=== PATIENT | male | born 1985 | race Caucasian/White ===

== ENCOUNTER 2022-12-29 11:52 | Outpatient (OUT) | payer OTHER, SELFPAY ==
--- NOTE | 2022-12-29 | XR_ITS ---
[address] [address] Patient Name: MIGUEL WHITTEN MRN: [id number] date: 1985 Sex: M Assigned Patient Location: RAD Current Patient Location: [facility] Accession/Order Number: [id number] Exam Date: 12/29/2022 12:09 Report Date: 12/29/2022 12:40 At the request of: DANIS ROCA Procedure: XR ankle RT min 3V PROCEDURE: XR tibia fibula RT 2V, XR ankle RT min 3V COMPARISON: None. HISTORY: Right ankle sprain FINDINGS: BONES:No fracture, acute abnormality, or significant arthropathy. SOFT TISSUES:Negative. No visible soft tissue swelling. EFFUSION:None visible. OTHER: Negative. XR/XR ankle RT min 3V IMPRESSION: No acute abnormality of the lower leg or ankle Electronically authenticated by: LORAINE HEADLEY Date: 12/29/2022 12:40
--- NOTE | 2022-12-29 12:03 | XR_ITS ---
The [address] [address] Patient Name: MIGUEL WHITTEN MRN: [id number] date: 1985 Sex: M Assigned Patient Location: RAD Current Patient Location: [facility] Accession/Order Number: [id number] Exam Date: 12/29/2022 12:09 Report Date: 12/29/2022 12:40 At the request of: DANIS ROCA Procedure: XR tibia fibula RT 2V PROCEDURE: XR tibia fibula RT 2V, XR ankle RT min 3V COMPARISON: None. HISTORY: Right ankle sprain FINDINGS: BONES:No fracture, acute abnormality, or significant arthropathy. SOFT TISSUES:Negative. No visible soft tissue swelling. EFFUSION:None visible. OTHER: Negative. XR/XR tibia fibula RT 2V IMPRESSION: No acute abnormality of the lower leg or ankle Electronically authenticated by: LORAINE HEADLEY Date: 12/29/2022 12:40
== END 2022-12-29 11:53 | disposition home or self-care (01) ==
PROVIDERS: Visit Provider Nurse Practitioner Family
DX: S93.401A Sprain of unspecified ligament of right ankle, initial encounter (principal)
CPT/HCPCS: 73590; 73610

== ENCOUNTER 2023-01-13 10:39 | Outpatient (OUT) | payer BC, SELFPAY ==
--- NOTE | 2023-01-13 10:48 | XR_ITS ---
The [place] [id number] Patient Name: MIGUEL WHITTEN MRN: [id number] date: 1985 Sex: M Assigned Patient Location: RAD Current Patient Location: [facility] Accession/Order Number: [id number] Exam Date: 01/13/2023 10:55 Report Date: 01/13/2023 16:00 At the request of: DANIS ROCA Procedure: XR ankle RT min 3V EXAM: XR ankle RT min 3V HISTORY: Right Ankle Sprain COMPARISON: 12/29/2022. TECHNIQUE: 3 views right ankle. FINDINGS: No fracture or dislocation. No significant soft tissue swelling. No significant degenerative change. XR/XR ankle RT min 3V IMPRESSION: Unremarkable views right ankle. Electronically authenticated by: SEAN SANDHU Date: 01/13/2023 16:00
--- NOTE | 2023-01-13 10:48 | XR_ITS ---
The [address] [address] Patient Name: MIGUEL WHITTEN MRN: [id number] date: 1985 Sex: M Assigned Patient Location: RAD Current Patient Location: [facility] Accession/Order Number: [id number] Exam Date: 01/13/2023 10:55 Report Date: 01/13/2023 16:02 At the request of: DANIS ROCA Procedure: XR tibia fibula RT 2V EXAM: XR tibia fibula RT 2V HISTORY: Right Ankle Sprain COMPARISON: None. TECHNIQUE: 2 views right lower leg. FINDINGS: Tibia and fibula are intact. Minimal soft tissue edema distally. The knee and ankle are grossly intact. XR/XR tibia fibula RT 2V IMPRESSION: No fracture right lower leg. Electronically authenticated by: SEAN SANDHU Date: 01/13/2023 16:02
== END 2023-01-13 10:40 | disposition home or self-care (01) ==
LOC: RAD 10:42
PROVIDERS: Visit Provider Nurse Practitioner Family
DX: S93.401A Sprain of unspecified ligament of right ankle, initial encounter (principal)
CPT/HCPCS: 73590; 73610

== ENCOUNTER 2023-01-20 16:48 | Emergency (ER) | payer BC, SELFPAY ==
[2023-01-20 16:51] VITALS: BP 137/107; PULSE 83; RESP 18; TEMP 36.9; O2SAT 97; BMI 41.3
--- NOTE | 2023-01-20 16:56 | CT_ITS ---
[place] [id number] Patient Name: MIGUEL WHITTEN MRN: [id number] date: 1985 Sex: M Assigned Patient Location: ER Current Patient Location: ER Accession/Order Number: [id number] Exam Date: 01/20/2023 17:21 Report Date: 01/20/2023 17:40 At the request of: IRIS BARGER Procedure: CT abdomen pelvis wo con EXAMINATION: CT abdomen pelvis wo con, 01/20/2023 2:21 PM PDT HISTORY: Flank pain COMPARISON: CT abdomen and pelvis 09/27/2021. TECHNIQUE: CT scan of the abdomen and pelvis was performed without IV contrast. CT dose reduction technique was used, including Automated Exposure Control. FINDINGS: Lung: No significant finding. Liver: No significant finding. Gallbladder: No significant finding. Spleen: No significant finding. Pancreas: No significant finding. Adrenal glands: No significant finding. Kidneys, ureters and bladder: No renal/urinary tract calculi. No hydronephrosis. Bladder is decompressed. Circumferential bladder wall thickening. Bowel: Normal appendix. Colonic diverticulosis without diverticulitis. Peritoneum/retroperitoneum: No significant finding. Lymph nodes: No significant finding. Vessels: No significant finding. Body wall: Tiny fat-containing umbilical hernia. Reproductive: No significant finding. Bones: Serpiginous sclerotic densities of the bilateral femoral heads. CT/CT abdomen pelvis wo con IMPRESSION: No renal/urinary tract calculi. Bladder wall thickening, correlate for cystitis. Early bilateral femoral head AVN. Electronically authenticated by: BRENDON TRAN Date: 01/20/2023 17:40
--- NOTE | 2023-01-20 17:03 | ED.GENADUL1 ---
HPI - General Adult General Chief complaint: Back Pain/Injury Stated complaint: Lower Back Pain x2 days Time Seen by Provider: 01/20/23 16:49 Source: patient Mode of arrival: walk-in History of Present Illness HPI narrative: patient is a 37-year-old male presents the emergency department for the evaluation of left flank pain for the last two days. He denies fevers, vomiting, urinary symptoms. He has not had any injury or trauma to the back. He denies abdominal pain. no medications taken prior to arrival. He does have a history of kidney stones. He states he had an illness as a child and now chronically has microscopic hematuria. He has not noticed any bing blood and has not had any dysuria. Pain is worse with movement. He denies any pain radiation to the lower extremities although he chronically has some pain to the bilateral hips. Related Data Home Medications Medication Instructions Recorded Confirmed allopurinol 300 mg tablet 300 mg PO DAILY 01/20/23 01/20/23 bupropion HCl 300 mg 24 hr tablet, 300 mg PO DAILY 01/20/23 01/20/23 extended release esomeprazole magnesium 40 mg 40 mg PO DAILY 01/20/23 01/20/23 capsule,delayed release levothyroxine 175 mcg tablet 175 mcg PO DAILY 01/20/23 01/20/23 (Synthroid) Previous Rx's Medication Instructions Recorded methocarbamol 750 mg tablet 750 mg PO TID PRN pain #20 tabs 01/20/23 naproxen sodium 550 mg tablet 550 mg PO BID PRN pain #10 tabs 01/20/23 Allergies Allergy/AdvReac Type Severity Reaction Status Date / Time No Known Drug Allergies Allergy Verified 01/20/23 16:51 Review of Systems ROS Constitutional Denies: fever or chills Cardiovascular Denies: chest pain Respiratory Denies: shortness of breath or cough Gastrointestinal Reports: nausea; Denies: abdominal pain or vomiting Genitourinary Denies: painful urination Musculoskeletal Reports: back pain Integumentary/Breast Denies: rash Hematologic/Lymphatic Denies: easy bruising Allergic/Immunologic Denies: hives Exam Narrative Exam Narrative: Gen.: Awake, alert, in no distress Head: Normocephalic, atraumatic ENT: Moist mucous membranes Respiratory: No respiratory distress, lungs clear bilaterally Cardio: Regular rate and rhythm Gastrointestinal: Abdomen is soft, nondistended and nontender to palpation; no spinal tenderness or CVA tenderness Extremities: Moves extremities equally, no injuries noted Psych: Normal mood and affect Neuro: No focal neuro deficit Skin: Warm, dry, intact Constitutional Vital Signs, click to edit/add: Last Vital Signs Temp 98.5 F 01/20/23 16:51 Pulse 83 01/20/23 16:51 Resp 18 01/20/23 16:51 BP 137/107 H 01/20/23 16:51 Pulse Ox 97 01/20/23 16:51 O2 Del Method Room Air 01/20/23 16:51 Course Vital Signs Vital signs: Vital Signs Temperature 98.5 F 01/20/23 16:51 Pulse Rate 83 01/20/23 16:51 Respiratory Rate 18 01/20/23 16:51 Blood Pressure 137/107 H 01/20/23 16:51 Pulse Oximetry 97 01/20/23 16:51 Oxygen Delivery Method Room Air 01/20/23 16:51 Temperature 98.5 F 01/20/23 16:51 Pulse Rate 83 01/20/23 16:51 Respiratory Rate 18 01/20/23 16:51 Blood Pressure 137/107 H 01/20/23 16:51 Pulse Oximetry 97 01/20/23 16:51 Oxygen Delivery Method Room Air 01/20/23 16:51 Medical Decision Making MDM Narrative Medical decision making narrative: patient medicated with IV fluids, Dilaudid, Toradol, Zofran with improvement. Lab studies are unremarkable, urine specimen with no hematuria or urinary tract infection. CT of the abdomen and pelvis without contrast shows no evidence of ureteral calculi. 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 He was made aware of these results, he has been seen for this in the past by orthopedics but does not currently have an orthopedist. We will give him a referral. He is given NSAIDs and muscle relaxants for his back pain, follow-up with PCP and return to the Emergency Room if symptoms change or worsen Medical Records Medical records reviewed: Yes I reviewed the patient's medical records Lab Data Lab results reviewed: Yes I reviewed the patient's lab results Labs: Lab Results 01/20/23 Range/Units 17:00 WBC 5.6 (4.0-11.0) 10^3/uL RBC 4.68 L (4.70-6.10) 10^6/uL Hgb 14.2 (14.0-18.0) g/dL Hct 41.3 L (42.0-54.0) % MCV 88.2 (80.0-94.0) fL MCH 30.3 (25.9-34.0) pg MCHC 34.4 (29.9-35.2) g/dL RDW 12.8 (11.0-15.0) % Plt Count 234 (150-450) 10^3/uL MPV 10.6 (9.5-13.5) fL Neut % (Auto) 66.9 (43.0-75.0) % Lymph % (Auto) 23.9 (20.5-60.0) % [place] % (Auto) 7.0 (1.7-12.0) % Eos % (Auto) 1.4 (0.9-7.0) % Baso % (Auto) 0.4 (0.2-2.0) % Neut # (Auto) 3.7 (1.4-6.5) 10^3/uL Lymph # (Auto) 1.3 (1.2-3.8) 10^3/uL [place] # (Auto) 0.4 (0.3-0.8) 10^3/uL Eos # (Auto) 0.1 (0.0-0.7) 10^3/uL Baso # (Auto) 0.0 (0.0-0.1) 10^3/uL Abs Immat Gran (auto) 0.02 (0.00-0.03) 10^3/uL Imm/Tot Granulo (auto) 0.4 (0.0-0.5) % Sodium 141 (136-145) mmol/L Potassium 3.9 (3.5-5.1) mmol/L Chloride 105 (98-107) mmol/L Carbon Dioxide 26.1 (21.0-32.0) mmol/L Anion Gap 13.8 BUN 13.0 (7.0-18.0) mg/dL Creatinine 1.31 H (0.70-1.30) mg/dL Est GFR ( Amer) >60 (>=60) Est GFR (Non-Af Amer) >60 (>=60) BUN/Creatinine Ratio 9.9 Glucose 96 (74-106) mg/dL Lactate 1.0 (0.4-2.0) mmol/L Calcium 8.8 (8.5-10.1) mg/dL Total Bilirubin 0.4 (0.2-1.0) mg/dL AST 16 (15-37) U/L ALT 41 (16-63) U/L Alkaline Phosphatase 58 (46-116) U/L Total Protein 7.6 (6.4-8.2) g/dL Albumin 4.2 (3.4-5.0) g/dL Globulin 3.4 g/dL Albumin/Globulin Ratio 1.2 Lipase 58.0 L (73.0-393.0) U/L Urine Color Yellow (YELLOW) Urine Clarity Clear (CLEAR) Urine pH 5.5 (5.0-9.0) Ur Specific [place] >=1.030 A (1.005-1.025) Urine Protein Negative (NEG/TRACE) mg/dL Urine Glucose (UA) Negative (NEGATIVE) mg/dL Urine Ketones Negative (NEGATIVE) mg/dL Urine Occult Blood Negative (NEGATIVE) Urine Nitrite Negative (NEGATIVE) Urine Bilirubin Negative (NEGATIVE) Urine Urobilinogen 1.0 (0.2-1.0) EU/dL Ur Leukocyte Esterase Negative (NEGATIVE) Imaging Data CT scan - abdomen: Attestation: I have reviewed the pertinent imaging results. Radiologist's impression: Procedure: CT abdomen pelvis [facility] EXAMINATION: CT abdomen pelvis wo [facility], 01/20/2023 2:21 PM PDT HISTORY: Flank pain COMPARISON: CT abdomen and pelvis 09/27/2021. TECHNIQUE: CT scan of the abdomen and pelvis was performed without IV contrast. CT dose reduction technique was used, including Automated Exposure Control. FINDINGS: Lung: No significant finding. Liver: No significant finding. Gallbladder: No significant finding. Spleen: No significant finding. Pancreas: No significant finding. Adrenal glands: No significant finding. Kidneys, ureters and bladder: No renal/urinary tract calculi. No hydronephrosis. Bladder is decompressed. Circumferential bladder wall thickening. Bowel: Normal appendix. Colonic diverticulosis without diverticulitis. Peritoneum/retroperitoneum: No significant finding. Lymph nodes: No significant finding. Vessels: No significant finding. Body wall: Tiny fat-containing umbilical hernia. Reproductive: No significant finding. Bones: Serpiginous sclerotic densities of the bilateral femoral heads. IMPRESSION: No renal/urinary tract calculi. Bladder wall thickening, correlate for cystitis. Early bilateral femoral head AVN. Electronically authenticated by: BRENDON TRAN Date: 01/20/2023 17:40 Discharge Plan Discharge Chief Complaint: Back Pain/Injury Clinical Impression: Low back pain Patient Disposition: Home, Self-Care Time of Disposition Decision: 18:06 Condition: Good Prescriptions / Home Meds: New methocarbamol 750 mg tablet 750 mg PO TID PRN (Reason: pain) Qty: 20 0RF naproxen sodium 550 mg tablet 550 mg PO BID PRN (Reason: pain) Qty: 10 0RF No Action allopurinol 300 mg tablet 300 mg PO DAILY bupropion HCl 300 mg tablet extended release 24 hr 300 mg PO DAILY esomeprazole magnesium 40 mg capsule,delayed release(DR/EC) 40 mg PO DAILY levothyroxine [Synthroid] 175 mcg tablet 175 mcg PO DAILY Instructions: Acute Low Back Pain (ED) Stand Alone Forms: Portal Instructions Referrals: Nathan De Guzman DO [Primary Care Provider] - 1 week Michael Wagner MD [Physician] - 1 week (Orthopedics regarding bilateral hip findings on CT)
[2023-01-20] MEDS: 0.9 % SODIUM CHLORIDE 1,000 ML 1000 ML IV (17:14)
[2023-01-20] MEDS: KETOROLAC TROMETHAMINE 30 MG/ML VIAL IVP (17:15)
[2023-01-20] MEDS: ONDANSETRON PF 4 MG/2 ML VIAL IV (17:15)
[2023-01-20] MEDS: HYDROMORPHONE HCL 1 MG/ML CARTRIDGE IVP (17:16)
[2023-01-20 17:20] LABS: Basophils Percent Auto 0.4 % (0.2-2.0); Eosinophils Absolute Auto 0.1 10^3/uL (0.0-0.7); Eosinophils Percent Auto 1.4 % (0.9-7.0); Hematocrit 41.3 % (42.0-54.0); Hemoglobin 14.2 g/dL (14.0-18.0); Immature Granulocytes Abs Auto 0.02 10^3/uL (0.00-0.03); Immature Granulocytes Pct Auto 0.4 % (0.0-0.5); Lymphocytes Absolute Auto 1.3 10^3/uL (1.2-3.8); Lymphocytes Percent Auto 23.9 % (20.5-60.0); Mean Corpuscular HGB Conc 34.4 g/dL (29.9-35.2); Mean Corpuscular Hemoglobin 30.3 pg (25.9-34.0); Mean Corpuscular Volume 88.2 fL (80.0-94.0); Mean Platelet Volume 10.6 fL (9.5-13.5); Monocytes Absolute Auto 0.4 10^3/uL (0.3-0.8); Neutrophils Absolute Auto 3.7 10^3/uL (1.4-6.5); Neutrophils Percent Auto 66.9 % (43.0-75.0); Platelet Count 234 10^3/uL (150-450); Red Blood Count 4.68 10^6/uL (4.70-6.10); Red Cell Distribution Width 12.8 % (11.0-15.0); White Blood Count 5.6 10^3/uL (4.0-11.0)
[2023-01-20 17:23] LABS: Bilirubin Urine NEGATIVE (NEGATIVE); Blood Urine NEGATIVE (NEGATIVE); Clarity Urine CLEAR (CLEAR); Color Urine YELLOW (YELLOW); Glucose Urine UA NEGATIVE (NEGATIVE); Ketones Urine NEGATIVE (NEGATIVE); Leukocyte Esterase Urine NEGATIVE (NEGATIVE); Nitrite Urine NEGATIVE (NEGATIVE); Protein Urine NEGATIVE (NEG/TRACE); Specific Gravity Urine >=1.030 (1.005-1.025); pH Urine 5.5 (5.0-9.0)
--- NOTE | 2023-01-20 17:23 | PC.NURSE ---
pt does reprot he had a childhood illness which was some type of purpura that caused him to have trace blood in urine. currently reports urine is no different than usual. no problems urinating or with bm's
[2023-01-20 17:27] LABS: Urine Microscopic Indicated NO
[2023-01-20 17:39] LABS: Alanine Aminotransferase 41 U/L (16-63); Albumin Globulin Ratio 1.2; Albumin Level 4.2 g/dL (3.4-5.0); Alkaline Phosphatase 58 U/L (46-116); Anion Gap 13.8; Aspartate Amino Transferase 16 U/L (15-37); BUN Creatinine Ratio 9.9; Bilirubin Total 0.4 mg/dL (0.2-1.0); Calcium 8.8 mg/dL (8.5-10.1); Carbon Dioxide 26.1 mmol/L (21.0-32.0); Chloride 105 mmol/L (98-107); Estimated GFR (African America >60 (>=60); Estimated GFR (Non-African Ame >60 (>=60); Globulin 3.4 g/dL; Glucose 96 mg/dL (74-106); Potassium 3.9 mmol/L (3.5-5.1); Sodium 141 mmol/L (136-145); Total Protein 7.6 g/dL (6.4-8.2)
== END 2023-01-20 18:14 | disposition home or self-care (01) ==
PROVIDERS: Physician Assistant; Emergency Provider Emergency Medicine; PCP Family Medicine
DX: M54.50 Low back pain, unspecified (principal); Z87.442 Personal history of urinary calculi; M87.9 Osteonecrosis, unspecified
CPT/HCPCS: 36415; 74176; 80053; 81003; 83605; 83690; 85025; 96374; 96375; 99285; J1170

== ENCOUNTER 2023-08-26 22:20 | Emergency (ER) | payer BC, SELFPAY ==
[2023-08-26 22:26] VITALS: BP 148/98; PULSE 75; TEMP 36.7; O2SAT 100
--- NOTE | 2023-08-26 22:47 | CT_ITS ---
[address] [address] Patient Name: MIGUEL WHITTEN MRN: [id number] date: 1985 Sex: M Assigned Patient Location: ER Current Patient Location: ER Accession/Order Number: [id number] Exam Date: 08/26/2023 23:30 Report Date: 08/27/2023 00:31 At the request of: LEVI MARKER Procedure: CT abdomen pelvis w con EXAM: CT abdomen pelvis w con HISTORY: Abd pain, right lower quadrant pain, vomiting and diarrhea x2 days. COMPARISON: CT 01/20/2023. TECHNIQUE: Multiple axial CT images of the abdomen and pelvis were performed with IV contrast. 2D coronal and sagittal reformations were submitted for review. Dose reduction techniques were achieved by using automated exposure control and/or adjustment of mA and/or kV according to patient size and/or use of iterative reconstruction technique. FINDINGS: LUNGS: The lung bases are clear. No pleural effusion. ABDOMINAL AORTA: No aortic aneurysm identified. LYMPH NODES: No retroperitoneal, mesenteric or pelvic lymphadenopathy. LIVER: Liver contour appears smooth. No focal liver parenchymal mass identified. BILIARY TREE AND GALLBLADDER: No intrahepatic or extrahepatic bile duct dilatation. Gallbladder is fluid distended without calcified gallstones. PANCREAS: Normal in size without masses or ductal dilatation. No peripancreatic inflammatory changes. SPLEEN: Normal in size without focal lesions. ADRENAL GLANDS: Normal bilaterally, without nodules. KIDNEYS/URINARY BLADDER: Kidneys enhance in a symmetric fashion. No parenchymal lesions identified. No KUB stones or hydronephrosis identified. The urinary bladder appears unremarkable. GASTROINTESTINAL TRACT: Scattered fluid throughout nondilated small and large bowel loops. No bowel obstruction is identified. The stomach and duodenum appear unremarkable. Appendix appears normal. PERITONEAL CAVITY AND SURFACES: No free fluid. No free intraperitoneal air. REPRODUCTIVE ORGANS: Prostate gland measures 3.0 cm. ABDOMINAL WALL: Noninflamed fat-containing umbilical hernia. OSSEOUS STRUCTURES: No aggressive appearing osseous lesions. No compression fracture is identified. Schmorl's nodes along the lower thoracic spine. 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 CT/CT abdomen pelvis w con IMPRESSION: 1. Scattered fluid throughout nondilated small and large bowel loops suggesting enterocolitis. No bowel obstruction. 2. Normal CT appearance of the appendix. 3. 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 Electronically authenticated by: SRIRAM NIÑO Date: 08/27/2023 00:31
--- NOTE | 2023-08-26 22:47 | ECG_ITS ---
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
[2023-08-26 22:57] LABS: Basophils Percent Auto 0.1 % (0.2-2.0); Eosinophils Absolute Auto 0.1 10^3/uL (0.0-0.7); Eosinophils Percent Auto 1.1 % (0.9-7.0); Hematocrit 47.6 % (42.0-54.0); Hemoglobin 15.6 g/dL (14.0-18.0); Immature Granulocytes Abs Auto 0.02 10^3/uL (0.00-0.03); Immature Granulocytes Pct Auto 0.2 % (0.0-0.5); Lymphocytes Absolute Auto 1.9 10^3/uL (1.2-3.8); Mean Corpuscular HGB Conc 32.8 g/dL (29.9-35.2); Mean Corpuscular Hemoglobin 30.1 pg (25.9-34.0); Mean Corpuscular Volume 91.9 fL (80.0-94.0); Mean Platelet Volume 10.2 fL (9.5-13.5); Monocytes Absolute Auto 0.5 10^3/uL (0.3-0.8); Monocytes Percent Auto 5.5 % (1.7-12.0); Neutrophils Absolute Auto 7.2 10^3/uL (1.4-6.5); Neutrophils Percent Auto 74.1 % (43.0-75.0); Platelet Count 269 10^3/uL (150-450); Red Blood Count 5.18 10^6/uL (4.70-6.10); Red Cell Distribution Width 13.2 % (11.0-15.0); White Blood Count 9.7 10^3/uL (4.0-11.0)
--- NOTE | 2023-08-26 23:02 | ED.ABDPAIN1 ---
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 The patient and his family went to a seafood boil on Thursday night. He is the only one that ate mussels. Shortly after dinner he started experiencing some discomfort in his lower abdomen as she described as cramps. He has had some diarrhea since that time and earlier this evening started becoming nauseated with vomiting. He has pain in the right lower quadrant that he states goes into his back. He does not really the last time he urinated but has not noticed any blood in his urine. He states his urine is always dark. He has not had a fever. His appetite is been diminished but he did have a hot dog for lunch earlier today. He has been Nauseated but has not vomited until coming to the emergency department. He has not had a fever but admits to some degree of chills. Related Data Home Medications ?Medication ?Instructions ?Recorded ?Confirmed allopurinol 300 mg tablet 300 mg PO DAILY 01/20/23 08/26/23 bupropion HCl 300 mg 24 hr tablet, 300 mg PO DAILY 01/20/23 08/26/23 extended release esomeprazole magnesium 40 mg 40 mg PO DAILY 01/20/23 08/26/23 capsule,delayed release levothyroxine 175 mcg tablet 175 mcg PO DAILY 01/20/23 08/26/23 (Synthroid) semaglutide 0.25 mg or 0.5 mg (2 0.25 mg subcut QWEEK 08/26/23 08/26/23 mg/1.5 mL) subcutaneous pen injector (Ozempic) sucralfate 1 gram tablet 1 g PO Q6H 08/26/23 08/26/23 Allergies Allergy/AdvReac Type Severity Reaction Status Date / Time No Known Drug Allergies Allergy Verified 08/26/23 22:29 Review of Systems ROS Status of ROS 10 or more systems reviewed and unremarkable except as noted in history and below Exam Narrative Exam Narrative: Nurses note and vital signs reviewed and patient is not hypoxic. Blood pressure noted to be elevated at 140/98 General: Nontoxic but uncomfortable appearing overweight adult male, he is actively vomiting upon arrival to the emergency department, no respiratory distress Skin: Warm, dry, no pallor noted. There is no rash noted. Head: Normocephalic, atraumatic Eye: Normal conjunctiva, no drainage, EOMI. PERRL. No scleral icterus Ears, Nose, Mouth, and Throat: oral mucosa is sticky Cardiovascular: Regular Rate and [id number]@, no murmurs, rubs or gallops Respiratory: Patient is in no distress, no accessory muscle use, lungs are clear to auscultation, no wheezing, rales or rhonchi Back: non-tender, no CVA tenderness bilaterally to percussion. GI: Obese, soft, diffusely tender, localizes to the right lower quadrant voluntary guarding also also has mild tenderness in the left lower quadrant Musculoskeletal: The patient has no evidence of calf tenderness, no pitting edema, symmetrical pulses noted bilaterally Neurological: A&O x4, normal speech Psychiatric: Cooperative Constitutional Vital Signs, click to edit/add: Last Vital Signs Temp 98.0 F 08/26/23 22:26 Pulse 63 08/27/23 02:09 Resp 16 08/27/23 02:09 BP 132/78 08/27/23 02:09 Pulse Ox 100 08/27/23 02:09 O2 Del Method Room Air 08/26/23 22:26 Course Vital Signs Vital signs: Vital Signs Temperature 98.0 F 08/26/23 22:26 Pulse Rate 75 08/26/23 22:26 Respiratory Rate 18 08/26/23 22:26 Blood Pressure 148/98 H 08/26/23 22:26 Pulse Oximetry 100 08/26/23 22:26 Oxygen Delivery Method Room Air 08/26/23 22:26 Temperature 98.0 F 08/26/23 22:26 Pulse Rate 63 08/27/23 02:09 Respiratory Rate 16 08/27/23 02:09 Blood Pressure 132/78 08/27/23 02:09 Pulse Oximetry 100 08/27/23 02:09 Oxygen Delivery Method Room Air 08/26/23 22:26 MDM - Abdominal Pain MDM Narrative Medical decision making narrative: This 37-year-old male presents for evaluation of right lower quadrant abdominal pain that goes into his back starting on Thursday after going to a seafood boil. He started feeling ill shortly after getting home from dinner that evening. He has had some diarrhea and abdominal cramps but today his abdominal pain became severe and localized to the right lower quadrant and is associated with nausea and vomiting. He has had some chills but no fever. He could not recall the last time he urinated. He does appear to be dehydrated. EKG done upon arrival was normal sinus rhythm at 76 beats for minute. An IV was placed and he was medicated with IV fluids, Zofran and 1 mg of IV Dilaudid. Routine labs are reviewed. He has a normal white count and hemoglobin. His electrolytes, LFTs and lipase are normal. Creatinine is mildly elevated at 1.39. CT scan of the abdomen and pelvis with IV contrast was ordered and does not show any acute findings aside fluid in the colon consistent with enteritis, There is no bowel obstruction or other notable abnormality. Appendix was noted to be normal. Results of the labs and CT scan were discussed with the patient and his . He is still having pain and will be remedicated with Bentyl and morphine and additional liter of normal saline. He still has not urinated. On re-evaluation, he is stating that his lower abdominal pain is returning and was re-medicated with a po dose of percocet and IV toradol He will be discharged home with Rx for Bentyl, zofran and percocet. He was encouraged to drink plenty of clear liquids and advance his diet slowly as tolerated Medical Records Medical records narrative: [place] [address] CT Scan Report Draft Patient: MIGUEL WHITTEN MR#: [id number] : 1985 Acct:[id number] Age/Sex: 37 / M ADM Date: 08/26/23 Loc: ER Attending Dr: Ordering Physician: Bárbara Smith Date of Service: 08/26/23 Procedure(s): CT abdomen pelvis w con Accession Number(s): [id number] cc: ~ [facility] [place] [address] Patient Name: MIGUEL WHITTEN MRN: [id number] date: 1985 Sex: M Assigned Patient Location: ER Current Patient Location: ER Accession/Order Number: [id number] Exam Date: 08/26/2023 23:30 Report Date: 08/27/2023 00:23 At the request of: BÁRBARA MARKER Procedure: CT abdomen pelvis w con EXAM: CT abdomen pelvis w con HISTORY: Abd pain, right lower quadrant pain, vomiting and diarrhea x2 days. COMPARISON: CT 01/20/2023. TECHNIQUE: Multiple axial CT images of the abdomen and pelvis were performed with IV contrast. 2D coronal and sagittal reformations were submitted for review. Dose reduction techniques were achieved by using automated exposure control and/or adjustment of mA and/or kV according to patient size and/or use of iterative reconstruction technique. FINDINGS: LUNGS: The lung bases are clear. No pleural effusion. ABDOMINAL AORTA: No aortic aneurysm identified. LYMPH NODES: No retroperitoneal, mesenteric or pelvic lymphadenopathy. LIVER: Liver contour appears smooth. No focal liver parenchymal mass identified. BILIARY TREE AND GALLBLADDER: No intrahepatic or extrahepatic bile duct dilatation. Gallbladder is fluid distended without calcified gallstones. PANCREAS: Normal in size without masses or ductal dilatation. No peripancreatic inflammatory changes. SPLEEN: Normal in size without focal lesions. ADRENAL GLANDS: Normal bilaterally, without nodules. KIDNEYS/URINARY BLADDER: Kidneys enhance in a symmetric fashion. No parenchymal lesions identified. No KUB stones or hydronephrosis identified. The urinary bladder appears unremarkable. GASTROINTESTINAL TRACT: Scattered fluid throughout nondilated small and large bowel loops. No bowel obstruction is identified. The stomach and duodenum appear unremarkable. Appendix appears normal. PERITONEAL CAVITY AND SURFACES: No free fluid. No free intraperitoneal air. REPRODUCTIVE ORGANS: Prostate gland measures 3.0 cm. ABDOMINAL WALL: Noninflamed fat-containing umbilical hernia. OSSEOUS STRUCTURES: No aggressive appearing osseous lesions. No compression fracture is identified. Schmorl's nodes along the lower thoracic spine. 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 CT/CT abdomen pelvis w con IMPRESSION: 1. Scattered fluid throughout nondilated small and large bowel loops suggesting enterocolitis. No bowel obstruction. 2. Normal CT appearance of the appendix. 3. 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 Electronically authenticated by: SRIRAM NIÑO Date: 08/27/2023 00:2 Lab Data Labs: Lab Results 08/26/23 Range/Units 22:42 WBC 9.7 (4.0-11.0) 10^3/uL RBC 5.18 (4.70-6.10) 10^6/uL Hgb 15.6 (14.0-18.0) g/dL Hct 47.6 (42.0-54.0) % MCV 91.9 (80.0-94.0) fL MCH 30.1 (25.9-34.0) pg MCHC 32.8 (29.9-35.2) g/dL RDW 13.2 (11.0-15.0) % Plt Count 269 (150-450) 10^3/uL MPV 10.2 (9.5-13.5) fL Neut % (Auto) 74.1 (43.0-75.0) % Lymph % (Auto) 19.0 L (20.5-60.0) % [place] % (Auto) 5.5 (1.7-12.0) % Eos % (Auto) 1.1 (0.9-7.0) % Baso % (Auto) 0.1 L (0.2-2.0) % Neut # (Auto) 7.2 H (1.4-6.5) 10^3/uL Lymph # (Auto) 1.9 (1.2-3.8) 10^3/uL [place] # (Auto) 0.5 (0.3-0.8) 10^3/uL Eos # (Auto) 0.1 (0.0-0.7) 10^3/uL Baso # (Auto) 0.0 (0.0-0.1) 10^3/uL Abs Immat Gran (auto) 0.02 (0.00-0.03) 10^3/uL Imm/Tot Granulo (auto) 0.2 (0.0-0.5) % Sodium 138 (136-145) mmol/L Potassium 3.4 L (3.5-5.1) mmol/L Chloride 103 (98-107) mmol/L Carbon Dioxide 25.1 (21.0-32.0) mmol/L Anion Gap 13.3 BUN 16.0 (7.0-18.0) mg/dL Creatinine 1.39 H (0.70-1.30) mg/dL Est GFR ( Amer) >60 (>=60) Est GFR (Non-Af Amer) 58 L (>=60) BUN/Creatinine Ratio 11.5 Glucose 123 H (74-106) mg/dL Lactate 2.2 H* (0.4-2.0) mmol/L Calcium 9.3 (8.5-10.1) mg/dL Total Bilirubin 0.8 (0.2-1.0) mg/dL AST 17 (15-37) U/L ALT 35 (16-63) U/L Alkaline Phosphatase 69 (46-116) U/L Total Protein 7.4 (6.4-8.2) g/dL Albumin 4.2 (3.4-5.0) g/dL Globulin 3.2 g/dL Albumin/Globulin Ratio 1.3 Lipase 33.0 (16.0-77.0) U/L Urine Color Yellow (YELLOW) Urine Clarity Clear (CLEAR) Urine pH 5.5 (5.0-9.0) Ur Specific [place] >=1.030 A (1.005-1.025) Urine Protein Trace (NEG/TRACE) mg/dL Urine Glucose (UA) Negative (NEGATIVE) mg/dL Urine Ketones Negative (NEGATIVE) mg/dL Urine Occult Blood Negative (NEGATIVE) Urine Nitrite Negative (NEGATIVE) Urine Bilirubin Negative (NEGATIVE) Urine Urobilinogen 1.0 (0.2-1.0) EU/dL Ur Leukocyte Esterase Negative (NEGATIVE) Urine RBC 0-2 (0-2) #/HPF Urine WBC 0-2 A (NONE SEEN) #/HPF Ur Squamous Epith Cells None seen (NONE/RARE) #/LPF Urine Crystals Seen A (None Seen) #/HPF Urine Bacteria Trace A (NONE SEEN) #/HPF Urine Casts Seen A (NONE SEEN) #/LPF Hyaline Casts Rare Urine Mucus Moderate A (NONE SEEN) Ur Culture Indicated? No ECG Data Attestation: I personally reviewed and interpreted this ECG as follows: (Sinus rhythm at 76 beats for minute, normal axis, normal intervals, no acute ST segment elevation or T-wave inversion) Discharge Plan Discharge Stand Alone Forms: Portal Instructions Chief Complaint: Abdominal Pain Clinical Impression: Gastroenteritis, Enterocolitis Patient Disposition: Home, Self-Care Time of Disposition Decision: 02:30 Condition: Good Prescriptions / Home Meds: No Action allopurinol 300 mg tablet 300 mg PO DAILY bupropion HCl 300 mg tablet extended release 24 hr 300 mg PO DAILY esomeprazole magnesium 40 mg capsule,delayed release(DR/EC) 40 mg PO DAILY levothyroxine [Synthroid] 175 mcg tablet 175 mcg PO DAILY sucralfate 1 gram tablet 1 g PO Q6H Ozempic 0.25 mg or 0.5 mg(2 mg/1.5 mL) pen injector 0.25 mg subcut QWEEK Rx Instructions: for 4 weeks Print Language: Turkish Instructions: Gastroenteritis (ED), Acute Nausea and Vomiting (ED), Acute Diarrhea (ED) Referrals: Nathan De Guzman DO [Primary Care Provider] - 1 week
[2023-08-26] MEDS: FAMOTIDINE/PF 20 MG/2 ML VIAL IV (23:05)
[2023-08-26] MEDS: 0.9 % SODIUM CHLORIDE 1,000 ML 1000 ML IV (23:05)
[2023-08-26] MEDS: HYDROMORPHONE HCL 1 MG/ML CARTRIDGE IV (23:05)
[2023-08-26] MEDS: ONDANSETRON PF 4 MG/2 ML VIAL IV (23:05)
[2023-08-26 23:13] LABS: Alanine Aminotransferase 35 U/L (16-63); Albumin Globulin Ratio 1.3; Albumin Level 4.2 g/dL (3.4-5.0); Alkaline Phosphatase 69 U/L (46-116); Anion Gap 13.3; Aspartate Amino Transferase 17 U/L (15-37); BUN Creatinine Ratio 11.5; Bilirubin Total 0.8 mg/dL (0.2-1.0); Calcium 9.3 mg/dL (8.5-10.1); Carbon Dioxide 25.1 mmol/L (21.0-32.0); Chloride 103 mmol/L (98-107); Estimated GFR (African America >60 (>=60); Estimated GFR (Non-African Ame 58 (>=60); Globulin 3.2 g/dL; Glucose 123 mg/dL (74-106); Potassium 3.4 mmol/L (3.5-5.1); Sodium 138 mmol/L (136-145); Total Protein 7.4 g/dL (6.4-8.2)
[2023-08-26 23:18] LABS: Lactate/Lactic Acid 2.2 mmol/L (0.4-2.0)
[2023-08-27 00:01] LABS: Bilirubin Urine NEGATIVE (NEGATIVE); Blood Urine NEGATIVE (NEGATIVE); Clarity Urine CLEAR (CLEAR); Color Urine YELLOW (YELLOW); Glucose Urine UA NEGATIVE (NEGATIVE); Ketones Urine NEGATIVE (NEGATIVE); Leukocyte Esterase Urine NEGATIVE (NEGATIVE); Nitrite Urine NEGATIVE (NEGATIVE); Protein Urine TRACE mg/dL (NEG/TRACE); Specific Gravity Urine >=1.030 (1.005-1.025); pH Urine 5.5 (5.0-9.0)
[2023-08-27 00:09] LABS: Bacteria Urine TRACE #/HPF (NONE SEEN); Crystals Seen? Seen #/HPF (None Seen); Mucus Urine MODERATE (NONE SEEN); RBC Urine 0-2 #/HPF (0-2); Squamous Epithelial Cell Urine NONE SEEN #/LPF (NONE/RARE); WBC Urine 0-2 #/HPF (NONE SEEN)
[2023-08-27 00:11] LABS: Cast Seen? SEEN #/LPF (NONE SEEN); Hyaline Casts Urine RARE; Urine Culture Indicated NO
[2023-08-27] MEDS: MORPHINE SULFATE 4 MG/ML VIAL IV (00:49)
[2023-08-27] MEDS: DICYCLOMINE HCL 20 MG/2 ML VIAL IM (00:49)
[2023-08-27] MEDS: 0.9 % SODIUM CHLORIDE 1,000 ML 1000 ML IV (00:49)
[2023-08-27] MEDS: KETOROLAC TROMETHAMINE 30 MG/ML VIAL 15 MG IVP (02:07)
[2023-08-27] MEDS: OXYCODONE HCL/ACETAMINOPHEN 5MG/325MG 1 TAB PO ×2 (02:07→02:45)
[2023-08-27 02:09] VITALS: BP 132/78; PULSE 63; O2SAT 100
[2023-08-27] MEDS: ONDANSETRON 4 MG RAPDIS TABLET SL (02:45)
== END 2023-08-27 02:48 | disposition home or self-care (01) ==
PROVIDERS: Emergency Provider Emergency Medicine; PCP Family Medicine
DX: K52.9 Noninfective gastroenteritis and colitis, unspecified (principal); Z79.899 Other long term (current) drug therapy; Z79.890 Hormone replacement therapy; M87.9 Osteonecrosis, unspecified; D89.9 Disorder involving the immune mechanism, unspecified
CPT/HCPCS: 36415; 74177; 80053; 81001; 83605; 83690; 85025; 87507; 93005; 96361; 96372; 96374; 96375; 99285; J0500; J1170; Q9967

== ENCOUNTER 2023-09-27 13:48 | Emergency (ER) | payer BC, SELFPAY ==
--- OUTSIDE RECORDS SUMMARY | 2023-09-27 13:54 | XMS_ITS | CCD ---
Author Organization [facility] Care Team Providers Care Junior Php Developer Name Role Phone Jacob Ray Primary Care Provider [phone] Nathan Ray Unavailable DO Nathan Ray Primary Care Provider DO Nathan Ray Attending Provider ULISSES MOROCHO Attending Unavailable BAILEE, ULISSES Consulting Unavailable ULISSES MOROCHO Admitting Unavailable FLOR, DR EVANS Primary Care Unavailable GILBERT MILLER Consulting Unavailable TERRY SANZ Consulting Unavailable FLOR, DR EVANS Primary Care Unavailable PRUDENCIO, DR LES Rivera Attending Unavailable PRUDENCIO, DR LES Rivera Consulting Unavailable PRUDENCIO, DR LES Rivera Admitting Unavailable ANA MARTINEZ Consulting Unavailable ZAC, DR BHATIA Attending Unavailable ZAC, DR BHATIA Consulting Unavailable ZAC, DR BHATIA Admitting Unavailable FLOR, DR EVANS Primary Care Unavailable FLOR, DR EVANS Consulting Unavailable FLOR, DR EVANS Primary Care Unavailable NIAS, DR EVANS Admitting Unavailable KUNS, DR EVANS Attending Unavailable KUNS, DR EVANS Primary Care Unavailable KUNS, DR EVANS Admitting Unavailable KUNS, DR EVANS Attending Unavailable KUNS, DR EVANS Consulting Unavailable BERNARDO Mcdonough Attending Provider Kamlesh Church Unavailable Jack Mason Unavailable DO Nathan Ray Primary Care Provider [phone] BERNARDO Mcdonough Attending Provider MD Kamlesh Church Attending Provider [phone] DO Nathan Ray Primary Care Provider DO Nathan Ray Attending Provider MD Elmer Gonzalez II Attending Provider [phone] Elmer Gonzalez II Unavailable [phone] DO Nathan Ray Primary Care Provider [phone] Flor, DO Evans Attending Provider [phone] Shanna Rodgers Unavailable DO Nathan Ray Primary Care Provider MD Elmer Gonzalez II Attending Provider DO Fredo Parker Attending Provider [phone] BERNARDO Hale Attending Provider Erica Hale Unavailable Kasey Garcia Unavailable KELLEN WATSON Attending Unavailable KINA PARKERIN Referring Unavailable KELLEN WATSON Attending Unavailable KEITH FREDO Referring Unavailable MARILYN CURRY Attending Unavailable KEITH, FREDO Referring Unavailable KELLEN WATSON Attending Unavailable KEITH FREDO Referring Unavailable KELLEN WATSON Attending Unavailable KEITH FREDO Referring Unavailable Unavailable Primary Care Provider UnavailDO Nathan Bailey Primary Care Provider [phone] MD Elmer Gonzalez II Attending Provider Fredo Parker Unavailable DO Nathan Ray Primary Care Provider MD Elmer Gonzalez II Attending Provider [phone] Elmer Gonzalez II Attending Unavailabl Nathan Ellis Primary Care Unavailable Elmer Gonzalez II Admitting Unavaildonn e Nathan Ray Primary Care Unavailable Elmer Gonzalez II Admitting UnavailElmer Quispe II Attending UnavailaNthan Bailey Primary Care Unavailable Fredo Parker Admitting Unavailable Fredo Parker A Attending Unavailable Nathan Ray Primary Care Unavailable Erica Hale Admitting Unavailable Erica Hale Attending Unavailable NiasNathan Attending Unavailable Kuns, Nathan Admitting Unavailable Kuns, Nathan Primary Care Unavailable Kuns, Nathan Attending Unavailable Kuns, Nathan Admitting Unavailable Kuns, Nathan Primary Care Unavailable Kuns, Nathan Primary Care Unavailable Greer II, Elmer Black Admitting Unavailabl e Greer II, Elmer M Attending Unavailabl e Kuns, Nathan Primary Care Unavailable Fredo Parker Admitting Unavailable Fredo Parker Attending Unavailable Kuns, Nathan Primary Care Unavailable Kmalesh Church Admitting Unavailable Kamlesh Church Attending Unavailable Kuns, Jacob Lizzy Primary Care Provider Fredo Parker DO Unavailable [phone] JIM CROUCH Referring Unavailable KUNS, [facility] Primary Care Unavailable JIM CROUCH Referring Unavailable KUNS, JACOB LIZZY Primary Care Unavailable Flor, DO Evans Primary Care Provider [phone] DO Fredo Parker Attending Provider [facility] [phone] JIM CROUCH Referring Unavailable [facility], [facility] Primary Care Unavailable [facility], JACOB LIZZY Primary Care Unavailable JIM CROUCH Attending Unavailable FREDO PARKER Referring Unavailable KUNS, JACOB LIZZY Primary Care Unavailable JIM CROUCH Attending Unavailable SRIRAM FAUSTIN Attending Unavailable ARSLAN BRYANT Referring Unavailable BRYANTARSLAN Attending Unavailable BRYANT, ARSLAN E Referring Unavailable NIENBERGSRIRAM Attending Unavailable NIAS, NATHAN P Referring Unavailable BRYANT, ARSLAN E Admitting Unavailable BRYANT, ARSLAN E Attending Unavailable BRYANT, ARSLAN E Referring Unavailable BRYANT, ARSLAN E Attending Unavailable BRYANT, ARSLAN E Referring Unavailable NIENBERGSRIRAM S Attending Unavailable FREDO PARKER Referring Unavailable NIENBERGSRIRAM Attending Unavailable NIENBERGSRIRAM S Referring Unavailable BRYANT, ARSLAN E Admitting Unavailable BRYANT, ARSLAN E Attending Unavailable KUNS, NATHAN P Referring Unavailable BRYANT, ARSLAN E Attending Unavailable BRYANT, ARSLAN E Referring Unavailable Allergies Allergy Classification Reported Allergen(s) Allergy Type Date of Onset Reaction(s) Facility (6 sources) Ibuprofen Drug Allergy Unknown [facility] Other (3 sources) Non-steroidal anti-inflammato ry agent; Translations: [NSAIDS (NON-STEROIDAL ANTI-INFLAMMATO RY DRUG)] Propensity to adverse reactions to drug 4 GI Disturbance [place] (1 source) Ibuprofen Drug Allergy 4 [facility] Repository Medications Current Medications Medication Drug Class(es) Dates Sig (Normalized) Sig (Original) 0.25 MG, 0.5 MG Dose 3 ML semaglutide 0.68 MG/ML Pen Injector [Ozempic] (2 sources) Start: 12-18-2022 Ozempic (0.25 or 0.5 MG/DOSE) 2 MG/3ML 0.25mg as directed Subcutaneous once a week for 28 days Dec, Active 8 hr acetaminophen 650 mg extended release oral tablet (15 sources) take 2 tablets by mouth three times daily as needed Tylenol 8 Hour Arthritis Pain 650 MG 2 tablets as needed Orally TID Active acetaminophen 300 mg / codeine phosphate 30 mg oral tablet (4 sources) Opioid Agonist Start: 04-18-2021 take 1 tablet by mouth every six hours as needed acetaminophen-code ine (TYLENOL-COD #3) 300-30 mg per tablet Take 1 tablet by mouth every 6 hours as needed. 0 04/18/2021 Active Comment on above: Take 1 tablet by jose every 6 hours as needed. allopurinol 300 mg oral tablet (20 sources) Xanthine Oxidase Inhibitor Start: 08-09-2017 take 300 mg by mouth once daily Allopurinol Active 300 MG PO Daily August 09, 2017 12:00am Comment on above: Take 300 mg by mouth once daily. {1 (ascorbic acid 7540 MG / polyethylene glycol 3350 76136 MG / potassium chloride 1200 MG / sodium ascorbate 89892 MG / sodium chloride 3200 MG Powder for Oral Solution) / 1 (polyethylene glycol 3350 130535 MG / potassium chloride 1000 MG / sodium chloride 2000 MG / sodium sulfate 9000 MG Powder for Oral Solution) } Pack [Plenvu] (3 sources) Osmotic Laxative, Vitamin C Start: 07-02-2022 Plenvu 140 GM dose 1 pouch at 4pm, dose 2 pouch A & B at 11pm Orally twice a day for 1 days BIN:[id number] PCN: [id number] GROUP:[id number] ID:[id number] Jul, Active atenolol 50 mg oral tablet (5 sources) beta-Adrenergic [place] Start: 10-21-2007 ATENOLOL 50 MG TAB Take one(1) tablet daily. 30 1 10/21/2007 Active Comment on above: Take one(1) tablet d aily. azelastine hydrochloride 0.137 mg/actuat metered dose nasal spray (20 sources) Histamine-1 Receptor Antagonist Start: 12-30-2019 Azelastine Active 1 SPRAY INTRANASAL Twice daily December 30, 2019 12:00am Start: 12-04-2017 End: 05-11-2019 Azelastine Discontinued 1 SP RAY INTRANASAL Twice daily December 04, 2017 12:00am May 11, 2019 10:05pm Start: 10-02-2016 take 1 puff(s) nasal route twice daily Azelastine HCl 0.1 % 1 puff in each nostril Nasally Twice a day for 30 day(s) Oct, Active Start: 10-02-2016 take 1 puff(s) nasal route twice daily Azelastine HCl 0.1 % 1 puff in each nostril Nasally Twice a day for 30 day(s) Oct, Active Start: 10-02-2016 azelastine HCl ( AZELASTINE NASAL) Use in the nose. 0 Active Comment on above: Use in the nose. 24 hr buPROPion hydrochloride 300 mg extended release oral tablet (20 sources) Aminoketone Start: 021 take 1 tablet by mouth once daily in the morning buPROPion XL (WELLBUTRIN XL) 300 mg 24 hr tablet Take 300 mg by mouth every morning. 0 03/14/2021 Active Comment on above: Take 300 mg by mouth every morning. cyclobenzaprine hydrochloride 10 mg oral tablet (20 sources) Muscle Relaxant Start: 020 take 10 mg by mouth once daily Cyclobenzaprine Active 10 MG PO Daily December 30, 2019 12:00am Start: 08-09-2017 End: 05-11-2019 take 10 mg by mouth every twelve hours Cyclobenzaprine Discontinued 10 MG PO Q12H August 09, 2017 6:16pm May 11, 2019 10:05pm cyclobenzaprine HCl (CYCLOBENZAPRINE ORAL) Take by mouth. 0 Active Comment on above: Take by mouth. esomeprazole 40 mg oral tablet (20 sources) Proton Pump Inhibitor Start: 4 take 40 mg by mouth twice daily Esomeprazole Magnesium Active 40 MG PO Twice daily July 20, 2023 12:00am Start: 07-20-2023 End: 07-21-2023 take 40 mg by mouth twice daily Esomeprazole Magnesium Discontinued 40 MG PO Twice daily July 20, 2023 12:00am July 21, 2023 4:30pm Start: 11-28-2019 take 1 capsule by mo ut every twelve hours esomeprazole (NexIUM) 40 mg capsule Take 1 capsule (40 mg total) by mouth every 12 (twelve) hours. 0 03/26/2021 Active Start: 11-28-2019 take 1 capsule by mo [facility] every twelve hours Esomeprazole Magnesium 40 MG 1 capsule Orally twice a day for 90 days Nov, Active Comment on above: Take 40 mg by mouth DAILY (6 AM). levothyroxine sodium 0.175 mg oral tablet (20 sources) l-Thyroxine Start: 4 take 1 tablet by mouth once daily in the morning Levothyroxine Active 175 MCG PO Daily July 20, 2023 12:00am 1 tablet in the morning on an empty stomach Orally Once a day Start: 10-30-2018 End: 07-20-2023 take 150 ug by mouth once daily Levothyroxine Disconti nued 150 MCG PO Daily October 30, 2018 12:00am July 20, 2023 4:38pm Start: 08-09-2017 End: 10-30-2018 take 150 ug by mouth once daily Levothyroxine Disconti nued 150 MCG PO Daily August 09, 2017 12:00am October 30, 2018 8:28pm levothyroxine (S YNTHROID) 175 mcg tablet Take 150 mcg by mouth daily before breakfast. 0 Active take 1 tablet by jose th in the morning levothyroxine (SYNTHROID, LEVOTHROID) 175 MCG tablet Take 1 tablet (175 mcg total) by mouth in the morning. 0 Active take 1 tablet by jose th once daily in the morning Levothyroxine Sodium 175 MCG 1 tablet in the morning on an empty stomach Orally Once a day Active take 1 capsule by mo uth once daily before breakfast levothyroxine 150 mcg cap Take 150 mcg by mouth daily before breakfast. 0 Active Comment on above: Take 150 mcg by mout h daily before breakfast. methIMAzole 10 mg oral tablet (5 sources) Thyroid Hormone Synthesis Inhibitor Start: 10-21-19 08 take 2 tablets by mouth once daily methimazole(TAPAZOLE 10 MG TAB) Take two (2) by mouth once daily. 60 5 10/21/2007 Active Comment on above: Take two (2) by mout h once daily. OXcarbazepine 150 mg oral tablet (8 sources) Anti-epileptic Agent take 1 tablet by mouth every twelve hours OXcarbazepine 150 MG 1 tablet Orally Twice a day Active oxyCODONE hydrochloride 5 mg oral tablet (1 source) Opioid Agonist take 1 tablet by mouth every six hours oxyCODONE HCl 5 MG 1 tablet as needed Orally every 6 hrs Active pregabalin 150 mg oral capsule (16 sources) Start: 11-29-19 take 1 capsule by mouth every twelve hours Pregabalin 150 MG 1 capsule Orally BID for 90 days Nov, Active Start: 03-05-2021 take 1 capsule by mo uth every twelve hours Pregabalin 75 MG 1 capsule Orally BID for 90 days May, Active Comment on above: Take 75 mg by mouth twice daily. semaglutide (weight loss) (1 source) Start: 07-20-2023 semaglutide (weight loss) Active 0.6 MG SUBCUT Once a week July 20, 2023 12:00am 0.5 mL Injection weekly Semaglutide Sodium 0.6 mg/ 0.5 mL 0.5 mL (11 sources) Start: 01-22-2023 Semaglutide Sodium 0.6 mg/ 0.5 mL 0.5 mL 0.5 mL Injection weekly for 30 days * SEMAGLUTIDE BASE NOT SODIUM * Jan, Active Start: 01-22-2023 Semaglutide So dium 0.6 mg/ 0.5 mL 0.5 mL 0.5 mL Injection 7 days * SEMAGLUTIDE BASE NOT SODIUM * Jan, Active sucralfate 1000 mg oral tablet (20 sources) Aluminum Complex Start: 03-26-2021 take 1 tablet by mouth every twelve hours sucralfate (CARAFATE) 1 gram tablet Take 1 tablet (1 g total) by mouth every 12 (twelve) hours. 0 03/26/2021 Active Start: 11-28-2019 take 1 tablet by jose th twice daily sucralfate (CARAFATE) 1 gram tablet take 1 tablet by mouth twice a day AN EMPTY STOMACH 0 03/04/2021 Active Start: 11-28-2019 take 1 tablet by jose th every twelve hours Carafate 1 GM 1 tablet on an empty stomach Orally Twice a day for 90 days Nov, Active Comment on above: take 1 tablet by jose th twice a day AN EMPTY STOMACH Completed/Discontinued Medications Medication Drug Class(es) Dates Sig (Normalized) Sig (Original) betamethasone 0.5 mg/ml topical cream (8 sources) Corticosteroid Start: 05-06-2022 Betamethasone Dipropionate 0.05 % 1 application Externally Once a day May, Not-Taking citalopram 10 mg oral tablet (11 sources) Serotonin Reuptake Inhibitor Start: 08-09-2017 End: 12-30-2019 take 2 tablets by mouth once daily Citalopram (Celexa) 10 mg Tablet Discontinued 20 MG PO Daily August 09, 2017 12:00am December 30, 2019 11:31am famotidine 26.6 mg / ibuprofen 800 mg oral tablet (11 sources) Nonsteroidal Anti-inflammatory Drug, Histamine-2 Receptor Antagonist Start: 12-04-2017 End: 05-11-2019 take 1 tablet by mouth three times daily Ibuprofen-Famotidi ne (Duexis) 800-26.6 mg Tablet Discontinued 1 TAB PO Three times daily December 04, 2017 12:00am May 11, 2019 10:05pm gabapentin 300 mg oral capsule (11 sources) Anti-epileptic Agent Start: 12-30-2019 End: 07-20-2023 take 300 mg by mouth twice daily Gabapentin Discontinued 300 MG PO Twice daily December 30, 2019 12:00am July 20, 2023 4:38pm ibuprofen 800 mg oral tablet (11 sources) Nonsteroidal Anti-inflammatory Drug Start: 08-09-2017 End: 12-04-2017 Ibuprofen Discontinued 800 MG PO every 6 to 8 hours 30 August 09, 2017 12:00am December 04, 2017 9:17am Ketorolac (20 sources) Nonsteroidal Anti-inflammatory Drug, Cyclooxygenase Inhibitor Start: 08-24-2017 Toradol per 15 mg Aug, 2 cc LORazepam 0.5 mg oral tablet (16 sources) Benzodiazepine Start: 10-29-2021 take 1 tablet by mouth once daily as needed Ativan 0.5 MG 1 tablet PRN Orally Once a day Oct, Not-Taking Start: 08-06-2021 take 1 tablet by jose th once daily as needed Ativan 0.5 MG 1 tablet PRN Orally Once a day Aug, Active methylPREDNISolone (20 sources) Corticosteroid Start: 07-16-2020 SOLU-MEDROL 41 - 125 mg Jul, 125 mg methylPREDNISolo ne 4 MG Oral for 6 Days Active naltrexone 380 mg injection (11 sources) Opioid Antagonist Start: 12-30-2019 End: 07-20-2023 inject 380 mg by intramuscular injection every month Naltrexone Microspheres (Vivitrol) 380 mg Suspension,Extended Rel Recon Discontinued 380 MG IM every month December 30, 2019 12:00am July 20, 2023 4:38pm naproxen 500 mg oral tablet (11 sources) Nonsteroidal Anti-inflammator y Drug Start: 09-28-2017 End: 12-04-2017 take 1 tablet by mouth twice daily at mealtime Naproxen (Naprosyn) 500 mg tablet Discontinued 500 MG PO Twice daily September 28, 2017 12:00am December 04, 2017 9:17am administer with food or milk 24 hr nicotine 0.875 mg/hr transdermal system (7 sources) Cholinergic Nicotinic Agonist Start: 07-20-2023 End: 07-21-2023 apply 1 dose transdermal route once daily Nicotine Discontinued 1 PATCH TRANSDERML Daily July 20, 2023 12:00am July 21, 2023 4:30pm Start: 04-13-2023 Nicotine Step 1 21 MG/24HR 1 patch to skin Transdermal Once a day Please dispense amount and brand allowed by insurance. Apr, Active nystatin 166537 unt oral tablet (11 sources) Polyene Antifungal Start: 12-04-2017 End: 05-11-2019 take 701073 [IU] by mouth three times daily Nystatin Discontinued 750316 UNIT PO Three times daily December 04, 2017 12:00am May 11, 2019 10:05pm omeprazole 40 mg delayed release oral capsule (20 sources) Proton Pump Inhibitor Start: 12-30-2019 End: 07-20-2023 take 40 mg by mouth twice daily Omeprazole Discontinued 40 MG PO Twice daily December 30, 2019 12:00am July 20, 2023 4:38pm Start: 08-09-2017 End: 05-11-2019 take 40 mg by mouth once daily Omeprazole Discontinued 40 MG PO Daily August 09, 2017 12:00am May 11, 2019 10:05pm pantoprazole 40 mg delayed release oral tablet (11 sources) Proton Pump Inhibitor Start: 10-30-2018 End: 12-30-2019 take 40 mg by mouth once daily Pantoprazole Discontinued 40 MG PO Daily October 30, 2018 12:00am December 30, 2019 11:34am penicillin v potassium 500 mg oral tablet (11 sources) Start: 09-28-2017 End: 05-11-2019 take 500 mg by mouth four times daily Penicillin V Potassium Discontinued 500 MG PO Four times daily 40 September 28, 2017 12:00am May 11, 2019 10:04pm predniSONE 20 mg oral tablet (11 sources) Start: 08-09-2017 End: 08-14-2017 take 60 mg by mouth once daily at mealtime Prednisone Discontinued 60 MG PO Daily 15 5 August 09, 2017 12:00am August 14, 2017 12:02am administer with food or milk Semaglutide Sodium 0.3 mg/ 0.25 mL 0.25 mL (6 sources) Semaglutide Sodi um 0.3 mg/ 0.25 mL 0.25 mL 0.25 mL Injection Once Not-Taking/PRN Semaglutide Sodi um 0.3 mg/ 0.25 mL 0.25 mL 0.25 mL Injection Once Active TB Test (20 sources) Start: 11-10-2012 TB Test Nov 0.1 traMADol hydrochloride 50 mg oral tablet (13 sources) Opioid Agonist take 1 tablet by mouth twice daily as needed traMADol HCl 50 MG 1 tablet as needed Orally prn up to twice per day Not-Taking Problems Active Problems Problem Classification Problem Date Documented Da te Episodic/Chronic Abdominal pain (7 sources) Right upper quadrant pain; Translations: [Right lower quadrant pain] Onset: 2 Episodic Acute and unspecified renal failure (10 sources) Injury of kidney; Translations: [Acute kidney failure, unspecified] 05-11-2019 Episodic Anxiety disorders (20 sources) Panic disorder; Translations: [Panic disorder [episodic paroxysmal anxiety]] Onset: 2 Resolved: 2 Chronic Aspiration pneumonitis; food/vomitus (10 sources) Aspiration pneumonia; Translations: [Pneumonitis due to inhalation of food and vomit] 05-11-2019 Episodic Coagulation and hemorrhagic disorders (20 sources) Thrombocytopenic disorder; Translations: [Thrombocytopenia, unspecified] Chronic Deficiency and other anemia (19 sources) Anemia; Translations: [Anemia, unspecified] Episodic Diabetes mellitus without complication (9 sources) Hyperglycemia, unspecified; Translations: [Other abnormal glucose] Onset: 2 Resolved: 2 Episodic Disorders of lipid metabolism (20 sources) Hyperlipidemia; Translations: [Hyperlipidemia, unspecified] Onset: 1 Resolved: 2 Chronic Esophageal disorders (20 sources) Gastro-esophageal reflux disease with esophagitis; Translations: [Gastro-esophageal reflux disease with esophagitis] Onset: 2 Resolved: 2 Chronic Gastritis and duodenitis (20 sources) Gastritis; Translations: [Gastritis, unspecified, without bleeding] Episodic Gastrointestinal hemorrhage (20 sources) Hemorrhage of anus and rectum; Translations: [Rectal hemorrhage] Episodic Gout and other crystal arthropathies (20 sources) Gout; Translations: [Gout, unspecified] Onset: 2 Resolved: 2 Chronic Hemorrhoids (20 sources) Hemorrhoids; Translations: [Unspecified hemorrhoids] Episodic Immunizations and screening for infectious disease (20 sources) Hepatitis C antibody test positive; Translations: [Other specified abnormal immunological findings in serum] Onset: 2 Resolved: 2 Episodic Malaise and fatigue (4 sources) Other fatigue Onset: 2 Resolved: 2 Episodic Mood disorders (20 sources) Depressive disorder; Translations: [Major depressive disorder, single episode, unspecified] Onset: 1 Resolved: 2 Chronic Osteoarthritis (1 source) Osteoarthritis of joint of left shoulder region; Translations: [Primary osteoarthritis, left shoulder] 07-20-2023 Chronic Other bone disease and musculoskeletal deformities (20 sources) Avascular necrosis of bone of hip; Translations: [Idiopathic aseptic necrosis of unspecified femur] 07-17-2023 Chronic Other bone disease and musculoskeletal deformities (11 sources) Idiopathic aseptic necrosis of bone; 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] Chronic Other bone disease and musculoskeletal deformities (16 sources) Idiopathic aseptic necrosis of left femur; 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] Onset: 3 Chronic Other bone disease and musculoskeletal deformities (15 sources) Idiopathic aseptic necrosis of right femur; 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] Chronic Other bone disease and musculoskeletal deformities (12 sources) Avascular necrosis of bone; Translations: [Idiopathic aseptic necrosis of unspecified bone] 07-21-2023 Chronic Other bone disease and musculoskeletal deformities (4 sources) Idiopathic aseptic necrosis of unspecified bone; Translations: [Aseptic necrosis of bone, site unspecified] Onset: 4 Chronic Other bone disease and musculoskeletal deformities (1 source) Osteonecrosis, unspecified; Translations: [Osteonecrosis of hip (HCC)] Onset: 4 Chronic Other bone disease and musculoskeletal deformities (1 source) Bilateral hips aseptic necrosis; 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] 08-31-2023 Chronic Other connective tissue disease (11 sources) Rhabdomyolysis; Translations: [Rhabdomyolysis] 05-12-2019 Episodic Other disorders of stomach and duodenum (20 sources) Indigestion; Translations: [Functional dyspepsia] Episodic Other gastrointestinal disorders (20 sources) Irritable bowel syndrome; Translations: [Irritable bowel syndrome without diarrhea] Chronic Other hematologic conditions (20 sources) History of vasculitis; Translations: [Personal history of diseases of the blood and blood-forming organs and certain disorders involving the immune mechanism] 07-20-2023 Episodic Other hematologic conditions (1 source) Personal history of diseases of the blood and blood-forming organs and certain disorders involving the immune mechanism Episodic Other hereditary and degenerative nervous system conditions (1 source) Restless legs syndrome; Translations: [Restless legs syndrome] Chronic Other hereditary and degenerative nervous system conditions (13 sources) Restless legs; Translations: [Restless legs syndrome] 07-20-2023 Chronic Other liver diseases (10 sources) Increased creatine kinase level; Translations: [Abnormal levels of other serum enzymes] 05-11-2019 Episodic Other lower respiratory disease (1 source) Pleurodynia; Translations: [PLEURODYNIA] Onset: 2 Episodic Other nervous system disorders (20 sources) Chronic pain; Translations: [Other chronic pain] 07-20-2023 Chronic Other nervous system disorders (20 sources) Bilateral carpal tunnel syndrome; Translations: [Carpal tunnel syndrome, bilateral upper limbs] Chronic Other nervous system disorders (2 sources) Carpal tunnel syndrome, bilateral upper limbs Onset: 1 Resolved: 1 Chronic Other nervous system disorders (20 sources) Meralgia paresthetica; Translations: [Meralgia paresthetica, right lower limb] 07-20-2023 Chronic Other nervous system disorders (6 sources) Other chronic pain; Translations: [Other chronic pain] Onset: 2 Resolved: 2 Chronic Other nervous system disorders (1 source) Meralgia paresthetica, right lower limb Onset: 2 Resolved: 2 Chronic Other nervous system disorders (1 source) Carpal tunnel syndrome; Translations: [Carpal tunnel syndrome, bilateral upper limbs] 07-20-2023 Chronic Other nervous system disorders (20 sources) Paresthesia; Translations: [Paresthesia of skin] Episodic Other non-traumatic joint disorders (10 sources) Disorder of hip joint; Translations: [Other specific joint derangements of left hip, not elsewhere classified] Chronic Other non-traumatic joint disorders (2 sources) Other specific joint derangements of left hip, not elsewhere classified Chronic Other non-traumatic joint disorders (20 sources) Multiple joint pain; Translations: [Pain in unspecified joint] Episodic Other non-traumatic joint disorders (2 sources) Pain in left shoulder; Translations: [Pain in left shoulder] Onset: 1 Resolved: 1 Episodic Other non-traumatic joint disorders (2 sources) Pain in right hip Episodic Other non-traumatic joint disorders (4 sources) Pain in left hip; Translations: [Pain in left hip] Onset: 3 Episodic Other non-traumatic joint disorders (3 sources) Bilateral chronic pain of upper limbs; Translations: [Pain in right shoulder] Onset: 4 05-28-2023 Episodic Other non-traumatic joint disorders (2 sources) Other specified joint disorders, unspecified hip; Translations: [Other specified joint disorders, unspecified hip] Onset: 4 Episodic Other non-traumatic joint disorders (1 source) Pain in wrist Onset: 4 Episodic Other non-traumatic joint disorders (1 source) Pain in right shoulder; Translations: [Pain in right shoulder] Onset: 4 Episodic Other nutritional; endocrine; and metabolic disorders (20 sources) Body mass index 40+ - severely obese; Translations: [Body mass index (BMI) 40.0-44.9, adult] 07-21-2023 Chronic Other nutritional; endocrine; and metabolic disorders (20 sources) Metabolic syndrome X; Translations: [Metabolic syndrome] 07-20-2023 Chronic Other nutritional; endocrine; and metabolic disorders (20 sources) Obesity; Translations: [Obesity, unspecified] 05-11-2019 Chronic Other nutritional; endocrine; and metabolic disorders (3 sources) Obesity, unspecified; Translations: [Obesity, unspecified] Chronic Other nutritional; endocrine; and metabolic disorders (3 sources) Body mass index (BMI) 40.0-44.9, adult; Translations: [Body Mass Index 40.0-44.9, adult] Chronic Other skin disorders (4 sources) Localized swelling, mass and lump, neck Onset: 2 Resolved: 2 Episodic Other skin disorders (20 sources) Neck swelling; Translations: [Localized swelling, mass and lump, neck] Episodic Other skin disorders (2 sources) Rash and other nonspecific skin eruption Episodic Pneumonia (except that caused by tuberculosis or sexually transmitted disease) (10 sources) Pneumonia; Translations: [Pneumonia, unspecified organism] 05-11-2019 Episodic Poisoning by other medications and drugs (20 sources) Overdose of opiate; Translations: [Poisoning by unspecified narcotics, undetermined, subsequent encounter] 05-11-2019 Episodic Residual codes; unclassified (11 sources) Obstructive sleep apnea syndrome; Translations: [Obstructive sleep apnea (adult) (pediatric)] 05-11-2019 Chronic Residual codes; unclassified (20 sources) Amnesia; Translations: [Other amnesia] 07-20-2023 Episodic Residual codes; unclassified (3 sources) Other amnesia Episodic Residual codes; unclassified (10 sources) Left against medical advice; Translations: [Procedure and treatment not carried out because of patient's decision for other reasons] 10-30-2018 Episodic Residual codes; unclassified (10 sources) Noncompliance with treatment; Translations: [Noncompliance with treatment] 05-12-2019 Episodic Residual codes; unclassified (19 sources) History of operative procedure on shoulder; Translations: [Other specified postprocedural states] Episodic Residual codes; unclassified (2 sources) Other specified postprocedural states Episodic Spondylosis; intervertebral disc disorders; other back problems (4 sources) Lumbosacral spondylosis without myelopathy; Translations: [Spondylosis without myelopathy or radiculopathy, lumbosacral region] Onset: 4 07-09-2023 Chronic Spondylosis; intervertebral disc disorders; other back problems (11 sources) Sciatica; Translations: [Sciatica, unspecified side] Onset: 4 08-09-2017 Episodic Sprains and strains (2 sources) Other sprain of left hip, initial encounter Episodic Substance-related disorders (20 sources) History of drug abuse; Translations: [Other psychoactive substance abuse, in remission] Onset: 2 Resolved: 2 Chronic Thyroid disorders (20 sources) Hypothyroidism; Translations: [Hypothyroidism, unspecified] Onset: 1 Resolved: 2 Chronic Unclassified (1 source) CONTACT W/AND (SUSP) EXPOS COVID-19; Translations: [CONTACT W/AND (SUSP) EXPOS COVID-19] Onset: 2 Unclassified (1 source) Other sprain of left hip, initial encounter; Translations: [Other sprain of left hip, initial encounter] Onset: 4 Unclassified (1 source) Idiopathic aseptic necrosis of right femur; 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] Onset: 3 Unclassified (1 source) Pain in right hip; Translations: [Pain in right hip] Onset: 3 Unclassified (1 source) Second degree hemorrhoids; Translations: [Second degree hemorrhoids] Onset: 3 Past or Other Problems Problem Classification Problem Date Documented Date Episodic/Chronic Deficiency and other anemia (3 sources) Anemia, unspecified; Translations: [Anemia, unspecified] Onset: 11-14-2022 Episodic Lymphadenitis (6 sources) Lymphadenopathy; Translations: [Enlarged lymph nodes, unspecified] Onset: 04-21-2006 04-21-2006 Episodic Mood disorders (1 source) Emotional lability Onset: 10-29-2021 Resolved: 10-29-2021 Episodic Other aftercare (1 source) Other shelter (current) drug therapy; Translations: [OTH HALFWAY CURRENT DRUG THERAPY] Onset: 10-01-2021 Episodic Other connective tissue disease (2 sources) Other specified soft tissue disorders Onset: 10-29-2021 Resolved: 11-05-2021 Episodic Other non-traumatic joint disorders (2 sources) Pain in unspecified joint Onset: 03-14-2021 Resolved: 11-28-2021 Episodic Other non-traumatic joint disorders (1 source) Shoulder pain Onset: 05-28-2023 Episodic Other non-traumatic joint disorders (1 source) Joint pain Onset: 05-28-2023 Episodic Other screening for suspected conditions (not mental disorders or infectious disease) (1 source) Other specified abnormal findings of blood chemistry; Translations: [Other specified abnormal findings of blood chemistry] Onset: 11-14-2022 Episodic Other skin disorders (2 sources) Localized swelling, mass and lump, head Onset: 10-29-2021 Resolved: 11-05-2021 Episodic Other skin disorders (2 sources) Generalized hyperhidrosis Onset: 10-29-2021 Resolved: 11-05-2021 Episodic Unclassified (1 source) Low back pain, unspecified M54.50 Results Test Name Value Interpretation Reference Range Facility [facility] 08-31-2023 CNOV Office Visit (ORAVON ) MIGUEL WHITTEN ([id number]) 1985 M Date Time Provider Department 08/31/23 10:00 AM JIM CROUCH During your visit today, we recorded the following information about you: Jim Crouch DO 08/31/2023 10:[address] Nilesh Holguin in [facility] CrouchJim manjarrez DO 08/31/2023 11:25 AM Signed Miguel Whitten is a patient of Jacob Ray DO. CHIEF COMPLAINT: Miguel Whitten is a 37 year old male who presents today for follow up of imaging results. HISTORY OF PRESENT ILLNESS: PAIN EVALUATION 08/27/2023204708/31/2023 1013 Pain Level: 8 7 Pain Location: Hip-Right Hip-Left right hip Description: Aching;Radiating;Ubaldo p;Shooting;Stiffness; Throbbing;Tightness Aching;Sharp;Shooting ;Sore;Stiffness;Tight ness;Stabbing/Not Incision Duration Amount of Time: -- 1 Duration Units: Months Years Frequency: Continuous Continuous Intervention/Comfort measure: Medication;Reposition Medication;Cold;Heat; Exercise Comments: Constant ache and sharp pains that come and go -- Patient presents for follow up of imaging results. Imaging demonstrated IMPRESSION: CHRONIC APPEARING OSTEONECROSIS OF THE FEMORAL HEADS BILATERALLY, MORE EXTENSIVE ON THE RIGHT THAN THE LEFT BUT WITHOUT ARTICULAR SURFACE COLLAPSE. THIS IS UNCHANGED COMPARED WITH THE IMPORTED MRI OF 03/06/2023 BILATERAL ACETABULAR LABRAL TEARS. SMALL AREA OF 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 . Location of pain: bilateral hips Right hip > left hip Any new injury, since being seen last: No SOCIAL HISTORY: Tobacco Use: Types: Chew (Chews tobacco) PHYSICAL EXAMINATION: Specific MSK Exam Pain with right hip motion Antalgic gait noted CLINICAL IMPRESSION / ASSESSMENT: (M87.051, M87.052) Avascular necrosis of bones of both hips (HCC) (primary encounter diagnosis) PLAN: Discussed with him about treatment options for the hip AVN Both imaging and clinically his right hip is worse Discussed the option of surgical consultation vs CSI He would like to set up with surgical partner to discuss option for the right hip at this time Consult placed Will monitor the left hip for now Procedures Jim Crouch DO Referring Provider: SELF [200] Allergies As of Date: 08/31/2023 (No Known Allergies) Date Reviewed: 08/31/2023 Reviewed by: Jim Crouch DO - Fully Assessed Reason for Visit: Established Patient [175] Hip Pain [136] Primary Visit Diagnosis:Avascular necrosis of bones of both hips (HCC) [M87.051, M87.052] Order(s):CONSULT TO ORTHOPAEDIC SURGERY [19990604] Order #: [id number]: 1 FUTURE Prescriptions as of 08/31/2023 - sucralfate (CARAFATE) 1 gram tablet take 1 tablet by mouth twice a day AN EMPTY STOMACH - buPROPion XL (WELLBUTRIN XL) 300 mg 24 hr tablet Take 300 mg by mouth every morning. - acetaminophen-codeine (TYLENOL-COD #3) 300-30 mg per tablet Take 1 tablet by mouth every 6 hours as needed. - cyclobenzaprine HCl (CYCLOBENZAPRINE ORAL) Take by mouth. - allopurinol (ZYLOPRIM) 300 mg tablet Take 300 mg by mouth once daily. - pregabalin (LYRICA) 75 mg capsule Take 75 mg by mouth twice daily. - levothyroxine (SYNTHROID) 175 mcg tablet Take 150 mcg by mouth daily before breakfast. - azelastine HCl (AZELASTINE NASAL) Use in the nose. - esomeprazole (NEXIUM) 40 mg capsule Take 40 mg by mouth DAILY (6 AM). - ATENOLOL 50 MG TAB Take one(1) tablet daily. - methimazole(TAPAZOLE 10 MG TAB) Take two (2) by mouth once daily. Problem List As Of Date 08/31/2023 Noted Resolved ENLARGEMENT LYMPH NODES [R59.9] 04/21/2006 Other instructions from your clinician: Dr. Nilesh Holguin in [facility] Encounter Status:Closed by JIM CROUCH on 08/31/23 [facility] 07-17-2023 ALLIED [facility] HNO ID: [id number] Author: PAOLA CASTORENA RT(R) Service: Radiology Author Type: Technologist Type: Allied Health Filed: 07/17/2023 07:13 Note Text: Radiology Service Progress Note PATIENT NAME: Miguel Whitten DATE OF SERVICE: July 17, 2023 TIME: 7:12 AM PATIENT IDENTITY VERIFICATION COMPLETED USING TWO (2) IDENTIFIERS: Name and Date of confirmed by patient verbally and Name and Date of confirmed by identification band. FALL SCREENING: Has the patient had 2 falls in the last year or 1 fall with injury or currently using an Ambulatory Assistive Device (Walker, Cane, Wheelchair, Crutches, etc.)? No PATIENT GENDER DATA: Male PATIENT RELEVANT IMPLANT DATA REVIEWED: Yes PATIENT PRESENTS WITH AN IMPLANTABLE OR ATTACHED BROKER AGRICULTURAL PRODUCE: No RADIOLOGY DEPARTMENT: MR; Exam(s) Completed: Lower MSK: Hip, bilateral PERIPHERAL IV DATA: Not applicable SIGNED BY: RT Pinky(R) July 17, 2023 7:12 AM Normal [facility] MRI HIP WO IVCON LTon 2023 MRI HIP WO IVCON LT * * *Final Report* * * DATE OF EXAM: Jul 17 2023 7:19AM [facility] [id number] - MRI HIP WO IVCON LT / PROCEDURE REASON: Osteonecrosis of hip (HCC) * * * * Physician Interpretation * * * * History: . Osteonecrosis of hip (HCC) . Technique: Routine MRI of the pelvis and both hips, with smaller field of view images of both hips; Comparison: Imported MRI 03/06/2023; radiographs 06/29/2023 Result: HIP JOINTS: Right hip: Chronic appearing osteonecrosis of the right femoral head without articular surface collapse or bone marrow edema. This is unchanged. There is also partial tearing of the anterior superior acetabular labrum and a small area of high-grade partial-thickness chondral loss anterior superior acetabulum. Left hip: Osteonecrosis of left femoral head, smaller extent than on the comparison right side and unchanged from the prior study. Anterior superior and superolateral tear of the acetabular labrum with a left-sided perilabral cyst measuring about 12 mm in greatest dimension. The articular cartilage appears to be preserved. SI JOINTS: Normal appearing sacroiliac joints bilaterally. BONE MARROW: There is no evidence of fracture, bone bruise, marrow replacing lesion or osteonecrosis. TENDONS: The rectus femoris tendons, iliopsoas tendons, hamstring tendons, hip adductor and abductor tendons appear to be intact bilaterally. MUSCLE: Muscle bulk and signal intensity are within normal limits. NERVES: The visualized portions of the lumbosacral plexus and sciatic nerves appear to be within normal limits. VISCERAL PELVIS: Limited evaluation of the visceral pelvis is unremarkable. OTHER: No other significant abnormality identified. IMPRESSION: CHRONIC APPEARING OSTEONECROSIS OF THE FEMORAL HEADS BILATERALLY, MORE EXTENSIVE ON THE RIGHT THAN THE LEFT BUT WITHOUT ARTICULAR SURFACE COLLAPSE. THIS IS UNCHANGED COMPARED WITH THE IMPORTED MRI OF 03/06/2023 BILATERAL ACETABULAR LABRAL TEARS. SMALL AREA OF 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 Sprinkler Helper: PSCLeonard Transcribe Date/Time: Jul 17 2023 8:10A Dictated by : JENNIFER ZHANG MD This examination was interpreted and the report reviewed and electronically signed by: JENNIFER ZHANG MD on Jul 17 2023 8:26AM EST [id number] Normal [facility] MRI HIP WO IVCON RTon 2023 MRI HIP WO IVCON RT * * *Final Report* * * DATE OF EXAM: Jul 17 2023 7:19AM [id number] - MRI HIP WO IVCON RT / PROCEDURE REASON: Osteonecrosis of hip (HCC) * * * * Physician Interpretation * * * * History: . Osteonecrosis of hip (HCC) . Technique: Routine MRI of the pelvis and both hips, with smaller field of view images of both hips; Comparison: Imported MRI 03/06/2023; radiographs 06/29/2023 Result: HIP JOINTS: Right hip: Chronic appearing osteonecrosis of the right femoral head without articular surface collapse or bone marrow edema. This is unchanged. There is also partial tearing of the anterior superior acetabular labrum and a small area of high-grade partial-thickness chondral loss anterior superior acetabulum. Left hip: Osteonecrosis of left femoral head, smaller extent than on the comparison right side and unchanged from the prior study. Anterior superior and superolateral tear of the acetabular labrum with a left-sided perilabral cyst measuring about 12 mm in greatest dimension. The articular cartilage appears to be preserved. SI JOINTS: Normal appearing sacroiliac joints bilaterally. BONE MARROW: There is no evidence of fracture, bone bruise, marrow replacing lesion or osteonecrosis. TENDONS: The rectus femoris tendons, iliopsoas tendons, hamstring tendons, hip adductor and abductor tendons appear to be intact bilaterally. MUSCLE: Muscle bulk and signal intensity are within normal limits. NERVES: The visualized portions of the lumbosacral plexus and sciatic nerves appear to be within normal limits. VISCERAL PELVIS: Limited evaluation of the visceral pelvis is unremarkable. OTHER: No other significant abnormality identified. IMPRESSION: CHRONIC APPEARING OSTEONECROSIS OF THE FEMORAL HEADS BILATERALLY, MORE EXTENSIVE ON THE RIGHT THAN THE LEFT BUT WITHOUT ARTICULAR SURFACE COLLAPSE. THIS IS UNCHANGED COMPARED WITH THE IMPORTED MRI OF 03/06/2023 BILATERAL ACETABULAR LABRAL TEARS. SMALL AREA OF 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 Sprinkler Helper: CIARA Transcribe Date/Time: Jul 17 2023 8:10A Dictated by : JENNIFER ZHANG MD This examination was interpreted and the report reviewed and electronically signed by: JENNIFER ZHANG MD on Jul 17 2023 8:26AM EST [id number] Normal [facility] No Panel Informationon 07-16 [facility] CNOVon 06-29-2023 CNOV Office Visit (ORAVON ) MIGUEL WHITTEN ([id number]) 1985 M Date Time Provider Department 06/29/23 10:45 AM JIM CROUCH ORNORMA During your visit today, we recorded the following information about you: Jim Crouch DO 06/29/2023 12:53 PM Signed SERVICE DATE: June 29, 2023 PCP: Jacob Ray DO Consult requested by PCP for an opinion regarding chief complaint as stated below. My final impression and recommendations will be communicated back to the requesting physician by way of the shared medical record or letter via US mail. Subjective Patient ID: Miguel is a 37 year old male. The patient reports that he was diagnosed with Avascular necrosis of bilateral hips in 2016. He reports that he had a CT last February which showed Avascular necrosis and his doctor recommended an MRI. He reports that he had a right hip injection in 2017 and reports not having much relief. He reports that he has groin pain bilaterally with right being worse than left. He describes the pain sharp and constant. He rates the pain a 7 or 8/10 in severity. He reports the pain has limited his ability to work. He reports that that the pain is gradually worsening. He takes Tylenol for pain without having relief. He also has used topical Voltaren with having no relief. He reports that laying down and sitting makes the pain better. The pain worsens with going up and down the stairs and pedaling. The patient started PT and he last went on 05/27. He notes that he is unable to finish the PT sessions 06/05 to pain. Chief Complaint: Patient presents with: Right Hip - New Right Hip Pain PAIN EVALUATION 06/25/2023 2207 06/29/2023 1029 Pain Level: 7 8 Pain Location: Hip-Right Hip-Right left hip pain Description: Dull;Numbness;Pulsati ng;Radiating;Sharp;St abbing;Stiffness;Thro bbing Aching;Sharp;Radiatin g Duration Amount of Time: 24 8 Duration Units: Hours Years Frequency: Continuous Continuous Intervention/Comfort measure: Medication;Reposition ;Distractions;Positio enmanuel Medication;Exercise Comments: -- hip injection 2017 right hip HPI TREATMENTS PRIOR TO INITIAL CONSULT: Right Physical Therapy Left Physical Therapy Review of Systems Constitutional: Negative for fever. HENT: Negative for congestion. Respiratory: Negative for cough. Cardiovascular: Negative for chest pain. Skin: Negative for rash. Neurological: Negative for numbness. ACTIVE PROBLEM LIST Enlargement of Lymph Nodes PAST MEDICAL HISTORY Diagnosis Date PMH - PAST MEDICAL HISTORY OF At age 19 Shingles on left side of neck PMH - PAST MEDICAL HISTORY OF At age 19 Abdominal adenopathies-stable Prolonged PTT 04/2021 PAST SURGICAL HISTORY Procedure Laterality Date PAST SURGICAL HISTORY OF Left shoulder PAST SURGICAL HISTORY OF Left fifth toe repair REMOVE TONSILS/ADENOIDS,<12 Y/O REVISE MEDIAN N/CARPAL TUNNEL SURG Right 04/18/2021 FAMILY HISTORY Problem Relation Age of Onset Thyroid Other Maternal great grandmother Thyroid Mother Hypothyroidism Diabetes Paternal Grandmother Diabetes Paternal Uncle He has had it since he was 37 and on insulin Diabetes Father Olman sugar Diabetes Other Great grandfather on mother side Diabetes Paternal Grandmother Social History Tobacco Use Smoking status: Never Smokeless tobacco: Current Types: Chew Tobacco comments: Chews tobacco Substance Use Topics Alcohol use: Yes Comment: Beer one a day. Sometimes 3-4 Drug use: No ALLERGIES No Known Allergies MEDICATIONS: sucralfate (CARAFATE) 1 gram tablet take 1 tablet by mouth twice a day AN EMPTY STOMACH buPROPion XL (WELLBUTRIN XL) 300 mg 24 hr tablet Take 300 mg by mouth every morning. acetaminophen-codeine (TYLENOL-COD #3) 300-30 mg per tablet Take 1 tablet by mouth every 6 hours as needed. cyclobenzaprine HCl (CYCLOBENZAPRINE ORAL) Take by mouth. allopurinol (ZYLOPRIM) 300 mg tablet Take 300 mg by mouth once daily. pregabalin (LYRICA) 75 mg capsule Take 75 mg by mouth twice daily. levothyroxine (SYNTHROID) 175 mcg tablet Take 150 mcg by mouth daily before breakfast. azelastine HCl (AZELASTINE NASAL) Use in the nose. esomeprazole (NEXIUM) 40 mg capsule Take 40 mg by mouth DAILY (6 AM). ATENOLOL 50 MG TAB Take one(1) tablet daily. methimazole(TAPAZOLE 10 MG TAB) Take two (2) by mouth once daily. Allergies, medications, past surgical history, family history and past medical history were reviewed per this encounter. Objective Right Ankle Exam Other Sensation: normal Comments: Positive FADIR Positive SALINA Left Ankle Exam Other Sensation: normal Comments: Positive FADIR Positive SALINA Back Exam Tenderness The patient is experiencing tenderness in the lumbar. Range of Motion Extension: abnormal Flexion: normal Muscle Strength Right Quadriceps: 4/5 Left Quadriceps: 4/5 Right H (more content not included)... Normal [facility] XR HIP LUTHER 5V PEL+ AP/LAT EA HIPon 06-29-2023 XR HIP LUTHER 5V PEL+ AP/LAT EA HIP * * *Final Report* * * DATE OF EXAM: Jun 29 2023 10:28AM AFR [id number] - XR HIP LUTHER 5V PEL+ AP/LAT EA HIP / PROCEDURE REASON: Pain in left hip * * * * Physician Interpretation * * * * HISTORY: Pain in left hip . AVN RIGHT IS WORSE TECHNIQUE: XR HIP LUTHER 5V PEL+ AP/LAT EA HIP Laterality: BILATERAL Number of different views (projections): 5 COMPARISON: MRI pelvis 03/06/2023 RESULT: Patchy sclerosis and lucency of the femoral heads bilaterally compatible with avascular necrosis. No evidence of acute fracture or subchondral collapse. No dislocation.. Hip joint spaces, pubic symphysis, and sacroiliac joints are maintained. Soft tissues are unremarkable. IMPRESSION: Bilateral femoral head avascular necrosis. No subchondral collapse. Sprinkler Helper: CIARA Transcribe Date/Time: Jun 29 2023 1:48P Dictated by : LUCHO RAMOS MD This examination was interpreted and the report reviewed and electronically signed by: LUCHO RAMOS MD on Jun 29 2023 1:49PM EST [id number] Normal [facility] XR SHOULDER LT MIN 2 VWSon 0 05-28-2023 XR SHOULDER LT MIN 2 VWS XR SHOULDER LT MIN 2 VWS XR SHOULDER LT MIN 2 VWS HISTORY: Chronic pain of both shoulders. COMPARISON: None. IMPRESSION: Operative changes distal clavicle, with distal clavicular well-corticated osseous fragment and widening chronic clavicular space. Additional operative changes likely reconstructed coracoclavicular ligaments. No convincing fracture, dislocation or malalignment about the glenohumeral joint. Finalized by Marc Nicholas MD on 05/28/2023 4:35 PM Normal [facility] XR SHOULDER RT MIN 2 VWSon 0 05-28-2023 XR SHOULDER RT MIN 2 VWS XR SHOULDER RT MIN 2 VWS XR SHOULDER RT MIN 2 VWS HISTORY: Chronic pain of both shoulders. COMPARISON: None. IMPRESSION: 1. No acute fracture or dislocation. Congruent acromioclavicular joint. Finalized by Marc Nicholas MD on 05/28/2023 4:33 PM Normal [facility] XR Shoulder - left 2 Viewson 05-28-2023 XR SHOULDER LT MIN 2 VWS HISTORY: Chronic pain of both shoulders. COMPARISON: None. IMPRESSION: Operative changes distal clavicle, with distal clavicular well-corticated osseous fragment and widening chronic clavicular space. Additional operative changes likely reconstructed coracoclavicular ligaments. No convincing fracture, dislocation or malalignment about the glenohumeral joint. Finalized by Marc Nicholas MD on 05/28/2023 4:35 PM Marc Cyr MD - 05/28/2023 XR SHOULDER LT MIN 2 VWS HISTORY: Chronic pain of both shoulders. COMPARISON: None. IMPRESSION: Operative changes distal clavicle, with distal clavicular well-corticated osseous fragment and widening chronic clavicular space. Additional operative changes likely reconstructed coracoclavicular ligaments. No convincing fracture, dislocation or malalignment about the glenohumeral joint. Finalized by Marc Nicholas MD on 05/28/2023 4:35 PM [facility] [address] Radiology Study observation (narrative) [facility] XR Shoulder - right 2 Viewso n 05-28-2023 XR SHOULDER RT MIN 2 VWS HISTORY: Chronic pain of both shoulders. COMPARISON: None. IMPRESSION: 1. No acute fracture or dislocation. Congruent acromioclavicular joint. Finalized by Marc Nicholas MD on 05/28/2023 4:33 PM Marc Cyr MD - 05/28/2023 XR SHOULDER RT MIN 2 VWS HISTORY: Chronic pain of both shoulders. COMPARISON: None. IMPRESSION: 1. No acute fracture or dislocation. Congruent acromioclavicular joint. Finalized by Marc Nicholas MD on 05/28/2023 4:33 PM [facility] Radiology Study observation (narrative) [facility] XR Shoulder - right 2 ViewsO rdered By: Marc Nicholas on 05-28-2023 [facility] Work Phone: XR hip BI w [id number] 05-28-19 XR hip BI w [id number] [facility] [place] [address] XRay Report Signed Patient: Miguel Whitten MR#: [id number] : 1985 Acct:[id number] Age/Sex: 37 / M ADM Date: 05/28/23 Loc: [facility] Room: Type: [facility] Attending Dr: Fredo Parker DO Copies to: Fredo Parker DO Ordering Provider: Fredo Parker DO Date of Service: 05/28/23 XR/XR hip BI w PEL1V: AVN (avascular necrosis of bone) 2 views both hips with single view pelvis plain film COMPARISON: 03/30/2023 HISTORY: Bilateral hip pain for months ACUTE FINDINGS: Continued subarticular sclerotic changes of the right femoral head consistent with avascular necrosis. Subtle sclerosis also identified in the left femoral head suggesting small bowel portion of the avascular necrosis. No visible subchondral collapse. Stable bony alignment. DEGENERATIVE CHANGE: Adequate joint spaces. 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 Impression dictated by: Chang Vasquez M.D.05/28/2023 4:57 PM Dictation Location: [facility]--12 Transcribed By: [facility] 05/28/231656 Dictated By: Chang Vasquez DO 05/28/231653 Signed By: 05/28/231656 [facility] XR hip BI w PEL1V [facility] [employer] Other XR hip BI w PEL1V [facility] Main [facility] [employer] Other XR hip BI w PEL1V [address] [place] [address] [employer] Other XR [place] [address] [employer] Other XR hip BI w PEL1V XRay Report [employer] Other XR hip BI w PEL1V Signed [facility] Other XR hip BI w PEL1V Patient: Miguel Whitten MR#: [id number] [employer] Other XR hip BI w PEL1V : 1985 Acct:[id number] [employer] Other XR hip BI w PEL1V Age/Sex: 37 / M ADM Date: 05/28/23 [employer] Other XR hip BI w PEL1V Loc: [place] Room: Type : [facility] [employer] Other XR hip BI w PEL1V Attending Dr: Fredo Parker DO [employer] Other XR hip BI w PEL1V Copies to: Fredo Parker, DO [employer] Other XR hip BI w PEL1V Ordering Provider: Fredo Parker, DO [employer] Other XR hip BI w PEL1V Date of Service: 05/28/23 [employer] Other XR hip BI w PEL1V XR/XR hip BI w PEL1V: AVN (avascular necrosis of bone) [employer] Other XR hip BI w PEL1V 2 views both hips with single view pelvis plain film [employer] Other XR hip BI w PEL1V COMPARISON: 03/30/2023 [employer] Other XR hip BI w PEL1V HISTORY: Bilateral hip pain for months [employer] Other XR hip BI w PEL1V ACUTE FINDINGS: Continued subarticular sclerotic changes of the right femoral head consistent with [employer] Other XR hip BI w PEL1V avascular necrosis. Subtle sclerosis also identified in the left femoral head suggesting small bowel [employer] Other XR hip BI w PEL1V portion of the avascular necrosis. No visible subchondral collapse. Stable bony alignment. [employer] Other XR hip BI w PEL1V DEGENERATIVE CHANGE: Adequate joint spaces. 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 [employer] Other XR hip BI w PEL1V Impression dictated by: Chang Vasquez M.D.05/28/2023 4:57 PM [employer] Other XR hip BI w PEL1V Dictation Location: [place] [address] [employer] Other XR hip BI w PEL1V Transcribed By: PWS 05/28/23 [facility] [employer] Other XR hip BI w PEL1V Dictated By: Chang Vasquez DO 05/28/23 [facility] [employer] Other XR hip BI w PEL1V Signed By: [employer] Other XR hip BI w PEL1V 05/28/[address] [place] [address] [employer] Other A1C HEMOGLOBINon 04-14-2023 HbA1c (Bld) [Mass fraction] 5.3 % [employer] Other HbA1c (Bld) [Mass fraction]o n 04-14-2023 A1C HEMOGLOBIN [facility] [employer] Other XR hip BI w [id number] 03-30-20 XR hip BI w PEL1V [facility] [place] [address] [place] [address] XRay Report Signed Patient: Miguel Whitten MR#: [id number] : 1985 Acct:[id number] Age/Sex: 37 / M ADM Date: 03/30/23 Loc: [facility] Room: Type: [facility] Attending Dr: Fredo Parker DO Copies to: Fredo Parker DO Ordering Provider: Fredo Parker DO Date of Service: 03/30/23 XR/XR hip BI w PEL1V: Pain in right hip;Pain in left hip ADULT PELVIS WITH BILATERAL HIPS - 2 views each CLINICAL HISTORY: Bilateral hip pain for months. Right hip AVN. COMPARISON: None FINDINGS: Examination is suboptimal due to body habitus. There appears to be subtle sclerosis and lucency involving the femoral heads bilaterally suggestive of underlying avascular necrosis. No significant femoral head collapse is identified. Minimal degenerative change. Sclerosis is seen involving the pubic symphysis. XR/XR hip BI w PEL1V IMPRESSION: SUBTLE SCLEROSIS AND LUCENCY IS SEEN INVOLVING THE FEMORAL HEADS BILATERALLY SUGGESTIVE OF AVASCULAR NECROSIS. NO FEMORAL HEAD COLLAPSE IS IDENTIFIED. Impression dictated by: Jonathan Liang Jr., D.OShilpi03/30/2023 4:03 PM Dictation Location: [place] [address] Transcribed By: [facility] 03/30/23 160 Dictated By: Jonathan Liang Jr, DO 03/30/23 1601 Signed By: 03/30/23 160 [facility] MR hip LT wo conon MR hip LT wo con [facility] [place] [address] [place] [address] MRI Report Signed Patient: Miguel Whitten MR#: [id number] : 1985 Acct:[id number] Age/Sex: 37 / M ADM Date: 03/06/23 Loc: Room: Type: [facility] Attending Dr: Elmer Gonzalez II, MD Copies to: Elmer Gonzalez MD Ordering Provider: Elmer Gonzalez MD Date of Service: 03/06/23 MR/MR hip LT wo con: Idiopathic aseptic necrosis of left femur MRI left hip without contrast Routine technique HISTORY: Assessment for AVN Pelvis: PUBIC SYMPHYSIS: Unremarkable SI JOINTS: Unremarkable COMPARISON HIP: Unremarkable VISUALIZED LUMBAR SPINE: Unremarkable Bone: BONE MARROW EDEMA: Mild findings of AVN of the superior portion of the femoral head identified. BONE MARROW INFILTRATION: None FRACTURE: None CAM DEFORMITY: None Joint space: LIGAMENTUM TERES: Unremarkable LABRUM: There is tear of the anterolateral portion of the labrum with associated ganglion cyst measuring up to 2 cm. There reticular cartilage is intact. CARTILAGE: Intact SYNOVIAL PROLIFERATION: None Tendons: GLUTEUS MINIMUS TENDON: Intact. Normal attachment of the anterior facet. GLUTEUS MEDIUS TENDON: Intact. Normal lateral and superolateral facet attachment. ILIOPSOAS TENDON: Intact. Anterior position anterior to the anterior labrum. No bursitis. RECTUS FEMORIS TENDON: Intact PIRIFORMIS MUSCLE: Unremarkable ADDITIONAL FINDINGS: None INGUINAL HERNIA: None MR/MR hip LT wo con IMPRESSION: Anterior lateral labral tear with associated up to 2 cm ganglion cyst. Findings of subtle AVN of the femoral head. Impression dictated by: Chang Vasquez M.D.03/06/2023 9:19 PM Dictation Location: [place] [address] Transcribed By: [facility] 03/06/232118 Dictated By: Chang Vasquez DO 03/06/232111 Signed By: 03/06/232118 [facility] MR hip RT wo conon MR hip RT wo con [facility] [place] [address] [place] [address] MRI Report Signed Patient: Miguel Whitten MR#: [id number] : 1985 Acct:[id number] Age/Sex: 37 / M ADM Date: 03/06/23 Loc: Room: Type: [facility] Attending Dr: Elmer Gonzalez II, MD Copies to: Elmer Gonzalez MD Ordering Provider: Elmer Gonzalez MD Date of Service: 03/06/23 MR/MR hip RT wo con: Idiopathic aseptic necrosis of right femur MRI RIGHT hip without contrast Routine technique HISTORY: Assessment for AVN. Pelvis: PUBIC SYMPHYSIS: Unremarkable SI JOINTS: Unremarkable COMPARISON HIP: Possible AVM. VISUALIZED LUMBAR SPINE: Unremarkable Bone: BONE MARROW EDEMA: Heterogeneous signal changes of the superior portion of the humeral head concerning for AVN. No articular collapse. Special to 2 cm. Mild bone marrow edema. BONE MARROW INFILTRATION: None FRACTURE: None CAM DEFORMITY: None Joint space: LIGAMENTUM TERES: Unremarkable LABRUM: No tear. Chondral labrum intact. CARTILAGE: Intact SYNOVIAL PROLIFERATION: None Tendons: GLUTEUS MINIMUS TENDON: Intact. Normal attachment of the anterior facet. GLUTEUS MEDIUS TENDON: Intact. Normal lateral and superolateral facet attachment. ILIOPSOAS TENDON: Intact. Anterior position anterior to the anterior labrum. No bursitis. RECTUS FEMORIS TENDON: Intact PIRIFORMIS MUSCLE: Unremarkable Findings a mild bursitis. Adjacent inflammation of the gluteus dirk muscle. ADDITIONAL FINDINGS: None INGUINAL HERNIA: None MR/MR hip RT wo con IMPRESSION: Findings consistent with AVN. No articular collapse. Preserved articular cartilage. Moderate associated edema. Impression dictated by: Chang Vasquez M.D.03/06/2023 9:12 PM Dictation Location: [place] [address] Transcribed By: [facility] 03/06/232111 Dictated By: Chang Vasquez DO 03/06/232106 Signed By: 03/06/232111 [facility] XR hip BI w [id number] 01-29-20 XR hip BI w PEL1V [facility] [place] [address] XRay Report Signed Patient: Miguel Whitten MR#: [id number] : 1985 Acct:[id number] Age/Sex: 37 / M ADM Date: 01/28/23 Loc: [facility] Room: Type: [facility] Attending Dr: Elmer Gonzalez II, MD Copies to: Elmer Gonzalez MD Ordering Provider: Elmer Gonzalez MD Date of Service: 01/28/23 XR/XR hip BI w PEL1V: Pain in right hip;Pain in left hip XR hip BI w PEL1V 01/28/2023 11:53 AM SIGNS AND SYMPTOMS: Bilateral hip and groin pain right greater than left PROTOCOL: Frontal radiograph the pelvis with frontal and crosstable lateral views of the bilateral hips COMPARISON: 05/26/2022 FINDINGS: The joint spaces are preserved. There is no fracture or dislocation. Vascular calcifications are present in the pelvis. The bony ring of the pelvis is intact. XR/XR hip BI w PEL1V IMPRESSION: No fracture, dislocation, or significant degenerative change. Impression dictated by: Les Carmona M.D.01/28/2023 1:46 PM Dictation Location: [facility]-12 Transcribed By: JANELL 01/28/23 1346 Dictated By: Les Carmona II, MD 01/28/23 1345 Signed By: 01/28/231345 [facility] XR hip BI w PEL1V [facility] Other XR hip BI w PEL1V [facility] Main [place] [facility] [employer] Other XR hip BI w PEL1V [address] [facility] Other [place]R [place] [address] [place] [facility] Other XR hip BI w PEL1V XRay Report [employer] Other XR hip BI w PEL1V Signed [facility] Other XR hip BI w PEL1V Patient: Miguel Whitten MR#: [id number] [employer] Other XR hip BI w PEL1V : 1985 Acct:[id number] [employer] Other XR hip BI w PEL1V Age/Sex: 37 / M ADM Date: 01/28/23 [employer] Other XR hip BI w PEL1V Loc: [facility] Room: Type : [facility] [employer] Other XR hip BI w PEL1V Attending Dr: Elmer Gonzalez II, MD [employer] Other XR hip BI w PEL1V Copies to: Elmer Gonzalez MD [employer] Other XR hip BI w PEL1V Ordering Provider: Elmer Gonzalez MD [employer] Other XR hip BI w PEL1V Date of Service: 01/28/23 [employer] Other XR hip BI w PEL1V XR/XR hip BI w PEL1V: Pain in right hip;Pain in left hip [employer] Other XR hip BI w PEL1V XR hip BI w PEL1V 01/28/2023 11:53 AM [employer] Other XR hip BI w PEL1V SIGNS AND SYMPTOMS: Bilateral hip and groin pain right greater than left [employer] Other XR hip BI w PEL1V PROTOCOL: Frontal radiograph the pelvis with frontal and crosstable lateral views of the bilateral [employer] Other XR hip BI w PEL1V hips [employer] Other XR hip BI w PEL1V COMPARISON: 05/26/2022 [employer] Other XR hip BI w PEL1V FINDINGS: [employer] Other XR hip BI w PEL1V The joint spaces are preserved. There is no fracture or dislocation. Vascular calcifications are [employer] Other XR hip BI w PEL1V present in the pelvis. The bony ring of the pelvis is intact. [employer] Other XR hip BI w PEL1V XR/XR hip BI w PEL1V [employer] Other XR hip BI w PEL1V IMPRESSION: [employer] Other XR hip BI w PEL1V No fracture, dislocation, or significant degenerative change. [employer] Other XR hip BI w PEL1V Impression dictated by: Les Carmona M.D.01/28/2023 1:46 PM [employer] Other XR hip BI w PEL1V Dictation Location: [place] [address] [employer] Other XR hip BI w PEL1V Transcribed By: PWS 01/28/23 [facility] [employer] Other XR hip BI w PEL1V Dictated By: Les Carmona II, MD 01/28/23 [facility] [employer] Other XR hip BI w PEL1V Signed By: [employer] Other XR hip BI w PEL1V 01/28/23 [facility] Other Free T4 (Free Thyroxine)on 0 12-17-2022 Free T4 [Mass/Vol] 0.89 ng/dL Normal 0.61-1.12 [facility] Comment on above: Order Comment: Reaso n for Exam Hypothyroidism (acquired) Performed By: #### T 4F, TSH3 ####[facility] [id number] [place] [id number] [facility] Thyroid Stimulating Hormoneo n 12-17-2022 TSH Qn 3.11 m[IU]/L Normal 0.45-5.33 [facility] Comment on above: Order Comment: Reaso n for Exam Hypothyroidism (acquired) Result Comment: PERF ORMED BY: [facility] [address] [facility] [place] [address] PATHOLOGIST [employer] WRECKER DALILA CAMPOS M.D. Performed By: #### T 4F, TSH3 ####[address] Thyrotropin [Units/volume] i n Serum or PlasmaOrdered By: Nathan Ray on 12-17-2022 TSH Qn 3.11 m[IU]/L 0.45-5.33 [facility] Thyroxine (T4) free [Mass/vo lume] in Serum or PlasmaOrdered By: Nathan Ray on 12-17-2022 Free T4 [Mass/Vol] 0.89 ng/dL 0.61-1.12 [facility] A1C with Estimated Average G luon 11-14-2022 Glucose [Mass/Vol] 120 mg/dL Normal [facility] Comment on above: Order Comment: Reaso n for Exam Hyperglycemia Result Comment: PERF ORMED BY: [facility] [address] [facility] [place] [address] PATHOLOGIST [employer] WRECKER DALILA CAMPOS M.D. Performed By: #### A 1C [facility] eA #### [facility] [address] [place] [address] [facility] HbA1c (Bld) [Mass fraction] 5.8 % High 4.3-5.6 [facility] Comment on above: Order Comment: Reaso n for Exam Hyperglycemia Result Comment: Incr eased risk for diabetes: 5.7 - 6.4 diabetes: >6.4 glycemic control for adults with diabetes: <7.0 Performed By: #### A 1C [facility] #### [facility] [address] Alanine aminotransferase [En zymatic activity/volume] in Serum or PlasmaOrdered By: Nathan Ray on 11-14-2022 ALT [Catalytic activity/Vol] 27 U/L 7-52 [facility] Albumin [Mass/volume] in Ser um or Plasma by Bromocresol green (BCG) dye binding methoOrdered By: Nathan Ray on 11-14-2022 Albumin BCG dye [Mass/Vol] 4.6 g/dL 3.5-5.7 [facility] Alkaline phosphatase [Enzyma tic activity/volume] in Serum or PlasmaOrdered By: Nathan Ray on 11-14-2022 ALP [Catalytic activity/Vol] 52 U/L 34-104 [facility] Aspartate aminotransferase [ Enzymatic activity/volume] in Serum or PlasmaOrdered By: Nathan Ray on 11-14-2022 AST [Catalytic activity/Vol] 20 U/L 13-39 [facility] Basophils Auto (Bld) [#/Vol] Ordered By: Nathan Ray on 11-14-2022 Basophils (Bld) [#/Vol] 0.0 10*3/uL 0.0-0.2 [facility] Basophils/100 WBC Auto (Bld) Ordered By: Ntahan Ray on 11-14-2022 Basophils/100 WBC (Bld) 0.4 % . F [facility] Bilirubin.total [Mass/volume ] in Serum or PlasmaOrdered By: Nathan Ray on 11-14-2022 Bilirubin [Mass/Vol] 0.7 mg/dL 0.3-1.0 [facility] Calcium [Mass/volume] in Ser um or PlasmaOrdered By: Nathan Ray on 11-14-2022 Calcium [Mass/Vol] 9.1 mg/dL 8.6-10.3 [facility] Carbon dioxide, total [Moles /volume] in Serum or PlasmaOrdered By: Nathan Ray on 11-14-2022 CO2 [Moles/Vol] 26.4 mmol/L 21.0-31.0 [facility] Chloride [Moles/volume] in S miriam or PlasmaOrdered By: Nathan Ray on 11-14-2022 Chloride [Moles/Vol] 103 mmol/L 98-107 [facility] Cholesterol [Mass/volume] in Serum or PlasmaOrdered By: Nathan Ray on 11-14-2022 Cholesterol [Mass/Vol] 200 mg/dL 140-200 [facility] Comment on above: Chol less than 200 m g/dl low riskChol 201-239 mg/dl borderline riskChol 240 mg/dl and greater high risk Cholesterol in LDL Calc [Mas s/Vol]Ordered By: Nathan Ray on 11-14-2022 Cholesterol in LDL [Mass/Vol] 138 mg/dL 0-100 [facility] Comment on above: LDL ATP III CLASSIFI CATIONLDL less than 100 mg/dL OptimalLDL 100-129 mg/dL Near or above optimalLDL 130-159 mg/dL Borderline highLDL 160-189 mg/dL HighLDL greater than 189 mg/dL Very high Cholesterol in VLDL Calc [Ma ss/Vol]Ordered By: Nathan Ray on 11-14-2022 Cholesterol in VLDL [Mass/Vol] 17 mg/dL [facility] Complete Blood Count Auto Di ffon 11-14-2022 Basophils (Bld) [#/Vol] 0.0 10*3/uL Normal 0.0-0.2 [facility] Comment on above: Order Comment: Reaso n for Exam Hyperlipidemia;Anemia, unspecified type Result Comment: PERF ORMED BY: [facility] [address] [place] [address] PATHOLOGIST [employer] WRECKER DALILA CAMPOS M.D. Performed By: #### C BC ####[facility] [id number] [place] [address] [facility] Basophils/100 WBC (Bld) 0.4 % Normal . [facility] Comment on above: Order Comment: Reaso n for Exam Hyperlipidemia;Anemia, unspecified type Performed By: #### C BC ####[place] [address] Eosinophils (Bld) [#/Vol] 0.1 10*3/uL Normal 0.0-0.45 [facility] Comment on above: Order Comment: Reaso n for Exam Hyperlipidemia;Anemia, unspecified type Performed By: #### C BC ####[place] [id number] [facility] Eosinophils/100 WBC (Bld) 1.7 % Normal . [facility] Comment on above: Order Comment: Reaso n for Exam Hyperlipidemia;Anemia, unspecified type Performed By: #### C BC ####[address] Erythrocyte distribution width (RBC) [Ratio] 14.7 % Normal 12.0-14.8 [facility] Comment on above: Order Comment: Reaso n for Exam Hyperlipidemia;Anemia, unspecified type Performed By: #### C BC ####[address] Hematocrit (Bld) [Volume fraction] 42.7 % Normal 38.8-50.0 [facility] Comment on above: Order Comment: Reaso n for Exam Hyperlipidemia;Anemia, unspecified type Performed By: #### C BC ####[address] Hemoglobin (Bld) [Mass/Vol] 14.4 g/dL Normal 13.0-17.0 [facility] Comment on above: Order Comment: Reaso n for Exam Hyperlipidemia;Anemia, unspecified type Performed By: #### C BC ####[address] Lymphocytes (Bld) [#/Vol] 1.1 10*3/uL Normal 1.00-4.8 [facility] Comment on above: Order Comment: Reaso n for Exam Hyperlipidemia;Anemia, unspecified type Performed By: #### C BC ####[place] [id number] [facility] Lymphocytes/100 WBC (Bld) 23.6 % Normal . [facility] Comment on above: Order Comment: Reaso n for Exam Hyperlipidemia;Anemia, unspecified type Performed By: #### C BC ####[address] MCH (RBC) [Entitic mass] 29.8 pg Normal 27.5-35.2 [facility] Comment on above: Order Comment: Reaso n for Exam Hyperlipidemia;Anemia, unspecified type Performed By: #### C BC ####[address] MCV (RBC) [Entitic vol] 88.2 fL Normal 83.5-101 F [facility] Comment on above: Order Comment: Reaso n for Exam Hyperlipidemia;Anemia, unspecified type Performed By: #### C BC ####[address] Mean Corpuscular HGB Conc 33.8 g/dL Normal 32.5-35.6 [facility] Comment on above: Order Comment: Reaso n for Exam Hyperlipidemia;Anemia, unspecified type Performed By: #### C BC ####[address] Monocytes (Bld) [#/Vol] 0.4 10*3/uL Normal 0.0-0.8 [facility] Comment on above: Order Comment: Reaso n for Exam Hyperlipidemia;Anemia, unspecified type Performed By: #### C BC ####[address] Monocytes/100 WBC (Bld) 8.0 % Normal . F [facility] Comment on above: Order Comment: Reaso n for Exam Hyperlipidemia;Anemia, unspecified type Performed By: #### C BC ####[address] Neutrophils (Bld) [#/Vol] 3.0 10*3/uL Normal 1.8-7.7 [facility] Comment on above: Order Comment: Reaso n for Exam Hyperlipidemia;Anemia, unspecified type Performed By: #### C BC ####[place] [id number] [facility] Neutrophils/100 WBC (Bld) 66.3 % Normal . [facility] Comment on above: Order Comment: Reaso n for Exam Hyperlipidemia;Anemia, unspecified type Performed By: #### C BC ####[place] [id number] [facility] NRBC% 0.0 /100{WBC} Normal 0-0.5 [facility] Comment on above: Order Comment: Reaso n for Exam Hyperlipidemia;Anemia, unspecified type Performed By: #### C BC ####[place] [id number] [facility] Platelet mean volume (Bld) [Entitic vol] 8.8 fL Normal 6.6-10.1 [facility] Comment on above: Order Comment: Reaso n for Exam Hyperlipidemia;Anemia, unspecified type Performed By: #### C BC ####[address] Platelets (Bld) [#/Vol] 182 10*3/uL Normal 150-450 [facility] Comment on above: Order Comment: Reaso n for Exam Hyperlipidemia;Anemia, unspecified type Performed By: #### C BC ####[place] [id number] [facility] RBC (Bld) [#/Vol] 4.84 10*6/uL Normal 3.90-5.60 [facility] Comment on above: Order Comment: Reaso n for Exam Hyperlipidemia;Anemia, unspecified type Performed By: #### C BC ####[place] [id number] [facility] WBC (Bld) [#/Vol] 4.5 10*3/uL Normal 4.1-10.5 [facility] Comment on above: Order Comment: Reaso n for Exam Hyperlipidemia;Anemia, unspecified type Performed By: #### C BC ####[place] [id number] [facility] Comprehensive Metabolic Pane mandy 11-14-2022 Albumin [Mass/Vol] 4.6 g/dL Normal 3.5-5.7 [facility] Comment on above: Order Comment: Reaso n for Exam Hyperlipidemia Reason for Exam Gout Reason for Exam Anemia, unspecified type Reason for Exam Hypothyroidism;Hyperlipidemia Performed By: #### L IPID, CMP, FE and TIBC, URIC, JOSSELYN, TSH3 #### [facility] [address] [place] [id number] [facility] Albumin/Globulin [Mass ratio] 1.8 {ratio} Normal [facility] Comment on above: Order Comment: Reaso n for Exam Hyperlipidemia Reason for Exam Gout Reason for Exam Anemia, unspecified type Reason for Exam Hypothyroidism;Hyperlipidemia Performed By: #### L IPID, CMP, FE and TIBC, URIC, JOSSELYN, TSH3 #### [facility] [address] ALP [Catalytic activity/Vol] 52 U/L Normal 34-104 [facility] Comment on above: Order Comment: Reaso n for Exam Hyperlipidemia Reason for Exam Gout Reason for Exam Anemia, unspecified type Reason for Exam Hypothyroidism;Hyperlipidemia Performed By: #### L IPID, CMP, FE and TIBC, URIC, JOSSELYN, TSH3 #### [facility] [address] ALT [Catalytic activity/Vol] 27 U/L Normal 7-52 [facility] Comment on above: Order Comment: Reaso n for Exam Hyperlipidemia Reason for Exam Gout Reason for Exam Anemia, unspecified type Reason for Exam Hypothyroidism;Hyperlipidemia Performed By: #### L IPID, CMP, FE and TIBC, URIC, JOSSELYN, TSH3 #### [facility] [address] [place] [address] [place] Anion gap [Moles/Vol] 9.9 mmol/L Normal 6.0-15.0 [facility] Comment on above: Order Comment: Reaso n for Exam Hyperlipidemia Reason for Exam Gout Reason for Exam Anemia, unspecified type Reason for Exam Hypothyroidism;Hyperlipidemia Performed By: #### L IPID, CMP, FE and TIBC, URIC, JOSSELYN, TSH3 #### [facility] [address] [place] [id number] [facility] AST [Catalytic activity/Vol] 20 U/L Normal 13-39 [facility] Comment on above: Order Comment: Reaso n for Exam Hyperlipidemia Reason for Exam Gout Reason for Exam Anemia, unspecified type Reason for Exam Hypothyroidism;Hyperlipidemia Performed By: #### L IPID, CMP, FE and TIBC, URIC, JOSSELYN, TSH3 #### [facility] [address] Bilirubin [Mass/Vol] 0.7 mg/dL Normal 0.3-1.0 [facility] Comment on above: Order Comment: Reaso n for Exam Hyperlipidemia Reason for Exam Gout Reason for Exam Anemia, unspecified type Reason for Exam Hypothyroidism;Hyperlipidemia Performed By: #### L IPID, CMP, FE and TIBC, URIC, JOSSELYN, TSH3 #### [facility] [address] Calcium [Mass/Vol] 9.1 mg/dL Normal 8.6-10.3 [facility] Comment on above: Order Comment: Reaso n for Exam Hyperlipidemia Reason for Exam Gout Reason for Exam Anemia, unspecified type Reason for Exam Hypothyroidism;Hyperlipidemia Performed By: #### L IPID, CMP, FE and TIBC, URIC, JOSSELYN, TSH3 #### [facility] [address] Chloride [Moles/Vol] 103 mmol/L Normal 98-107 [facility] Comment on above: Order Comment: Reaso n for Exam Hyperlipidemia Reason for Exam Gout Reason for Exam Anemia, unspecified type Reason for Exam Hypothyroidism;Hyperlipidemia Performed By: #### L IPID, CMP, FE and TIBC, URIC, JOSSELYN, TSH3 #### [facility] [address] CO2 [Moles/Vol] 26.4 mmol/L Normal 21.0-31.0 [facility] Comment on above: Order Comment: Reaso n for Exam Hyperlipidemia Reason for Exam Gout Reason for Exam Anemia, unspecified type Reason for Exam Hypothyroidism;Hyperlipidemia Performed By: #### L IPID, CMP, FE and TIBC, URIC, JOSSELYN, TSH3 #### [facility] [address] [place] [address] [facility] Creatinine [Mass/Vol] 1.21 mg/dL Normal 0.70-1.30 [facility] Comment on above: Order Comment: Reaso n for Exam Hyperlipidemia Reason for Exam Gout Reason for Exam Anemia, unspecified type Reason for Exam Hypothyroidism;Hyperlipidemia Performed By: #### L IPID, CMP, FE and TIBC, URIC, JOSSELYN, TSH3 #### [facility] [address] GFR/1.73 sq M.predicted MDRD (S/P/Bld) [Vol rate/Area] mL/min/{1.73_m2} Normal [facility] Comment on above: Order Comment: Reaso n for Exam Hyperlipidemia Reason for Exam Gout Reason for Exam Anemia, unspecified type Reason for Exam Hypothyroidism;Hyperlipidemia Performed By: #### L IPID, CMP, FE and TIBC, URIC, JOSSELYN, TSH3 #### [facility] [address] Globulin (S) [Mass/Vol] 2.5 g/dL Normal [facility] Comment on above: Order Comment: Reaso n for Exam Hyperlipidemia Reason for Exam Gout Reason for Exam Anemia, unspecified type Reason for Exam Hypothyroidism;Hyperlipidemia Performed By: #### L IPID, CMP, FE and TIBC, URIC, JOSSELYN, TSH3 #### [facility] [address] Glucose [Mass/Vol] 94 mg/dL Normal 70-100 [facility] Comment on above: Order Comment: Reaso n for Exam Hyperlipidemia Reason for Exam Gout Reason for Exam Anemia, unspecified type Reason for Exam Hypothyroidism;Hyperlipidemia Result Comment: [facility] Glucose Reference Range is dependent on time and content of last meal. Glucose of more than 200 mg/dL in a nonstressed, ambulatory subject supports the diagnosis of Diabetes Mellitus. ADA recommended reference range Performed By: #### L IPID, CMP, FE and TIBC, URIC, JOSSELYN, TSH3 #### [facility] [address] Potassium [Moles/Vol] 4.3 mmol/L Normal 3.5-5.1 [facility] Comment on above: Order Comment: Reaso n for Exam Hyperlipidemia Reason for Exam Gout Reason for Exam Anemia, unspecified type Reason for Exam Hypothyroidism;Hyperlipidemia Performed By: #### L IPID, CMP, FE and TIBC, URIC, JOSSELYN, TSH3 #### [facility] [address] [place] [address] [place] Protein [Mass/Vol] 7.1 g/dL Normal 6.4-8.9 [facility] Comment on above: Order Comment: Reaso n for Exam Hyperlipidemia Reason for Exam Gout Reason for Exam Anemia, unspecified type Reason for Exam Hypothyroidism;Hyperlipidemia Performed By: #### L IPID, CMP, FE and TIBC, URIC, JOSSELYN, TSH3 #### [facility] [address] Sodium [Moles/Vol] 135 mmol/L Low 136-145 [facility] Comment on above: Order Comment: Reaso n for Exam Hyperlipidemia Reason for Exam Gout Reason for Exam Anemia, unspecified type Reason for Exam Hypothyroidism;Hyperlipidemia Performed By: #### L IPID, CMP, FE and TIBC, URIC, JOSSELYN, TSH3 #### [facility] [address] [place] [address] [place] Urea nitrogen [Mass/Vol] 16 mg/dL Normal 7-25 [facility] Comment on above: Order Comment: Reaso n for Exam Hyperlipidemia Reason for Exam Gout Reason for Exam Anemia, unspecified type Reason for Exam Hypothyroidism;Hyperlipidemia Performed By: #### L IPID, CMP, FE and TIBC, URIC, JOSSELYN, TSH3 #### [facility] [address] [place] [address] Creatinine [Mass/volume] in Serum or PlasmaOrdered By: Nathan Ray on 11-14-2022 Creatinine [Mass/Vol] 1.21 mg/dL 0.70-1.30 [facility] Eosinophils Auto (Bld) [#/Vo l]Ordered By: Nathan Ray on 11-14-2022 Eosinophils (Bld) [#/Vol] 0.1 10*3/uL 0.0-0.45 [facility] Eosinophils/100 WBC Auto (Bl d)Ordered By: Nathan Ray on 11-14-2022 Eosinophils/100 WBC (Bld) 1.7 % . [facility] Erythrocyte distribution wid th Auto (RBC) [Ratio]Ordered By: Nathan Ray on 11-14-2022 Erythrocyte distribution width (RBC) [Ratio] 14.7 % 12.0-14.8 [facility] Ferritinon 11-14-2022 Ferritin [Mass/Vol] 129.4 ng/mL Normal 23.9-336.2 [facility] Comment on above: Order Comment: Reaso n for Exam Hyperlipidemia Reason for Exam Gout Reason for Exam Anemia, unspecified type Reason for Exam Hypothyroidism;Hyperlipidemia Performed By: #### L IPID, CMP, FE and TIBC, URIC, JOSSELYN, TSH3 #### [facility] [address] Ferritin [Mass/volume] in Se rum or PlasmaOrdered By: Nathan Ray on 11-14-2022 Ferritin [Mass/Vol] 129.4 ng/mL 23.9-336.2 [facility] Free testosterone measuremen t by LC-MS/MSOrdered By: Nathan Ray on 11-14-2022 Testosterone Free [Mass/Vol] 9.0 pg/mL 8.7-25.1 [facility] Comment on above: Performed at: - [address] [id number] Director: Norbert De La Rosa PhD, Phone: [phone] at: - [facility] [address] [id number] Director: Andrew Stapleton MD, Phone: [phone] Globulin Calc (S) [Mass/Vol] Ordered By: Nathan Ray on 11-14-2022 Globulin (S) [Mass/Vol] 2.5 g/dL [facility] Glucose [Mass/volume] in Ser um or PlasmaOrdered By: Nathan Ray on 11-14-2022 Glucose [Mass/Vol] 94 mg/dL 70-100 [facility] Comment on above: ADA recommended refe rence rangeRandom Glucose Reference Range is dependent on time and content of last meal. Glucose of more than 200 mg/dL in a nonstressed, ambulatory subject supports the diagnosis of Diabetes Mellitus. Glucose mean value [Mass/vol ume] in Blood Estimated from glycated hemoglobinOrdered By: Nathan Ray on 11-14-2022 Average glucose Estimated from glycated hemoglobin (Bld) [Mass/Vol] 120 mg/dL [facility] Hematocrit Auto (Bld) [Volum e fraction]Ordered By: Nathan Ray on 11-14-2022 Hematocrit (Bld) [Volume fraction] 42.7 % 38.8-50.0 [facility] Hemoglobin A1c percentageOrd ered By: Nathan Ray on 11-14-2022 HbA1c (Bld) [Mass fraction] 5.8 % 4.3-5.6 [facility] Comment on above: Increased risk for d iabetes: 5.7 - 6.4diabetes: >6.4glycemic control for adults with diabetes: <7.0 Hemoglobin [Mass/volume] in BloodOrdered By: Nathan Ray on 11-14-2022 Hemoglobin (Bld) [Mass/Vol] 14.4 g/dL 13.0-17.0 [facility] Iron [Mass/volume] in Serum or PlasmaOrdered By: Nathan Ray on 11-14-2022 Iron [Mass/Vol] 87 ug/dL 50-212 [facility] Iron and TIBC Profileon 11-01 % Iron Saturation 20.9 % Normal 20-50 [facility] Comment on above: Order Comment: Reaso n for Exam Hyperlipidemia Reason for Exam Gout Reason for Exam Anemia, unspecified type Reason for Exam Hypothyroidism;Hyperlipidemia Performed By: #### L IPID, CMP, FE and TIBC, URIC, JOSSELYN, TSH3 #### [facility] [address] Iron [Mass/Vol] 87 ug/dL Normal 50-212 [facility] Comment on above: Order Comment: Reaso n for Exam Hyperlipidemia Reason for Exam Gout Reason for Exam Anemia, unspecified type Reason for Exam Hypothyroidism;Hyperlipidemia Performed By: #### L IPID, CMP, FE and TIBC, URIC, JOSSELYN, TSH3 #### [facility] [address] Total Iron Binding Capacity 417 ug/dL Normal 255-450 [facility] Comment on above: Order Comment: Reaso n for Exam Hyperlipidemia Reason for Exam Gout Reason for Exam Anemia, unspecified type Reason for Exam Hypothyroidism;Hyperlipidemia Performed By: #### L IPID, CMP, FE and TIBC, URIC, JOSSELYN, TSH3 #### [facility] [address] [place] [address] [place] Transferrin [Mass/Vol] 298 mg/dL Normal 203-362 [facility] Comment on above: Order Comment: Reaso n for Exam Hyperlipidemia Reason for Exam Gout Reason for Exam Anemia, unspecified type Reason for Exam Hypothyroidism;Hyperlipidemia Performed By: #### L IPID, CMP, FE and TIBC, URIC, JOSSELYN, TSH3 #### [facility] [address] Iron binding capacity [Mass/ volume] in Serum or PlasmaOrdered By: Nathan Ray on 11-14-2022 Iron binding capacity [Mass/Vol] 417 ug/dL 255-450 [facility] Iron saturation [Mass Fracti on] in Serum or PlasmaOrdered By: Nathan Ray on 11-14-2022 Iron saturation [Mass fraction] 20.9 % 20-50 [facility] Laboratory - Chemistry and C hemistry - challengeOrdered By: Nathan Ray on 11-14-2022 Testosterone [Mass/Vol] 308 ng/dL 264-916 [facility] Comment on above: Adult male reference interval is based on a population ofhealthy nonobese males (BMI <30) between 19 and 39 yearsold. Cassidy et.al. JCEM 2017,102;5637-1416. PMID:[id number]. Leukocytes [#/volume] correc abilio for nucleated erythrocytes in Blood by Automated counOrdered By: Nathan Ray on 11-14-2022 WBC corrected for nucl RBC Auto (Bld) [#/Vol] 4.5 10*3/uL 4.1-10.5 [facility] Lipid Panelon 11-14-2022 Cholesterol [Mass/Vol] 200 mg/dL Normal 140-200 [facility] Comment on above: Order Comment: Reaso n for Exam Hyperlipidemia Reason for Exam Gout Reason for Exam Anemia, unspecified type Reason for Exam Hypothyroidism;Hyperlipidemia Result Comment: Chol less than 200 mg/dl low risk Chol 201-239 mg/dl borderline risk Chol 240 mg/dl and greater high risk Performed By: #### L IPID, CMP, FE and TIBC, URIC, JOSSELYN, TSH3 #### [facility] [address] [place] [id number] [place] Cholesterol in HDL [Mass/Vol] 44 mg/dL Normal 23-92 [facility] Comment on above: Order Comment: Reaso n for Exam Hyperlipidemia Reason for Exam Gout Reason for Exam Anemia, unspecified type Reason for Exam Hypothyroidism;Hyperlipidemia Result Comment: HDL CHOL ATP-III CLASSIFICATION Cardiovascular Risk HDL > or equal to 60 mg/dL LOW HDL < 40 mg/dL HIGH Performed By: #### L IPID, CMP, FE and TIBC, URIC, JOSSELYN, TSH3 #### [facility] [address] [place] [address] [place] Cholesterol.total/Marge sterol in HDL [Mass ratio] 4.5 {ratio} Normal <5.0 [facility] Comment on above: Order Comment: Reaso n for Exam Hyperlipidemia Reason for Exam Gout Reason for Exam Anemia, unspecified type Reason for Exam Hypothyroidism;Hyperlipidemia Performed By: #### L IPID, CMP, FE and TIBC, URIC, JOSSELYN, TSH3 #### [facility] [address] [place] [id number] [place] LDL Cholesterol,Calculated 138 mg/dL High 0-100 [facility] Comment on above: Order Comment: Reaso n for Exam Hyperlipidemia Reason for Exam Gout Reason for Exam Anemia, unspecified type Reason for Exam Hypothyroidism;Hyperlipidemia Result Comment: LDL ATP III CLASSIFICATION LDL less than 100 mg/dL Optimal LDL 100-129 mg/dL Near or above optimal LDL 130-159 mg/dL Borderline high LDL 160-189 mg/dL High LDL greater than 189 mg/dL Very high Performed By: #### L IPID, CMP, FE and TIBC, URIC, JOSSELYN, TSH3 #### [facility] [address] [place] [id number] [place] Triglyceride w/Reflex 88 mg/dL Normal 0-149 [facility] Comment on above: Order Comment: Reaso n for Exam Hyperlipidemia Reason for Exam Gout Reason for Exam Anemia, unspecified type Reason for Exam Hypothyroidism;Hyperlipidemia Result Comment: TRIG ATP III CLASSIFICATION TRIG less than 150 mg/dL Normal TRIG 150-199 mg/dL Borderline high TRIG 200-500 mg/dL High TRIG greater than 500 mg/dL Very high Standard traceable to the [facility] Disease Conrtrol and Prevention (CDC) test method. Performed By: #### L IPID, CMP, FE and TIBC, URIC, JOSSELYN, TSH3 #### [facility] [address] VLDL CHOLESTEROL 17 mg/dL Normal [facility] Comment on above: Order Comment: Reaso n for Exam Hyperlipidemia Reason for Exam Gout Reason for Exam Anemia, unspecified type Reason for Exam Hypothyroidism;Hyperlipidemia Performed By: #### L IPID, CMP, FE and TIBC, URIC, JOSSELYN, TSH3 #### [facility] [address] Lymphocytes Auto (Bld) [#/Vo l]Ordered By: Nathan Ray on 11-14-2022 Lymphocytes (Bld) [#/Vol] 1.1 10*3/uL 1.00-4.8 [facility] Lymphocytes/100 WBC Auto (Bl d)Ordered By: Nathan Ray on 11-14-2022 Lymphocytes/100 WBC (Bld) 23.6 % . [facility] MCH Auto (RBC) [Entitic mass ]Ordered By: Nathan Ray on 11-14-2022 MCH (RBC) [Entitic mass] 29.8 pg 27.5-35.2 [facility] MCHC Auto (RBC) [Mass/Vol]Or dered By: Nathan Ray on 11-14-2022 MCHC (RBC) [Mass/Vol] 33.8 g/dL 32.5-35.6 [facility] MCV Auto (RBC) [Entitic vol] Ordered By: Nathan Ray on 11-14-2022 MCV (RBC) [Entitic vol] 88.2 fL 83.5-101 [facility] Monocytes Auto (Bld) [#/Vol] Ordered By: Nathan Ray on 11-14-2022 Monocytes (Bld) [#/Vol] 0.4 10*3/uL 0.0-0.8 [facility] Monocytes/100 WBC Auto (Bld) Ordered By: Nathan Ray on 11-14-2022 Monocytes/100 WBC (Bld) 8.0 % . [facility] Neutrophils Auto (Bld) [#/Vo l]Ordered By: Nathan Ray on 11-14-2022 Neutrophils (Bld) [#/Vol] 3.0 10*3/uL 1.8-7.7 [facility] Neutrophils/100 WBC Auto (Bl d)Ordered By: Nathan Ray on 11-14-2022 Neutrophils/100 WBC (Bld) 66.3 % . [facility] No Panel InformationOrdered By: Nathan Ray on 11-14-2022 Estimated GFR (CKD-EPI) > 60.0 mL/Min [facility] Creatinine Clearance (Chem N/A [facility] Nucleated erythrocytes [Pres ence] in Blood by Automated countOrdered By: Nathan Ray on 11-14-2022 Nucleated RBC Auto Ql (Bld) 0.0 /100{WBC} 0-0.5 [facility] Platelet mean volume Auto (B ld) [Entitic vol]Ordered By: Nathan Ray on 11-14-2022 Platelet mean volume (Bld) [Entitic vol] 8.8 fL 6.6-10.1 [facility] Platelets Auto (Bld) [#/Vol] Ordered By: Nathan Ray on 11-14-2022 Platelets (Bld) [#/Vol] 182 10*3/uL 150-450 [facility] Potassium [Moles/volume] in Serum or PlasmaOrdered By: Nathan Ray on 11-14-2022 Potassium [Moles/Vol] 4.3 mmol/L 3.5-5.1 [facility] Protein [Mass/volume] in Ser um or PlasmaOrdered By: Nathan Ray on 11-14-2022 Protein [Mass/Vol] 7.1 g/dL 6.4-8.9 [facility] RBC Auto (Bld) [#/Vol]Ordere d By: Nathan Ray on 11-14-2022 RBC (Bld) [#/Vol] 4.84 10*6/uL 3.90-5.60 [facility] Serum or plasma albumin/glob ulin mass ratioOrdered By: Natahn Ray on 11-14-2022 Albumin/Globulin [Mass ratio] 1.8 {ratio} [facility] Serum or plasma anion gap de terminationOrdered By: Nathan Ray on 11-14-2022 Anion gap [Moles/Vol] 9.9 mmol/L 6.0-15.0 [facility] Serum or plasma high density lipoprotein (HDL) cholesterol measurementOrdered By: Nathan Ray on 11-14-2022 Cholesterol in HDL [Mass/Vol] 44 mg/dL 23-92 [facility] Comment on above: HDL CHOL ATP-III CLA SSIFICATION Cardiovascular RiskHDL > or equal to 60 mg/dL LOWHDL < 40 mg/dL HIGH Serum or plasma total choles terol/high density lipoprotein (HDL) cholesterol mass ratOrdered By: Nathan Ray on 11-14-2022 Cholesterol.total/Marge sterol in HDL [Mass ratio] 4.5 {ratio} <5.0 [facility] Sodium [Moles/volume] in Ser um or PlasmaOrdered By: Nathan Ray on 11-14-2022 Sodium [Moles/Vol] 135 mmol/L 136-145 [facility] Testosterone Free Totalon Testosterone [Mass/Vol] 308 ng/dL Normal 264-916 [facility] Comment on above: Order Comment: Reaso n for Exam Low testosterone level in male Result Comment: Adul t male reference interval is based on a population of healthy nonobese males (BMI <30) between 19 and 39 years old. Cassidy, et.al. JCEM 2017,102;8234-8879. PMID: [id number]. Performed By: #### T EST F T ####[facility] , Testosterone,Free 9.0 pg/mL Normal 8.7-25.1 [facility] Comment on above: Order Comment: Reaso n for Exam Low testosterone level in male Result Comment: Perf ormed at: - [facility] [id number] Dairy Farm Manager: Norbert De La Rosa PhD, Phone: [phone] Performed at: - [facility] [id number] [employer]airy [employer] Manager: Andrew Stapleton MD, Phone: [phone] PERFORMED BY: [place] [address] PATHOLOGIST HOGSHEAD WRECKER DALILA CAMPOS M.D. Performed By: #### T EST F T ####[facility] , Thyroid Stimulating Hormoneo n 11-14-2022 TSH Qn 26.60 m[IU]/L High 0.45-5.33 [facility] Comment on above: Order Comment: Reaso n for Exam Hyperlipidemia Reason for Exam Gout Reason for Exam Anemia, unspecified type Reason for Exam Hypothyroidism;Hyperlipidemia Result Comment: PERF ORMED BY: [place] [address] PATHOLOGIST HOGSHEAD WRECKER DALILA CAMPOS M.D. Performed By: #### L IPID, CMP, FE and TIBC, URIC, JOSSELYN, TSH3 #### [address] Thyrotropin [Units/volume] i n Serum or PlasmaOrdered By: Nathan Ray on 11-14-2022 TSH Qn 26.60 m[IU]/L 0.45-5.33 [facility] Transferrin [Mass/volume] in Serum or PlasmaOrdered By: Nathan Ray on 11-14-2022 Transferrin [Mass/Vol] 298 mg/dL 203-362 [facility] Triglyceride [Mass/volume] i n Serum or PlasmaOrdered By: Nathan Ray on 11-14-2022 Triglyceride [Mass/Vol] 88 mg/dL 0-149 [facility] Comment on above: TRIG ATP III CLASSIF ICATIONTRIG less than 150 mg/dL NormalTRIG 150-199 mg/dL Borderline highTRIG 200-500 mg/dL High TRIG greater than 500 mg/dL Very highStandard traceable to the Center for Disease Conrtrol and Prevention (CDC) test method. Urate [Mass/volume] in Serum or PlasmaOrdered By: Nathan Ray on 11-14-2022 Urate [Mass/Vol] 6.3 mg/dL 4.4-7.6 [facility] Urea nitrogen [Mass/volume] in Serum or PlasmaOrdered By: Nathan Ray on 11-14-2022 Urea nitrogen [Mass/Vol] 16 mg/dL 7 [facility] Uric Acidon 11-14-2022 Urate [Mass/Vol] 6.3 mg/dL Normal 4.4-7.6 [facility] Comment on above: Order Comment: Reaso n for Exam Hyperlipidemia Reason for Exam Gout Reason for Exam Anemia, unspecified type Reason for Exam Hypothyroidism;Hyperlipidemia Performed By: #### L IPID, CMP, FE and TIBC, URIC, JOSSELYN, TSH3 #### [facility] [address] WBC Auto (Bld) [#/Vol]Ordere d By: Nathan Ray on 11-14-2022 WBC (Bld) [#/Vol] 4.5 10*3/uL 4.1-10.5 [facility] MRI Lumbar Spine w/oon 09-03 MRI Lumbar Spine w/o HISTORY: Low back pain. Bilateral numbness and tingling in the lower extremities. Symptoms worse on the right. Failed injections. Denies prior lumbar surgery. TECHNIQUE: Routine lumbosacral spine MR protocol without gadolinium. Contrast: None. COMPARISON: None. RESULT: Counting reference: Lumbosacral junction. For the purposes of this report, L5-S1 is considered the last well-formed disc space. Alignment: Alignment is anatomic. Bone marrow signal/fracture: No evidence for acute fracture. No evidence for pathologic marrow infiltration. Conus: The conus is within normal limits of signal intensity and morphology. Paraspinal soft tissues: Posterior subcutaneous edema. Otherwise unremarkable. Lower thoracic spine: Visualized lower thoracic canal and foramina are without significant narrowing. T12-L1: No significant canal or foraminal narrowing. L1-L2: No significant canal or foraminal narrowing. L2-L3: No significant canal or foraminal narrowing. L3-L4: Facet degenerative changes without significant canal or foraminal narrowing. L4-L5: Facet degenerative changes without significant canal or foraminal narrowing. L5-S1: Facet degenerative changes without significant canal or foraminal narrowing. Sacrum and iliac wings: The visualized sacrum and iliac wings are within normal limits. The presacral soft tissues are normal in appearance. IMPRESSION: Facet degenerative changes of the lower lumbar spine. No significant canal or foraminal narrowing. No disc herniation. Report reported and signed by Chandler Madrigal on 09/04/2022 1002 Normal [facility] Covid-19 PCR ([facility])on 04-03 SARS-CoV-2 (COVID-19) RNA DONAVON+probe Ql (Unsp spec) Not detected Normal NOT DETECTED [facility] Comment on above: Result Comment: This test is not yet approved or cleared by the [place] FDA. When there are no FDA-approved or cleared tests available, and other criteria are met, FDA can make tests available under an emergency access mechanism called an Emergency Use Authorization (EUA). The EUA for this test is supported by the [place] of Health and Human Service's (HHS's) declaration that circumstances exist to justify the emergency use of in vitro diagnostics for the detection and/or diagnosis of the virus that causes COVID-19. This EUA will remain in effect (meaning this test can be used) for the duration of the COVID-19 declaration justifying emergency of IVDs, unless it is terminated or revoked by FDA (after which the test may no longer be used). When diagnostic testing is negative, the possibility of a false negative should be considered in the context of a patient's recent exposures and the presence of clinical signs and symptoms consistent with SARS-CoV-2. Performed By: #### C VDTB #### [facility] [address] [address] [address] Lee Cho Basophils Auto (Bld) [#/Vol] Ordered By: Nathan Ray on 04-04-2022 Basophils (Bld) [#/Vol] 0.0 10*3/uL 0.0-0.2 [facility] Basophils/100 WBC Auto (Bld) Ordered By: Nathan Ray on 04-04-2022 Basophils/100 WBC (Bld) 0.2 % . [facility] Eosinophils Auto (Bld) [#/Vo l]Ordered By: Nathan Ray on 04-04-2022 Eosinophils (Bld) [#/Vol] 0.0 10*3/uL 0.0-0.45 [facility] Eosinophils/100 WBC Auto (Bl d)Ordered By: Nathan Ray on 04-04-2022 Eosinophils/100 WBC (Bld) 0.1 % . [facility] Erythrocyte distribution wid th Auto (RBC) [Ratio]Ordered By: Nathan Ray on 04-04-2022 Erythrocyte distribution width (RBC) [Ratio] 14.9 % 12.0-14.8 [facility] Hematocrit Auto (Bld) [Volum e fraction]Ordered By: Nathan Ray on 04-04-2022 Hematocrit (Bld) [Volume fraction] 46.2 % 38.8-50.0 [facility] Hemoglobin [Mass/volume] in BloodOrdered By: Nathan Ray on 04-04-2022 Hemoglobin (Bld) [Mass/Vol] 15.0 g/dL 13.0-17.0 [facility] Leukocytes [#/volume] correc abilio for nucleated erythrocytes in Blood by Automated counOrdered By: Nathan Ray on 04-04-2022 WBC corrected for nucl RBC Auto (Bld) [#/Vol] 9.5 10*3/uL 4.1-10.5 [facility] Lymphocytes Auto (Bld) [#/Vo l]Ordered By: Nathan Ray on 04-04-2022 Lymphocytes (Bld) [#/Vol] 1.6 10*3/uL 1.00-4.8 [facility] Lymphocytes/100 WBC Auto (Bl d)Ordered By: Nathan Ray on 04-04-2022 Lymphocytes/100 WBC (Bld) 16.4 % . [facility] MCH Auto (RBC) [Entitic mass ]Ordered By: Nathan Ray on 04-04-2022 MCH (RBC) [Entitic mass] 28.3 pg 27.5-35.2 [facility] MCHC Auto (RBC) [Mass/Vol]Or dered By: Nathan Ray on 04-04-2022 MCHC (RBC) [Mass/Vol] 32.5 g/dL 32.5-35.6 [facility] MCV Auto (RBC) [Entitic vol] Ordered By: Nathan Ray on 04-04-2022 MCV (RBC) [Entitic vol] 86.9 fL 83.5-101 F [facility] Monocytes Auto (Bld) [#/Vol] Ordered By: Nathan Ray on 04-04-2022 Monocytes (Bld) [#/Vol] 0.6 10*3/uL 0.0-0.8 [facility] Monocytes/100 WBC Auto (Bld) Ordered By: Nathan Ray on 04-04-2022 Monocytes/100 WBC (Bld) 6.3 % . [facility] Neutrophils Auto (Bld) [#/Vo l]Ordered By: Nathan Ray on 04-04-2022 Neutrophils (Bld) [#/Vol] 7.3 10*3/uL 1.8-7.7 [facility] Neutrophils/100 WBC Auto (Bl d)Ordered By: Nathan Ray on 04-04-2022 Neutrophils/100 WBC (Bld) 77.0 % . [facility] Nucleated erythrocytes [Pres ence] in Blood by Automated countOrdered By: Nathan Ray on 04-04-2022 Nucleated RBC Auto Ql (Bld) 0.1 /100{WBC} 0-0.5 [facility] Platelet mean volume Auto (B ld) [Entitic vol]Ordered By: Nathan Ray on 04-04-2022 Platelet mean volume (Bld) [Entitic vol] 8.7 fL 6.6-10.1 [facility] Platelets Auto (Bld) [#/Vol] Ordered By: Nathan Ray on 04-04-2022 Platelets (Bld) [#/Vol] 254 10*3/uL 150-450 [facility] RBC Auto (Bld) [#/Vol]Ordere d By: Nathan Ray on 04-04-2022 RBC (Bld) [#/Vol] 5.32 10*6/uL 3.90-5.60 [facility] WBC Auto (Bld) [#/Vol]Ordere d By: Nathan Ray on 04-04-2022 WBC (Bld) [#/Vol] 9.5 10*3/uL 4.1-10.5 [facility] AMYLASEon 03-21-2022 Amylase [Catalytic activity/Vol] 29 U/L Normal 25-115 [facility] Comment on above: Performed By: #### C MP, TAWANDA, HSTROPN, LIPA #### [facility] [address] [address] [address] Lee Cho CBC AUTO DIFFon 03-21-2022 BASO # 0.0 103/ul Normal 0.0-0.1 [facility] Comment on above: Performed By: #### D DIM #### [facility] [address] [address] [address] Lee Cho Basophils/100 WBC (Bld) 0.2 % Normal 0.2-2.0 [facility] Comment on above: Performed By: #### D DIM #### [facility] [address] [address] [address] Lee Cho EO # 0.1 103/ul Normal 0.0-0.7 [facility] Comment on above: Performed By: #### D DIM #### [facility] [address] [place] [address] Dr. Lee Cho Eosinophils/100 WBC (Bld) 1.5 % Normal 0.9-7.0 [facility] Comment on above: Performed By: #### D DIM #### [facility] [address] [place] [address] Dr. Lee Cho Erythrocyte distribution width (RBC) [Ratio] 13.6 % Normal 11.0-15.0 [facility] Comment on above: Performed By: #### D DIM #### [facility] [address] [place] [address] Dr. Lee Cho Hematocrit (Bld) [Volume fraction] 43.4 % Normal 42.0-54.0 [facility] Comment on above: Performed By: #### D DIM #### [facility] [address] [address] [address] Lee Cho Hemoglobin (Bld) [Mass/Vol] 14.2 g/dL Normal 14.0-18.0 [facility] Comment on above: Performed By: #### D DIM #### [facility] [address] [place] [address] Dr. Lee Cho IG # 0.02 10e3/ul Normal 0.00-0.03 [facility] Comment on above: Performed By: #### D DIM #### [facility] [address] [place] [address] Dr. Lee Cho IG % 0.3 % Normal 0.0-0.5 [facility] Comment on above: Performed By: #### D DIM #### [facility] [address] [place] [address] Dr. Lee Cho LYMPH # 1.5 103/ul Normal 1.2-3.8 [facility] Comment on above: Performed By: #### D DIM #### [facility] [address] [place] [address] Dr. Lee Cho Lymphocytes/100 WBC (Bld) 25.3 % Normal 20.5-60.0 [facility] Comment on above: Performed By: #### D DIM #### [facility] [address] [place] [address] Dr. Lee Cho MANUAL DIFF REQ NO Normal [facility] Comment on above: Performed By: #### D DIM #### [facility] [address] [place] [address] Dr. Lee Cho MCH (RBC) [Entitic mass] 28.9 pg Normal 25.9-34.0 [facility] Comment on above: Performed By: #### D DIM #### [facility] [address] [place] [address] Dr. Lee Cho MCHC (RBC) [Mass/Vol] 32.7 g/dL Normal 29.9-35.2 [facility] Comment on above: Performed By: #### D DIM #### [facility] [address] [place] [address] Dr. Lee Cho MCV (RBC) [Entitic vol] 88.2 fL Normal 80.0-94.0 [facility] Comment on above: Performed By: #### D DIM #### [facility] [address] [place] [address] Dr. Lee Cho MONO # 0.3 103/ul Normal 0.3-0.8 [facility] Comment on above: Performed By: #### D DIM #### [facility] [address] [place] [address] Dr. Lee Cho Monocytes/100 WBC (Bld) 5.9 % Normal 1.7-12.0 [facility] Comment on above: Performed By: #### D DIM #### [facility] [address] [address] [address] Lee Cho NEUT # 3.9 103/ul Normal 1.4-6.5 [facility] Comment on above: Performed By: #### D DIM #### [facility] [address] [place] [address] Dr. Lee Cho Neutrophils/100 WBC (Bld) 66.8 % Normal 43.0-75.0 [facility] Comment on above: Performed By: #### D DIM #### [facility] [address] [place] [address] Dr. Lee Cho Platelet mean volume (Bld) [Entitic vol] 10.3 fL Normal 9.5-13.5 [facility] Comment on above: Performed By: #### D DIM #### [facility] [address] [place] [address] Dr. Lee Cho PLT 191 103/ul Normal 150-450 [facility] Comment on above: Performed By: #### D DIM #### [facility] [address] [place] [address] Dr. Lee Cho RBC 4.92 106/ul Normal 4.70-6.10 [facility] Comment on above: Performed By: #### D DIM #### [facility] [address] [place] [address] Dr. Lee Cho WBC 5.8 103/ul Normal 4.0-11.0 [facility] Comment on above: Performed By: #### D DIM #### [facility] [address] [place] [address] Dr. Lee Cho D-DIMERon 03-21-2022 D-DIMER 0.27 mg/L FEU Normal <=0.59 [facility] Comment on above: Performed By: #### D DIM #### [facility] [address] [place] [address] Dr. Lee Cho D-DIMER COMMENTS SEE BELOW Normal [facility] Comment on above: Result Comment: Incr eases in D-Dimer concentration observed with thromboembolic events can be variable due to localization, size, and age of the thrombus. Therefore, a thromboembolic event cannot be diagnosed with certainty on the basis of the reference range. D-Dimers may also be elevated for a variety of disorders including: advanced age, , coronary disease, cancer, liver disease, infection, inflammation, hematoma, DIC, trauma, post-surgery, diabetes, thrombolytic or anticoagulant therapy, stress, and generalized hospitalization. Performed By: #### D DIM #### [facility] [address] [place] [address] Dr. Lee Cho ER URINE PROFILEon 2 Bilirubin Ql (U) Negative Normal NEGATIVE [facility] Comment on above: Performed By: #### C BC #### [facility] [address] [place] [address] Dr. Lee Cho Clarity (U) CLEAR Normal CLEAR [facility] Comment on above: Performed By: #### C BC #### [facility] [address] [place] [address] Dr. Lee Cho Color (U) YELLOW Normal YELLOW [facility] Comment on above: Performed By: #### C BC #### [facility] [address] [place] [address] Dr. Lee ARELLANODayday A micrscopic examination will be performed if indicated. Normal [facility] Comment on above: Performed By: #### C BC #### [facility] [address] [place] [address] Dr. Lee Cho Glucose Ql (U) Negative Normal NEGATIVE [facility] Comment on above: Performed By: #### C BC #### [facility] [address] [place] [address] Dr. Lee Cho Hemoglobin Ql (U) Negative Normal NEGATIVE [facility] Comment on above: Performed By: #### C BC #### [facility] [address] [place] [address] Dr. Lee Cho Ketones Ql (U) Negative Normal NEGATIVE [facility] Comment on above: Performed By: #### C BC #### [facility] [address] [place] [address] Dr. Lee Cho LEUKOCYTES Negative Normal NEGATIVE [facility] Comment on above: Performed By: #### C BC #### [facility] [address] [place] [address] Dr. Lee Cho Nitrite Ql (U) Negative Normal NEGATIVE [facility] Comment on above: Performed By: #### C BC #### [facility] [address] [place] [address] Dr. Lee Cho pH (U) 6.0 [pH] Normal 5-9 [facility] Comment on above: Performed By: #### C BC #### [facility] [address] [place] [address] Dr. Lee Cho SPEC GRAVITY >=1.030 Abnormal 1.005-<=1.0 25 [facility] Comment on above: Performed By: #### C BC #### [facility] [address] [place] [address] Dr. Lee Cho UA PROTEIN Negative Normal NEGATIVE/ TRACE [facility] Comment on above: Performed By: #### C BC #### [facility] [address] [place] [address] Dr. Lee Cho UR MICRO IND NOT INDICATED Normal [facility] Comment on above: Performed By: #### C BC #### [facility] [address] [place] [address] Dr. Lee Cho Urobilinogen Qn (U) 0.2 {Carlos'U}/dL Normal 0.2 - 1. 0 [facility] Comment on above: Performed By: #### C BC #### [facility] [address] [place] [address] Dr. Lee Cho LIPASEon 03-21-2022 Lipase [Catalytic activity/Vol] 58.0 U/L Critically low 73.0-393.0 [facility] Comment on above: Performed By: #### C MP, TAWANDA, HSTROPN, LIPA #### [facility] [address] [place] [address] Dr. Lee Cho PROF 14(COMP METB)on 022 Albumin [Mass/Vol] 4.2 g/dL Normal 3.4-5.0 [facility] Comment on above: Performed By: #### C MP, TAWANDA, HSTROPN, LIPA #### [facility] [address] [place] [address] Dr. Lee Cho Albumin/Globulin [Mass ratio] 1.2 {ratio} Normal [facility] Comment on above: Performed By: #### C MP, TAWANDA, HSTROPN, LIPA #### [facility] [address] [place] [address] Dr. Lee Cho ALP [Catalytic activity/Vol] 64 U/L Normal 46-116 [facility] Comment on above: Performed By: #### C MP, TAWANDA, HSTROPN, LIPA #### [facility] [address] [place] [address] Dr. Lee Cho ALT [Catalytic activity/Vol] 33 U/L Normal 16-63 [facility] Comment on above: Performed By: #### C MP, TAWANDA, HSTROPN, LIPA #### [facility] [address] [place] [address] Dr. Lee Cho Anion gap [Moles/Vol] 9.3 mmol/L Normal [facility] Comment on above: Performed By: #### C MP, TAWANDA, HSTROPN, LIPA #### [facility] [address] [place] [address] Dr. Lee Cho AST [Catalytic activity/Vol] 15 U/L Normal 15-37 [facility] Comment on above: Performed By: #### C MP, TAWANDA, HSTROPN, LIPA #### [facility] [address] [place] [address] Dr. Lee Cho Bilirubin [Mass/Vol] 0.5 mg/dL Normal 0.2-1.0 [facility] Comment on above: Performed By: #### C MP, TAWANDA, HSTROPN, LIPA #### [facility] [address] [place] [address] Dr. Lee Cho Calcium [Mass/Vol] 8.8 mg/dL Normal 8.5-10.1 [facility] Comment on above: Performed By: #### C MP, TAWANDA, HSTROPN, LIPA #### [facility] [address] [place] [address] Dr. Lee Cho Chloride [Moles/Vol] 104 mmol/L Normal 98-107 [facility] Comment on above: Performed By: #### C MP, TAWANDA, HSTROPN, LIPA #### [facility] [address] [place] [address] Dr. Lee Cho CO2 [Moles/Vol] 29.4 mmol/L Normal 21.0-32.0 [facility] Comment on above: Performed By: #### C MP, TAWANDA, HSTROPN, LIPA #### [facility] [address] [place] [address] Dr. Lee Cho Creatinine [Mass/Vol] 1.22 mg/dL Normal 0.70-1.30 [facility] Comment on above: Performed By: #### C MP, TAWANDA, HSTROPN, LIPA #### [facility] [address] [place] [address] Dr. Lee Cho EGFR-AF DUTCH >60 Normal >=60 [facility] Comment on above: Performed By: #### C MP, TAWANDA, HSTROPN, LIPA #### [facility] [address] [place] [address] Dr. Lee Cho EGFR-NON AF DUTCH >60 Normal >=60 [facility] Comment on above: Performed By: #### C MP, TAWANDA, HSTROPN, LIPA #### [facility] [address] [place] [address] Dr. Lee Cho Globulin (S) [Mass/Vol] 3.4 g/dL Normal T [facility] Comment on above: Performed By: #### C MP, TAWANDA, HSTROPN, LIPA #### [facility] [address] [place] [address] Dr. Lee Cho Glucose [Mass/Vol] 94 mg/dL Normal 74-106 [facility] Comment on above: Performed By: #### C MP, TAWANDA, HSTROPN, LIPA #### [facility] [address] [place] [address] Dr. Lee Cho Potassium [Moles/Vol] 3.7 mmol/L Normal 3.5-5.1 [facility] Comment on above: Performed By: #### C MP, TAWANDA, HSTROPN, LIPA #### [facility] [address] [address] [address] Lee Cho Protein [Mass/Vol] 7.6 g/dL Normal 6.4-8.2 [facility] Comment on above: Performed By: #### C MP, TAWANDA, HSTROPN, LIPA #### [facility] [address] [place] [address] Dr. Lee Cho Sodium [Moles/Vol] 139 mmol/L Normal 136-145 [facility] Comment on above: Performed By: #### C MP, TAWANDA, HSTROPN, LIPA #### [facility] [address] [address] [address] Lee Cho Urea nitrogen [Mass/Vol] 16.0 mg/dL Normal 7.0-18.0 [facility] Comment on above: Performed By: #### C MP, TAWANDA, HSTROPN, LIPA #### [facility] [address] [place] [address] Dr. Lee Cho Urea nitrogen/Creatinine [Mass ratio] 13.1 mg/mg Normal [facility] Comment on above: Performed By: #### C MP, TAWANDA, HSTROPN, LIPA #### [facility] [address] [place] [address] Dr. Lee Cho TROPONIN, HIGH SENSITIVITYon 03-21-2022 HSTROP 4.4 pg/mL Normal 4.0-76.1 [facility] Comment on above: Result Comment: CUT- OFF POINTS HAVE BEEN ESTABLISHED BASED ON THE FOURTH UNIVERSAL DEFINITIONS OF MYOCARDIAL INFARCTION. THE UPPER REFERENCE LIMIT (URL) OF TROPONIN, DEFINED THE 99TH PERCENTILE OF cTnI DISTRIBUTION IN A REFERENCE POPULATION, HAS BEEN CONFIRMED THE DECISION THRESHOLD FOR [place] DIAGNOSIS. Performed By: #### C BC #### [facility] [address] [place], [place] [address] Dr. Lee Cho HSTROP 4.7 pg/mL Normal 4.0-76.1 [facility] Comment on above: Result Comment: CUT- OFF POINTS HAVE BEEN ESTABLISHED BASED ON THE FOURTH UNIVERSAL DEFINITIONS OF MYOCARDIAL INFARCTION. THE UPPER REFERENCE LIMIT (URL) OF TROPONIN, DEFINED THE 99TH PERCENTILE OF cTnI DISTRIBUTION IN A REFERENCE POPULATION, HAS BEEN CONFIRMED THE DECISION THRESHOLD FOR [place] DIAGNOSIS. Performed By: #### C MP, TAWANDA, HSTROPN, LIPA #### [facility] [address] [place], [place] [address] Dr. Lee Cho US SINGLE QUAD RT UPPERon US SINGLE QUAD RT UPPER EXAM: US SINGLE QUAD RT UPPER EXAM DATE: 03/21/2022 1:35 PM MST COMPARISON: CT abdomen and pelvis 09/27/2021 INDICATION: Pain TECHNIQUE: Limited ultrasound of the right upper quadrant of abdomen was performed. Images were reviewed on a separate workstation. FINDINGS: Liver parenchyma is echogenic to adjacent renal cortex. Liver measures up to 17.9 cm in length. No focal intraparenchymal abnormality detected. Gallbladder is normally distended. No intraluminal echogenic abnormality seen. No gallbladder wall thickening or pericholecystic fluid noted. Gallbladder wall measures 3 mm. Sonographic Stern's sign is absent No intrahepatic or extrahepatic biliary ductal dilatation noted. CBD measures 4.7 mm. Portal vein is patent with hepatopetal flow. Pancreas is obscured by bowel gas.. Right kidney measures 10.7 x 6 x 5.3 cm (1 77 mL). No hydronephrosis or nephrolithiasis noted. No free fluid noted in upper abdomen. IMPRESSION: 1. Hepatic steatosis. 2. Borderline gallbladder wall thickening is nonspecific. No secondary sonographic evidence of acute cholecystitis. No gallstones identified. No biliary dilatation. Negative sonographic Stern's sign. Electronically authenticated by: TERRY SANZ Date: 2022-03-21 16:53 Normal [facility] XR CHEST 1 Von 03-21-2022 XR CHEST 1 V EXAM: XR CHEST 1 V a t 1545 hours HISTORY: CHEST PAIN, UNSPECIFIED COMPARISON: None. TECHNIQUE: AP upright portable chest x-ray FINDINGS: The heart is near the upper limits of normal in size with mild prominence of the central pulmonary vasculature. No acute infiltrate, effusion or pneumothorax is identified. The osseous structures are grossly intact. IMPRESSION: No acute infiltrate or evidence of cardiac decompensation. The heart is near the upper limits of normal in size. Direct comparison with a previous study is recommended to verify stability of these findings. Electronically authenticated by: GILBERT MILLER Date: 2022-03-21 16:24 Normal [facility] HEPATITIS PANEL, ACUTEon HBsAg Screen Negative Normal Negative [facility] Comment on above: Performed By: #### C BC #### [facility] [address] [place] [address] Dr. Lee Cho HCV AB >11.0 Critically high 0.0-0.9 [facility] Comment on above: Result Comment: . Performed By: #### C BC #### [facility] [address] [place] [address] Dr. Lee Cho HCV log10 Normal [facility] Comment on above: Performed By: #### C BC #### [facility] [address] [place] [address] Dr. Lee Cho Hep A Ab, IgM Negative Normal Negative [facility] Comment on above: Performed By: #### C BC #### [facility] [address] [place] [address] Dr. Lee Cho Hep B Core Ab, IgM Negative Normal Negative [facility] Comment on above: Performed By: #### C BC #### [facility] [address] [place] [address] Dr. Lee Cho Hep C Quantitation Not detected Normal [facility] Comment on above: Performed By: #### C BC #### [facility] [address] [place] [address] Dr. Lee Cho Interpretation Comment Normal [facility] Comment on above: Result Comment: Posi tive HCV antibody screen without the presence of HCV RNA is consistent with a resolved past infection or a false positive HCV antibody. Consider repeat testing after one month. Performed By: #### C BC #### [facility] [address] [place] [address] Dr. Lee Cho Test Information: Comment Normal [facility] Comment on above: Result Comment: The quantitative range of this assay is 15 IU/mL to 100 million IU/mL. Performed By: #### C BC #### [facility] [address] [place] [address] Dr. Lee Cho TESTOSTERONE, FREE,DIRECT, T OTALon 01-22-2022 Free Testosterone(Direct) 7.4 pg/mL Critically low 8.7-25.1 [facility] Comment on above: Result Comment: Perf ormed at: BN Performed By: #### C BC #### [facility] [address] [place] [address] Dr. Lee Cho Testosterone [Mass/Vol] 333 ng/dL Normal 264-916 [facility] Comment on above: Result Comment: Adul t male reference interval is based on a population of healthy nonobese males (BMI <30) between 19 and 39 years old. Cassidy et.al. JCEM 2017,102;4225-2989. PMID: [id number]. Performed at: CB Performed By: #### C BC #### [facility] [address] [place] [address] Dr. Lee Cho CBC AUTO DIFFon 01-17-2022 BASO # 0.0 103/ul Normal 0.0-0.1 [facility] Comment on above: Performed By: #### C BC #### [facility] [address] [place] [address] Dr. Lee Cho Basophils/100 WBC (Bld) 0.2 % Normal 0.2-2.0 [facility] Comment on above: Performed By: #### C BC #### [facility] [address] [place] [address] Dr. Lee Cho EO # 0.1 103/ul Normal 0.0-0.7 [facility] Comment on above: Performed By: #### C BC #### [facility] [address] [place] [address] Dr. Lee Cho Eosinophils/100 WBC (Bld) 1.3 % Normal 0.9-7.0 [facility] Comment on above: Performed By: #### C BC #### [facility] [address] [place] [address] Dr. Lee Cho Erythrocyte distribution width (RBC) [Ratio] 13.2 % Normal 11.0-15.0 [facility] Comment on above: Performed By: #### C BC #### [facility] [address] [place] [address] Dr. Lee Cho Hematocrit (Bld) [Volume fraction] 41.7 % Critically low 42.0-54.0 [facility] Comment on above: Performed By: #### C BC #### [facility] [address] [place] [address] Dr. Lee Cho Hemoglobin (Bld) [Mass/Vol] 13.7 g/dL Critically low 14.0-18.0 [facility] Comment on above: Performed By: #### C BC #### [facility] [address] [place] [address] Dr. Lee Cho IG # 0.02 10e3/ul Normal 0.00-0.03 [facility] Comment on above: Performed By: #### C BC #### [facility] [address] [place] [address] Dr. Lee Cho IG % 0.4 % Normal 0.0-0.5 [facility] Comment on above: Performed By: #### C BC #### [facility] [address] [place] [address] Dr. Lee Cho LYMPH # 1.3 103/ul Normal 1.2-3.8 [facility] Comment on above: Performed By: #### C BC #### [facility] [address] [place] [address] Dr. Lee Cho Lymphocytes/100 WBC (Bld) 22.5 % Normal 20.5-60.0 [facility] Comment on above: Performed By: #### C BC #### [facility] [address] [place] [address] Dr. Lee Cho MANUAL DIFF REQ NO Normal [facility] Comment on above: Performed By: #### C BC #### [facility] [address] [place] [address] Dr. Lee Cho MCH (RBC) [Entitic mass] 28.9 pg Normal 25.9-34.0 [facility] Comment on above: Performed By: #### C BC #### [facility] [address] [place] [address] Dr. Lee Cho MCHC (RBC) [Mass/Vol] 32.9 g/dL Normal 29.9-35.2 [facility] Comment on above: Performed By: #### C BC #### [facility] [address] [place] [address] Dr. Lee Cho MCV (RBC) [Entitic vol] 88.0 fL Normal 80.0-94.0 [facility] Comment on above: Performed By: #### C BC #### [facility] [address] [place] [address] Dr. Lee Cho MONO # 0.4 103/ul Normal 0.3-0.8 [facility] Comment on above: Performed By: #### C BC #### [facility] [address] [place] [address] Dr. Lee Cho Monocytes/100 WBC (Bld) 6.5 % Normal 1.7-12.0 [facility] Comment on above: Performed By: #### C BC #### [facility] [address] [place] [address] Dr. Lee Cho NEUT # 3.8 103/ul Normal 1.4-6.5 [facility] Comment on above: Performed By: #### C BC #### [facility] [address] [place] [address] Dr. Lee Cho Neutrophils/100 WBC (Bld) 69.1 % Normal 43.0-75.0 [facility] Comment on above: Performed By: #### C BC #### [facility] [address] [place] [address] Dr. Lee Cho Platelet mean volume (Bld) [Entitic vol] 11.5 fL Normal 9.5-13.5 [facility] Comment on above: Performed By: #### C BC #### [facility] [address] [place] [address] Dr. Lee Cho PLT 115 103/ul Critically low 150-450 [facility] Comment on above: Performed By: #### C BC #### [facility] [address] [place] [address] Dr. Lee Cho RBC 4.74 106/ul Normal 4.70-6.10 [facility] Comment on above: Performed By: #### C BC #### [facility] [address] [place] [address] Dr. Lee Cho WBC 5.6 103/ul Normal 4.0-11.0 [facility] Comment on above: Performed By: #### C BC #### [facility] [address] [place] [address] Dr. Lee Cho FREE T4on 01-17-2022 Free T4 [Mass/Vol] 1.06 ng/dL Normal 0.76-1.46 [facility] Comment on above: Performed By: #### F T4 #### [facility] [address] [place] [address] Dr. Lee Cho GLYCOHEMOGLOBIN A1Con 2021 ADA RECOMMENDATION SEE BELOW Normal [facility] Comment on above: Result Comment: ADA RECOMMENDED LIMIT 4.0 - 6.0 ADA THERAPEUTIC TARGET < 7.0 ACTION SUGGESTED > 7.0 Performed By: #### C BC #### [facility] [address] [place] [address] Dr. Lee Cho Glucose [Mass/Vol] 114 mg/dL Normal [facility] Comment on above: Performed By: #### C BC #### [facility] [address] [place] [address] Dr. Lee Cho HbA1c (Bld) [Mass fraction] 5.6 % Normal 4.5-6.2 [facility] Comment on above: Performed By: #### C BC #### [facility] [address] [address] [address] Lee Cho LIPID PROFILEon 01-17-2022 CHOL-HDL RATIO NORM SEE BELOW Normal [facility] Comment on above: Result Comment: 3.3 - 4.4 LOW RISK 4.4 - 7.1 AVERAGE RISK 7.1 - 11.0 MODERATE RISK >11.0 HIGH RISK Performed By: #### D DIM #### [facility] [address] [address] [address] Lee Cho Cholesterol [Mass/Vol] 187 mg/dL Normal <=200 [facility] Comment on above: Performed By: #### D DIM #### [facility] [address] [address] [address] Lee Cho Cholesterol in HDL [Mass/Vol] 42 mg/dL Normal 40-60 [facility] Comment on above: Performed By: #### D DIM #### [facility] [address] [address] [address] Lee Cho Cholesterol in LDL [Mass/Vol] 133.4 mg/dL Normal [facility] Comment on above: Performed By: #### D DIM #### [facility] [address] [address] [address] Lee Cho Cholesterol.total/Marge sterol in HDL [Mass ratio] 4.5 {ratio} Normal [facility] Comment on above: Performed By: #### D DIM #### [facility] [address] [address] [address] Lee Cho HDL NORMAL > or = 60 mg/dl - LO W CARDIOVASCULAR RISK <40 mg/dl - HIGH CARDIOVASCULAR RISK Normal [facility] Comment on above: Performed By: #### D DIM #### [facility] [address] [place], [place] [address] Dr. Lee Cho LDL CALC NORMAL SEE BELOW Normal [facility] Comment on above: Result Comment: <100 mg/dl OPTIMAL 100 - 129 mg/dl NEAR OR ABOVE OPTIMAL 130 - 159 mg/dl BORDERLINE HIGH 160 - 189 mg/dl HIGH >190 mg/dl VERY HIGH Performed By: #### D DIM #### [facility] [address] [address] [address] Lee Cho Triglyceride [Mass/Vol] 58 mg/dL Normal <=150 T [facility] Comment on above: Performed By: #### D DIM #### [facility] [address] [place] [address] Dr. Lee Cho VLDL CALC 11.6 mg/dL Normal [facility] Comment on above: Performed By: #### D DIM #### [facility] [address] [place] [address] Dr. Lee Cho PROF 14(COMP METB)on 022 Albumin [Mass/Vol] 4.2 g/dL Normal 3.4-5.0 [facility] Comment on above: Performed By: #### D DIM #### [facility] [address] [place] [address] Dr. Lee Cho Albumin/Globulin [Mass ratio] 1.3 {ratio} Normal [facility] Comment on above: Performed By: #### D DIM #### [facility] [address] [place] [address] Dr. Lee Cho ALP [Catalytic activity/Vol] 63 U/L Normal 46-116 [facility] Comment on above: Performed By: #### D DIM #### [facility] [address] [place] [address] Dr. Lee Cho ALT [Catalytic activity/Vol] 40 U/L Normal 16-63 [facility] Comment on above: Performed By: #### D DIM #### [facility] [address] [place] [address] Dr. Lee Cho Anion gap [Moles/Vol] 11.7 mmol/L Normal [facility] Comment on above: Performed By: #### D DIM #### [facility] [address] [place] [address] Dr. Lee Cho AST [Catalytic activity/Vol] 17 U/L Normal 15-37 [facility] Comment on above: Performed By: #### D DIM #### [facility] [address] [place] [address] Dr. Lee Cho Bilirubin [Mass/Vol] 0.7 mg/dL Normal 0.2-1.0 [facility] Comment on above: Performed By: #### D DIM #### [facility] [address] [place] [address] Dr. Lee Cho Calcium [Mass/Vol] 8.8 mg/dL Normal 8.5-10.1 [facility] Comment on above: Performed By: #### D DIM #### [facility] [address] [place] [address] Dr. Lee Cho Chloride [Moles/Vol] 103 mmol/L Normal 98-107 [facility] Comment on above: Performed By: #### D DIM #### [facility] [address] [place] [address] Dr. Lee Cho CO2 [Moles/Vol] 26.3 mmol/L Normal 21.0-32.0 [facility] Comment on above: Performed By: #### D DIM #### [facility] [address] [place] [address] Dr. Lee Cho Creatinine [Mass/Vol] 1.24 mg/dL Normal 0.70-1.30 [facility] Comment on above: Performed By: #### D DIM #### [facility] [address] [place] [address] Dr. Lee Cho EGFR-AF DUTCH >60 Normal >=60 [facility] Comment on above: Performed By: #### D DIM #### [facility] [address] [place] [address] Dr. Lee Cho EGFR-NON AF DUTCH >60 Normal >=60 [facility] Comment on above: Performed By: #### D DIM #### [facility] [address] [place] [address] Dr. Lee hCo Globulin (S) [Mass/Vol] 3.2 g/dL Normal T [facility] Comment on above: Performed By: #### D DIM #### [facility] [address] [place] [address] Dr. Lee Cho Glucose [Mass/Vol] 84 mg/dL Normal 74-106 [facility] Comment on above: Performed By: #### D DIM #### [facility] [address] [address] [address] Lee Cho Potassium [Moles/Vol] 4.0 mmol/L Normal 3.5-5.1 [facility] Comment on above: Performed By: #### D DIM #### [facility] [address] [address] [address] Lee Cho Protein [Mass/Vol] 7.4 g/dL Normal 6.4-8.2 [facility] Comment on above: Performed By: #### D DIM #### [facility] [address] [address] [address] Lee Cho Sodium [Moles/Vol] 137 mmol/L Normal 136-145 [facility] Comment on above: Performed By: #### D DIM #### [facility] [address] [address] [address] Lee Cho Urea nitrogen [Mass/Vol] 15.0 mg/dL Normal 7.0-18.0 [facility] Comment on above: Performed By: #### D DIM #### [facility] [address] [address] [address] Lee Cho Urea nitrogen/Creatinine [Mass ratio] 12.1 mg/mg Normal [facility] Comment on above: Performed By: #### D DIM #### [facility] [address] [address] [address] Lee Cho TSHon 01-17-2022 TSH 2.565 uIU/mL Normal 0.358-3.740 [facility] Comment on above: Performed By: #### C BC #### [facility] [address] [address] [address] Lee Cho URIC ACID SERUMon 01-17-2022 Urate [Mass/Vol] 5.0 mg/dL Normal 3.5-7.2 [facility] Comment on above: Performed By: #### C BC #### [facility] [address] [address] [address] Lee Cho AMYLASEon 09-27-2021 Amylase [Catalytic activity/Vol] 26 U/L Normal 25-115 [facility] Comment on above: Performed By: #### A MY, LIPA, CMP #### [facility] [address] [place] [address] Dr. Lee Cho CBC AUTO DIFFon 09-27-2021 BASO # 0.0 103/ul Normal 0.0-0.1 [facility] Comment on above: Performed By: #### D DIM #### [facility] [address] [place] [address] Dr. Lee Cho Basophils/100 WBC (Bld) 0.2 % Normal 0.2-2.0 [facility] Comment on above: Performed By: #### D DIM #### [facility] [address] [place] [address] Dr. Lee Cho EO # 0.1 103/ul Normal 0.0-0.7 [facility] Comment on above: Performed By: #### D DIM #### [facility] [address] [place] [address] Dr. Lee Cho Eosinophils/100 WBC (Bld) 1.9 % Normal 0.9-7.0 [facility] Comment on above: Performed By: #### D DIM #### [facility] [address] [place] [address] Dr. Lee Cho Erythrocyte distribution width (RBC) [Ratio] 13.7 % Normal 11.0-15.0 [facility] Comment on above: Performed By: #### D DIM #### [facility] [address] [place] [address] Dr. Lee Cho Hematocrit (Bld) [Volume fraction] 46.8 % Normal 42.0-54.0 [facility] Comment on above: Performed By: #### D DIM #### [facility] [address] [place] [address] Dr. Lee Cho Hemoglobin (Bld) [Mass/Vol] 15.0 g/dL Normal 14.0-18.0 [facility] Comment on above: Performed By: #### D DIM #### [facility] [address] [place] [address] Dr. Lee Cho IG # 0.01 10e3/ul Normal 0.00-0.03 [facility] Comment on above: Performed By: #### D DIM #### [facility] [address] [place] [address] Dr. Lee Cho IG % 0.2 % Normal 0.0-0.5 [facility] Comment on above: Performed By: #### D DIM #### [facility] [address] [place] [address] Dr. Lee Cho LYMPH # 0.6 103/ul Critically low 1.2-3.8 [facility] Comment on above: Performed By: #### D DIM #### [facility] [address] [place] [address] Dr. Lee Cho Lymphocytes/100 WBC (Bld) 9.4 % Critically low 20.5-60.0 [facility] Comment on above: Performed By: #### D DIM #### [facility] [address] [place] [address] Dr. Lee Cho MANUAL DIFF REQ NO Normal [facility] Comment on above: Performed By: #### D DIM #### [facility] [address] [place] [address] Dr. Lee Cho MCH (RBC) [Entitic mass] 28.6 pg Normal 25.9-34.0 [facility] Comment on above: Performed By: #### D DIM #### [facility] [address] [place] [address] Dr. Lee Cho MCHC (RBC) [Mass/Vol] 32.1 g/dL Normal 29.9-35.2 [facility] Comment on above: Performed By: #### D DIM #### [facility] [address] [place] [address] Dr. Lee Cho MCV (RBC) [Entitic vol] 89.1 fL Normal 80.0-94.0 [facility] Comment on above: Performed By: #### D DIM #### [facility] [address] [place] [address] Dr. Lee Cho MONO # 0.4 103/ul Normal 0.3-0.8 [facility] Comment on above: Performed By: #### D DIM #### [facility] [address] [place] [address] Dr. Lee Cho Monocytes/100 WBC (Bld) 6.7 % Normal 1.7-12.0 [facility] Comment on above: Performed By: #### D DIM #### [facility] [address] [place] [address] Dr. Lee Cho NEUT # 5.2 103/ul Normal 1.4-6.5 [facility] Comment on above: Performed By: #### D DIM #### [facility] [address] [place] [address] Dr. Lee Cho Neutrophils/100 WBC (Bld) 81.6 % Critically high 43.0-75.0 [facility] Comment on above: Performed By: #### D DIM #### [facility] [address] [place] [address] Dr. Lee Cho Platelet mean volume (Bld) [Entitic vol] 11.0 fL Normal 9.5-13.5 [facility] Comment on above: Performed By: #### D DIM #### [facility] [address] [place] [address] Dr. Lee Cho PLT 169 103/ul Normal 150-450 [facility] Comment on above: Performed By: #### D DIM #### [facility] [address] [place] [address] Dr. Lee Cho RBC 5.25 106/ul Normal 4.70-6.10 [facility] Comment on above: Performed By: #### D DIM #### [facility] [address] [place] [address] Dr. Lee Cho WBC 6.3 103/ul Normal 4.0-11.0 [facility] Comment on above: Performed By: #### D DIM #### [facility] [address] [place] [address] ABD/PELV W CONon 09-28-19 CT ABD/PELV W CON EXAM: CT ABD/PELV W CON 09/26/2021 10:03 PM EDT OH001 CLINICAL STATEMENT: ABDOMINAL DISTENSION (GASEOUS) COMPARISON: No prior studies are available at the time of dictation. TECHNIQUE: Helically acquired images were obtained of the abdomen and pelvis following oral and 100 cc of Omnipaque 300 IV contrast. AEC is utilized. 2-D reconstructed images are provided. FINDINGS: The gallbladder is unremarkable. The upper abdominal solid organs are unremarkable. There is no bowel obstruction or free air. Multiple scattered subcentimeter mesenteric lymph nodes. There is no ascites. There is no evidence of aortic aneurysm or dissection. The celiac artery, superior mesenteric artery, and superior mesenteric vein are grossly patent. There is no retroperitoneal adenopathy. There is no appendicitis or diverticulitis. There are no pelvic masses or loculated fluid collections. The lung bases are clear. There are no destructive bone lesions identified. IMPRESSION: No acute abnormality. FOLLOW-UP: Follow-up as clinically indicated. Electronically authenticated by: ANA MARTINEZ Date: 2021-09-27 01:01 Normal [facility] LIPASEon 09-27-2021 Lipase [Catalytic activity/Vol] 36.0 U/L Critically low 73.0-393.0 [facility] Comment on above: Performed By: #### D DIM #### [facility] [address] [place] [address] Dr. Lee Cho PROF 14(COMP METB)on 022 Albumin [Mass/Vol] 4.2 g/dL Normal 3.4-5.0 [facility] Comment on above: Performed By: #### D DIM #### [facility] [address] [place] [address] Dr. Lee Cho Albumin/Globulin [Mass ratio] 1.2 {ratio} Normal [facility] Comment on above: Performed By: #### D DIM #### [facility] [address] [place] [address] Dr. Lee Cho ALP [Catalytic activity/Vol] 61 U/L Normal 46-116 [facility] Comment on above: Performed By: #### D DIM #### [facility] [address] [address] [address] Lee Cho ALT [Catalytic activity/Vol] 43 U/L Normal 16-63 [facility] Comment on above: Performed By: #### D DIM #### [facility] [address] [address] [address] Lee Cho Anion gap [Moles/Vol] 14.9 mmol/L Normal [facility] Comment on above: Performed By: #### D DIM #### [facility] [address] [address] [address] Lee Cho AST [Catalytic activity/Vol] 18 U/L Normal 15-37 [facility] Comment on above: Performed By: #### D DIM #### [facility] [address] [address] [address] Lee Cho Bilirubin [Mass/Vol] 0.6 mg/dL Normal 0.2-1.0 [facility] Comment on above: Performed By: #### D DIM #### [facility] [address] [address] [address] Lee Cho Calcium [Mass/Vol] 8.8 mg/dL Normal 8.5-10.1 [facility] Comment on above: Performed By: #### D DIM #### [facility] [address] [address] [address] Lee Cho Chloride [Moles/Vol] 102 mmol/L Normal 98-107 [facility] Comment on above: Performed By: #### D DIM #### [facility] [address] [address] [address] Lee Cho CO2 [Moles/Vol] 26.8 mmol/L Normal 21.0-32.0 [facility] Comment on above: Performed By: #### D DIM #### [facility] [address] [address] [address] Lee Cho Creatinine [Mass/Vol] 1.10 mg/dL Normal 0.70-1.30 [facility] Comment on above: Performed By: #### D DIM #### [facility] [address] [address] [address] Lee Cho EGFR-AF DUTCH >60 Normal >=60 [facility] Comment on above: Performed By: #### D DIM #### [facility] [address] [address] [address] Lee Cho EGFR-NON AF DUTCH >60 Normal >=60 [facility] Comment on above: Performed By: #### D DIM #### [facility] [address] [address] [address] Lee Cho Globulin (S) [Mass/Vol] 3.5 g/dL Normal T [facility] Comment on above: Performed By: #### D DIM #### [facility] [address] [address] [address] Lee Cho Glucose [Mass/Vol] 91 mg/dL Normal 74-106 [facility] Comment on above: Performed By: #### D DIM #### [facility] [address] [place] [address] Dr. Lee Cho Potassium [Moles/Vol] 3.7 mmol/L Normal 3.5-5.1 [facility] Comment on above: Performed By: #### D DIM #### [facility] [address] [place] [address] Dr. Lee Cho Protein [Mass/Vol] 7.7 g/dL Normal 6.4-8.2 [facility] Comment on above: Performed By: #### D DIM #### [facility] [address] [place] [address] Dr. Lee Cho Sodium [Moles/Vol] 140 mmol/L Normal 136-145 [facility] Comment on above: Performed By: #### D DIM #### [facility] [address] [address] [address] Lee Cho Urea nitrogen [Mass/Vol] 24.0 mg/dL Critically high 7.0-18.0 [facility] Comment on above: Performed By: #### D DIM #### [facility] [address] [place] [address] Dr. Lee Cho Urea nitrogen/Creatinine [Mass ratio] 21.8 mg/mg Normal [facility] Comment on above: Performed By: #### D DIM #### [facility] [address] [address] [address] Lee Cho FREE T4on 08-05-2021 Free T4 [Mass/Vol] 1.00 ng/dL Normal 0.78-2.19 [facility] Comment on above: Performed By: #### F T4 #### [facility] [address] [address] [address] Lee Cho GLYCOHEMOGLOBIN A1Con 2021 ADA RECOMMENDATION ADA THERAPEUTIC TARGET 6.0 - 7.0 ACTION SUGGESTED > 7.0 Normal [facility] Comment on above: Performed By: #### D DIM #### [facility] [address] [address] [address] Lee Cho Glucose [Mass/Vol] 111 mg/dL Normal [facility] Comment on above: Performed By: #### D DIM #### [facility] [address] [place] [address] Dr. Lee Cho HbA1c (Bld) [Mass fraction] 5.5 % Normal <=6.0 [facility] Comment on above: Performed By: #### D DIM #### [facility] [address] [place] [address] Dr. Lee Cho LIPID PROFILEon 08-05-2021 CHOL-HDL RATIO NORM SEE BELOW Normal [facility] Comment on above: Result Comment: 3.3 - 4.4 LOW RISK 4.4 - 7.1 AVERAGE RISK 7.1 - 11.0 MODERATE RISK >11.0 HIGH RISK Performed By: #### D DIM #### [facility] [address] [address] [address] Lee Cho Cholesterol [Mass/Vol] 182 mg/dL Normal <=200 [facility] Comment on above: Performed By: #### D DIM #### [facility] [address] [place] [address] Dr. Lee Cho Cholesterol in HDL [Mass/Vol] 40 mg/dL Normal 40-60 [facility] Comment on above: Performed By: #### D DIM #### [facility] [address] [address] [address] Lee Cho Cholesterol in LDL [Mass/Vol] 120.4 mg/dL Normal [facility] Comment on above: Performed By: #### D DIM #### [facility] [address] [address] [address] Lee Cho Cholesterol.total/Marge sterol in HDL [Mass ratio] 4.6 {ratio} Normal [facility] Comment on above: Performed By: #### D DIM #### [facility] [address] [address] [address] Lee Cho HDL NORMAL > or = 60 mg/dl - LO W CARDIOVASCULAR RISK <40 mg/dl - HIGH CARDIOVASCULAR RISK Normal [facility] Comment on above: Performed By: #### D DIM #### [facility] [address] [address] [address] Lee Cho LDL CALC NORMAL SEE BELOW Normal [facility] Comment on above: Result Comment: <100 mg/dl OPTIMAL 100 - 129 mg/dl NEAR OR ABOVE OPTIMAL 130 - 159 mg/dl BORDERLINE HIGH 160 - 189 mg/dl HIGH >190 mg/dl VERY HIGH Performed By: #### D DIM #### [facility] [address] [place] [address] Dr. Lee Cho Triglyceride [Mass/Vol] 108 mg/dL Normal <=150 T [facility] Comment on above: Performed By: #### D DIM #### [facility] [address] [place] [address] Dr. Lee Cho VLDL CALC 21.6 mg/dL Normal [facility] Comment on above: Performed By: #### D DIM #### [facility] [address] [address] [address] Lee Cho PROF 14(COMP METB)on 022 Albumin [Mass/Vol] 4.2 g/dL Normal 3.4-5.0 [facility] Comment on above: Performed By: #### D DIM #### [facility] [address] [place] [address] Dr. Lee Cho Albumin/Globulin [Mass ratio] 1.2 {ratio} Normal [facility] Comment on above: Performed By: #### D DIM #### [facility] [address] [address] [address] Lee Cho ALP [Catalytic activity/Vol] 84 U/L Normal 46-116 [facility] Comment on above: Performed By: #### D DIM #### [facility] [address] [place] [address] Dr. Lee Cho ALT [Catalytic activity/Vol] 42 U/L Normal 16-63 [facility] Comment on above: Performed By: #### D DIM #### [facility] [address] [place] [address] Dr. Lee Cho Anion gap [Moles/Vol] 11.5 mmol/L Normal [facility] Comment on above: Performed By: #### D DIM #### [facility] [address] [place] [address] Dr. Lee Cho AST [Catalytic activity/Vol] 18 U/L Normal 15-37 [facility] Comment on above: Performed By: #### D DIM #### [facility] [address] [place] [address] Dr. Lee Cho Bilirubin [Mass/Vol] 0.4 mg/dL Normal 0.2-1.3 [facility] Comment on above: Performed By: #### D DIM #### [facility] [address] [place] [address] Dr. Lee Cho Calcium [Mass/Vol] 8.4 mg/dL Critically low 8.5-10.1 [facility] Comment on above: Performed By: #### D DIM #### [facility] [address] [place] [address] Dr. Lee Cho Chloride [Moles/Vol] 104 mmol/L Normal 98-107 [facility] Comment on above: Performed By: #### D DIM #### [facility] [address] [place] [address] Dr. Lee Cho CO2 [Moles/Vol] 24.4 mmol/L Normal 22.0-30.0 [facility] Comment on above: Performed By: #### D DIM #### [facility] [address] [place] [address] Dr. Lee Cho Creatinine [Mass/Vol] 1.03 mg/dL Normal 0.66-1.25 [facility] Comment on above: Performed By: #### D DIM #### [facility] [address] [address] [address] Lee Cho EGFR-AF DUTCH >60 Normal >=60 [facility] Comment on above: Performed By: #### D DIM #### [facility] [address] [address] [address] Lee Cho EGFR-NON AF DUTCH >60 Normal >=60 [facility] Comment on above: Performed By: #### D DIM #### [facility] [address] [address] [address] Lee Cho Globulin (S) [Mass/Vol] 3.4 g/dL Normal T [facility] Comment on above: Performed By: #### D DIM #### [facility] [address] [address] [address] Lee Cho Glucose [Mass/Vol] 91 mg/dL Normal 74-106 [facility] Comment on above: Performed By: #### D DIM #### [facility] [address] [address] [address] Lee Cho Potassium [Moles/Vol] 3.9 mmol/L Normal 3.4-5.0 [facility] Comment on above: Performed By: #### D DIM #### [facility] [address] [address] [address] Lee Cho Protein [Mass/Vol] 7.6 g/dL Normal 6.1-8.2 [facility] Comment on above: Performed By: #### D DIM #### [facility] [address] [address] [address] Lee Cho Sodium [Moles/Vol] 136 mmol/L Critically low 137-145 [facility] Comment on above: Performed By: #### D DIM #### [facility] [address] [address] [address] Lee Cho Urea nitrogen [Mass/Vol] 18.0 mg/dL Normal 7.0-18.0 [facility] Comment on above: Performed By: #### D DIM #### [facility] [address] [address] [address] Lee Cho Urea nitrogen/Creatinine [Mass ratio] 17.5 mg/mg Normal [facility] Comment on above: Performed By: #### D DIM #### [facility] [address] [place], [place] [address] Dr. Lee Cho TSHon 08-05-2021 TSH 3.963 uIU/mL Normal 0.470-4.680 [facility] Comment on above: Performed By: #### D DIM #### [facility] [address] [address] [address] Lee Cho TSH RANGE SEE BELOW Normal [facility] Comment on above: Result Comment: <0.3 4 UIU/ml HYPERTHYROID 0.34-5.60 UIU/ml EUTHYROID >5.60 UIU/ml HYPOTHYROID Performed By: #### D DIM #### [facility] [address] [address] [address] Lee Cho Ambulatory Visit Summaryon 0 05-23-2021 Ambulatory Visit Summary MIGUEL WHITTEN :1985 Visit Date:05/23/2021 Ambulatory Visit Instructions Your Diagnosis Postvasectomy sperm count Your Care Team Attending Physician - ERICA GUERRIER PA-C Primary Care Physician - NATHAN RAY DO This Is Your Medications List acetaminophen-oxycodo ne (Percocet 5 mg-325 mg oral tablet) allopurinol (allopurinol 300 mg Tab) buPROPion (buPROPion 300 mg XL /24 hrs) ciprofloxacin (Cipro 500 mg Tab) cyclobenzaprine (cyclobenzaprine 10 mg Tab) esomeprazole (esomeprazole 40 mg Cap-EC) levothyroxine (levothyroxine 150 mcg (0.15 mg) Tab) pregabalin (pregabalin 75 mg Cap) sucralfate (sucralfate 1 g Tab) Procedures Performed Vasectomy (04/29/2021), Colonoscopy, flexible; with biopsy, single or multiple, CTR - carpal tunnel release. Medications What How Much When Instructions Unchanged acetaminophen-oxycodo ne (Percocet 5 mg-325 mg oral tablet) 1 Tablets By Mouth Every 6 hours Unchanged allopurinol (allopurinol 300 mg Tab) By Mouth Every day Unchanged buPROPion (buPROPion 300 mg XL / 24 hrs) By Mouth Every 24 hours Unchanged ciprofloxacin (Cipro 500 mg Tab) 1 Tablets By Mouth 2 times a day Start medication the day before the procedure. Unchanged cyclobenzaprine (cyclobenzaprine 10 mg Tab) 1 Tablets By Mouth 3 times a day as needed for for spasm Unchanged esomeprazole (esomeprazole 40 mg Cap-EC) By Mouth Every day Unchanged levothyroxine (levothyroxine 150 mcg (0.15 mg) Tab) By Mouth Every day Unchanged pregabalin (pregabalin 75 mg Cap) 1 Capsules By Mouth 2 times a day Unchanged sucralfate (sucralfate 1 g Tab) By Mouth Four times a day (before meals and at bedtime) Allergies No Known Medication Allergies Problems Ongoing - Any problem that you are currently receiving treatment for. Arthritis Depression Epididymitis, right Gout Hypothyroid Nicotine use Vasectomy status Normal [facility] Urology Office/Clinic Noteon 05-23-2021 Urology Office/Clinic Note HPI Staff Pt is here for f/u to vasectomy done 04/29/21. Pt has no urinary complaints at this time. He does state that a couple of times since his procedure that he has felt discomfort and pressure in his right testicle. He states that it feels like someone is squeezing it. He's had these sx for years and discussed this feeling with Dr. Flannery previously. No worsening/increase/ch esteban since procedure. Dysuria: no Hematuria: no Abdominal pain: no Flank pain: no Sexual complaints: no Physical Exam incisions healing well. no signs of infection. Assessment/Plan 1. S/P vasectomy (Z98.52: Vasectomy status) Pt is doing well since his procedure. Healing well. Instructed on proper SA collection/submission . Aware that he is not considered sterile until advised by our office after results of SA reviewed. F/u PRN. Ordered: Office Visit No Charge Follow-up No qualifying data available Problem List/Past Medical History Ongoing Arthritis Depression Epididymitis, right Gout Hypothyroid Nicotine use Vasectomy status Historical No qualifying data Procedure/Surgical History Vasectomy (04/29/2021), Colonoscopy, flexible; with biopsy, single or multiple, CTR - carpal tunnel release. Medications allopurinol 300 mg Tab, Oral, Daily buPROPion 300 mg XL /24 hrs, Oral, q24hr Cipro 500 mg Tab, 500 mg= 1 tab(s), Oral, BID cyclobenzaprine 10 mg Tab, 10 mg= 1 tab(s), Oral, TID, PRN esomeprazole 40 mg Cap-EC, Oral, Daily levothyroxine 150 mcg (0.15 mg) Tab, Oral, Daily Percocet 5 mg-325 mg oral tablet, 1 tab(s), Oral, q6hr pregabalin 75 mg Cap, 75 mg= 1 cap(s), Oral, BID sucralfate 1 g Tab, Oral, QIDACHS Allergies No Known Medication Allergies Social History Tobacco Never (less than 100 in lifetime) Tobacco Use:., 04/29/2021 Family History Family history is unknown Normal [facility] Comment on above: Result Comment: Elec tronically Signed By: FAREED KIM, ERICA Roa\.br\Date and Time Signed: 05/23/21 13:42 EST Coding Summary.on 05-15-2021 Coding Summary. [id number] G h0bWw+PGhlYWQ+ZI8IPQC sM23lwCSfyY1TH7eMJG6M UBPWMMSUVG2FLQ1ndIY4U WigB4JnvmKs KrcawPEoFJ85IGb4LGH0e VbvTWxutI9suJWoG1e2Hb WkTI39mJ35UJiePFZeRgL 3LjZpbjsgbWFy K1qlRoZnlIOwAkv+PHRhY mxlIHdpZHRoPScxMDAlJy DoeAtiEH9uHd4eCQXfFCA vbGxhcHNlOiBj s6vfJPOkKEqlVE5klRuzD 3JxuKT5ISGbn4l9Dz09iL I+CEGxZQF1qAraWJjhg20 2XdZzv4ssDOJ4 yNKpZNgwTRO2Y64wu1Y3K MUkHREsLYF3lNT5jU7kkD fickfvQ4QfkEGvDwS8KAU 7vGIhvL5pwVbf dtgveP9tRui+I49HQQ4JM DWIJN4NWjt9S7UqAqxnhQ I+GW22MTDkSW07cCZboJA kq6fjpKo3FwBi CFElQZS9hScyMXxzw2ThG CLhJ45vxVEgc5Z9SVMnaV xlpHHvWsKjiOL8pY5gXEx alnquz6huvehh Prvjf5cbdh72uL79Z18cU RadOUNtCJL7TOBaZVNvgU jqxt8ckG3vPj7+PIjxh1k fx7szcDz4CuLi SEBxxqUdyLfkCEL3h9RyB e86O6HecWwax8XuXrb7tu 53cRNip3D0iPA2PNzeFWN ccI4hEEixHpB6 VZUvAoOywF48rACdFLwjF i6tlFqiuTirMB4xWZSqck jzXNYbjG1dHWVwkXGsjTg lIG5nVXMiobbe c336GsPiAMS0ZAXleLBaI 6CivO9fOqBtBIAsILFwR0 SkgDYbXDalU792PHqqCaQ 0NRIygqDrC6Kb CUUlxCluBoB2o1O0Vj0Sn 9IirtiaYDS1YRlmMPHiKe FqFzXlItU8O2KbQpd2FOV duCujPA1aJ4Ou EEZuwdwxagiokOM7ROHyT ICvaV82fJHiFEyeGh5be3 L8g930ROTjUGRycH73Br0 udDogMTBwdCBU eX5pazzoa4iqjehlFmLoK GEvLQn2AKw7MVCbeRuyWe VvIIM5PqW4NYW9cOCvgI1 wrRmoqupqiM4y Oyc+O08eqF3hVWH0KMH0w leoFORhmfGmWM41CU45N8 RyPjwvdGFibGU+PGRpdiB dzInmOF3rIhJy k0fjx5UaJNfvO7YbIZIeM SmtHnc1RSEhHJU9uWB0yP 9sXDDaOCddp4H9nBX2H8T ssmTmsm5vk5vr ULUhZNhcF79igWZhv0D1E ZMnfSS8QSBpiVnaZnMzwS 93Oyc+PARbkMfsc9MdZpg ii4lil7bidOh5 UdFkHCOhslRasAyfFNL5o 2TwWg57B16rNKaiIFCuAM KkNQLyQAUlmVzbtp5ewO1 wIi8+PGNvbCB3 sMX3qC3sJBQlMdE0LOvaA 126OxOmfOAvFhpfw1twh2 ugeFr4DnWaUNPbqaRwyFn qPKH8r4JfHv50 I32kFLpfZINrAJPvAVGfW SXrrVqhob4vjG6aUv4+PC 6pb5tvpt88lS08jCO+PHR yCVJ2gDnwQFut OOAvxQ0aRRkxBfK1VJMjT yMnrY51dZGsXTekBu3bcR javRvkNA6sNZKrxheff02 4EfMao8laBFJj hCTdHApbEYR1V07ql2L7T ILsLDGfUSJ1jIW9lT7orJ lnbjogbGVmdDsgdmVydGl fWEfjFMlnN911 IHRvcDsnPlBhdGllbnQgT rMjIDp2Y3RmMyl4BDYvuM yrZU8abZBxIVkcEj6yvAt uoVwzDF9eRYJk vgzqt269KhZie2lvYGYei FMvWFzeWMI5N46jh5B6DD DoITHqSZO0dVH6cK9dmZt nbjogbGVmdDsg qpDxrZbmZQcsTFcxL981F HRvcDsnPkJpcnRoIERhdG J6BB26BD97bNLtb9M0xUQ 0P8HaBYKlfdoh oljrhYC3KDWbDGRsdD13L m1peZdfCa9xQRGbTDP5IK KfeEJxX8NwxP2tPzYkOOI cIOPcS6TnnJPs DHfjQ404AHvlJfU8LBFxh dGpE0WvEKHohTarIpG4r9 B8Hy6CM3W0ND44PP85rBT aa7L9fUI2M8Sn ZQErclcquqhjnEQ5XUKvO PKkjU51Yu0mxRayGp7xTN PyHNR0AVRchSUfS8HzwS5 yOiAjMDAwMDAw Z5LohCCsPFkeP347TBuhA cM6AQBhygBgN9CyQMOpoQ izHzF7x6V9Zx1TJZf0RT8 2DI62bSOdu0Q8 fIQ3D6VdWOZaisigwwwsz EN2TECfNJOocQ92Wt8qyT byQe8gWQBvDXS4XVGliYW bC7GtnA1mYlNn OZIzKQQoE8RwqGDxHXztM 687MTgiXcB9EJPgrwYeC4 MkYAPiuQgnOiW5d0W1Ky8 ASUGxZP52TZC4 mVO8GE09GK95O6YhAkldi GFibGU+PHRhYmxlIHdpZH RoPScxMDAlJyBzdHlsZT0 aXc2qKCTeFWDg yIspoAOzCcFiy9xkRXYpW JtoCY0paBtsE0DotAJ5GW Tto5u8Ug59P17kX4DocRS +OXCuqEV5yMH4 fD2bVpMqGuR0SLpmU361T hAtkBYeMobik2axd3furM q0XfL6JUCfbiGajGqrQOW 6d4XwUj86B85n IHdpZHRoPSIxNSUiIHZhb Nzyac8vxY8nHg7+PGNvbC O1eUW7gG9uLwGqJuY4MVi aO002KqJdmUJg Ypqdm2qzq3qnnAz5UwDyX VOzxbDfdRlfBUK0d3BwFn 58V5HgaOrtw0WmTol0vr6 1dXZgn5C4dQF1 G2AfTMEmpqadlQWhiVmhZ E6hLFMsdulpPJUtuO8uRB PhI9r6TmCjKuL6LMtsK5T mkfU1OMFxaHEx YMobZHI0Y31pc2R1OFCgO OZsXZT4oKS8nF1ruPjskb ogbGVmdDsgdmVydGljYWw yOXxcL389NVWt gVrdNRMohH6iJXJxiKDhx ApmTE0dPCDardnyEk6RW5 NKZBZFENjEGGu1Q5QyHqi 3DLAoaMwlUZ0q cJFjBRidTa0uvDkpjQomX O1gMQXgfdyjWAUcfO3oRG OhxDLpzBvsGA7lYYCvapx zc220BiJrFHI0 PFZomYKaJ7MccD8cUcVgV PPbHNViB2LzbBVoRSknV8 00YLusEuJ1IVUaywSlT4R sLWFsaWduOiB0 y7U0Tz4sYu8kCH1cRMr9N Y50KV77pRYie3Q9cET4K6 RhOTGxmaudxkwafVG0ZYE pGXVceD74xWCm RWooAy7nj0I8q400JDYeA XFodB16Ij7kkLugAWFqfB KFmS1dpujxx2oifmghEqJ fVYFfDUb2QPi2 JTBkjWgsMrLlOOU2EdX9N CG9qNZimM0beOfhgmgdiP 9wOyc+NzUeEFBhubI7E1B cQgg7HGEblBic ND2dqLTsCQtfYb4ehVlsq DvcFF1dWRUzcnicBRQkvN 1pHCOjrTMxrDqiPI9sESJ iwsgcr019UeAr SXQ3KQDrcZTcG4ZszT6kN fWrKLFqLLWvJ9OssGDvQI kkQ181QNltEfN5EGZjywN iF3UwFEGkdHng KbW5x2G2Ul7VGRewXA09D B73sZUwa9Q3fOW4C1ZvTQ KiyeyjtzjypBL0HUZrDYV akJ85oYOyAJmq Km7eb5T7v185TVQoWMWzf X57Mn7qdMqgUTPiiAEScP 3xfainw1uxvjphWvBgFMW bRGi6ASk6ZCPg hWenOkBkRHZ5CnK1SQY0y CUnxS3sqMowsfcywT0jZw c+SPIpSKAss7Uec1AyGR2 3BK25S7VgRggs dGFibGU+PHRhYmxlIHdpZ HRoPScxMDAlJyBzdHlsZT 2wJh0qJVLhACYdpRdgcYG rIwJfd1jwJWVt IPyqSI8imNiqG1KmfDH6W RDxx1f6Dj96P16iA3DmhU A+UQUaoNB0rNX6zU2bTlW hWqJ4TAaeG614 TtUjlROlGvkgs5rdl6unv Lv5IiPkMVWqehOekMaxDO Z9u0SxWu32F06lIItjBZU oPSIyMCUiIHZh vXwbiq9nbB3pEo1+PGNvb WQ7hRG9bG8pZjEmKwY9XK kmY363ZwKnmQRvGqziP17 zS3NkaRM+PHRy Qme2NORzrSjyYC5dwSFlW QxtSn0eCTF9LpXhWsVuOE goJ8WwFXOnbhatgxbvdOS 5TCChNRVitC56 Ap6vmVbnXw1cKSXmGAI2M INybETkD2BjlO5tAcVrRU UrKTMfS2LwnNJdIXziQ70 4ZHddGdO7YEXz beGqZ2FhEHTwpDrdKlH3x 9K2Yn5DvRpigJLtER7hTv LxAJm8X8QjCsk3KGSojTq iOS7imUKsZSjh Ly1giHxumHclGO8wJZOpt ejod594GhUik1luJODkaI BvDFgcSUE4E16ga1G6HML qJWBmKXT0nAP2 gQ6utMtjgbawwAEyjDnnm lSrtDfsRWduASdeL474EK LfbHjaSbVGHay7R9NqCfb 2RKVemCstOK0r zWCmRLgbRd1toGatoNuoY F3dISGcreupf302XwPzz3 nfQZShdFGjUPqeSSZ3F76 rf6C0UWJvKLYc MPI2aRF4sF1pwVqnhbzop GVmdDsgdmVydGljYWwtYW svA195WNBvkZzaAs3HXft 9P7RaRmw6KGWk aRucZY9omGEfMQmvVi2nv GcznFxlGD9dZYAtfjvdj5 13QvRgb1pkLJMtuJJeLWv fFKC6F66tl7S6 BCHnQRWmVJU6pEH7zA5ct GlnbjogbGVmdDsgdmVydG ppVTmdCLbnB583AWBpcVl nPlBheWVyOjwv dGQ+XQ60wf24M5DrYdulM lv7CSIdULJ7eWO9gU3lTA JyERqaf0D1bDV8I6WdnbI gxx3ny0jnIXHg ZTog (more content not included)... Normal [facility] Workers' Comp Officeon 05-10 Workers' Comp Office [id number]#1 .00CD:[address] [facility] Workers' Comp Office [id number] .00CD:[address] [facility] Consenton 05-09-2021 Consent [id number]#1 .00CD:[address] [facility] Workers' Comp Officeon 05-09 Workers' Comp Office Patient: ANDERSON WHITTEN Age: 35 years Sex: Male : 1985 Associated Diagnoses: None Author: Alicia PANIAGUA CNP Chief Complaint f/u achilles tendon injury History of Present Illness Presents for 2 week f/u of Lt foot achilles tendon injury was stepping over a wire tray at work, came down on toes on left foot and felt like something let loose in achilles area, intense pain, leg got really hot. Then proceeded to get tingling and numb. Sat down in office for awhile, then went to ER DOI: 04/03/21 Initially seen here 04/09/21 - wearing boot and genesis wrap - working light duty - sit down job Seen by ortho 04/12/21 Pt currently not working at all due to carpal tunnel surgery right wrist - he has a RTW date of 05/16/21 Seen by ortho 05/07/21 and released to return to work Today he has no complaints. No longer wearing cam boot. States no pain with weight bearing of ROM Review of Systems Constitutional: Negative. Musculoskeletal: Negative. Integumentary: Negative. Neurologic: Negative. Psychiatric: Negative. Health Status Allergies: Allergic Reactions (Selected) No Known Medication Allergies, Allergies (1) Active Reaction No Known Medication Allergies None Documented Current medications: (Selected) Prescriptions Prescribed Cipro 500 mg Tab: 500 mg = 1 tab(s), Oral, BID, Start medication the day before the procedure., # 6 tab(s), Refills(s) 0, Pharmacy: [id number], [address], cm, 03/26/21 10:24:00 EST, Height/Length Dosing Percocet 5 mg-325 mg oral tablet: 1 tab(s), Oral, q6hr, 20 tab(s), Refill(s) 0, [facility] [facility], 180, cm, 04/29/21 10:35:00 EST, Height/Length Dosing, 130, kg, 04/03/21 15:07:00 EST, Weight Dosing Documented Medications Documented allopurinol 300 mg Tab: mg tab(s), Oral, Daily, Refills(s) 0 buPROPion 300 mg XL /24 hrs: mg tab(s), Oral, q24hr, Refills(s) 0 cyclobenzaprine 10 mg Tab: 10 mg = 1 tab(s), Oral, TID, PRN for spasm, Refills(s) 0 esomeprazole 40 mg Cap-EC: mg cap(s), Oral, Daily, Refills(s) 0 levothyroxine 150 mcg (0.15 mg) Tab: mcg tab(s), Oral, Daily, Refills(s) 0 pregabalin 75 mg Cap: 75 mg = 1 cap(s), Oral, BID, Refills(s) 0 sucralfate 1 g Tab: gm tab(s), Oral, QIDACHS, Refills(s) 0, Home Medications (9) Active allopurinol 300 mg Tab , Oral, Daily buPROPion 300 mg XL /24 hrs , Oral, q24hr Cipro 500 mg Tab 500 mg = 1 tab(s), Oral, BID cyclobenzaprine 10 mg Tab 10 mg = 1 tab(s), PRN, Oral, TID esomeprazole 40 mg Cap-EC , Oral, Daily levothyroxine 150 mcg (0.15 mg) Tab , Oral, Daily Percocet 5 mg-325 mg oral tablet 1 tab(s), Oral, q6hr pregabalin 75 mg Cap 75 mg = 1 cap(s), Oral, BID sucralfate 1 g Tab , Oral, QIDACHS Problem list: Active Problems (7) Arthritis Depression Epididymitis, right Gout Hypothyroid Nicotine use Vasectomy status Histories Past Medical History: No active or resolved past medical history items have been selected or recorded. Procedure history: Vasectomy ([id number]) on 04/29/2021 at 35 Years. Colonoscopy, flexible; with biopsy, single or multiple ([id number]). CTR - carpal tunnel release ([id number]). Physical Examination No qualifying data available General: Alert and oriented, No acute distress. Respiratory: Respirations are non-labored. Musculoskeletal Left calf is supple no tenderness, FROM of ankle without discomfort. Full weight bearing. . Integumentary: Warm, Dry, [place]. Neurologic: Alert, Oriented, Normal sensory, Normal motor function. Psychiatric: Cooperative, Appropriate mood & affect, Normal judgment. Impression and Plan Diagnosis Achilles tendon injury (DPM06-US S86.009A, Working, Medical). Professional Services Achilles tendon injury resolved May return to work full duty Follow up prn Normal [facility] Consent for Procedure/Surger yon 04-29-2021 Consent for Procedure/Surgery [id number]#1 .00CD:[address] [facility] Patient Educationon 04-29-20 21 Patient Education Urology Vasectomy, Care After This sheet gives you information about how to care for yourself after your procedure. Your health care provider may also give you more specific instructions. If you have problems or questions, contact your health care provider. What can I expect after the procedure? After your procedure, it is common to have: ? Mild pain, swelling, redness, or discomfort in your scrotum. ? Some blood coming from your incisions or puncture sites for one or two days. ? Blood in your semen. Follow these instructions at home: Medicines ? Take wufn-tcm-ncpqtce and prescription medicines only as told by your health care provider. ? Avoid taking NSAIDs such as aspirin and ibuprofen, because these medicines can make bleeding worse. Activity ? For the first 2 days after surgery, avoid physical activity and exercise that require a lot of energy. Ask your health care provider what activities are safe for you. ? Do not participate in sports or perform heavy physical labor until your pain has improved, or until your health care provider says it is okay. ? Do not ejaculate for at least 1 week after the procedure, or as long as directed. ? You may resume sexual activity 7?10 days after your procedure, or when your health care provider approves. Use a different method of control (contraception) until you have had test results that confirm that there is no sperm in your semen. Scrotal support ? Use scrotal support, such as a jock strap or underwear with a supportive pouch, as needed for one week after your procedure. ? If you feel discomfort in your scrotum, you may remove the scrotal support to see if the discomfort is relieved. Sometimes scrotal support can press on the scrotum and cause or worsen discomfort. ? If your skin gets irritated, you may add some germ-free (sterile), fluffed bandages or a clean washcloth to the scrotal support. General instructions ? Put ice on the injured area: ? Put ice in a plastic bag. ? Place a towel between your skin and the bag. ? Leave the ice on for 20 minutes, 2?3 times a day. ? Check your incisions or puncture sites every day for signs of infection. Check for: ? Redness, swelling, or pain. ? Fluid or blood. ? Warmth. ? Pus or a bad smell. ? Leave stitches (sutures) in place. The sutures will dissolve on their own and do not need to be removed. ? Keep all follow-up visits as told by your health care provider. This is important because you will need a test to confirm that there is no sperm in your semen. Multiple ejaculations are needed to clear out sperm that were beyond the vasectomy site. You will need one test result showing that there is no sperm in your semen before you can resume unprotected sex. This may take 2?4 months after your procedure. ? Do not drive for 24 hours if you were given a sedative to help you relax. Contact a health care provider if: ? You have redness, swelling, or more pain around your incision or puncture site, or in your scrotum area in general. ? You have bleeding from your incision or puncture site. ? You have pus or a bad smell coming from your incision or puncture site. ? You have a fever. ? Your incision or puncture site opens up. Get help right away if: ? You develop a rash. ? You have difficulty breathing. Summary ? After your procedure it is common to have mild pain, swelling, redness, or discomfort in your scrotum. ? Avoid physical activity and exercise that requires a lot of energy for the first 2 days after surgery. ? Put ice on the injured area. Leave the ice on for 20 minutes, 2?3 times a day. ? Do not drive for 24 hours if you were given a sedative to help you relax. This information is not intended to replace advice given to you by your health care provider. Make sure you discuss any questions you have with your health care provider. Document Released: 11/07/2005 Document Revised: 04/02/2018 Document Reviewed: 07/17/2017 Elsevier Patient Education ? 2019 [employer]. Janneth [facility] Urology Office/Clinic Noteon 04-29-2021 Urology Office/Clinic Note Chief Complaint This is a 35 year old male here fore a Vasectomy HPI Staff Pt. here for a Vasectomy History of Present Illness I have reviewed and verified the staff HPI to be accurate for this encounter. Review of Systems ROS - Provider Constitutional: denies weight loss, denies hot flashes. Eyes: denies eye problems. Gastrointestinal: denies nausea, denies vomiting. Cardiovascular: denies chest pain or angina. Integumentary: no dryness Musculoskeletal: denies musculoskeletal symptoms. ENMT: denies otolaryngeal symptoms. Respiratory: no shortness of breath. Heme/Lymph: denies easy bleeding tendency, denies easy bruising tendency. Psychiatric: no confusion, no anxiety. Genitourinary: See HPI. Physical Exam Vitals & Measurements HT: 180.0 cm HT: 180 cm General Appearance: alert, no distress, well nourished, well developed male. Genitourinary: normal scrotum, normal testes, normal urethra, normal epididymis, normal vas deferens/spermatic cord. Flank Pain: none. Bladder: nonpalpable. Procedure Indication for Surgery Elective sterilization Preoperative Diagnosis Elective sterilization Postoperative Diagnosis Elective sterilization Operation Elective bilateral vasectomy Surgeon(s) Gui Flannery M.D. [employer]ist Anesthesia 2% Xylocaine subcutaneous Estimated Blood Loss 0 Urine Output None Findings This patient is a 54-year-old Jomed here today for elective bilateral ostectomy. The procedure, risk, and alternatives have been discussed in detail. The patient requests permanent sterilization. Specimen(s) Specimens of vas deferens right and left side Complications None Technique This patient was brought to the operative suite was placed in the supine position on the examining table. Shaved prepped and draped in usual fashion. 10 mL of a 2% Xylocaine solution was injected into the median raphae of the scrotum. The left and then the right vas was anesthetized. The left vas was grasped with the vas clip in the midline. A small skin opening was made through which the vas was brought into the wound. Was clamped between 2 hemostats and a section was removed. The proximal and distal ends were cauterized and then ligated with 3-0 Vicryl sutures. The proximal end wasn't buried in a separate tissue plane. The same procedure was performed on the patient's right side again the vas was brought into the wound was clamped between 2 hemostats and a section was removed. The proximal and distal ends were cauterized then ligated with 3-0 Vicryl sutures. The proximal end wasn't buried in a separate tissue plane. At the conclusion both vas stumps were placed back in the intrascrotal compartment and wound was closed with a mattress stitch of 3-0 Vicryl. The patient tolerated the procedure without complication. He was dressed with bacitracin ointment and cotton gauze and jockey shorts. He's been instructed to limit his physical activity for the next 24-48 hours and contact office if he has any postoperative problems. Home-going medications will include Percocet 5/325 one every 4 hours when necessary for pain on 20 tablets and no refill. This is sent to his local pharmacy. Final diagnosis: Elective sterilization Procedure: Elective bilateral vasectomy Gui Flannery Junior, M.D. FACS Assessment/Plan 1. Vasectomy status (Z98.52: Vasectomy status) Vasectomy done IO today without complications. Percocet 5mg/325mg, q6hrs, #20 sent to [facility]. F/u in 2wks. I have reviewed the previous health record information and history for this pt. from Dr. Flannery. Follow-up With When Contact Information Prudencio Harrison MD, Gui Goldstein, [facility] [address], [facility] [place] [address]- [phone] Additional Instructions: 2wks. f/u Patient Education Vasectomy, Care After ISharla , personally scribed for Dr. Flannery on 04/29/2021 11:26:53. . Documentation recorded by the scribe, Sharla Frank, accurately reflects the services(s) I performed and decisions made by me. Authenticated by Dr. Flannery on 04/29/2021 11:35:03. Problem List/Past Medical History Ongoing Arthritis Depression Epididymitis, right Gout Hypothyroid Nicotine use Vasectomy status Historical No qualifying data Procedure/Surgical History Vasectomy (04/29/2021), Colonoscopy, flexible; with biopsy, single or multiple, [facility] - carpal tunnel release. Medications allopurinol 300 mg Tab, Oral, Daily buPROPion 300 mg XL /24 hrs, Oral, q24hr Cipro 500 mg Tab, 500 mg= 1 tab(s), Oral, BID cyclobenzaprine 10 mg Tab, 10 mg= 1 tab(s), Oral, TID, PRN esomeprazole 40 mg Cap-EC, Oral, Daily levothyroxine 150 mcg (0.15 mg) Tab, Oral, Daily pregabalin 75 mg Cap, 75 mg= 1 cap(s), Oral, BID sucralfate 1 g Tab, Oral, QIDACHS Allergies No Known Medication Allergies Social History Tobacco Never (less than 100 in lifetime) Tobacco Use:., 04/29 (more content not included)... Normal [facility] Comment on above: Result Comment: Elec tronically Signed By: Prudencio Harrison MD, Gui Goldstein\.br\Date and Time Signed: 04/29/21 11:35 EST\.br\Electronically Co-Signed By: Sharla Frank MA\.br\Date and Time Co-Signed: 04/29/21 11:32 EST Progress Note-Physicianon Progress Note-Physician Patient: MIGUEL WHITTEN Age: 35 years Sex: Male : 1985 Associated Diagnoses: None Author: Rebeka PERRIN CNP Basic Information pt states his L ankle and lower calf is feeling better since he is resting it, Ortho report here, pt is off work for another issue until May 16 due to recetn carpal tunnel surgery. cont to wear the cam boot and Genesis wrap Subjective as above, patient is off work completely right now due to carpal tunnel surgery on right wrist. He is allowed to work per ortho for achilles in seated position. Pt is scheduled to return to work May 16 post carpal tunnel surgery. We will keep him on same restrictions for achilles though. He has achiness feeling in left achilles tendon on occ. wears boot all the time, except when sleeping. States pain in achilles is pretty much gone since not working right now. Seeing ortho for follow up on achilles May.07. Review of Systems Constitutional: Negative. Ear/Nose/Mouth/Throat : Negative. Respiratory: Negative. Cardiovascular: Negative. Gastrointestinal: Negative. Genitourinary: Negative. Musculoskeletal: left foot in boot, has achilles tendon injury but not full tear per ortho. Integumentary: Negative. Neurologic: Negative. Psychiatric: Negative. Health Status Allergies: Allergic Reactions (Selected) No Known Medication Allergies Current medications: Home Medications (8) Active allopurinol 300 mg Tab , Oral, Daily buPROPion 300 mg XL /24 hrs , Oral, q24hr Cipro 500 mg Tab 500 mg = 1 tab(s), Oral, BID cyclobenzaprine 10 mg Tab 10 mg = 1 tab(s), PRN, Oral, TID esomeprazole 40 mg Cap-EC , Oral, Daily levothyroxine 150 mcg (0.15 mg) Tab , Oral, Daily pregabalin 75 mg Cap 75 mg = 1 cap(s), Oral, BID sucralfate 1 g Tab , Oral, QIDACHS Problem list: All Problems Gout / SNOMED CT 384320816 / Confirmed Nicotine use / SNOMED CT 1374994821 / Confirmed Depression / SNOMED CT 24384960 / Confirmed Hypothyroid / SNOMED CT 83483185 / Confirmed Arthritis / SNOMED CT 3072880 / Confirmed Histories Procedure history: Colonoscopy, flexible; with biopsy, single or multiple (11151). Social History Social & Psychosocial Habits Tobacco 03/26/2021 Tobacco Use: Never (less than 100 in l . Objective General: Alert and oriented, No acute distress. Eye: Normal conjunctiva. HENT: Normal hearing. Respiratory: Respirations are non-labored. Musculoskeletal pt is in walking boot on left foot. no swelling noted in achilles area. Can point and flex foot without any discomfort. Genesis wrap reapplied and boot. . Integumentary: Warm, Dry, [place]. Neurologic: Alert, Oriented, Normal sensory, Normal motor function. Psychiatric: Cooperative, Appropriate mood & affect. Impression and Plan Diagnosis: Achilles tendon injury (WRZ50-FM S86.009A, Working, Medical). Orders follow up here after you see othro in May 07. keep boot on and genesis wrap. Pt is released to sit down job, but currently off due to carpal tunnel surgery.. [facility] Comment on above: Result Comment: Elec tronically Signed By: Rebeka PERRIN CNP\.barry\Date and Time Signed: 04/22/21 09:18 EST Workers' Comp Officeon 04-22 Workers' Comp Office [id number] 20 [id number]# 1.00CD:[address] [facility] Workers' Comp Officeon 04-19 Workers' Comp Office [id number] 20 [id number]# 1.00CD:[address] [facility] Workers' Comp Officeon 04-11 Workers' Comp Office [id number] 20 [id number]# 1.00CD:[address] [facility] Workers' Comp Office [id number] 20 [id number]# 1.00CD:[address] [facility] Coding Summary.on 04-09-2021 Coding Summary. CD:[id number]:5440001H G h0bWw+PGhlYWQ+GA3TQIH pQ58hjBIuoX6UW8nMKB3X TNCFVXSXBH1VTR3wdVY7J KavT1KayjBl QauxlNKcHU76REh0DHD1g LclHPjdcD9ifQWhE4o8Jx TgRC54pX80VPmaVAErDsF 3LjZpbjsgbWFy B2gsDnNqyTZjEjm+PHRhY mxlIHdpZHRoPScxMDAlJy HsdSpoRC2sFs0iHWXdYKJ vbGxhcHNlOiBj q8grWHRtBTqtYO0bbJzcC 2GhyDX5FQYcb5l3Zl73tP I+JLWoEPP4hSrmDAlyf54 0OqSfa7xqOPE4 yNFwSIddLKK1Y50wy3R3X XJjZHLyPOH7xTS1yY9jmJ iutnuhJ5WpzGNzMiF0IQT 7kMFqeD4jsYcw cxszpO2zMnx+K27EQT7EB XKYQZ6ORrh5L5UtMivlgN I+RD12TNFgVH81cQDxaZM lo6ajqLb6HtQe FTQyTVK8uRqcSXlfk4DyE JVzC09xjGAzg9D2ZBQroH hrgQZaHkQptMZ8rV9yZAz wcfkvy3jkocvs Crpvh7dfrm03lS94B41fX WlzDZXdFFT0NVSeOBOrvL xcud5gxR4uQc9+GCnmx8i fr2xhmXp6OkOe OBQddrChyZoxGYP6u6DpE m93Z7RfpJqze5WiRdq6er 45fVEjf9C0oZP9TVhzXVH adE1uKZefEqF2 TJZoUlTyvB47uNPfHGdhJ m5gdUinnUdbUF2lQXBadb fdNBSofV7wBRWvcOBuiTb eTX7uVNOchshj l921DfZkMLG9RTShgHAoX 7XbtW0vQvXxDGXgUJXjO4 MkvOKpOEwbQ013XChqUxB 6EDKiwmYlL9Md QGOrsEwzVsT6o3I2Oc8Uj 8QhwntlXQN5JXgeDXUuSr C8AhXmLtG1K2OhIri7PDV xsSzjSW9jS4Qn ITUvntcbwfrpzBW1GNVgQ GZscX23tIBaHZxdWt2ya7 N4v739MBBgGQRivR95Wh0 udDogMTBwdCBU gV5bsiddc3shyvxiTnYbD YWvJOr9JAg7HSOalKmwZz GtRHF6YdB4PCK6tGDxxZ4 jhNauvkmkkT0m Oyc+G79knQ5zFHG2LUO4a mtrMYMoipGzBR82WT05J5 RyPjwvdGFibGU+PGRpdiB uhAtqRO5aIwAg l2tuj8CcJHfbT8BgXKJjO DyeOrr1GWFtNKK6vLV2zK 0cOLJwJVozy0K8rRB7M5V hwaSsyh8jt8oo DOPlICahK91asNWnd6U4M KBszUR0WPBdeManFwSdvY 93Oyc+QWDnuLfol9EcAlc tn8lyh6lfwSd8 ElRsLEZokzNeuLbySKB8s 8YlKk45A79nSDpsHSPcNN CjXOGdTDUvdOhpgi1skX1 wIi8+PGNvbCB3 kNF6rP3mQZPjGlP7YFwaE 351CqIfvZDxHdsst4ajc0 vzrPg1CcTrNNJgsfHkrHj kNQJ2k9RbIg88 G63qKStkGGMaAFKcPNPeQ QAbcEfnrd8ckC0nAn9+PC 9uq8yiao35pB54zSU+PHR yQIB1vFelPKhv UNZvzD8sUNpaWyL4JBYkO yNcdQ47uYNzTSrqJa7nhQ nlwJriJZ9aZSFjnetkn77 3GxYmb7fiLPWy zHHtSTunBQC4Y40dn8A1S AEtKUJhMZG1iRW1jG4opC lnbjogbGVmdDsgdmVydGl qTRqxJOncX901 IHRvcDsnPlBhdGllbnQgT aNbOVj5X2YsGcw9MLUevQ zrWC3mqIWqHZmtGj1xrWb kiKycSO8tFYIi xxohq567GxAki3ctJIZep IAhVVahEQG9Q36ax6P3WJ HtLTLrYLA1wHA5dF6luXa nbjogbGVmdDsg vtLxmChePJtcMGhkC044R HRvcDsnPkJpcnRoIERhdG M5VU05IK89wHFjf3Q6oYA 0N9ZmWBLnrgou jbsquVI9NQAvGFSelY92B v2anVrjHk7kCFYyMDP2MJ CyoQOhF7IscP0iUoXsPPB mZAGnM7RgoSOj ZMvwZ636ZEvxCmO0CBTbi lJzL1KyAYXqzOxkIaN4z9 L6Kf5YV2C9LU97OQ22yVM jl1T0vKO9F7Gm AAUgwarxjovioXG0SLJtZ JSogI89Cn8dvUuyBl3dSS JaKMD8FABzsVVrB6WuyR5 yOiAjMDAwMDAw Z1TujYKqLAvtQ528AZrbU rJ0KZVkthHeZ5DjSMJyjY lcCcO2c7U2Zb1JNQa6RE9 2HF03mODll8C4 gHR6L6ErHQNsxayjxpzww RZ6YAWvDTSnyR23Vx0vdA jdTm1iCXGsHRX2NDStzLI rQ1GsjJ7xCyZa GQGgZNWmM5LlcKGxFYylA 269XRljHdO6EGFxbsUfP1 UpYJGpxTnbDvS0s3Y0Zi2 ZIKGiZG41KIS8 qDA7YY66MS42R2SxBqvzx GFibGU+PHRhYmxlIHdpZH RoPScxMDAlJyBzdHlsZT0 jGy6rVRVeRBVv qAwauXFiHpDrb2sfOQGuZ MerBY8eiSmiC6UexLC9BB Gou0p3Uj99V96gO3DmfWD +MHOpfHU2aNG7 cE1sXjRpBxX8RZzhI582M xOxbYHrJcpgt5ohy5taoU i0HaT3HZEwznYinVitXRT 6c3HrAk03N38w IHdpZHRoPSIxNSUiIHZhb Cuzmn8dvF8kBm4+PGNvbC A7yNQ2iW9kFuPcSeZ1EGc tR059LhQxaBBh Obyvf3cyq9gtfAu1UgKgT PYtbkWyuCbvQOK5w0YbHv 81P0CcaWkqi9ArXiy7bq6 3nFWov1M3rZL6 O4GhGMCgxvvagHXobLorE C3tPXUspdhsUMDmaN9bCX KfM9w6MsOaBqJ5YZjpK4B kovZ6RNVmoECi RRaiDWR0J93ff3N7ICYaQ QPwZVA4yPX2lS9waLpdat ogbGVmdDsgdmVydGljYWw xRYhyO996QYXx wXnmZNCecS2vEBUbmWRvz WnzSZ5sRNXxpfbvWv9TI3 KKMIWVZZyEURo7D6EsXdl 4QIFiqYarDF3j zABeWWhlDw4oyXycgTwlJ B0bFGXhoqshCODbgZ9hCQ VvuBJllQgmDB1kKFBjqde gk960JjTkTTG8 PBYsoNEnH5XccK7lNfDqI RCzJORjL5NwrGRaPLzhB0 56HAfaGtT6VKOxxbRdK0K sLWFsaWduOiB0 h6K3Wf4eRu9pIO6iOGq4V E13VS16cEDox2T1aIG8O2 AtDVIlptrgyobkgFI1SUB gHHAaqA35aVRp HCxjEs0cd0Y4r680UJVjO ZSrtK21Qu9mzGgbPOIlvR VDrQ9aubpve9dxsdykMvX zETPjLOj8CXo1 TWZpuBgiRpSuMTL8QzE1W WL0xOKdeH4jtVvuxvsseX 9wOyc+BgVbIOFtsvH5G0E uTpl6JVBqzIbe VA9isUTgNClkDj9awKozo TcuIO7hBHNlkbafGVXphY 7xDNWyaSIsuHpvUS9tOOV elpqnz834IdSo ACQ4CGPuaIWlA0MkmP7lS zTcCMHaQCCwV3IgmFRyYY qdT495KXcvUcR0XDWyrrE sF1AmYLVvhUer HpP1f6R3Hp5WJXmjAC11Z L53mYPnu4O2nXT3F2HfMA VewwncbwfjxCB2SLSgKWF imQ69hLCoSPfh Xf9ad1V8p104IMSuQQVop K42Rx4gpTgfYKZxjMBNqU 6fpzecj2hqwrxhIjZiTPP mTLu5QJb7HETk iJmaKyHsHDX2FgJ8XTM6i UPzjD1xwHzlvboomH2dSl c+GE7bssdyenR6ZU98PU4 4V1AvGnnwcOIy bGU+PHRhYmxlIHdpZHRoP IzdLQSuBoPrmQtbSZ4aYj 9yZGVyLWNvbGxhcHNlOiB ju8xtOIWsYHvr DV3kmNhwT2IcvQS6VACqx 0u9Kt88Z53lR8ZapJZ+PG MfbNQ6gNV0iY3gSdZpIiD 2KRltE382OeZl hICcYmovh7gte6kukIr0X qWqQKAgudIadYkbNKS6r2 UaDp75G52aMAipCMPtVCU yMCUiIHZhbGln gf8orW5aPc3+FDDvlST1i WQ2aA7aVeStYoO5SRheS2 12BpAmiCQcCaogI37qH1J vdXA+PHRyPjx0 ICKfnXvsJD1twONtDPdcW i0eHCS2IuDyIjErWIqxB3 YhWWUzutyhpfclmUF1WWR dOCZitL89Ic3z jHxjWq1cBKYiXWK7CCRgi QAaE6OkrZ6oCaFuASYbXP TiY8RjvOGvTQsjN277WQf qMwG5SZDnglDn C3OvOVXcsAesTjP1i1S6J s3EsSbycTRwGU2qCfMgON v2Q9AiOlw2ULDtlMmjQR2 bkUTuEPpjSm3t zZlaxNzdQD5jHGWwivvlj 858XfQue3sxDYNgkQPtFF duOLN7G56rt0T1JQBlVGT rJNN3vDR0uE5x bGlnbjogbGVmdDsgdmVyd KscDGgwEWtzY293SCCooF ajIuNWZzt2F9RdOab5QBU fdTrcVH5obIXy WVjaLh2cxSkdoAzpDC0kM OAohauza869HzNwt7gzEV FynVShEKrrXJK3M39vf3X 0CFHyZCZhXNZ8 hBU1qN3ggTtwqbijyUVbe DsgdmVydGljYWwtYWxpZ2 79CNZzdXcsUf2WHrm0X4T rFes1CBRqrRon OG9tpCPaESxxDl2vmHmwl PcxNT0xXQWgyhbph940Tt Ezf6oyHQWrrEVbMIklBJL 4Q98je6C0YXZa UHZqPLU5nJJ0bE0huPmdj jogbGVmdDsgdmVydGljYW qvMYugW886EQUnsLixLlW heWVyOjwvdGQ+ AE01ad77I4BcOhbaQkm0M BZaRLO8zVK7vD4kTNVeTK azi5P0gHP1A5WwglFzgx0 jm0whICShBFdl Y29s (more content not included)... Normal [facility] Consenton 04-09-2021 Consent [id number]# 1.00CD:[address] [facility] Progress Note-Physicianon Progress Note-Physician Patient: MIGUEL WHITTEN Age: 35 years Sex: Male : 1985 Associated Diagnoses: None Author: Rebeka PERRIN CNP Basic Information ER f/u for injury that occurred on 04/03/21 for left foot achilles tendon injury. Patient has not missed work due to injury has been doing sit down work. Rates pain a 7 currently, feels throbbing constantly. Subjective as above, was stepping over a wire tray at work, came down on toes on left foot and felt like something let loose in achilles area, intense pain, leg got really hot. Then proceeded to get tingling and numb. Sat down in office for awhile, then went to ER. It hurts in am when he gets up in am, does not wear his boot to bed, Wearing a boot at all times, not using crutches. Has been working at a sit down job at work. Has throbbing in achilles area right now after taking boot off. It feels better in the boot. Taking tylenol when it throbs, about 2 times per day. Has not been icing or heat. Elevating it does not seem to help the pain. Has an appt with ortho this Thursday. Review of Systems Constitutional: Negative. Ear/Nose/Mouth/Throat : Negative. Respiratory: Negative. Cardiovascular: Negative. Gastrointestinal: Negative. Genitourinary: Negative. Integumentary: left achilles pain. Neurologic: Negative. Psychiatric: Negative. Health Status Allergies: Allergic Reactions (Selected) No Known Medication Allergies Current medications: Home Medications (8) Active allopurinol 300 mg Tab , Oral, Daily buPROPion 300 mg XL /24 hrs , Oral, q24hr Cipro 500 mg Tab 500 mg = 1 tab(s), Oral, BID cyclobenzaprine 10 mg Tab 10 mg = 1 tab(s), PRN, Oral, TID esomeprazole 40 mg Cap-EC , Oral, Daily levothyroxine 150 mcg (0.15 mg) Tab , Oral, Daily pregabalin 75 mg Cap 75 mg = 1 cap(s), Oral, BID sucralfate 1 g Tab , Oral, QIDACHS Problem list: All Problems Gout / SNOMED CT 725071628 / Confirmed Nicotine use / SNOMED CT 8704247843 / Confirmed Depression / SNOMED CT 02246722 / Confirmed Hypothyroid / SNOMED CT 11186818 / Confirmed Arthritis / SNOMED CT 6617146 / Confirmed Histories Procedure history: Colonoscopy, flexible; with biopsy, single or multiple (19335). Social History Social & Psychosocial Habits Tobacco 03/26/2021 Tobacco Use: Never (less than 100 in l . Objective General: Alert and oriented, No acute distress. Eye: Normal conjunctiva. HENT: Normocephalic, Tympanic membranes are clear. Neck: No lymphadenopathy, No thyromegaly. Respiratory: Lungs are clear to auscultation, Respirations are non-labored, Breath sounds are equal, Symmetrical chest wall expansion. Cardiovascular: Normal rate, Regular rhythm, No murmur, No gallop. Musculoskeletal pt limping with walk, has boot on. Drove self to appt today. Has an appt with ortho on Thursday. C9 submitted today. no swelling noted in left achilles area, can point and flex foot with discomfort though. . Integumentary: Warm, Dry, [place]. Neurologic: Alert, Oriented, Normal sensory. Psychiatric: Cooperative, Appropriate mood & affect, Normal judgment. Impression and Plan Diagnosis: Achilles tendon injury (QVJ49-IL S86.009A, Working, Medical). Course: Unchanged, keep boot on , light duty with limited walking. . Orders see ortho on Thursday as scheduled. Fu here when done with ortho appt. . [facility] Comment on above: Result Comment: Elec tronically Signed By: Rebeka PERRIN CNP\.br\Date and Time Signed: 04/09/21 11:23 EST Workers' Comp Officeon 04-09 Workers' Comp Office [id number] 02 [id number]#1 .00CD:127 [facility] Workers' Comp Office [id number]#1 .00CD:127 [facility] Workers' Comp Office [id number] 02 [id number]#1 .00CD:127 [facility] Workers' Comp Office [id number]#1 .00CD:127 [facility] Consent for Treatmenton Consent for Treatment [id number]#1 .00CD:127 [facility] Discharge Instructionson Discharge Instructions [id number]# 1.00CD:127 [facility] ED Clinical Summaryon 2020 ED Clinical Summary [address] [address] ED Clinical Summary Person Information Name: MIGUEL WHITTEN [facility] Age: 35 Years : 1985 Sex: Male Language: Anguillan PCP: NATHAN RAY DO Marital Status: Single Visit Id: Visit Reason: Leg injury, lower - Minor; LEFT FOOT/ANKLE PAIN AND SWELLING Speciality: Acuity: 4 Enc Type: Emergency Med Service: Emergency Arrival: 04/03/2021 14:57:11 Discharge: 04/03/2021 15:52:00 LOS: 000 00:55 Checkin: 04/03/2021 14:57:11 Checkout: 04/03/2021 15:52:00 Dispo Type: Home (Routine DC) EVENTS: Event Name Event Status Request Date/Time Start Date/Time Complete Date/Time Arrive Complete 04/03/2021 14:57:11 04/03/2021 14:57:11 04/03/2021 14:57:11 Document Home Meds Request 04/03/2021 14:57:11 Triage Complete 04/03/2021 14:57:11 04/03/2021 15:07:08 04/03/2021 15:07:08 Bed Assign Complete 04/03/2021 15:00:38 04/03/2021 15:00:38 04/03/2021 15:00:38 Dr Exam Complete 04/03/2021 15:00:38 04/03/2021 15:01:27 04/03/2021 15:01:27 RN Exam Complete 04/03/2021 15:00:38 04/03/2021 15:20:16 04/03/2021 15:20:16 Registration Complete 04/03/2021 15:01:27 04/03/2021 15:48:09 04/03/2021 15:48:09 Workers Comp Request 04/03/2021 15:07:09 Dr Exam Complete 04/03/2021 15:10:16 04/03/2021 15:10:16 04/03/2021 15:10:16 Discharge Complete 04/03/2021 15:15:06 04/03/2021 15:52:07 04/03/2021 15:52:07 Meds Admin Complete 04/03/2021 15:15:54 04/03/2021 15:30:46 Reg Complete Request 04/03/2021 15:48:09 Transfer Complete 04/03/2021 15:52:07 04/03/2021 15:52:07 04/03/2021 15:52:07 ADDRESS: [facility] [address] [facility] [phone] PHYS DOC NOTES: MEDICAL INFORMATION: Prescriptions Given: Medications to Continue with No Changes Other Medications allopurinol (allopurinol 300 mg Tab) By Mouth every day. buPROPion (buPROPion 300 mg XL /24 hrs) By Mouth every 24 hours. ciprofloxacin (Cipro 500 mg Tab) 1 Tablets By Mouth 2 times a day. Start medication the day before the procedure.. Refills: 0. esomeprazole (esomeprazole 40 mg Cap-EC) By Mouth every day. levothyroxine (levothyroxine 150 mcg (0.15 mg) Tab) By Mouth every day. pregabalin (pregabalin 75 mg Cap) 1 Capsules By Mouth 2 times a day. sucralfate (sucralfate 1 g Tab) By Mouth four times a day (before meals and at bedtime). PATIENT EDUCATION INFORMATION: Instructions: Achilles Tendon Tear Follow up: With: Address: When: [facility]: [facility] [place] [phone] In 3 days 04/06/2021 With: Address: When: Jelani Layne [address] [place] [address] [facility] () In 3 days 04/06/2021 Comments: Return to ED if symptoms worsen. Wear walking boot until cleared by orthopedic surgery. DIAGNOSIS: Achilles tendon injury Normal [facility] ED Note-Physicianon 04-03-20 ED Note-Physician Basic Information Time Seen: Fredo Liu DO 04/03/2021 15:10 Chief Complaint Pt at [employer] and stepped and felt a pop above his left achilles. Can not bear weight and has paresthesia in left extremity. History of Present Illness 32-year-old male to the emergency department chief complaint of pain in his left Achilles tendon. Patient reports that he stepped down hard on a wearing box and dorsiflex at his foot under his full weight without expecting it. He reports that he felt a pop in his Achilles tendon and then had difficulty walking. He denies any numbness or weakness. He does report some tingling about his foot. Aggravated with walking. Alleviated with rest. No therapies attempted. Occurred while he was at work. Review of Systems A 10 point review of systems is negative except as noted above. Medical and Surgical History: Reviewed and noted Social history: Lives at home Tobacco: Denies Physical Exam Vitals & Measurements T: 36.8 ?C(Oral) HR: 102(Peripheral) RR: 18 BP: 123/88 SpO2: 97% HT: 175.28 cm HT: 175.3 cm WT: 130 kg WT: 130.0 kg BMI: 42.31 VITALS: I have reviewed the triage vital signs. GENERAL: Well developed, well appearing adult in no acute distress. NEURO: Alert and oriented. Moves all extremities. Face is symmetric and expressive. EYES: PERRL. No scleral icterus or conjunctival injection. No discharge. HENT: Normocephalic, atraumatic. Hearing is grossly intact. Nares grossly patent and without discharge. Mucous membranes moist. NECK: No JVD. Patient moves neck without restriction. LLE: Tenderness to palpation of the Achilles tendon. There is appropriate tension in the Achilles tendon with plantar flexion of the foot. Squeezing the calf causes the foot to dorsiflex. Sensation intact over the foot. DP and PT pulses intact. Able to bear weight. No bony tenderness. SKIN: Warm and dry. Normal turgor. No rash or lesions appreciated. PSYCH: Mood, affect, and interaction is appropriate to the setting. Medical Decision Making 35-year-old male to the emergency department with injury and symptoms concerning for Achilles tendon sprain/tear. Vital stable, the patient is afebrile. Left lower extremity is neurovascularly intact. There is no bony tenderness. No indication for x-ray imaging. [id number] ultrasound was performed and is concerning for partial tear of the Achilles tendon given a moderate amount of edema surrounding the tendon associated with patients clinical feeling of weakness/ instability with plantar flexion/dorsiflexion. Partial tear versus high-grade strain. Patient was placed in a walking boot. He is given orthopedic referral. Workmen's Comp. paperwork is filled out. Return precautions were discussed. All questions were answered. The patient was discharged home. Assessment/Plan Achilles tendon injury (S86.009A: Unspecified injury of unspecified Achilles tendon, initial encounter) Orders: acetaminophen, Tab, Misc, Once, Stop date 04/03/21 15:27:33 EST, Physician Stop, 04/03/21 15:27:33 EST acetaminophen, 650 mg = 2 tab(s), Tab, Oral, Once, Stop date 04/03/21 15:15:00 EST, STAT, Start date 04/03/21 15:15:00 EST, 04/03/21 15:15:00 EST Medications Administered Given Tylenol 325 mg Tab, 650 mg, Oral Disposition Plan Patient Discharge Condition Stable Discharge Disposition home Discharge Prescription List Prescriptions No active prescription medications Follow-up With When Contact Information [facility] [facility] [phone] In 3 days 04/06/2021 EST Additional Instructions: Jelani Layne In 3 days 04/06/[address] [place], [place] [address] [employer] (1) Additional Instructions: Return to ED if symptoms worsen. Wear walking boot until cleared by orthopedic surgery. Patient Education Achilles Tendon Tear Problem List/Past Medical History Ongoing Arthritis Depression Gout Hypothyroid Nicotine use Historical No qualifying data Procedure/Surgical History Colonoscopy, flexible; with biopsy, single or multiple. Medications Inpatient No active inpatient medications Home allopurinol 300 mg Tab, Oral, Daily buPROPion 300 mg XL /24 hrs, Oral, q24hr Cipro 500 mg Tab, 500 mg= 1 tab(s), Oral, BID esomeprazole 40 mg Cap-EC, Oral, Daily levothyroxine 150 mcg (0.15 mg) Tab, Oral, Daily pregabalin 75 mg Cap, 75 mg= 1 cap(s), Oral, BID sucralfate 1 g Tab, Oral, QIDACHS Allergies No Known Medication Allergies Social History Tobacco Never (less than 100 in lifetime) Tobacco Use:., 03/26/2021 Family History Family history is unknown Lab Results No qualifying data available. Diagnostic Results No qualifying data available. [facility] Comment on above: Result Comment: Elec tronically Signed By: Fredo Liu DO\.br\Date and Time Signed: 04/03/21 16:41 EST ED Patient Education Noteon 04-03-2021 ED Patient Education Note Orthopedics Achilles Tendon Tear The Achilles tendon is a cord-like band that connects the muscles of your lower leg (calf) to your heel. The Achilles tendon is the most common site of tendon tearing (rupture). What are the causes? This condition may be caused by: ? Stress from a sudden stretching of the tendon. For example, this may occur when you land from a jump or when your heel drops down into a hole on uneven ground. ? A hard, direct hit to the tendon. ? Pushing off your foot forcefully, such as when sprinting, jumping, or changing direction while running. What increases the risk? You are more likely to develop this condition if you: ? Are a runner. ? Play sports that involve sprinting, running, or jumping. ? Play contact sports. ? Have a weak Achilles tendon. Tendons can weaken from aging, repeat injuries, and chronic tendinitis. ? Are male. ? Are 30?55 years of age. ? Take a type of antibiotic medicine called quinolones. What are the signs or symptoms? Symptoms of this condition include: ? Hearing a noise, like a pop or a snap, at the time of injury. ? Severe, sudden pain in the back of the ankle. ? Swelling and bruising. ? Inability to actively point your toes down. ? Pain when standing or walking. ? A feeling of giving way when you step on the affected foot. How is this diagnosed? This condition is usually diagnosed based on a physical exam. You may also have imaging tests, such as: ? Ultrasound. ? X-rays. ? MRI. How is this treated? This condition may be treated with: ? Rest. ? Ice applied to the area. ? Pain medicine. ? Crutches. ? A cast, splint, or other device to keep the ankle from moving (keep it immobilized). ? Heel wedges to reduce the stretch on your tendon as it heals. ? Surgery. This option may depend on your age and your activity level. Follow these instructions at home: Medicines ? Take sdye-kae-mteaavd and prescription medicines only as told by your health care provider. ? Ask your health care provider if the medicine prescribed to you: ? Requires you to avoid driving or using heavy machinery. ? Can cause constipation. You may need to take these actions to prevent or treat constipation: ? Drink enough fluid to keep your urine pale yellow. ? Take noot-kim-whcpbjj or prescription medicines. ? Eat foods that are high in fiber, such as beans, whole grains, and fresh fruits and vegetables. ? Limit foods that are high in fat and processed sugars, such as fried or sweet foods. If you have a cast: ? Do not stick anything inside the cast to scratch your skin. Doing that increases your risk of infection. ? You may put lotion on dry skin around the edges of the cast. Do not put lotion on the skin underneath it. If you have a splint or brace: ? Wear it as told by your health care provider. Remove it only as told by your health care provider. ? Loosen it if your toes tingle, become numb, or turn cold and blue. If you have a cast, splint, or brace: ? Keep it clean and dry. ? Check the skin around it every day. Tell your health care provider about any concerns. ? Ask your health care provider when it is safe to drive if you have it on a leg or foot that you use for driving. Bathing ? Do not take baths, swim, or use a hot tub until your health care provider approves. Ask your health care provider if you may take showers. You may only be allowed to take sponge baths. ? If the cast, splint, or brace is not waterproof: ? Do not let it get wet. ? Cover it with a watertight covering when you take a bath or shower. Managing pain, stiffness, and swelling ? If directed, put ice on the injured area. ? If you have a removable splint or brace, remove it as told by your health care provider. ? Put ice in a plastic bag. ? Place a towel between your skin and the bag or between your cast and the bag. ? Leave the ice on for 20 minutes, 2?3 times a day. ? Move your toes often to avoid stiffness and to lessen swelling. ? Raise (elevate) the injured area above the level of your heart while you are sitting or lying down. Activity ? Return to your normal activities as told by your health care provider. Ask your health care provider what activities are safe for you. ? Do not use the injured leg to support your body weight until your health care provider says that you can. Use crutches as told by your health care provider. ? Ask your health care provider which exercises are safe for you. General instructions ? Do not put pressure on any part of a cast or splint until it is fully hardened. This may take several hours. ? Do not use any products that contain nicotine or tobacco, such as cigarettes, e-cigarettes, and chewing tobacco. These can delay healing. If you need help quitting, ask your health care provider. ? Use heel wedges if told by your health care provider. ? Keep all follow-up (more content not included)... Normal [facility] ED Patient Summaryon 021 ED Patient Summary [address] [address] Patient Discharge Instructions Person Information Name: MIGUEL WHITTEN Age: 35 Years Arrival Date: 04/03/2021 14:57:11 Discharge Diagnosis: Achilles tendon injury Primary Care Physician: NATHAN RAY DO Provider Information Primary Provider: Fredo Liu DO Advanced Lap Machine Tender:None The exam and treatment you received in the Emergency Department were for an urgent problem and are not intended as complete care. It is important that you follow up with a doctor, nurse practitioner, or physician?s assistant professor of marine biology for ongoing care. If your symptoms become worse or you do not improve as expected and you are unable to reach your usual health care provider, you should return to the Emergency Department. We are available 24 hours a day. MIGUEL WHITTEN has been given the following list of patient education materials, prescriptions and follow-up instructions: Follow-up Instructions: With: Address: When: [facility] [facility] [place] [phone] In 3 days 04/06/2021 With: Address: When: Jelani Layne [address] [place] [address] [facility] () In 3 days 04/06/2021 Comments: Return to ED if symptoms worsen. Wear walking boot until cleared by orthopedic surgery. In the event that this physician does not participate in your insurance network, please consult with your insurance company to find a nearby participating provider. Patient Education Materials: Achilles Tendon Tear A MESSAGE TO ALL PATIENTS REGARDING OPIOIDS PRESCRIPTION OPIOIDS: WHAT YOU NEED TO KNOW Prescription opioids can be used to help relieve xdsiwnya-ce-rfmksq pain and are often prescribed following a surgery or injury, or for certain health conditions. These medications can be an important part of the treatment but also come with serious risks. It is important to work with your healthcare provider to make sure you are getting the safest, most effective care. WHAT ARE THE RISKS AND SIDE EFFECTS OF OPIOID USE? Prescription opioids carry serious risks of addiction and overdose, especially with prolonged use. An opioid overdose, often marked by slowed breathing, can cause sudden . The use of prescription opioids can have a number of side effects as well, even when taken as directed: ? Tolerance?meaning you might need to take more of the medication for the same pain relief ? Physical dependence?meaning you have symptoms of withdrawal when a medication is stopped ? Increased sensitivity to pain ? Constipation ? Nausea, vomiting, and dry mouth ? Sleepiness and dizziness ? Confusion ? Depression ? Low levels of testosterone that can result in lower sex drive, energy, and strength ? Itching and sweating RISKS ARE GREATER WITH: ? History of drug misuse, substance use disorder, or overdose ? Mental health conditions (such as depression or anxiety) ? Sleep apnea ? Older age (65 years and older) ? Avoid alcohol while taking prescription opioids. Also, unless specifically advised by your health care provider, medications to avoid include: ? Benzodiazepines (such as Xanax or Valium) ? Muscle relaxants (such as Soma or Flexeril) ? Hypnotics (such as Ambien or Lunesta) ? Other prescription opioids KNOW YOUR OPTIONS Talk to your health care provider about ways to manage your pain that don?t involve prescription opioids. Some of these options may actually work better and have fewer risks and side effects. Options may include: ? Pain relievers such as acetaminophen, ibuprofen, and naproxen ? Some medication that are also used for depression or seizures ? Physical therapy and exercise ? Cognitive behavioral therapy, a psychological, goal-directed approach, in which patients learn how to modify physical, behavioral, and emotional triggers of pain and stress. IF YOU ARE PRESCRIBED OPIOIDS FOR PAIN: ? Never take opioids in greater amounts or more often than prescribed. ? Follow up with your primary health care provider. o Work together to create a plan on how to manage your pain. o Talk about ways to help manage your pain that don?t involve prescription opioids. o Talk about any and all concerns and side effects. ? Help prevent misuse and abuse o Never sell or share prescription opioids. o Never use another person?s prescription opioids. ? Store prescription opioids in a secure place and out of reach of others (this may include visitors, children, friends, and family). ? Safely dispose of unused prescription opioids: Find your community drug take-back program or your pharmacy mail-back program, or flush them down the toilet, following guidance from the Food and Drug Administration (www.fda.gov/Drugs/Re sourcesForYou). ? Visit www.cdc.gov/drugoverd ose to learn about the risks of opioids abuse and overdose. ? If you believe you may b (more content not included)... [facility] Workers Comp Formson 021 Workers Comp Forms [id number]# 1.00CD:127 [facility] Ambulatory Clinical Summaryo n 03-26-2021 Ambulatory Clinical Summary {[id number]}CD:[id number] [facility] Patient Educationon 03-26-20 Patient Education Urology Vasectomy, Care After This sheet gives you information about how to care for yourself after your procedure. Your health care provider may also give you more specific instructions. If you have problems or questions, contact your health care provider. What can I expect after the procedure? After your procedure, it is common to have: ? Mild pain, swelling, redness, or discomfort in your scrotum. ? Some blood coming from your incisions or puncture sites for one or two days. ? Blood in your semen. Follow these instructions at home: Medicines ? Take yexy-cfw-mdkzrep and prescription medicines only as told by your health care provider. ? Avoid taking NSAIDs such as aspirin and ibuprofen, because these medicines can make bleeding worse. Activity ? For the first 2 days after surgery, avoid physical activity and exercise that require a lot of energy. Ask your health care provider what activities are safe for you. ? Do not participate in sports or perform heavy physical labor until your pain has improved, or until your health care provider says it is okay. ? Do not ejaculate for at least 1 week after the procedure, or as long as directed. ? You may resume sexual activity 7?10 days after your procedure, or when your health care provider approves. Use a different method of control (contraception) until you have had test results that confirm that there is no sperm in your semen. Scrotal support ? Use scrotal support, such as a jock strap or underwear with a supportive pouch, as needed for one week after your procedure. ? If you feel discomfort in your scrotum, you may remove the scrotal support to see if the discomfort is relieved. Sometimes scrotal support can press on the scrotum and cause or worsen discomfort. ? If your skin gets irritated, you may add some germ-free (sterile), fluffed bandages or a clean washcloth to the scrotal support. General instructions ? Put ice on the injured area: ? Put ice in a plastic bag. ? Place a towel between your skin and the bag. ? Leave the ice on for 20 minutes, 2?3 times a day. ? Check your incisions or puncture sites every day for signs of infection. Check for: ? Redness, swelling, or pain. ? Fluid or blood. ? Warmth. ? Pus or a bad smell. ? Leave stitches (sutures) in place. The sutures will dissolve on their own and do not need to be removed. ? Keep all follow-up visits as told by your health care provider. This is important because you will need a test to confirm that there is no sperm in your semen. Multiple ejaculations are needed to clear out sperm that were beyond the vasectomy site. You will need one test result showing that there is no sperm in your semen before you can resume unprotected sex. This may take 2?4 months after your procedure. ? Do not drive for 24 hours if you were given a sedative to help you relax. Contact a health care provider if: ? You have redness, swelling, or more pain around your incision or puncture site, or in your scrotum area in general. ? You have bleeding from your incision or puncture site. ? You have pus or a bad smell coming from your incision or puncture site. ? You have a fever. ? Your incision or puncture site opens up. Get help right away if: ? You develop a rash. ? You have difficulty breathing. Summary ? After your procedure it is common to have mild pain, swelling, redness, or discomfort in your scrotum. ? Avoid physical activity and exercise that requires a lot of energy for the first 2 days after surgery. ? Put ice on the injured area. Leave the ice on for 20 minutes, 2?3 times a day. ? Do not drive for 24 hours if you were given a sedative to help you relax. This information is not intended to replace advice given to you by your health care provider. Make sure you discuss any questions you have with your health care provider. Document Released: 11/07/2005 Document Revised: 04/02/2018 Document Reviewed: 07/17/2017 [employer] Patient Education ? [address] [employer] [facility] Urology Office/Clinic Noteon 03-26-2021 Urology Office/Clinic Note Chief Complaint VAS This patient 35-year-old male requesting permanent sterilization. He also complains of right testicular discomfort been a problem for him for last 6 months. He states he had a scrotal ultrasound was done at [facility] or [facility]. [facility] Staff New patient in office for VAS consult. Pt is single and has 3 children, pt does not wish to have any more kids. Pt states that he has noticed that the right testicle is more sensitive and he has alot of discomfort at times just with clothing. This has been going on for the past year. Pt states that he has like a pain with orgasms within the right testicle. He has not noticed any texture difference. BP is elevated Dysuria: no pain or burning Incomplete bladder emptying: feels like he is emptying well most of the time Hematuria: denies any blood in urine, UA is clear urgencies: none Nocturia: 2x Stream: average stream , intermittent hesitation, no intermittent stream, mild straining Leaking: none Post void Dribbling: mild sx Abdominal pain: Bilateral tenderness in the lower quadrants of abdomen Sexual complaints: no pain with erections, no blood in semen, yes intermittent pain or burning with orgasms, due to right testicle Testicle: right side is bothering him History of Present Illness reviewed medical history, UA No associated fever, chills, pain or blood. Review of Systems PHQ Score Initial Depression Screen Score: 0 ROS - Provider Constitutional: denies weight loss, denies hot flashes. Eyes: denies eye problems. Gastrointestinal: denies nausea, denies vomiting. Cardiovascular: denies chest pain or angina. Integumentary: no dryness Musculoskeletal: denies musculoskeletal symptoms. ENMT: denies otolaryngeal symptoms. Respiratory: no shortness of breath. Heme/Lymph: denies easy bleeding tendency, denies easy bruising tendency. Psychiatric: no confusion, no anxiety. Genitourinary: denies dysuria, denies hematuria, denies discharge, denies urinary frequency, denies urinary hesitancy, mild nocturia, denies incontinence, denies genital sores, denies decreased libido, and denies erectile dysfunction. Physical Exam Vitals & Measurements HR: 96(Peripheral) RR: 18 BP: 153/126 HT: 180 cm HT: 180.0 cm General Appearance: alert, no distress, well nourished, well developed male. Head: normocephalic . Eyes: normal orbit and globe. ENMT: normal examination of external ears. Chest: Lungs CTA, respirations non labored. Cardiovascular: regular rate and rhythm. Abdomen: soft, non distended, no tenderness, no mass or organomegaly, no hernia. Genitourinary: normal scrotum, normal testes, normal urethra, normal epididymis, normal vas deferens/spermatic cord. There is slight tenderness with palpation in the right epididymis. No abnormal intratesticular or scrotal masses were identified. The vas was easily palpable on the right and left side. Flank Pain: none. Bladder: nonpalpable. Penis: normal shaft, normal glans. Lymph Nodes: unremarkable palpation of the cervical area. Skin: warm, dry, no bruising. Psychiatric: cooperative, affect appropriate for age, normal judgement, euthymic mood. Assessment/Plan This patient is here for elective sterilization. He like to proceed with vasectomy. He also complains of some right testicular discomfort. States he had an ultrasound done recently. We will attempt to get the test results. He has been scheduled for elective bilateral vasectomy. The procedure, risks, alternatives and potential complications have been discussed in detail. Patient understands that he must use control to the postvasectomy semen sample reports are back showing no sperm present. Preop antibiotics will be called in for 8-week supply of Cipro to be used with ibuprofen for suspected right epididymitis. He will also have 3 days of an antibiotic for his vasectomy that he will take once the vasectomy is completed. We will review the results of the ultrasound at the time of the vasectomy. 1. Admission for sterilization (Z30.2: Encounter for sterilization) The patient was given a full consultation regarding the different techniques of sterilization. We discussed in detail that sterilization should be considered as an irreversible procedure. He understands the different techniques that can be performed on either the man or the woman. We also discussed in general the different techniques and methods used for control. Will schedule patient for vasectomy. Ordered: Urology Procedure Order 2. Right epididymitis (N45.1: Epididymitis) 3. Right testicular pain (N50.811: Right testicular pain) Right discomfort with orgasm's. mild discomfort. patient denies any lumps or swelling. Will schedule patient for scrotal US. Orders: ciprofloxacin, 500 mg = 1 tab(s), Oral, q12hr, X 10 day(s), # 20 tab(s), Refills(s) 0, Pharmacy: [id number] [facility], 180, cm, 03/26/21 10:24:00 EST, Height/Length Dosing Urnls Dip Stick Auto (more content not included)... [facility] Comment on above: Result Comment: Elec tronically Signed By: Prudencio Harrison MD, Gui Goldstein\.br\Date and Time Signed: 03/26/21 10:56 EST\.br\Electronically Co-Signed By: Esperanza Lucia\.br\Date and Time Co-Signed: 03/26/21 10:51 EST Vital Signs Date Time Vital Sign Value Performing Clinician Facility 07-21-2023 16:19-0400 Body height 172.72 cm DO Nathan Comic Reply Work Phone: [facility] 07-21-2023 16:19-0400 Body mass index (BMI) [Ratio] 40.3 kg/m2 DO Nathan Comic Reply Work Phone: [facility] 07-21-2023 16:19-0400 Body weight 120.2 kg DO Nathan Comic Reply Work Phone: [facility] 07-21-2023 16:19-0400 Diastolic blood pressure 92 mm[Hg] DO Nathan Comic Reply Work Phone: [facility] 07-21-2023 16:19-0400 Heart rate 105 /min DO Nathan Comic Reply Work Phone: [facility] 07-21-2023 16:19-0400 Respiratory rate 16 /min DO Nathan Ray Work Phone: [facility] 07-21-2023 16:19-0400 SaO2% (BldA) [Mass fraction] 93 % DO Nathan Ray Work Phone: [facility] 07-21-2023 16:19-0400 Systolic blood pressure 122 mm[Hg] DO Nathan Ray Work Phone: [facility] 07-09-2023 12:20-0500 Body height 175.3 cm Sriram Faustin PA Work Phone: [facility] [employer] [facility] 07-09-2023 12:20-0500 Body mass index (BMI) [Ratio] 38.84 kg/m2 Sriram Faustin PA Work Phone: [facility] 07-09-2023 12:20-0500 Body weight 119.3 kg Sriram Nienberg PA Work Phone: [employer] [facility] 07-09-2023 12:20-0500 Diastolic blood pressure 85 mm[Hg] Sriram Faustin PA [facility] 07-09-2023 12:20-0500 Heart rate 99 /min Sriram Nienberg PA Work Phone: [employer] [facility] 07-09-2023 12:20-0500 Respiratory rate 18 /min Sriram Nienberg PA Work Phone: [employer] 07-09-2023 12:20-0500 SaO2% (BldA) [Mass fraction] 98 % Sriram Nienberg PA Work Phone: [employer] 07-09-2023 12:20-0500 Systolic blood pressure 131 mm[Hg] Sriram Tovarenberg PA Work Phone: [employer] [facility] 05-28-2023 10:28-0500 Body mass index (BMI) [Ratio] 40.91 kg/m2 Sriram Nienberg PA Work Phone: [employer] 05-28-2023 10:28-0500 Body weight 125.65 kg Sriram Nienberg PA Work Phone: [employer] 05-28-2023 10:28-0500 Diastolic blood pressure 89 mm[Hg] Sriram Nienberg PA Work Phone: [employer] 05-28-2023 10:28-0500 Heart rate 79 /min Sriram Nienberg PA Work Phone: [employer] 05-28-2023 10:28-0500 Respiratory rate 16 /min Sriram Nienberg PA Work Phone: [employer] 05-28-2023 10:28-0500 SaO2% (BldA) [Mass fraction] 99 % Sriram Tovarenberg PA Work Phone: [employer] 05-28-2023 10:28-0500 Systolic blood pressure 135 mm[Hg] Sriram Tovarenberg PA Work Phone: [employer] 05-28-2023 09:42-0500 Body height 175.3 cm Sriram Tovarenberg PA Work Phone: [facility] Comment on above: stated 04-14-2023 15:15-0500 Body height 172.72 cm Nathan Ray Other [facility] 04-14-2023 15:15-0500 Body mass index (BMI) [Ratio] 41.2 kg/m2 Nathan Ray Other [employer] Other 04-14-2023 15:15-0500 Body weight 122.93 kg Nathan Ray Other [employer] Other 04-14-2023 15:15-0500 Body weight 122.92 kg DO Nathan Ray Work Phone: [facility] 04-14-2023 15:15-0500 Diastolic blood pressure 84 mm[Hg] Nathan Ray Other [facility] 04-14-2023 15:15-0500 Respiratory rate 18 /min Nathan Ray Other [employer] Other 04-14-2023 15:15-0500 SaO2% (BldA) [Mass fraction] 96 % Nathan Ray Other [facility] [employer] Other 04-14-2023 15:15-0500 Systolic blood pressure 126 mm[Hg] Nathan Ray Other [facility] 04-13-2023 14:45-0500 Body height 172.72 cm Kasey Missler Other [facility] 04-13-2023 14:45-0500 Body mass index (BMI) [Ratio] 41.23 kg/m2 Kasey Missler Other [facility] [employer] Other 04-13-2023 14:45-0500 Body weight 123.02 kg Kasey Missler Other [facility] [employer] Other 04-13-2023 14:45-0500 Body weight 123.01 kg DO Nathan Ray Work Phone: [facility] 04-13-2023 14:45-0500 Diastolic blood pressure 83 mm[Hg] Kasey Missler Other [facility] 04-13-2023 14:45-0500 Respiratory rate 18 /min Kasey Missler Other [employer] Other 04-13-2023 14:45-0500 SaO2% (BldA) [Mass fraction] 98 % Kasey Missler Other [employer] Other 04-13-2023 14:45-0500 Systolic blood pressure 117 mm[Hg] Kasey Garcia Other [facility] 04-01-2023 15:00-0500 Body height 172.72 cm Erica Hale Other [facility] 04-01-2023 15:00-0500 Body mass index (BMI) [Ratio] 41.66 kg/m2 Erica Hale Other [employer] Other 04-01-2023 15:00-0500 Body weight 124.29 kg Erica Hale Other [employer] Other 04-01-2023 15:00-0500 Body weight 124.28 kg Nathan Ray Work Phone: [facility] 03-18-2023 09:30-0500 Body height 172.72 cm Elmer Greer II Other [employer] Other 03-18-2023 09:30-0500 Body mass index (BMI) [Ratio] 41.66 kg/m2 Elmer Greer II Other [employer] Other 03-18-2023 09:30-0500 Body weight 124.29 kg Elmer Carlos II Other [employer] Other 01-28-2023 09:30-0400 Body height 172.72 cm Elmer Greer II Other [employer] Other 01-28-2023 09:30-0400 Body mass index (BMI) [Ratio] 42.87 kg/m2 Elmer Greer II Other [employer] Other 01-28-2023 09:30-0400 Body weight 127.92 kg Elmer Carlos II Other [employer] Other 11-14-2022 10:30-0400 Body height 172.72 cm Jack Mason Other [employer] Other 11-14-2022 10:30-0400 Body mass index (BMI) [Ratio] 43.79 kg/m2 Jack Mason Other [employer] Other 11-14-2022 10:30-0400 Body weight 130.64 kg Jack Mason Other [employer] Other 11-14-2022 10:30-0400 Diastolic blood pressure 75 mm[Hg] Jack Mason Other [employer] Other 11-14-2022 10:30-0400 Systolic blood pressure 124 mm[Hg] Jack Mason Other [employer] Other 07-29-2022 14:43-0400 Diastolic blood pressure 75 mm[Hg] DO Nathan Boatengs Work Phone: [facility] 07-29-2022 14:43-0400 Heart rate 97 /min DO Nathanxiomara Boatengs Work Phone: [facility] 07-29-2022 14:43-0400 Respiratory rate 16 /min DO Nathan Passboxs Work Phone: [facility] 07-29-2022 14:43-0400 SaO2% (BldA) [Mass fraction] 97 % DO Nathan Nias Work Phone: [facility] 07-29-2022 14:43-0400 Systolic blood pressure 106 mm[Hg] DO Nathan Nias Work Phone: [facility] 07-29-2022 13:16-0400 Body height 175.26 cm DO Nathan Kuns Work Phone: [facility] 07-29-2022 13:16-0400 Body temperature 98 [degF] DO Nathan Ray Work Phone: [facility] 07-29-2022 13:16-0400 Body weight 124.73 kg DO Nathan Ray Work Phone: [facility] 07-02-2022 13:00-0500 Body height 172.72 cm Kamlesh Church Other [facility] [employer] Other 07-02-2022 13:00-0500 Body mass index (BMI) [Ratio] 42.27 kg/m2 Kamlesh Church Other [employer] Other 07-02-2022 13:00-0500 Body weight 126.1 kg Kamlesh Church Other [employer] Other 07-02-2022 13:00-0500 Diastolic blood pressure 91 mm[Hg] Kamlesh Church Other [employer] Other 07-02-2022 13:00-0500 Systolic blood pressure 136 mm[Hg] Kamlesh Church Other [employer] Other 05-06-2022 16:45-0500 Body height 172.72 cm Nathan Flor Other [employer] Other 05-06-2022 16:45-0500 Body mass index (BMI) [Ratio] 42.11 kg/m2 Nathan Ray Other [employer] Other 05-06-2022 16:45-0500 Body weight 125.65 kg Nathan Flor Other [employer] Other 05-06-2022 16:45-0500 Diastolic blood pressure 66 mm[Hg] Nathanxiomara Boatengapolonia Other [employer] Other 05-06-2022 16:45-0500 Respiratory rate 16 /min Nathanxiomara Boatengapolonia Other [employer] Other 05-06-2022 16:45-0500 SaO2% (BldA) [Mass fraction] 91 % Nathanxiomara Boatengapolonia Other [employer] Other 05-06-2022 16:45-0500 Systolic blood pressure 124 mm[Hg] Nathan Ray Other [employer] Other 03-04-2022 16:45-0400 Body height 172.72 cm Nathanxiomara Boatengapolonia Other [employer] Other 03-04-2022 16:45-0400 Body mass index (BMI) [Ratio] 42.87 kg/m2 Nathan Flor Other [employer] Other 03-04-2022 16:45-0400 Body weight 127.92 kg Nathan Ray Other [employer] Other 03-04-2022 16:45-0400 Diastolic blood pressure 84 mm[Hg] Nathan Ray Other [employer] Other 03-04-2022 16:45-0400 Respiratory rate 16 /min Nathan Ray Other [employer] Other 03-04-2022 16:45-0400 SaO2% (BldA) [Mass fraction] 96 % Nathan Ray Other [employer] Other 03-04-2022 16:45-0400 Systolic blood pressure 134 mm[Hg] Nathan Ray Other [employer] Other 11-28-2021 16:15-0400 Body height 172.72 cm Nathan Ray Other [employer] Other 11-28-2021 16:15-0400 Body mass index (BMI) [Ratio] 41.5 kg/m2 Nathan Ray Other [employer] Other 11-28-2021 16:15-0400 Body weight 123.83 kg Nathan Ray Other [employer] Other 11-28-2021 16:15-0400 Diastolic blood pressure 66 mm[Hg] Nathan Ray Other [employer] Other 11-28-2021 16:15-0400 Respiratory rate 20 /min Nathan Ray Other [employer] Other 11-28-2021 16:15-0400 SaO2% (BldA) [Mass fraction] 96 % Nathan Ray Other [employer] Other 11-28-2021 16:15-0400 Systolic blood pressure 108 mm[Hg] Nathan Ray Other [employer] Other 10-29-2021 16:00-0400 Body height 172.72 cm Nathan Ray Other [employer] Other 10-29-2021 16:00-0400 Body mass index (BMI) [Ratio] 41.2 kg/m2 Nathanxiomara Ray Other [employer] Other 10-29-2021 16:00-0400 Body weight 122.93 kg Nathan Ray Other [employer] Other 10-29-2021 16:00-0400 Diastolic blood pressure 78 mm[Hg] Nathan Flor Other [employer] Other 10-29-2021 16:00-0400 Respiratory rate 18 /min Nathan Flor Other [employer] Other 10-29-2021 16:00-0400 SaO2% (BldA) [Mass fraction] 98 % Nathan Boatengapolonia Other [employer] Other 10-29-2021 16:00-0400 Systolic blood pressure 120 mm[Hg] Nathanxiomara Boatengapolonia Other [employer] Other 03-14-2021 17:00-0500 Body height 172.72 cm Nathan Ray Other [employer] Other 03-14-2021 17:00-0500 Body mass index (BMI) [Ratio] 44.33 kg/m2 Nathanxiomara Boatengapolonia Other [employer] Other 03-14-2021 17:00-0500 Body weight 132.27 kg Nathan Flor Other [employer] Other 03-14-2021 17:00-0500 Diastolic blood pressure 80 mm[Hg] Nathan Ray Other [employer] Other 03-14-2021 17:00-0500 Respiratory rate 18 /min Nathan Boatengapolonia Other [employer] Other 03-14-2021 17:00-0500 SaO2% (BldA) [Mass fraction] 95 % Nathan Ray Other [employer] Other 03-14-2021 17:00-0500 Systolic blood pressure 122 mm[Hg] Nathan Boatengapolonia Other [employer] Other Encounters Encounter Date Encounter Type Care Provider Facility Start: 09-01-2023 End: 09-01-2023 ambulatory SRIRAM Bundy RAMIN [facility] Start: 08-31-2023 End: 08-31-2023 ambulatory JACOB RAY Facility:[facility] Start: 08-31-2023 End: 08-31-2023 Patient encounter procedure Jim Crouch DO Work Phone: Orthopaedics Comment on above: Avascular necrosis o f bones of both hips (HCC) (Primary Dx) Start: 08-07-2023 End: 08-08-2023 ambulatory [facility] Start: 08-01-2023 ambulatory Jim Crouch DO Work Phone: [facility] Start: 08-01-2023 Follow-up encounter Jim florez DO Work Phone: Orthopaedics Comment on above: Follow up Start: 07-31-2023 End: 08-01-2023 ambulatory [facility] Start: 07-21-2023 End: 07-21-2023 ambulatory DO Nathan Ray Work Phone: [facility] Work Phone: Start: 07-21-2023 End: 07-21-2023 Patient encounter procedure DO Nathan Ray Work Phone: [facility] [place] Work Phone: Start: 07-17-2023 ambulatory JIM CROUCH Facility: [facility] Start: 07-17-2023 End: 07-17-2023 Subsequent hospital visit by physician Mri [facility] (Istat/3t) Work Phone: [facility] Radiology MRI Comment on above: Osteonecrosis of hip (HCC) [M87.9] Start: 07-09-2023 End: 07-09-2023 ambulatory SRIRAM Bundy [facility] Start: 07-09-2023 End: 07-09-2023 Office outpatient visit 25 minutes Sriram BELLE Work Phone: [facility] Comment on above: Lumbosacral spondylo sis without myelopathy (Primary Dx) Start: 06-29-2023 End: 06-29-2023 ambulatory JACOB RAY Facility:[facility] Start: 06-26-2023 End: 06-27-2023 ambulatory ARSLAN Roa [facility] Start: 06-05-2023 End: 06-05-2023 ambulatory Nathan Ray Other [employer] Other Start: 06-05-2023 Telephone encounter Nathan Ray [facility] [place] Start: 05-28-2023 End: 05-28-2023 ambulatory Nathan Ray Facility:[facility] Start: 05-28-2023 End: 05-28-2023 Patient encounter procedure DO Nathan Ray Work Phone: [facility] Start: 05-28-2023 End: 05-28-2023 ambulatory DO Nathan Ray Work Phone: [facility] Work Phone: Start: 05-28-2023 Office outpatient vi sit 25 minutes Fredo Parker [facility] Start: 05-28-2023 End: 05-29-2023 ambulatory SRIRAM S [facility] Start: 05-28-2023 End: 05-28-2023 ambulatory SRIRAM FAUSTIN [facility] Start: 05-28-2023 End: 05-28-2023 Office outpatient new 45 minutes Arielle Davidson PA-C Work Phone: [facility] Comment on above: Chronic pain of both shoulders (Primary Dx) Start: 05-27-2023 End: 05-27-2023 ambulatory KELLEN WATSON Not Available Start: 05-19-2023 End: 05-19-2023 ambulatory MARILYN CURRY Not Available Start: 05-12-2023 End: 05-13-2023 ambulatory KELLEN WATSON Not Available Start: 05-11-2023 End: 05-11-2023 Patient encounter procedure DO Nathan Ray Work Phone: [facility] Work Phone: Start: 05-06-2023 End: 05-06-2023 ambulatory KELLEN WATSON Not Available Start: 05-01-2023 End: 05-01-2023 ambulatory Nathan Ray Other [employer] Other Start: 05-01-2023 Telephone encounter Nathan Ray [facility] Start: 04-22-2023 End: 04-22-2023 ambulatory KELLEN WATSON Not Available Start: 04-20-2023 End: 04-20-2023 ambulatory Nathan Ray Other [employer] Other Start: 04-20-2023 Telephone encounter Nathan Ray [facility] [place] Start: 04-14-2023 End: 04-14-2023 ambulatory Nathan Ray Other [employer] Other Start: 04-14-2023 Office outpatient vi sit 15 minutes Nathan Ray [facility] [place] Start: 04-14-2023 End: 04-14-2023 Patient encounter procedure DO Nathan Ray Work Phone: [facility] [place] Work Phone: Start: 04-13-2023 End: 04-13-2023 Discharged Recurring DO Nathan Ray Work Phone: [facility] Work Phone: Start: 04-13-2023 Registered Recurring DO Nathan Ray Work Phone: [facility] Work Phone: Start: 04-13-2023 (Smoke Cess) [facility]ess[facility] Start: 04-13-2023 End: 04-14-2023 ambulatory DO Nathan Ray Work Phone: [facility] Other Start: 04-13-2023 End: 04-13-2023 Patient encounter procedure DO Nathan Ray Work Phone: [facility] Work Phone: Start: 04-01-2023 End: 04-01-2023 ambulatory Nathan Ray Facility:[facility] Start: 04-01-2023 End: 04-01-2023 Patient encounter procedure DO Nathan Ray Work Phone: [facility] Start: 04-01-2023 End: 04-01-2023 ambulatory DO Nathan Ray Work Phone: [facility] Work Phone: Start: 04-01-2023 Office outpatient vi sit 15 minutes Erica Hale [facility] Start: 04-01-2023 End: 04-01-2023 Patient encounter procedure DO Nathan Ray Work Phone: [facility] Work Phone: Start: 03-30-2023 End: 03-30-2023 ambulatory Nathanxiomara Ray Facility:[facility] Start: 03-30-2023 End: 03-30-2023 Patient encounter procedure DO Nathan Ray Work Phone: [facility] Start: 03-23-2023 End: 03-23-2023 ambulatory Shanna Fitt Other [employer] Other Start: 03-23-2023 Telephone encounter Shanna Fitt [facility] Start: 03-18-2023 End: 03-18-2023 ambulatory Shanna Fitt Other [employer] Other Start: 03-18-2023 Office outpatient vi sit 25 minutes Elmer Gonzalez II [facility] Start: 03-18-2023 Telephone encounter Shanna Fitt [facility] Start: 03-18-2023 End: 03-18-2023 Patient encounter procedure DO Nathan Ray Work Phone: [facility] Work Phone: Start: 03-06-2023 End: 03-06-2023 ambulatory Nathan Ray Facility:[facility] Start: 03-06-2023 End: 03-06-2023 ambulatory DO Nathanxiomara Boatengs Work Phone: [facility] Work Phone: Start: 03-06-2023 End: 03-06-2023 Patient encounter procedure DO Nathanxiomara Boatengs Work Phone: [facility] Work Phone: Start: 01-28-2023 Office outpatient ne w 45 minutes Elmer Gonzalez II [facility] Start: 01-28-2023 End: 01-28-2023 ambulatory Elmer Gonzalez II Facility:[facility] Start: 01-28-2023 End: 01-28-2023 ambulatory DO Nathanxiomara Boatengs Work Phone: [facility] Work Phone: Start: 01-28-2023 End: 01-28-2023 Patient encounter procedure DO Nathan Ray Work Phone: [facility] Start: 01-20-2023 End: 01-20-2023 ambulatory Nathan Ray Other [employer] Other Start: 01-20-2023 Telephone encounter Nathan Ray [facility] Start: 12-19-2022 End: 12-19-2022 ambulatory Nathan Ray Other [employer] Other Start: 12-19-2022 Telephone encounter [facility] Start: 12-17-2022 End: 12-17-2022 ambulatory Nathan Ray Facility:[facility] Start: 12-17-2022 End: 12-17-2022 ambulatory DO Nathan Ray Work Phone: [facility] Work Phone: Start: 12-17-2022 End: 12-17-2022 Patient encounter procedure DO Nathan Ray Work Phone: [facility] Work Phone: Start: 11-17-2022 End: 11-17-2022 ambulatory Nathanxiomara Ray Other [employer] Other Start: 11-17-2022 Telephone encounter [facility] Start: 11-14-2022 Office outpatient vi sit 15 minutes Jack Mason [facility] Start: 11-14-2022 End: 11-14-2022 ambulatory DO Nathanxiomara Ray Work Phone: [employer] Other Start: 11-14-2022 End: 11-14-2022 Patient encounter procedure DO Nathan Ray Work Phone: [facility] [place] Work Phone: Start: 07-29-2022 Telephone encounter Jack Hurley [facility] Start: 07-29-2022 End: 07-29-2022 Admission to same day surgery center DO Nathan Ray Work Phone: [facility] Work Phone: Start: 07-29-2022 End: 07-29-2022 ambulatory DO Nathan Ray Work Phone: [facility] Work Phone: Start: 07-03-2022 End: 07-03-2022 ambulatory Kamlesh Church Other [employer] Other Start: 07-03-2022 Telephone encounter Kamlesh Danielle [facility] Start: 07-02-2022 End: 07-02-2022 ambulatory Kamlesh Church Other [employer] Other Start: 07-02-2022 Patient encounter procedure Kamlesh MATA [facility] Start: 05-26-2022 End: 05-26-2022 ambulatory DO Nathan Ray Work Phone: [facility] Work Phone: Start: 05-26-2022 End: 05-26-2022 Patient encounter procedure DO Nathan Ray Work Phone: [facility] [address] Work Phone: Start: 05-06-2022 End: 05-06-2022 ambulatory Nathan Ray Other [employer] Other Start: 05-06-2022 Office outpatient vi sit 25 minutes Nathan MATA [facility] Start: 04-19-2022 Encounter for preprocedural laboratory examination DR SRIRAM FRANK [facility] Start: 04-15-2022 End: 04-15-[address] SRIRAM FRANK Facility:[facility] Start: 04-15-2022 End: 04-15-2022 Encounter for preprocedural laboratory examination DR SRIRAM FRANK Facility:[facility] Start: 04-04-2022 End: 04-04-2022 ambulatory DO Nathan Ray Work Phone: [facility] Work Phone: Start: 04-04-2022 End: 04-04-2022 Patient encounter procedure DO Nathan Ray Work Phone: [facility] [place] Start: 03-21-2022 End: 03-21-2022 ambulatory ULISSES MOROCHO Facility:[facility] Start: 03-14-2022 End: 03-14-2022 ambulatory Nathan Ray Other [employer] Other Start: 03-14-2022 Telephone encounter Nathan Ray [facility] [place] Start: 03-04-2022 End: 03-04-2022 ambulatory Nathan Ray Other [employer] Other Start: 03-04-2022 Office outpatient vi sit 25 minutes Nathan Ray [facility] [place] Start: 01-30-2022 End: 01-30-2022 ambulatory Nathan Ray Other [employer] Other Start: 01-30-2022 Telephone encounter Nathan Ray [facility] [place] Start: 01-17-2022 End: 01-18-[address] NATHAN RAY Facility:[facility] Start: 01-15-2022 End: 01-15-2022 ambulatory Nathan Ray Other [employer] Other Start: 01-15-2022 Telephone encounter Nathan Ray [facility] [place] Start: 11-28-2021 End: 11-28-2021 ambulatory Nathan Ray Other [employer] Other Start: 11-28-2021 Office outpatient vi sit 25 minutes Nathan Ray [facility] [place] Start: 11-05-2021 End: 11-05-2021 ambulatory Nathan Ray Other [employer] Other Start: 11-05-2021 Telephone encounter Nathan Ray [facility] [place] Start: 10-29-2021 End: 10-29-2021 ambulatory Nathan Ray Other [employer] Other Start: 10-29-2021 Office outpatient vi sit 25 minutes Nathan Ray [facility] [place] Start: 09-26-2021 End: 09-27-[address] NATHAN RAY Facility:[facility] Start: 08-22-2021 End: 08-22-2021 ambulatory Nathan Ray Other [employer] Other Start: 08-22-2021 Telephone encounter Nathan Ray [facility] [place] Start: 08-05-2021 End: 08-06-[address] NATHAN RAY Facility:[facility] Start: 04-18-2021 Chart abstracting Presley collado MD Work Phone: Hematology/Oncology Start: 04-09-2021 End: 04-09-2021 ambulatory Nathan Ray Other [employer] Other Start: 04-09-2021 Telephone encounter Nathan Ray [facility] [place] Start: 03-14-2021 End: 03-14-2021 ambulatory Nathan Ray Other [employer] Other Start: 03-14-2021 Office outpatient vi sit 25 minutes Nathan Ray [facility] [place] Start: 03-14-2021 Telephone encounter Nathan Ray [facility] [place] Procedures Date Procedure Procedure Detail Performing Clinician Start: 07-17-2023 Mri any jt lower ext rem w/o contrast matrl Jim D Crouch DO Work Phone: Start: 05-28-2023 Plain x-ray of pelvi s and lower extremity DO Nathan Ray Work Phone: Start: 04-01-2023 Dual energy X-ray absorptiometry DO Nathan Ray Work Phone: Start: 03-30-2023 Plain x-ray of pelvi s and lower extremity DO Nathan Ray Work Phone: Start: 03-06-2023 MRI of left hip DO Luis Fernando Ray Work Phone: Start: 03-06-2023 MRI of right hip DO Yobany Ray Work Phone: Start: 01-28-2023 Plain x-ray of pelvi s and lower extremity DO Nathan Ray Work Phone: Start: 07-29-2022 Flexible fiberoptic sigmoidoscopy DO Nathan Ray Work Phone: Start: 05-26-2022 Plain x-ray of pelvi s and lower extremity DO Nathan Ray Work Phone: Plan of Treatment Date Care Activity Detail Author Start: 07-08-2024 Adult BMI Screening Adult BMI Screen ing [facility] Start: 07-08-2024 Tobacco Screening Tobacco Screening [facility] Start: 05-28-2024 Adult BMI Screening [facility] Start: 05-28-2024 Tobacco Screening [facility] Start: 01-03-2024 Influenza vaccination Influenz a Vaccine (Season Ended) [facility] Start: 09-18-2023 End: 09-18-2023 Patient encounter procedure 09/18/2023 10:40 AM EDT Office Visit Orthopedics [address] [facility] [address] [place] [address] Nilesh Holguin, [address] [place] [address] Avascular necrosis of bones of both hips Orthopedics Comment on above: Avascular necrosis o f bones of both hips Start: 08-11-2023 End: 08-11-2023 Patient encounter procedure 08/11/2023 12:00 PM EDT Office Visit [facility] [address] [place] [id number] Sriram Faustin, PA [address] [place], [place] [address] [facility] Start: 07-31-2023 End: 07-31-2023 Admission to same day surgery center 07/31/2023 9:20 AM EDT - 07/31/2023 9:27 AM EDT Surgery [facility] Pain Procedures [address] [place] [id number] Arslan Bryant MD [address] [place], [place] [id number] INJECTION BLOCK NERVE MEDIAL BRANCH: bilat L 4/5, 5/1 [27493 (CPT )] [facility] Procedures Comment on above: INJECTION BLOCK NERV E MEDIAL BRANCH: bilat L 4/5, 5/1 [94280 (CPT )] Start: 07-31-2023 End: 07-31-2023 Njx dx/ther agt pvrt facet jt lmbr/sac 1 level INJECTION BLOCK NERVE MEDIAL BRANCH Lumbosacral spondylosis without myelopathy 07/31/2023 9:20 AM EDT [facility] Start: 07-31-2023 Subsequent hospital visit by physician 07/31/2023 9:20 AM EDT Hospital Encounter [facility] [address] [place] [id number] Arslan Bryant MD [address] [place], [place] [id number] [facility] Start: 07-09-2023 End: 07-09-2023 Patient encounter procedure 07/09/2023 12:00 PM EST Office Visit [facility] [address] [place] [phone] Sriram Faustin PA [address] [place] [address] [facility] Start: 06-26-2023 End: 06-26-2023 Admission to same day surgery center 06/26/2023 10:00 AM EST - 06/26/2023 10:05 AM EST Surgery [facility] Procedures [address] [place] [id number] Arslan Bryant MD [address] [place], [place] [id number] INJECTION BURSA LARGE JOINT: bilat shoulder [ (CPT )] [facility] Procedures Comment on above: INJECTION BURSA LARG E JOINT: bilat shoulder [ (CPT )] Start: 06-26-2023 End: 06-26-2023 Arthrocentesis aspir&/inj major jt/bursa w/o us INJECTION BURSA LARGE JOINT Chronic pain of both shoulders 06/26/2023 10:00 AM EST [facility] Start: 06-26-2023 Subsequent hospital visit by physician 06/26/2023 10:00 AM EST Hospital Encounter [facility] - Pain Procedures [address] [place] [id number] Arslan Bryant MD [address] [place], [place] [id number] [facility] - Pain Procedures Start: 05-04-2023 Behavioral Health Screening Behavioral Health Screening [facility] Start: 05-04-2023 Depression Assessment Depression Ass essment [facility] Start: 01-02-2023 Covid-19 Vaccine ( season) Covid-19 Vaccine ( season) [facility] Start: 01-02-2023 Influenza vaccination P [facility] Start: 11-15-2022 Lipid panel Lipid Screening [facility] Start: 07-29-2022 [facility] Start: 01-02-2021 Influenza vaccination INFLUENZA (#1) [facility] Start: 11-15-2006 DTaP,Tdap and Td Vac cines (1 - Tdap) DTaP,Tdap and Td Vaccines (1 - Tdap) [facility] Start: 11-15-2006 Hepatitis B Vaccine (1 of 3 - 19+ 3-dose series) Hepatitis B Vaccine (1 of 3 - 19+ 3-dose series) [facility] Start: 11-15-2006 Urine microalbumin profile [facility] Start: 11-15-2005 Adult BMI Follow Up Plan Adult BMI Follow Up Plan [facility] Start: 11-15-2005 HEPATITIS C SCREENING HEPATITIS C [facility] Start: 11-15-2005 Hepatitis C screening Hepatitis C [facility] Start: 11-15-2005 HIV SCREENING HIV SCREENING [facility] Start: 11-15-2005 HIV screening HIV Screening [facility] Start: 1999 Adult depression screening assessment DEPRESSION SCREENING [facility] Start: 11-15-1992 COVID-19 VACCINE (1) COVID-19 VACCIN E (1) [facility] Comprehensive metabo lic 2000 panel - Serum or Plasma [facility] Immunizations Immunization Date Immunization Notes Care Provider Senait mejia NEGATED: Highlighted victor m has not occurred!10-11-2019 influenza, seasonal, injectable Patient Objection Nathan Ray Other [employer] [facility] [employer] Other NEGATED: Highlighted victor m has not occurred!08-19-2018 influenza, seasonal, injectable Patient Objection Nathan Ray Other [employer] Other Payers Date Payer Category Payer Self-pay [id number] 2015 Unknown [employer] PPO OOS [id number] 2015-Present [phone] [facility] [id number] [place] [address] PPO [id number]. [id number] 2015 Unknown [id number]. 1.13.424. 2.7.3.305799.315 1987 Unknown [id number] 2.16.840.1.864664.3.579. 2.593 1987 Unknown [id number] 2.16.840.1.589871.3.579. 2.593 1987 Unknown [id number] 2.16.840.1.064584.3.579. 2.593 1987 Unknown [id number] 2.16.840.1.720616.3.579. 2.593 1987 Unknown [id number] 2.16.840.1.958515.3.579. 2.593 1987 Unknown [id number] 2.16.840.1.630222.3.579. 2.1259 1987 Unknown [id number] 2.16.840.1.663326.3.579. 2.1259 1987 Unknown [id number] 2.16.840.1.506759.3.579. 2.1259 1987 Unknown [id number] 2.16.840.1.579356.3.579. 2.1259 1987 Unknown [id number] 2.16.840.1.008654.3.579. 2.1259 1987 Unknown [id number] 2.16.840.1.669832.3.579. 2.1286 1987 Unknown [id number] 2.16.840.1.890935.3.579. 2.1286 1987 Unknown [id number] 2.16.840.1.694362.3.579. 2.1285 1987 Unknown [id number] 2..840.1.503167.3.579. 2.1285 1987 Unknown [id number] 2..840.1.370545.3.579. 2.1285 1987 Unknown [id number] 2.840.1.935913.3.579. 2.1285 1987 Unknown [id number] 2.840.1.407530.3.579. 2.1285 1987 Unknown [id number] 2.0.1.175171.3.579. 2.1285 1987 Unknown [id number] 2.840.1.915985.3.579. 2.1285 1987 Unknown [id number] .0.1.333493.3.579. 2.1285 1959 [facility]92 [id number] [facility] [id number] Unknown [id number] 2.840.1.344247.3.579. 2.531 Unknown [id number] 2.840.1.441599.3.579. 2.531 Unknown [id number] .840.1.575835.3.579. 2.531 Unknown [id number] 2.840.1.427956.3.579. 2.531 Unknown [id number] 2.840.1.867136.3.579. 2.531 Unknown [id number] 2.840.1.914392.3.579. 2.531 Unknown [id number] 2.840.1.355393.3.579. 2.531 Unknown [id number] 2.840.1.102696.3.579. 2.531 Unknown [id number] 2.16.840.1.346864.3.579. 2.531 Social History Date Type Detail Facility Start: 10-03-2019 End: 04-18-2021 Tobacco smoking status NHIS Never smoked tobacco [facility] Start: 04-18-2021 Tobacco use and exposure User of smokeless tobacco [facility] End: 05-03-2023 History of tobacco use Chews Tobacco [facility] Start: 04-18-2021 End: 04-22-2021 Alcohol intake Current drinker of alcohol (finding) [facility] Start: 1985 Sex Assigned At Male C [facility] Start: 05-28-2023 End: 06-29-2023 Sex Assigned At [facility] Start: 05-28-2023 Tobacco use and exposure Former smokeless tobacco user [facility] Start: 05-28-2023 End: 06-29-2023 History of Social function [facility] Childcare Unknown [facility] Start: 05-28-2023 Tobacco Comment Chewed since age 13 [facility] Start: 05-28-2023 Alcohol Comment 3 drinks per week [facility] Start: 1985 Sex Assigned At Not on file P [facility] Start: 04-11-2021 Gender identity Identifies as male gender (finding) [facility] Start: 04-11-2021 Sexual orientation Heterosexual (fin ding) [facility] Goals Date Patient Goal Desired Activity /State Clinical Notes 02-01-2015 to 08-31-2023 Jim Crouch DO - 08/31/2023 11:20 AM EDTPatient InstructionsTelephone Encounter - Marian Pryor MA - 08/03/2023 7:35 AM [facility] Castorena RT(R) - 07/17/2023 7:00 AM EDT Note Date & Type Note Facility 08-31-2023 Note HNO ID: [id number] Author: JIM CROUCH DO Service: ? Author Type: Physician Type: Progress Notes Filed: 08/31/2023 11:25 Note Text: Miguel Whitten is a patient of Jacob Ray DO. CHIEF COMPLAINT: Miguel Whitten is a 37 year old male who presents today for follow up of imaging results. HISTORY OF PRESENT ILLNESS: PAIN EVALUATION 08/27/2023204708/31/2023 1013 Pain Level: 8 7 Pain Location: Hip-Right Hip-Left right hip Description: Aching;Radiating;Sharp;Shooting; Stiffness;Throbbing;Tightness Aching;Sharp;Shooting;Sore;Stiff ness;Tightness;Stabbing/Not Incision Duration Amount of Time: -- 1 Duration Units: Months Years Frequency: Continuous Continuous Intervention/Comfort measure: Medication;Reposition Medication;Cold;Heat;Exercise Comments: Constant ache and sharp pains that come and go -- Patient presents for follow up of imaging results. Imaging demonstrated IMPRESSION: CHRONIC APPEARING OSTEONECROSIS OF THE FEMORAL HEADS BILATERALLY, MORE EXTENSIVE ON THE RIGHT THAN THE LEFT BUT WITHOUT ARTICULAR SURFACE COLLAPSE. THIS IS UNCHANGED COMPARED WITH THE IMPORTED MRI OF 03/06/2023 BILATERAL ACETABULAR LABRAL TEARS. SMALL AREA OF 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 . Location of pain: bilateral hips Right hip > left hip Any new injury, since being seen last: No SOCIAL HISTORY: Tobacco Use: Types: Chew (Chews tobacco) PHYSICAL EXAMINATION: Specific MSK Exam Pain with right hip motion Antalgic gait noted CLINICAL IMPRESSION / ASSESSMENT: (M87.051, M87.052) Avascular necrosis of bones of both hips (HCC) (primary encounter diagnosis) PLAN: Discussed with him about treatment options for the hip AVN Both imaging and clinically his right hip is worse Discussed the option of surgical consultation vs CSI He would like to set up with surgical partner to discuss option for the right hip at this time Consult placed Will monitor the left hip for now Procedures Jim Crouch DO [facility] 08-31-2023 History of Presen t illness Narrative Images from the original note were not included. Miguel Whitten is a patient of Jacob Ray DO. CHIEF COMPLAINT: Miguel Whitten is a 37 year old male who presents today for follow up of imaging results. HISTORY OF PRESENT ILLNESS: PAIN EVALUATION 08/27/2023204708/31/2023 1013 Pain Level: 8 7 Pain Location: Hip-Right Hip-Left right hip Description: Aching;Radiating;Sharp;Shooting; Stiffness;Throbbing;Tightness Aching;Sharp;Shooting;Sore;Stiff ness;Tightness;Stabbing/Not Incision Duration Amount of Time: -- 1 Duration Units: Months Years Frequency: Continuous Continuous Intervention/Comfort measure: Medication;Reposition Medication;Cold;Heat;Exercise Comments: Constant ache and sharp pains that come and go -- Patient presents for follow up of imaging results. Imaging demonstrated IMPRESSION: CHRONIC APPEARING OSTEONECROSIS OF THE FEMORAL HEADS BILATERALLY, MORE EXTENSIVE ON THE RIGHT THAN THE LEFT BUT WITHOUT ARTICULAR SURFACE COLLAPSE. THIS IS UNCHANGED COMPARED WITH THE IMPORTED MRI OF 03/06/2023 BILATERAL ACETABULAR LABRAL TEARS. SMALL AREA OF 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 . Location of pain: bilateral hips Right hip > left hip Any new injury, since being seen last: No SOCIAL HISTORY: Tobacco Use: Types: Chew (Chews tobacco) PHYSICAL EXAMINATION: Specific MSK Exam Pain with right hip motion Antalgic gait noted CLINICAL IMPRESSION / ASSESSMENT: (M87.051, M87.052) Avascular necrosis of bones of both hips (HCC) (primary encounter diagnosis) PLAN: Discussed with him about treatment options for the hip AVN Both imaging and clinically his right hip is worse Discussed the option of surgical consultation vs CSI He would like to set up with surgical partner to discuss option for the right hip at this time Consult placed Will monitor the left hip for now Procedures Jim Crouch DO documented in this encounter [facility] 08-31-2023 Instructions Jim Crouch DO - 08/31/2023 10:[address] Nilesh Holguin in [facility] documented in this encounter [facility] 08-03-2023 Miscellaneous Notes Responded Via My Chart. documented in this encounter [facility] 07-17-2023 Miscellaneous Notes Radiology Service Progress Note PATIENT NAME: Miguel Whitten DATE OF SERVICE: July 17, 2023 TIME: 7:12 AM PATIENT IDENTITY VERIFICATION COMPLETED USING TWO (2) IDENTIFIERS: Name and Date of confirmed by patient verbally and Name and Date of confirmed by identification band. FALL SCREENING: Has the patient had 2 falls in the last year or 1 fall with injury or currently using an Ambulatory Assistive Device (Walker, Cane, Wheelchair, Crutches, etc.)? No PATIENT GENDER DATA: Male PATIENT RELEVANT IMPLANT DATA REVIEWED: Yes PATIENT PRESENTS WITH AN IMPLANTABLE OR ATTACHED [employer]: No RADIOLOGY DEPARTMENT: MR; Exam(s) Completed: Lower MSK: Hip, bilateral PERIPHERAL IV DATA: Not applicable SIGNED BY: RT Pinky(R) July 17, 2023 7:12 AM documented in this encounter [facility] 07-09-2023 History of Presen t illness Narrative [facility] [address] [place] [address] Patient: Miguel Whitten Sex: male : 1985 Age: 37 y.o. PCP: No primary care provider on file. 07/09/2023 Miguel Whitten is here for a(n) post procedure follow up 06/26/23 Bilateral shoulder injection with left side 10% and right side 80% continued relief reported. Preprocedure pain of left 7/10, right 5/10 and not 6-7/10 on the left and 1/10 on the right.. Pre-procedural pain was reported as see above/10. F/u ortho appt referred to [facility] on 06/29/23 and they ordered MRI to be completed on 07/17/23. Provider to review Bilateral shoulder xrays from 05/27/23 today. He would like to address back pain today. Chief Complaint Patient presents with Back Pain Wrist Pain Luther and luther shld and hands HPI: PT/HEP (09/2022) about 20 sessions with slight relief Bilateral shld, wrist, and hands: 06/26/23 Bilateral shoulder injection with left side 10% and right side 80% continued relief reported. Preprocedure pain of left 7/10, right 5/10 and not 6-7/10 on the left and 1/10 on the right. Back/Hips: F/u ortho appt referred to [facility] on 06/29/23 and they ordered MRI to be completed on 07/17/23 Wrist Pain The pain is present in the left shoulder, left wrist, right wrist and right shoulder (bilat hips. left shld worse than right). This is a chronic problem. The current episode started more than 1 year ago. The problem occurs constantly. The quality of the pain is described as aching. The pain is at a severity of 7/10. The pain is severe. Associated symptoms include numbness (medial aspect of RLE from groin to toes, LLE intemittently to medial and lateral apsect of of LLE) and stiffness. Pertinent negatives include no fever or tingling. The symptoms are aggravated by activity, standing, cold and heat. He has tried NSAIDS, oral narcotics, acetaminophen, movement and OTC ointments for the symptoms. The treatment provided mild relief. His past medical history is significant for osteoarthritis. Back Pain This is a chronic problem. Episode onset: 15 years. The problem occurs constantly. The problem is unchanged. The pain is present in the lumbar spine and gluteal. Quality: intermittent shooting from bilateral groin down anterior aspect of BLE. Intermittently shooting pain down posterior aspect of RLE to mid calf. The pain radiates to the right thigh and left thigh (hips). The pain is at a severity of 7/10. The pain is severe. The symptoms are aggravated by sitting, standing, bending, lying down and coughing (stairs, lifting, push/pull, sneeze). Stiffness is present In the morning. Associated symptoms include leg pain, numbness (medial aspect of RLE from groin to toes, LLE intemittently to medial and lateral apsect of of LLE) and weakness (states hips give out , hands, left shoulder). Pertinent negatives include no bladder incontinence, chest pain, fever, headaches or tingling. Risk factors include obesity. He has tried NSAIDs, muscle relaxant and analgesics (PT for hips 05/2023 -not tolerated, cyclobenzaprine, oxycodone- mod relief, Tylenol -mild relief, NSAIDS - cause GI upset, icy hot min relief) for the symptoms. The effect of pain on patient's ADLS: Mild Impairment. Past Medical History: Diagnosis Date Acid reflux AVN (avascular necrosis of bone) ([facility]) bilateral hips Carpal tunnel syndrome Chronic pain disorder Depression Fibromyalgia History of cardiovascular stress test History of echocardiogram Hypothyroid Joint pain Labral tear of left hip joint Low back pain Obesity Osteoarthritis Sleep apnea treated with continuous positive airway pressure (CPAP) Past Surgical History: Procedure Laterality Date CARPAL TUNNEL RELEASE Right 2020 INJECTION BURSA LARGE JOINT: bilat shoulder Bilateral 06/26/2023 Performed by Arslan Bryant MD at [facility] OTHER SURGICAL HISTORY Left 1997 left 5th toe tendon repair SHOULDER ARTHROSCOPY W/ SUPERIOR LABRAL ANTERIOR POSTERIOR REPAIR Left 2021 2002, SHOULDER SURGERY Left A/C joint repair 2014 x2 TONSILLECTOMY 1997 VASECTOMY 2020 Allergies Allergen Reactions Nsaids (Non-Steroidal Anti-Inflammatory Drug) GI Disturbance Family History Problem Relation Age of Onset Diabetes Father Cancer Father Social History Socioeconomic History Marital status: Spouse name: Not on file Number of children: Not on file Years of education: Not on file Highest education level: Not on file Occupational History Not on file Tobacco Use Smoking status: Never Smokeless tobacco: Former Types: Chew Quit date: 05/03/2023 Tobacco comments: Chewed since age 13 Vaping Use Vaping Use: Never used Substance and Sexual Activity Alcohol use: Yes Comment: 3 drinks per week Drug use: Not Currently Comment: 4 years Sexual activity: Defer Other Topics Concern Not on file Social History Narrative Not on file Social Determinants of Health Financial Resource Strain: Not on file Food Insecurity: No Food Insecurity (07/09/2023) Hunger Screening Food Insecurity - Worry: Never True Food Insecurity - Inability: Never True Transportation Needs: Not on file Physical Activity: Not on file Stress: Not on file Social Connections: Not on file Interpersonal Safety: Not on file Housing Instability: Not on file Review of Systems Constitutional: Negative. Negative for chills, fatigue and fever. HENT: Negative. Respiratory: Negative. Negative for cough and shortness of breath. Cardiovascular: Negative. Negative for chest pain. Gastrointestinal: Negative. Genitourinary: Negative. Negative for bladder incontinence. Musculoskeletal: Positive for arthralgias (bila shld and luther hands), back pain (luther hips) and stiffness. Negative for gait problem. Skin: Negative. Negative for rash and wound. Neurological: Positive for weakness (states hips give out , hands, left shoulder) and numbness (medial aspect of RLE from groin to toes, LLE intemittently to medial and lateral apsect of of LLE). Negative for tingling and headaches. Hematological: Negative. Psychiatric/Behavioral: Negative. Negative for self-injury and suicidal ideas. Vital Signs: BP 131/85 Pulse 99 Resp 18 Ht 175.3 cm (5' 9 ) Wt 119.3 kg (263 lb) SpO2 98% BMI 38.84 kg/m Physical Exam: GENERAL - Healthy patient that appears stated age. HEENT - Normocephalic / Atraumatic, Extraoccular movements intact, trachea midline, thyroid within normal limits. CV - pulse regular, Warm extremities with appropriate color of nailbeds. RESP - No obvious wheezing, No Shortness of Breath, No overexertion response to exam maneuvers. COORDINATION - remains intact. PSYCH - Alert and Oriented x4, Attentive and appropriate, constitutionally normal, displays normal mood and affect per situation, answered questions appropriately during examination, demonstrated appropriate attention during discussion, demonstrated appropriate cognitive reasoning and understanding of the medical condition by asking appropriate questions regarding the diagnosis and risks/benefits/alternatives of treatment modalities. No obvious deficits in memory, reasoning, or intellect. Lumbar: SKIN - No rashes or bruising in the area of the patient s pain. LYMPH NODES - demonstrate no obvious enlargement. EXTREMITIES - Lower extremities are warm, with minimal edema and palpable pulses. Tenderness to palpation noted in the lumbar spine and paraspinal musculature. Pain is elicited with flexion, extension, and lateral rotation of the lumbar spine. Range of motion is diminished with these motions due to pain. Facet palpation is noted to be painful and facet loading maneuvers elicit pain that is concordant with the patient s normal pain complaints. Some muscle spasm is noted in the overlying musculature. STRENGTH - noted to be 5 out of 5 all muscle groups bilateral lower extremities including muscles involving hip flexion and abduction, knee flexion and extension, as well as foot dorsiflexion and plantarflexion. No notable atrophy, fasciculations or spasm. SENSORY - No notable sensory deficits in the bilateral lower extremities to touch or pinprick in all dermatomal distributions. Straight Leg Raise is negative bilaterally. Gait is antalgic. Assessment/Treatment Plan: Miguel was seen today for back pain and wrist pain. Diagnoses and all orders for this visit: Lumbosacral spondylosis without myelopathy - Case request operating room: INJECTION BLOCK NERVE MEDIAL BRANCH: stacey [id number] Proceed with Shoulder MRI ordered by [facility] Bilateral L4/5, 5/1 Facet Injection/Medial Branch Block - under fluoroscopy It is hopeful that the described procedure will provide symptomatic pain relief. It is felt to be medically necessary noting that the patient has tried and failed more conservative modalities of therapy and this is the next most appropriate step. The procedure was described in detail to the patient as well as the potential benefits of pain reduction alongside risks of the procedure and alternatives. Risks were described as including, but not limited to bleeding, infection, nerve damage, spinal cord injury, paralysis, stroke, dural puncture headache, and medication reaction. The patient expressed understanding regarding the risks and benefits and wishes to proceed. Diagnostic facet injections and medial branch blocks should provide information to confirm that the noted facet arthropathy is the patient s most significant pain generator. If this provides significant but only temporary pain relief, the patient may in the future be a candidate for radiofrequency denervation of the facet joints to provide pain relief for approximately 1 year. Follow up 2 weeks after procedure The medications prescribed have been reviewed for medication interactions/contraindications and/or for upcoming procedures: continue current medication regimen without any changes. DISCUSSION: Treatment options discussed with patient and all questions answered to patient's satisfaction. Discussed the rules and regulations surrounding prescription of opioids and compliance at length. Failure to follow the rules and regulation will result in tapering and discontinuation of medications if applicable. Prescribed medication that requires intensive monitoring for toxicity We do not currently prescribe any controlled substance from this practice. Treatment plans discussed but not opted for at this time: Lumbar RFA. Patient would like to proceed with the current outlined treatment plan before moving forward with any other options. It appears that the patient's previous pain is under adequate control with the previous procedure. At this point, we will continue to monitor these symptoms and turn our immediate attention to the more painful complaint that was discussed today. It does appear that is it the new primary pain complaint and the patient would likely benefit from a procedure as treatment for this complaint as well. The spine model was demonstrated and MRI was reviewed and used to explain the condition. Chronic conditions not treated during this visit that affected my overall medical decision making: Comorbidity- Obesity The patient does have a comorbid condition of obesity. This will be taken into account in that obesity will contribute to certain pain conditions. It can contribute to pain from degenerative disc disease as well as osteoarthritis of the joints. Many neuropathic symptoms are also amplified due to axial spine loading. Special benefits will also need to be given to procedures. Many procedures are technically more difficult in the light of severe obesity. I will also consider the possibility of undiagnosed obstructive sleep apnea (which often accompanies obesity) when prescribing any narcotic medications. I will weigh the risks and benefits and fully discuss them with the patient for these reasons. Comorbidity- Depression The patient has an ongoing issue with depression and currently feels these symptoms are under control and further feels that appropriate pain management would also help these symptoms. The patient is optimistic about the treatment plan we have laid out. We will continue to monitor these symptoms and remain cogniscent that they may affect the patients perceived improvement from the treatment and willingness to pursue further treatment. At this time the patient appears to be mentally and emotionally stable to undergo procedural and medical therapy. If any warning signs become present, I may refer the patient to a mental health professional for further evaluation. OARRS: Reviewed. Scribe Statement: Scribed for and in the presence of BARBRA CEBALLOS by Albina Aparicio CNA. Provider Statement: I, BARBRA CEBALLOS, personally performed the services described in the documentation, as scribed by Albina Aparicio CNA in my presence, and it is both accurate and complete. Albina Aparicio CNA 07/09/23 1248 Albina Aparicio CNA 07/09/23 1249 BARBRA Ceballos 07/16/23 1149 documented in this encounter [facility] 07-09-2023 Instructions Albina Aparicio CNA - 07/09/2023 12:00 PM EST Facet Injection / Medial Branch Block (MBB) / Sacroiliac (SI) Joint Injection A facet injection and sacroiliac joint injection are injections of local anesthetic and steroid into a joint in the spine. A medial branch block is similar, but the medication is placed outside the joint space near the nerve that supplies the joint called the medial branch (steroid may or may not be used). You may require multiple injections depending upon how many joints are involved. How Long Will This Procedure Last? The extent and duration of pain relief may depend on the amount of inflammation and how many areas are involved. Other coexisting factors may be responsible for your pain. If your pain goes away for a short time, but then returns, you may be a candidate for radiofrequency ablation (RFA). Activity Be active. Attempt activities and movements that typically cause pain to see if it feels better while doing them. We will give you a pain diary. Please fill this out as directed by your nurse in pre-op. This will help your doctor determine the effectiveness of the injection, and how to proceed. Bring the pain diary with you to your follow-up appointment. Medications You should not take your pain medications for 4-6 hours before or after the injection in order to properly diagnose if the injection provides adequate relief. Resume your routine medications after your procedure. You may resume blood thinners per your regular schedule after the procedure. If you received sedation: If you received sedation for your procedure, you may feel sleepy or not yourself for several hours today. For the next 24 hours avoid activities that requires alertness or coordination. This includes: Driving or operating heavy machinery Using power tools Consuming alcohol Do not make important or complex decisions or sign legal documents in the next 24 hours. Other Instructions: If you feel severe pain at the injection site with swelling and redness, increased leg weakness, a fever of 101 or higher, headache (or worsening headache), changes in vision or urinary retention: Please call the office at , or have someone take you to the nearest emergency room. Tell the emergency room staff that you recently had a spine injection. A doctor must evaluate you for bleeding and injection complications. If you lose control over bowel, bladder, or legs: Go to the nearest emergency room. documented in this encounter [facility] 06-29-2023 Note HNO ID: [id number] Author: JIM CROUCH, DO Service: ? Author Type: Physician Type: Progress Notes Filed: 06/29/2023 12:53 Note Text: SERVICE DATE: June 29, 2023 PCP: Jacob Ray DO Consult requested by PCP for an opinion regarding chief complaint as stated below. My final impression and recommendations will be communicated back to the requesting physician by way of the shared medical record or letter via US mail. Subjective Patient ID: Miguel is a 37 year old male. The patient reports that he was diagnosed with Avascular necrosis of bilateral hips in 2016. He reports that he had a CT last February which showed Avascular necrosis and his doctor recommended an MRI. He reports that he had a right hip injection in 2017 and reports not having much relief. He reports that he has groin pain bilaterally with right being worse than left. He describes the pain sharp and constant. He rates the pain a 7 or 8/10 in severity. He reports the pain has limited his ability to work. He reports that that the pain is gradually worsening. He takes Tylenol for pain without having relief. He also has used topical Voltaren with having no relief. He reports that laying down and sitting makes the pain better. The pain worsens with going up and down the stairs and pedaling. The patient started PT and he last went on 05/27. He notes that he is unable to finish the PT sessions / to pain. Chief Complaint: Patient presents with: Right Hip - New Right Hip Pain PAIN EVALUATION 06/25/2023220606/29/2023 1029 Pain Level: 7 8 Pain Location: Hip-Right Hip-Right left hip pain Description: Dull;Numbness;Pulsating;Radiatin g;Sharp;Stabbing;Stiffness;Throb marixa Aching;Sharp;Radiating Duration Amount of Time: 24 8 Duration Units: Hours Years Frequency: Continuous Continuous Intervention/Comfort measure: Medication;Reposition;Distractio ns;Positioning Medication;Exercise Comments: -- hip injection 2017 right hip HPI TREATMENTS PRIOR TO INITIAL CONSULT: Right Physical Therapy Left Physical Therapy Review of Systems Constitutional: Negative for fever. HENT: Negative for congestion. Respiratory: Negative for cough. Cardiovascular: Negative for chest pain. Skin: Negative for rash. Neurological: Negative for numbness. ACTIVE PROBLEM LIST Enlargement of Lymph Nodes PAST MEDICAL HISTORY Diagnosis Date PMH - PAST MEDICAL HISTORY OF At age 19 Shingles on left side of neck PMH - PAST MEDICAL HISTORY OF At age 19 Abdominal adenopathies-stable Prolonged PTT 04/2021 PAST SURGICAL HISTORY Procedure Laterality Date PAST SURGICAL HISTORY OF Left shoulder PAST SURGICAL HISTORY OF Left fifth toe repair REMOVE TONSILS/ADENOIDS,<14 Y/O RE[facility]IAN N/CARPAL TUNNEL SURG Right 04/18/2021 FAMILY HISTORY Problem Relation Age of Onset Thyroid Other Maternal great grandmother Thyroid Mother Hypothyroidism Diabetes Paternal Grandmother Diabetes Paternal Uncle He has had it since he was 37 and on insulin Diabetes Father Olman sugar Diabetes Other Great grandfather on mother side Diabetes Paternal Grandmother Social History Tobacco Use Smoking status: Never Smokeless tobacco: Current Types: Chew Tobacco comments: Chews tobacco Substance Use Topics Alcohol use: Yes Comment: Beer one a day. Sometimes 3-4 Drug use: No ALLERGIES No Known Allergies MEDICATIONS: sucralfate (CARAFATE) 1 gram tablet take 1 tablet by mouth twice a day AN EMPTY STOMACH buPROPion XL (WELLBUTRIN XL) 300 mg 24 hr tablet Take 300 mg by mouth every morning. acetaminophen-codeine (TYLENOL-COD #3) 300-30 mg per tablet Take 1 tablet by mouth every 6 hours as needed. cyclobenzaprine HCl (CYCLOBENZAPRINE ORAL) Take by mouth. allopurinol (ZYLOPRIM) 300 mg tablet Take 300 mg by mouth once daily. pregabalin (LYRICA) 75 mg capsule Take 75 mg by mouth twice daily. levothyroxine (SYNTHROID) 175 mcg tablet Take 150 mcg by mouth daily before breakfast. azelastine HCl (AZELASTINE NASAL) Use in the nose. esomeprazole (NEXIUM) 40 mg capsule Take 40 mg by mouth DAILY (6 AM). ATENOLOL 50 MG TAB Take one(1) tablet daily. methimazole(TAPAZOLE 10 MG TAB) Take two (2) by mouth once daily. Allergies, medications, past surgical history, family history and past medical history were reviewed per this encounter. Objective Right Ankle Exam Other Sensation: normal Comments: Positive FADIR Positive SALINA Left Ankle Exam Other Sensation: normal Comments: Positive FADIR Positive SALINA Back Exam Tenderness The patient is experiencing tenderness in the lumbar. Range of Motion Extension: abnormal Flexion: normal Muscle Strength Right Quadriceps: 4/5 Left Quadriceps: 4/5 Right Hamstrings: 4/5 Left Hamstrings: 4/5 Tests Straight leg raise right: negative Reflexes Patellar: normal Achilles: normal Other Toe walk: abnormal Heel walk: abnormal Sensatio (more content not included)... [facility] 06-29-2023 Note HNO ID: [id number] Author: ALBINA VENTURA RT(R) Service: Radiology Author Type: Technologist Type: Progress Notes Filed: 06/29/2023 10:23 Note Text: Radiology Service Progress Note PATIENT NAME: Miguel Whitten DATE OF SERVICE: June 29, 2023 TIME: 10:23 AM PATIENT IDENTITY VERIFICATION COMPLETED USING TWO (2) IDENTIFIERS: Name and Date of confirmed by patient verbally. FALL SCREENING: Has the patient had 2 falls in the last year or 1 fall with injury or currently using an Ambulatory Assistive Device (Walker, Cane, Wheelchair, Crutches, etc.)? No PATIENT GENDER DATA: Male PATIENT RELEVANT IMPLANT DATA REVIEWED: Not Applicable PATIENT PRESENTS WITH AN IMPLANTABLE OR ATTACHED BROKER [employer]IC[employer]URAL PRODUCE: No RADIOLOGY DEPARTMENT: General X-ray: Exam(s) Completed: Pelvis X-Ray: Pelvis with Hip Bilateral PERIPHERAL IV DATA: Not applicable SIGNED BY:RT Albina RUFFIN RT(R) June 29, 2023 10:[address] 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 There could be some collapse of his femoral heads which could be a poor prognostic sign of chronic hip pain which would need hip arthroplasty as treatment. Patient also has chronic low back pain as well. We discussed various treatment options including core decompression, physical therapy, bisphosphonate treatment, total hip arthroplasty. Patient is 37 and I would hope to avoid hip arthroplasty is much as possible. I recommend getting a second opinion. Will refer him to the [facility] for second opinion on treatment of his bilateral avascular necrosis of femoral heads as well as possible treatment of bisphosphonates for this issue. Patient to follow-up in this office as needed. Referral will be sent to Dr. Rafa Singh MD at the [facility] May, Tear of left acetabular labrum, initial encounter (ICD-10 - S73.192A) May, Low back pain, unspecified (ICD-10 - M54.50) May, Other chronic pain (ICD-10 - G89.29) May, Other This documentat ion is being amended on 06/01/23 due to an internal data corruption event that occurred on 05/28/23. This data corruption event was NOT the result of any breach, fraud, or malicious third green party actors and no personal patient information was compromised. [employer] Other 01-25-2024 History of Present illness Narrative* BARBRA Ceballos - 05/28/2023 10:00 AM EST [facility] [address] [place] [address] Patient: Miguel Whitten Sex: male : 1985 Age: 37 y.o. PCP: No primary care provider on file. 05/28/2023 Miguel Whitten is here for a(n) initial consultation. Patient is currently following with Dr. Parker for bilateral hip AVN. He is in PT for the hips but states he has not been able to complete sessions due to pain. Chief Complaint Patient presents with Back Pain Shoulder Pain Wrist Pain Joint Pain HPI: Wrist Pain The pain is present in the left shoulder, left wrist and right wrist (bilat hips). This is a chronic problem. The current episode started more than 1 year ago. The problem occurs constantly. The quality of the pain is described as aching. The pain is at a severity of 7/10. The pain is severe. Associated symptoms include numbness (medial aspect of RLE from groin to toes, LLE intemittently to medial and lateral apsect of of LLE) and stiffness. Pertinent negatives include no tingling. The symptomsare aggravated by activity, standing, cold and heat. He has tried NSAIDS, oral narcotics, acetaminophen, movement and OTC ointments for the symptoms. The treatment provided mild relief. His past medical history is significant for osteoarthritis. Back Pain This is a chronic problem. Episode onset: 15 years. The problem occurs constantly. The problem has been gradually worsening since onset. The pain is present in the lumbar spine and gluteal. Quality: intermittent shooting from bilateral groin down anterior aspect of BLE. Intermittently shooting paindown posterior aspect of RLE to mid calf. The pain radiates to the right thigh and left thigh (hips). The pain is at a severity of 7/10. The pain is severe. The symptoms are aggravated by sitting, standing, bending, lying down and coughing (stairs, lifting, push/pull, sneeze). Stiffness is present In the morning. Associated symptoms include leg pain, numbness (medial aspect of RLE from groin to toes, LLE intemittently to medial and lateral apsect of of LLE) and weakness (states hips give out ,hands, left shoulder). Pertinent negatives include no bladder incontinence, headaches or tingling. Risk factors include obesity. He has tried NSAIDs, muscle relaxant and analgesics (PT for hips 05/2023 -not tolerated, cyclobenzaprine, oxycodone- mod relief, Tylenol -mild relief, NSAIDS - cause GI upset, icy hot min relief) for the symptoms. The effect of pain on patient's ADLS: Moderate to Severe Impairment. Patient states he has been missing work frequently due to pain. Past Medical History: Diagnosis Date Acid reflux AVN (avascular necrosis of bone) ([facility]) bilateral hips Carpal tunnel syndrome Depression Fibromyalgia History of cardiovascular stress test History of echocardiogram Hypothyroid Labral tear of left hip joint Low back pain Obesity Osteoarthritis Sleep apnea treated with continuous positive airway pressure (CPAP) Past Surgical History: Procedure Laterality Date CARPAL TUNNEL RELEASE Right 2020 OTHER SURGICAL HISTORY Left 1997 left 5th toe tendon repair SHOULDER ARTHROSCOPY W/ SUPERIOR LABRAL ANTERIOR POSTERIOR REPAIR Left 2021 2002, SHOULDER SURGERY Left A/C joint repair 2014 x2 TONSILLECTOMY 1997 VASECTOMY 2020 Allergies Allergen Reactions Nsaids (Non-Steroidal Anti-Inflammatory Drug) GI Disturbance Family History Problem Relation Age of Onset Diabetes Father Cancer Father Social History Socioeconomic History Marital status: Spouse name: Not on file Number of children: Not on file Years of education: Not on file Highest education level: Not on file Occupational History Not on file Tobacco Use Smoking status: Never Smokeless tobacco: Former Types: Chew Quit date: 05/03/2023 Tobacco comments: Chewed since age 13 Vaping Use Vaping Use: Never used Substance and Sexual Activity Alcohol use: Yes Comment: 3 drinks per week Drug use: Not Currently Comment: 4 years Sexual activity: Defer Other Topics Concern Not on file Social History Narrative Not on file Social Determinants of Health Financial Resource Strain: Not on file Food Insecurity: Not on file Transportation Needs: Not on file Physical Activity: Not on file Stress: Not on file Social Connections: Not on file Interpersonal Safety: Not on file Housing Instability: Not on file Review of Systems Genitourinary: Negative for bladder incontinence. Musculoskeletal: Positive for back pain and stiffness. Neurological: Positive for weakness (states hips give out , hands, left shoulder) and numbness (medial aspect of RLE from groin to toes, LLE intemittently to medial and lateral apsect of of LLE). Negative for tingling and headaches. Vital Signs: BP 135/89 Pulse 79 Resp 16 Ht 175.3 cm (5' 9 ) Comment: stated Wt 125.6 kg (277 lb) SpO2 99% BMI 40.91 kg/m Physical Exam: GENERAL - Healthy patient that appears stated age. HEENT - Normocephalic / Atraumatic, Extraoccular movements intact, trachea midline, thyroid within normal limits. CV - pulse regular, Warm extremities with appropriate color of nailbeds. RESP - No obvious wheezing, No Shortness of Breath, No overexertion response to exam maneuvers. COORDINATION - remains intact. PSYCH - Alert and Oriented x4, Attentive and appropriate, constitutionally normal, displays normal mood and affect per situation, answered questions appropriately during examination, demonstrated appropriate attention during discussion, demonstrated appropriate cognitive reasoning and understandingof the medical condition by asking appropriate questions regarding the diagnosis and risks/benefits/alternatives of treatment modalities. No obvious deficits in memory, reasoning, or intellect. Cervical: SKIN - No rashes or bruising in the area of the patient s pain. LYMPH NODES - demonstrate no obvious enlargement. EXTREMITIES - Upper extremities are warm, with minimal edema and palpable pulses. No Significant tenderness to palpation noted in the cervical spine and paraspinal musculature. Minimal pain is elicited with flexion, extension, and lateral rotation of the cervical spine. Range of motion is not diminished with these motions. Facet palpation is noted to be minimally painful, but not concordant with the patient s normal pain complaints. STRENGTH - noted to be 5 out of 5 all muscle groups bilateral upper extremities including muscles involving shoulder flexion and abduction, elbow flexion and extension, as well as wrist flexion and extension and intrinsic muscles of the hand. No notable atrophy, fasciculations or spasm. SENSORY - No notable sensory deficits in the bilateral upper extremities to touch or pinprick in all dermatomal distributions. Spurlings sign is negative. Tenderness to palpation noted over the Bilateral Shoulder Joint. Pain is noted with palpation of the acromion and clavical as well as the acromioclavicular junction. No significant pain at the sternoclavicular junction. Some pain is noted at the bicipital groove and the subacromial bursa. Pain is elicited with flexion, abduction, internal rotation, and external rotation of the shoulder with active and passive motion which is consistent with some of the patient s normal pain. Some grinding is noted with these motions. No obvious ligamental laxity is noted. Empty Can Test is negative. Neers Sign is negative. Tenderness to palpation noted over the Bilateral Hip Joint. Pain is elicited with internal and external rotation of the hip and hip provocative maneuvers are positive and consistent with some of the patient s normal pain. No obvious ligamental laxity is noted. Assessment/Treatment Plan: Miguel was seen today for back pain, shoulder pain, wrist pain and joint pain. Diagnoses and all orders for this visit: Chronic pain of both shoulders - X-ray shoulder left minimum 2 views; Future - X-ray shoulder right minimum 2 views; Future - Case request operating room: INJECTION BURSA LARGE JOINT: bilat shoulder Proceed with Orthopedic follow up Bilateral Shoulder Xrays Imaging/Diagnostic Testing - It is felt that additional diagnostic testing is necessary to further evaluate the patients currentpain pathology. For this reason, we will order additional imaging/diagnostic testing noted above. It is hopeful that this study will identify a significant pain generator that will be amenable to therapy. It is felt that this modality is necessary due to the severity and chronicity of symptoms and physical exam findings combined with the lack of recent imaging/diagnostic testing of the area. Bilateral Shoulder Injection -under fluoroscopy with the use of contrast dye (unless contraindicated) It is hopeful that the described procedure will provide symptomatic pain relief. It is felt to be medically necessary noting that the patient has tried and failed more conservative modalities of therapy and this is the next most appropriate step. The procedure was described in detail to the patientas well as the potential benefits of pain reduction alongside risks of the procedure and alternatives. Risks were described as including, but not limited to bleeding, infection, nerve damage, spinal cord injury, paralysis, stroke, dural puncture headache, and medication reaction. The patient expressed understanding regarding the risks and benefits and wishes to proceed. It was explained that shoulder injections occasionally require a repeat injection before significant relief is noted, but we will determine after each injection if another one is indicated. Dependingon the amount and duration of relief obtained from the injection, additional modalities of therapy including medications and physical therapy may need to be utilized alongside or following the injections. We may also need to consider surgical options if injections fail to provide relief for a reasonable duration. Follow up 2 weeks after procedure The medications prescribed have been reviewed for medication interactions/contraindications and/or for upcoming procedures: continue current medication regimen without any changes. DISCUSSION: Treatment options discussed with patient and all questions answered to patient's satisfaction. Discussed the rules and regulations surrounding prescription of opioids and compliance at length. Failure to follow the rules and regulation will result in tapering and discontinuation of medications if applicable. Prescribed medication that requires intensive monitoring for toxicity We do not currently prescribeany controlled substance from this practice. The spine model was demonstrated and Xray and MRI was reviewed and used to explain the condition. Chronic conditions not treated during this visit that affected my overall medical decision making: Comorbidity- Obesity The patient does have a comorbid condition of obesity. This will be taken into account in that obesity will contribute to certain pain conditions. It can contribute to pain from degenerative disc disease as well as osteoarthritis of the joints. Many neuropathic symptoms are also amplified due to axial spine loading. Special benefits will also need to be given to procedures. Many procedures are technically more difficult in the light of severe obesity. I will also consider the possibility of undiagnosed obstructive sleep apnea (which often accompanies obesity) when prescribing any narcotic medications. I will weigh the risks and benefits and fully discuss them with the patient for these reasons. Comorbidity- Depression The patient has an ongoing issue with depression and currently feels these symptoms are under control and further feels that appropriate pain management would also help these symptoms. The patient isoptimistic about the treatment plan we have laid out. We will continue to monitor these symptoms and remain cogniscent that they may affect the patients perceived improvement from the treatment and willingness to pursue further treatment. At this time the patient appears to be mentally and emotionally stable to undergo procedural and medical therapy. If any warning signs become present, I may refer the patient to a mental health professional for further evaluation. Comorbidity- Sleep Apnea The patient has a history of obstructive sleep apnea. Due to this reason, special consideration will need to be given to the prescription of narcotics in that they may depress respiratory function and lead to respiratory insufficiency or failure. Consideration will also be given to procedure safetyin that sedation is used in the outpatient setting for any planned procedure. These records will beavailable to the anesthesiologist to tailor a safe anesthetic for the procedure. The patient will also be observed closely in the recovery area and may even require admission if they remain overly sedated for an extended period of time and cannot maintain an airway. These preparations will be made as necessary. OARRS: Reviewed. Scribe Statement: Scribed for and in the presence of BARBRA CEBALLOS by Albina Aparicio CNA. Provider Statement: I, BARBRA CEBALLOS, personally performed the services described in the documentation, as scribed by Albina Aparicio CNA in my presence, and it is both accurate and complete. Albina Aparicio CNA 05/28/23 1124 BARBRA Ceballos 05/28/23 1152 documented in this encounterRockingham Memorial HospitalPrimedic [id number] Instructions* Patient Instructions* Albina Aparicio CNA - 05/28/2023 10:00 AM EST Joint Injections / Other These procedure(s) involve injecting steroid medications into a joint or other area explained by your physician. Steroid medicine decreases pain and inflammation. The injection may also contain an anesthetic (numbing medicine) to decrease pain. It may be done to treat conditions such as arthritis, gout, carpal tunnel syndrome and more. The injections may be given in your hip, knee, ankle, shoulder, elbow, wrist, or ankle. How Long Will This Procedure Last? The extent and duration of pain relief may depend on the amount of inflammation and how many areas are involved. Other coexisting factors may be responsible for your pain. You and your physician will discuss expected results of procedure(s). After Your Injection You may experience soreness and tenderness at the area of treatment. This pain may not occur until later today after the numbing medicine wears off. The steroid can take 3-5 days to work and provide noticeable improvement. Activity You may resume normal activity as your comfort level allows. Medications Resume your routine medications after your procedure. You may resume blood thinners per your regular schedule after the procedure. If you received sedation: If you received sedation for your procedure, you may feel sleepy or not yourself for several hours today. For the next 24 hours avoid activities that requires alertness or coordination. This includes: Driving or operating heavy machinery Using power tools Consuming alcohol Do not make important or complex decisions or sign legal documents in the next 24 hours. Other Instructions: If you feel severe pain at the injection site with swelling and redness, increased leg weakness, a fever of 101 or higher, headache (or worsening headache), changes in vision or urinary retention: Please call the office at , or have someone take you to the nearest emergency room. Tellthe emergency room staff that you recently had a spine injection. A doctor must evaluate you for bleeding and injection complications. If you lose control over bowel, bladder, or legs: Go to the nearest emergency room. If you are diabetic, the steroids used in this procedure can increase your blood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 develop any rashes, hives or difficulty breathing. - Let your doctor know if you have not had a bowel movement by 3 days after your procedure. - If you take 81 mg aspirin for your heart it is safe to resume this medication. - If you take other blood thinner medications your doctor will instruct you when these can safely be resumed. - Do take sitz baths 2-3 times daily and after bowel movements. Fill the tub with about 3 inches of warm water and soak for 20 minutes. - Do take polyethylene glycol based bowel regimen as instructed by your doctor. - Do use ibuprofen and acetaminophen, if you have significant pain. You can alternate these every 6 hours. - Avoid straining or sitting on the toilet for long periods. - Avoid heavy lifting for 2 weeks after your procedure. - Do NOT drive for 24 hours. - Avoid driving until you're able to sit and move without any discomfort. - Do NOT operate machinery such as power tools, lawn mowers, snow blowers, sewing machines, etc. for 24 hours. - Avoid alcoholic beverages and drugs for allergies, nerves, or sleep for 24 hours after your procedure. - Do NOT stay alone. Do NOT leave your child unattended. - Do NOT make important personal or business decisions or sign any legal documents. - Eat solid foods and drink liquids in smaller amounts than usual until normal appetite returns. If you should experience an upset stomach, liquids high in sugar content (soda, Eliseo-Aid, non-acid juices) are recommended. FOLLOW UP & RECOMMENDATIONS: -Dr. Church's office will schedule you a 12-week follow-up appointment with his nurse practitioner for a postop check -Notify the doctor if you have any problems. -Follow up with PCP. -Office number [phone].[facility] Work Phone: Summary Purpose Family History No Family History Records Found Relationship Condition Age at Onset Recorded Date/T patience Not Specified Obesity Unknown Not Specified Hypothyroidism Unknown Relationship Condition Age at Onset Recorded Date/T patience Not Specified Obesity Unknown Not Specified Hypothyroidism Unknown father Malignant neoplasm of esophagus Unknown Relationship Condition Age at Onset Recorded Date/T patience Not Specified Obesity Unknown Not Specified Hypothyroidism Unknown father Malignant neoplasm of esophagus Unknown daughter Exercise-induced asthma Unknown father Unknown Diabetes mellitus Unknown Family history of other condition Unknown Malignant neoplasm Unknown family member Family history of other condition Unknow n Not Specified Family history of other condition Unknow n natural son Family history of mental disorder Unknown Advance Directives No Advanced Directives Records Found Advance Directive Response Recorded Date/ Time Advance Directives No August 09 5:12pm Advance Directive Response Recorded Date/ Time Advance Directives No August 09 6:12pm Advance Directive Response Recorded Date/ Time Advance Directives No May 26, 2023 9:52am Reason for Referral Specialty Diagnoses / Procedures Referred By Pinky yap Referred To Contact Orthopedics Diagnoses Avascular necrosis of bones of both hips (HCC) Procedures CONSULT TO ORTHOPAEDIC SURGERY OFFICE/OUTPATIENT [facility] 60 MINUTES Jim Crouch, DO [address] [place] [address] Referral ID Status Reason Start Date Expiration Date Visits Requested Visits Authorized [id number] Authorized PCP Requested Referral 08/31/2023 08/30/2024 1 1 Specialty Diagnoses / Procedures Referred By Pinky yap Referred To Contact MR IMAGING Diagnoses Osteonecrosis of hip (HCC) Procedures MRI HIP WO IVCON RIGHT MRI ANY JT LOWER EXTREM W/O CONTRAST MATRL Jim Crouch, DO [address] [place] [address] [place] [address] Referral ID Status Reason Start Date Expiration Date V isits Requested Visits Authorized [id number] Closed Auto-Generate d Referral 07/06/2023 05/03/2024 1 1 Specialty Diagnoses / Procedures Referred By Pinky yap Referred To Contact Diagnoses Lumbosacral spondylosis without myelopathy Procedures Case request operating room: INJECTION BLOCK NERVE MEDIAL BRANCH: bilat L45 51 Sriram Faustin PA [address] [place] [address] Referral ID Status Reason Start Date Expiration Date V isits Requested Visits Authorized [id number] Pending Review 07/09/2023 07/08/2024 1 1 Reason *FU 06/16 Eval for treatment options Diagnosis 1 AVN (avascular necro sis of bone) (M87.00) Referral Organization [facility] Orth[facility] pedjordyn Referring Provider First Name Fredo Referring Provider Last Name Keith Referring Provider Specialty Orthopedic Surgery Referred Organization [facility] Referred Address [address],[place], [place],[address] Referred Provider Specialty Orthopedic S urgery Referral Priority Routine General Notes Laura La 09:05:45 AM > Dr. Parker would like the patient to see Rafa Singh MD at [facility] Emilia Morel 06/02/2023 03:13:35 PM >Received today. Attachments made, waiting for note to be locked. Emilia Morel 06/04/2023 01:58:36 PM >Note still not locked. Emilia Morel 06/09/2023 04:13:48 PM >NOTE LOCKED, REFERRAL FAXED / ATTACHMENTS Specialty Diagnoses / Procedures Referred By Pinky yap Referred To Contact Diagnoses Chronic pain of both shoulders Procedures Case request operating room: INJECTION BURSA LARGE JOINT: bilat shoulder Sriram Faustin, PA [address] [place] [address] Referral ID Status Reason Start Date Expiration Date V isits Requested Visits Authorized [id number] Pending Review 05/28/2023 05/27/2024 1 1 Reason Evaluate and treat Diagnosis 1 Other chronic pain ( G89.29) Referral Organization [facility] Referring Provider First Name Nathan Referring Provider Last Name Flor Referring Provider Specialty Family Prac loli Referred Provider Arslan Bryant Jr. Referred Provider Specialty Pain Medicin e Referral Priority Routine Reason Please refer to nicotine cessation program Diagnosis 1 Pain in right hip (M 25.551) Diagnosis 2 Nicotine use (Z72.0) Referral Organization [facility] Ortho pedics Referring Provider First Name Elmer Referring Provider Last Name Carlos CHANDRA Referring Provider Specialty Orthopedic Surgery Referred Organization [facility] Referred Provider Kasey Garcia Referred Address [address],[place], [place],[address] Referred Provider Specialty Smoking Cess ation Counseling Referral Priority Routine General Notes Erica Lo 12:10:37 PM >received today, sending p2p to [facility] for scheduling at this time Reason *FU 03/21 consult and treat Diagnosis 1 Memory loss (R41.3) Referral Organization [facility] Referring Provider First Name Nathan Referring Provider Last Name Flor Referring Provider Specialty Family Prac loli Referred Organization [facility] Referred Provider Lorenzo Palumbo Referred Address ,[place], [place],[address] Referred Provider Specialty Neurology Referral Priority Routine General Notes Silva Pack 11:54:02 AM >pt has already been referred to [facility] , prefers to see Dr.Brendan Palumbo at [facility], thanks! Shanna Cameron 03/14/2022 12:52:41 PM >Received today and fax referral to Dr. Palumbo's office Reason *FU 03/14 consult and treat Diagnosis 1 Memory loss (R41.3) Referral Organization [facility] Referring Provider First Name Nathan Referring Provider Last Name Flor Referring Provider Specialty [facility] loli Referred Organization [facility] Referred Provider Mejia Joseph Referred Address [address] [facility], [place],[address] Referred Provider Specialty Neurology Referral Priority Routine General Notes Shanna Cameron 022 11:34:55 AM >Received today and waiting for office notes to be locked before sending referral Shanna Cameron 03/07/2022 07:31:28 AM >[facility] request us to fill out their form and attach to Referral and send it to them and they will call patient to schedule. Referral was sent P2P Reason *Waiting for appt consultt and treat Diagnosis 1 Rectal bleeding (K62 .5) Diagnosis 2 Hemorrhoids (K64.9) Diagnosis 3 Anemia (D64.9) Referral Organization [facility] [place] Referring Provider First Name Nathan Referring Provider Last Name Flor Referring Provider Specialty [facility] Prac loli Referred Organization [facility] G[facility] Referred Provider Kamlesh Church Referred Address [address] [address] ,[place], [place],[address] Referred Provider Specialty Gastroentero logy Referral Priority Routine General Notes Shanna Cameron 022 09:28:16 AM >Received today and sent P2P. Patient has been established with Dr. Church in 04/2020 Chief Complaint and Reason for Visit Chief Complaint D69.6 D64.9 Chief Complaint Hip pain rectal bleeding, internal hemorrhoids Chief Complaint e78.5 e03.9 D64.9 M1 0.9 Chief Complaint e78.5 e03.9 D64.9 M1 0.9 E03.9 Chief Complaint E03.9 M25.551/M25.552 M87.051 M87.052 Chief Complaint M25.551/M25.552 M87.051 M87.052 M25.551 M25.552 Chief Complaint M87.051 M87.052 Mri Results [facility] M25.551 [address]25.[address] Gonzalez/Keith Pt M87.051 M87.052 E05.00 E03.9 Referral Smoking Cessation 2 Month Follow Up Smoking F/U Chief Complaint Smoking F/U M87.00 M25.859 S73.192A 3 MONTH Reason for Visit AVN (avascular necro sis of bone) BMI 40.0-44.9, adult Hyperlipidemia Hypothyroidism (acquired) Obesity Other chronic pain Prediabetes Additional Source Comments Source Comments (unrecognize d section and content) In the event this informatio n is protected by the Federal Confidentiality of Alcohol and Drug Abuse Patient Records regulations: The Federal rules restrict any use of the information to criminally investigate or prosecute any alcohol or drug abuse patient.[facility] the event this information is protected by the Federal Confidentiality of Alcohol and Drug Abuse Patient Records regulations: The Federal rules restrict any use of the information to criminally investigate or prosecute any alcohol or drug abuse patient.[facility] Institute[facility] the event this information is protected by the Federal Confidentiality of Alcohol and Drug Abuse Patient Records regulations: The Federal rules restrict any use of the information to criminally investigate or prosecute any alcohol or drug abuse patient.[facility] Institute[facility] the event this information is protected by the Federal Confidentiality of Alcohol and Drug Abuse Patient Records regulations: The Federal rules restrict any use of the information to criminally investigate or prosecute any alcohol or drug abuse patient.[facility] Institute[facility] the event this information is protected by the Federal Confidentiality of Alcohol and Drug Abuse Patient Records regulations: The Federal rules restrict any use of the information to criminally investigate or prosecute any alcohol or drug abuse patient.[facility] Care Teams (unrecognized sec tion and content) Junior Php Developer Relationship Specialty Start Date End Date Jacob Ray [address] [place] [phone] PCP - General 04/09/06 Team Status: Inactive Member Role Status Dates Nathan Ray DO Primary Care Provider, Attending Provi david Active Team Status: Active Member Role Status Dates Nathan Ray DO Primary Care Provider Active Team Status: Inactive Member Role Status Dates Nathan Ray , DO Primary Care Provider Active Selena Mcdonough NP-C Attending Provider Active Team Status: Inactive Member Role Status Dates Nathan Ray , DO Primary Care Provider Active Kamlesh Church MD Attending Provider Active Team Status: Inactive Member Role Status Dates Nathan Ray , DO Primary Care Provider Active Elmer Gonzalez II, MD Attending Provider Active Team Status: Inactive Member Role Status Dates Nathan Ray , DO Primary Care Provider Active Fredo Parker , DO Attending Provider Active Team Status: Inactive Member Role Status Dates Nathan Ray , DO Primary Care Provider Active Erica Hale NP-C Attending Provider Active Team Status: Inactive Member Role Status Dates Nathan Ray , DO Primary Care Provider Active Sta rt: March 06, 2023 End: March 06, 2023 Elmer Gonzalez II, MD Attending Provider Active Start: March 06, 2023 End: March 06, 2023 Team Status: Inactive Member Role Status Dates Elmer Gonzalez II, MD Attending Provider Active Start: March 18, 2023 End: March 18, 2023 Team Status: Inactive Member Role Status Dates Nathan Ray , DO Primary Care Provider Active Sta rt: March 30, 2023 End: March 30, 2023 Fredo Parker DO Attending Provider Active St art: March 30, 2023 End: March 30, 2023 Team Status: Inactive Member Role Status Dates CARISSA NicholsonC Attending Provider Active Start: April 01, 2023 End: April 01, 2023 Team Status: Inactive Member Role Status Dates Nathan Ray , Primary Care Provider Active Sta rt: April 01, 2023 End: April 01, 2023 CARISSA NicholsonC Attending Provider Active Start: April 01, 2023 End: April 01, 2023 Team Status: Inactive Member Role Status Dates Kasey Garcia APRN Attending Provider Active Start: April 13, 2023 End: April 13, 2023 Team Status: Active Member Role Status Dates Nathan Ray , Primary Care Provider Active Sta rt: April 13, 2023 Elmer Gonzalez II, MD Attending Provider Active Start: April 13, 2023 Team Status: Inactive Member Role Status Dates Nathan Ray DO Attending Provider Active Start: April 14, 2023 End: April 14, 2023 Team Status: Inactive Member Role Status Dates Kasey Garcia APRN Attending Provider Active Start: May 11, 2023 End: May 11, 2023 Team Status: Inactive Member Role Status Dates Nathan Ray DO Primary Care Provider Active Sta rt: May 28, 2023 End: May 28, 2023 Fredo Parker DO Attending Provider Active St art: May 28, 2023 End: May 28, 2023 Team Status: Inactive Member Role Status Dates Nathan Ray DO Primary Care Provider Active Sta rt: April 13, 2023 End: April 13, 2023 Elmer Gonzalez II, MD Attending Provider Active Start: April 13, 2023 End: April 13, 2023 Junior Php Developer Relationship Specialty Start Date End Date Jacob Ray [address] [place] [phone] PCP - General 04/09/06 Fredo Parker DO [address] [place] [address] Referring Orthopedics 06/10/23 Junior Php Developer Relationship Specialty Start Date End Date Jacob Ray [address] [place] [phone] PCP - General 04/09/06 Fredo Parker DO [address] [place] [phone] Referring Orthopedics 06/10/23 Team Status: Inactive Member Role Status Dates Nathan Ray DO Primary Care Provide r, Attending Provider Active Start: July 21, 2023 End: July 21, 2023 Junior Php Developer Relationship Specialty Start Date End Date Jacob Ray [address] [place] [phone] PCP - General 04/09/06 Fredo Parker DO [address] [place] [address] Referring Orthopedics 06/10/23 Junior Php Developer Relationship Specialty Start Date End Date Jacob Ray [address] [place] [phone] PCP - General 04/09/06 Fredo Parker DO [address] [place] [address] Referring Orthopedics 06/10/23 (unrecognized sect ion and content) No Status Records FoundNo Status Records FoundNo Status Records FoundNo Status Records FoundNo Status Records FoundNo Status Records FoundNo Status Records FoundNo Status Records Found INFORMATION SOURCE (unrecogn ized section and content) DATE CREATED AUTHOR 06/15/2021 [facility] DATE CREATED AUTHOR AUTHOR'S ORGANIZ ATION 04/23/2022 [facility] DATE CREATED AUTHOR AUTHOR'S ORGANIZ ATION 09/05/2022 [facility] DATE CREATED AUTHOR AUTHOR'S ORGANIZ ATION 05/28/2023 [facility] DATE CREATED AUTHOR AUTHOR'S ORGANIZ ATION 07/03/2023 [facility] DATE CREATED AUTHOR AUTHOR'S ORGANIZ ATION 07/18/2023 [facility] DATE CREATED AUTHOR AUTHOR'S ORGANIZ ATION 09/01/[address] [facility] DATE CREATED AUTHOR AUTHOR'S ORGANIZ ATION 09/02/2023 [facility] REASON FOR VISIT (unrecogniz ed section and content) Reason Comments Back Pain Shoulder Pain Wrist Pain Joint Pain Reason Comments Back Pain Wrist Pain [employer] and hands Specialty Diagnoses / Procedures Referred By Pinky t Referred To Contact MR IMAGING Diagnoses Osteonecrosis of hip (HCC) Procedures MRI HIP WO IVCON RIGHT MRI ANY JT LOWER EXTREM W/O CONTRAST Jim Murillo, DO [address] [place] [address] [place] [address] Referral ID Status Reason Start Date Expiration Date V isits Requested Visits Authorized [id number] Closed Auto-Generate d Referral 07/06/2023 05/03/2024 1 1 Specialty Diagnoses / Procedures Referred By Contac t Referred To Contact MR IMAGING Diagnoses Osteonecrosis of hip (HCC) Procedures MRI HIP WO IVCON LEFT MRI ANY JT LOWER EXTREM W/O CONTRAST INDIOL Jim Crouch, DO [address] [place] [address] [place] [address] Referral ID Status Reason Start Date Expiration Date V isits Requested Visits Authorized [id number] Closed Auto-Generate d Referral 07/06/2023 05/03/2024 1 1 Reason Comments Established Patient Hip Pain Goals (unrecognized section and content) Goals may be documented in a n alternate section FOR RECORDS PERTAINING TO PATIENTS WHO ARE OR HAVE BEEN ENROLLED IN A CHEMICAL DEPENDENCY/SUBSTANCEABUSE PROGRAM, SOME INFORMATION MAY BE OMITTED. This clinical summary was aggregated from multiple sources. Caution should be exercised in using it in the provision of clinical care. This summary normalizes information from multiple sources, and as a consequence, information in this document may materially change the coding, format and clinical context of patient data. In addition, data may be omitted in some cases. CLINICAL DECISIONS SHOULD BE BASED ON THE PRIMARY CLINICAL RECORDS. [employer] [facility]. provides no warranty or guarantee of the accuracy or completeness of information in this document.
[2023-09-27 14:02] VITALS: BP 147/90; PULSE 97; TEMP 36.6; O2SAT 98
[2023-09-27] MEDS: MORPHINE SULFATE 4 MG/ML VIAL IV (15:48)
[2023-09-27] MEDS: PIPERACILLIN SODIUM/TAZOBACTAM 4.5 GM in 0.9 % SODIUM CHLORIDE 50 ML IV (15:49)
[2023-09-27 16:01] LABS: Basophils Percent Auto 0.2 % (0.2-2.0); Eosinophils Absolute Auto 0.1 10^3/uL (0.0-0.7); Eosinophils Percent Auto 2.1 % (0.9-7.0); Hemoglobin 13.5 g/dL (14.0-18.0); Immature Granulocytes Abs Auto 0.01 10^3/uL (0.00-0.03); Immature Granulocytes Pct Auto 0.2 % (0.0-0.5); Lymphocytes Absolute Auto 1.2 10^3/uL (1.2-3.8); Lymphocytes Percent Auto 23.5 % (20.5-60.0); Mean Corpuscular HGB Conc 32.9 g/dL (29.9-35.2); Mean Corpuscular Hemoglobin 29.9 pg (25.9-34.0); Mean Corpuscular Volume 90.7 fL (80.0-94.0); Mean Platelet Volume 10.6 fL (9.5-13.5); Monocytes Absolute Auto 0.5 10^3/uL (0.3-0.8); Monocytes Percent Auto 9.7 % (1.7-12.0); Neutrophils Absolute Auto 3.4 10^3/uL (1.4-6.5); Neutrophils Percent Auto 64.3 % (43.0-75.0); Platelet Count 187 10^3/uL (150-450); Red Blood Count 4.52 10^6/uL (4.70-6.10); Red Cell Distribution Width 12.5 % (11.0-15.0); White Blood Count 5.3 10^3/uL (4.0-11.0)
[2023-09-27 16:12] LABS: Alanine Aminotransferase 34 U/L (16-63); Albumin Globulin Ratio 1.2; Albumin Level 3.8 g/dL (3.4-5.0); Alkaline Phosphatase 57 U/L (46-116); Anion Gap 13.8; Aspartate Amino Transferase 17 U/L (15-37); BUN Creatinine Ratio 14.2; Bilirubin Total 0.5 mg/dL (0.2-1.0); Calcium 8.9 mg/dL (8.5-10.1); Carbon Dioxide 26.1 mmol/L (21.0-32.0); Chloride 107 mmol/L (98-107); Estimated GFR (African America >60 (>=60); Estimated GFR (Non-African Ame >60 (>=60); Globulin 3.2 g/dL; Glucose 94 mg/dL (74-106); Potassium 3.9 mmol/L (3.5-5.1); Sodium 143 mmol/L (136-145)
[2023-09-27] MEDS: ADACEL DIPH,PERTUSS(ACELL),TET VAC/PF 0.5 ML ADULT SYRINGE IM (16:30)
[2023-09-27] MEDS: BACITRACIN OINTMENT 28.4 GM TUBE 1 APPLIC TOPICAL (16:31)
[2023-09-27 16:38] VITALS: BP 146/74; PULSE 78; O2SAT 100
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
== END 2023-09-27 16:56 | disposition home or self-care (01) ==
PROVIDERS: Emergency Provider Emergency Medicine; PCP Family Medicine
DX: T24.231A Burn of second degree of right lower leg, initial encounter (principal); X19.XXXA Contact with other heat and hot substances, initial encounter
CPT/HCPCS: 36415; 80053; 85025; 90471; 90715; 96365; 96375; 99284

== ENCOUNTER 2024-02-12 15:06 | Emergency (ER) | payer BC, SELFPAY ==
[2024-02-12 15:13] VITALS: BP 141/94; PULSE 83; TEMP 36.5; O2SAT 99; BMI 38.4
--- NOTE | 2024-02-12 15:21 | US_ITS ---
The [address] [address] Patient Name: MIGUEL WHITTEN MRN: [id number] date: 1985 Sex: M Assigned Patient Location: ER Current Patient Location: ER Accession/Order Number: [id number] Exam Date: 02/12/2024 15:35 Report Date: 02/12/2024 16:49 At the request of: PARAG CEDEÑO Procedure: US scrotum doppler Ultrasound scrotum/testicle HISTORY: r/o torsion TECHNIQUE: Dedicated ultrasound of the scrotum and testes performed. FINDINGS: Comparison: None. Both testicles demonstrate normal echotexture and echogenicity. Right testicle measures 3.8 x 2.4 x 2.7 cm. The left testicle measures 3.5 x 1.9 x 2.6 cm. There is symmetrical color flow and Dopplerable arterial and venous waveforms in both testicles.. There is no testicular mass. Right epididymal head measures 0.9 cm. The left epididymal head measures 0.8 cm. Both epididymides with normal color flow. Trace right hydrocele. No hydrocele on left. Few prominent vessels lateral to the both testicles but are still small in diameter and do not meet criteria for varicocele. Small amount of heterogeneous soft tissue between both testicles. US/US scrotum doppler IMPRESSION: 1. Normal testicles bilaterally, without testicular torsion, orchitis/epididymitis, or testicular mass. 2. Trace right hydrocele. No hydrocele on left. 4. Negative for varicocele. Electronically authenticated by: ZARINA LR Date: 02/12/2024 16:49
--- OUTSIDE RECORDS SUMMARY | 2024-02-12 15:21 | XMS_ITS | CCD ---
Author Organization [facility] [employer] Care Team Providers Care Seat Installer Name Role Phone Jacob Ray Primary Care Provider Nathan Ray Unavailable Flor, DO Evans Primary Care Provider [phone] Flor, DO Evans Attending Provider ULISSES MOROCHO Attending Unavailable BAILEE, ULISSES Consulting Unavailable BAILEE, ULISSES Admitting Unavailable FLOR, DR EVANS Primary Care Unavailable ANGELA, GILBERT Consulting Unavailable TERRY SANZ Consulting Unavailable FLOR, DR EVANS Primary Care Unavailable PRUDENCIO, DR LES Rivera Attending Unavailable PRUDENCIO, DR LES Rivera Consulting Unavailable PRUDENCIO, DR LES Rivera Admitting Unavailable ANA MARTINEZ Consulting Unavailable ZAC, DR BHATIA Attending Unavailable FRANK, DR BHATIA Consulting Unavailable FRANK, DR BHATIA Admitting Unavailable KUNApolonia, DR EVANS Primary Care Unavailable KUNS, DR EVANS Consulting Unavailable KUNS, DR EVANS Primary Care Unavailable KUNS, DR EVANS Admitting Unavailable KUNS, DR EVANS Attending Unavailable KUNS, DR EVANS Primary Care Unavailable KUNS, DR EVANS Admitting Unavailable KUNS, DR EVANS Attending Unavailable KUNS, DR EVANS Consulting Unavailable BERNARDO Mcdonough Attending Provider Kamlesh Church Unavailable Jack Mason Unavailable Flor, DO Evans Primary Care Provider BERNARDO Mcdonough Attending Provider MD Kamlesh Church Attending Provider Flor, DO Evans Primary Care Provider DO Nathan Ray Attending Provider [phone] MD Elmer Gonzalez II Attending Provider Elmer Gonzalez II Unavailable DO Nathan Ray Primary Care Provider DO Nathan Ray Attending Provider Shanna Rodgers Unavailable DO Nathan Ray Primary Care Provider MD Elmer Gonzalez II Attending Provider DO Fredo Parker Attending Provider BERNARDO Hale Attending Provider Erica Hale Unavailable Kasey Garcia Unavailable KELLEN WATSON Attending Unavailable KEITH, FREDO Referring Unavailable KELLEN WATSON Attending Unavailable KEITH, FREDO Referring Unavailable MARILYN CURRY Attending Unavailable KEITH, FREDO Referring Unavailable KELLEN WATSON Attending Unavailable KEITH, FREDO Referring Unavailable KELLEN WATSON Attending Unavailable KEITH, FREDO Referring Unavailable Unavailable Primary Care Provider Unavailabl e DO Nathan Ray Primary Care Provider [phone] MD Elmer Gonzalez II Attending Provider Fredo Parker Unavailable DO Nathan Ray Primary Care Provider MD Elmer Gonzalez II Attending Provider [phone] Jacob Ray Primary Care Provider [phone] Fredo Parker DO Unavailable JIM CROUCH Referring Unavailable JACOB RAY Primary Care Unavailable JIM CROUCH Referring Unavailable JACOB RAY Primary Care Unavailable DO Nathan Ray Primary Care Provider DO Fredo Parker Attending Provider Jacob Ray Primary Care Provider [phone] JACOB RAY Primary Care Unavailable RICHARD HOLGUIN Attending Unavailable KUNSJACOB Primary Care Unavailable CROUCH, JIM D Attending Unavailable KUNSJACOB Primary Care Unavailable FREDO PARKER Referring Unavailable CROUCH, JIM D Attending Unavailable KUNS, JACOB BALL Primary Care Unavailable CROUCH, JIM D Referring Unavailable NIENBERG, SRIRAM [place] Attending Unavailable BRYANT, ARSLAN Roa Referring Unavailable BRYANT, ARSLAN Roa Attending Unavailable BRYANT, ARSLAN Roa Referring Unavailable RBYANT, ARSLAN Roa Admitting Unavailable BRYANT, ARSLAN Roa Attending Unavailable BRYANT, ARSLAN Roa Referring Unavailable BRYANT, ARSLAN Roa Attending Unavailable BRYANT, ARSLAN Roa Referring Unavailable NIENBERG, SRIRAM [place] Attending Unavailable FREDO PARKER Referring Unavailable BRYANT, ARSLAN Roa Admitting Unavailable BRYANT, ARSLAN Roa Attending Unavailable KEITH, FREDO Fernandez Referring Unavailable BRYANT, ARSLAN Roa Attending Unavailable BRYANT, ARSLAN Roa Referring Unavailable NIENBERG, SRIRAM [place] Attending Unavailable BRYANT, ARSLAN Roa Referring Unavailable BRYANT, ARSLAN Roa Admitting Unavailable BRYANT, ARSLAN Roa Attending Unavailable BRYANT, ARSLAN Roa Referring Unavailable BRYANT, ARSLAN Roa Attending Unavailable BRYANT, ARSLAN Roa Referring Unavailable NIENBERG, SRIRAM [place] Attending Unavailable BRYANT, ARSLAN Roa Referring Unavailable NIENBERG, SRIRAM [place] Attending Unavailable KUNSNATHAN P Referring Unavailable NIENBERG, SRIRAM [place] Attending Unavailable NIENBERG, SRIRAM [place] Referring Unavailable BRYANT, ARSLAN Roa Admitting Unavailable BRYANT, ARSLAN Roa Attending Unavailable KUNS, NATHAN P Referring Unavailable BRYANT, ARSLAN Roa Attending Unavailable BRYANT, ARSLAN Roa Referring Unavailable KunDO Nathan [place]ks[place] Primary Care Provider DO Nathan Ray Attending Provider Erica Hale Admitting Unavailable Erica Hale Attending Unavailable Nathan Ray Primary Care Unavailable Elmer Gonzalez II Admitting UnavailElmer Quispe II Attending Unavailabl e Nathan Ray Primary Care Unavailable Fredo Parker Admitting Unavailable Fredo Parker Attending Unavailable Kuns, Nathan Primary Care Unavailable KilosNathan Attending Unavailable Kuns, Nathan Admitting Unavailable Kuns, Nathan Primary Care Unavailable KilosNathan Primary Care Unavailable Elmer Gonzalez II Admitting Unavailabl e Carlos CHANDRAElmer Attending Unavailabl e Fredo Parker Admitting Unavailable Fredo Parker Attending Unavailable Nathan Ray Primary Care Unavailable Allergies Allergy Classification Reported Allergen(s) Allergy Type Date of Onset Reaction(s) Facility (6 sources) Ibuprofen Drug Allergy Unknown [email or web address] Other (4 sources) Non-steroidal anti-inflammato ry agent; Translations: [NSAIDS (NON-STEROIDAL ANTI-INFLAMMATO RY DRUG)] Propensity to adverse reactions to drug 4 GI Disturbance [employer] (1 source) Ibuprofen Drug Allergy 4 [facility] Rep[facility] Medications Current Medications Medication Drug Class(es) [...] / codeine phosphate 30 mg oral tablet (5 sources) Opioid Agonist Start: 04-18-2021 take 1 tablet by mouth every six hours as needed acetaminophen-code ine (TYLENOL-COD #3) 300-30 mg per tablet Take 1 tablet by mouth every 6 hours as needed. 0 04/18/2021 Active Comment on above: Take 1 tablet by jose every 6 hours as needed. acetaminophen 325 mg / oxyCODONE hydrochloride 5 mg oral tablet (1 source) Opioid Agonist take 1 tablet by mouth every four hours as needed for pain oxyCODONE-acetamin ophen (PERCOCET) 5-325 mg per tablet Take 1 tablet by mouth every 4 (four) hours as needed for pain. Active allopurinol 300 mg oral tablet (20 sources) Xanthine Oxidase Inhibitor Start: 08-09-2017 take 300 mg by mouth once daily Allopurinol Active 300 MG PO Daily August 09, 2017 12:00am Comment on above: Take 300 mg by mouth once daily. {1 (ascorbic acid 7540 MG / polyethylene glycol 3350 57282 MG / potassium chloride 1200 MG / sodium ascorbate 63788 MG / sodium chloride 3200 MG Powder for Oral Solution) / 1 (polyethylene glycol 3350 112245 MG / potassium chloride 1000 MG / sodium chloride 2000 MG / sodium sulfate 9000 MG Powder for Oral Solution) } Pack [Plenvu] (3 sources) Osmotic Laxative, Vitamin C Start: 07-02-2022 Plenvu 140 GM dose 1 pouch at 4pm, dose 2 pouch A & B at 11pm Orally twice a day for 1 days BIN:[id number] PCN: [id number] GROUP:[id number] ID:[id number] Jul, Active atenolol 50 mg oral tablet (6 sources) beta-Adrenergic [place] Start: 10-21-2007 ATENOLOL 50 MG TAB Take one(1) tablet daily. 30 10/21/2007 Active Comment on above: Take one(1) [...] release oral tablet (20 sources) Aminoketone Start: 09-06-19 End: 02-04-20 24 take 300 mg by mouth once daily Bupropion Hcl Active 300 MG PO Daily February 04, 2024 2:35pm Comment on above: Take 300 mg by mouth every morning. cyclobenzaprine hydrochloride 10 mg oral tablet (20 sources) Muscle Relaxant Start: 12-30-19 take 10 mg by mouth once daily [...] tablet (20 sources) Proton Pump Inhibitor Start: take 40 mg by mouth twice daily Esomeprazole Magnesium Active 40 MG PO Twice daily July 20, 2023 12:00am Start: 07-20-2023 End: 07-21-2023 take 40 mg by mouth twice daily Esomeprazole Magnesium Discontinued 40 MG PO Twice daily July 20, 2023 12:00am July 21, 2023 4:30pm Start: 11-28-2019 take 1 capsule by [facility] every twelve hours esomeprazole (NexIUM) 40 mg capsule Take 1 capsule (40 mg total) by mouth every 12 (twelve) hours. 03/26/2021 Active Start: 11-28-2019 take 1 capsule by [facility] every twelve hours Esomeprazole Magnesium 40 MG 1 capsule Orally twice a day for 90 days Nov, Active Comment on above: Take 40 mg by mouth DAILY (6 AM). levothyroxine sodium 0.175 mg oral tablet (20 sources) l-Thyroxine Start: 07-20-2023 End: 02-04-2024 take 175 ug by mouth once daily Levothyroxine Active 175 MCG PO Daily February 04, 2024 2:35pm Start: 10-30-2018 End: 07-20-2023 take 150 ug [...] 0 Active take 1 tablet by jose once daily in the morning Levothyroxine Sodium 175 MCG 1 tablet in the morning on an empty stomach Orally Once a day Active take 1 capsule by mo ut once daily before breakfast levothyroxine 150 mcg cap Take 150 mcg by mouth daily before breakfast. 0 Active Comment on above: Take 150 mcg by mout h daily before breakfast. methIMAzole 10 mg oral tablet (6 sources) Thyroid Hormone Synthesis Inhibitor Start: 2007 take 2 tablets by mouth once daily methimazole(TAPAZOLE 10 MG TAB) Take two (2) by mouth once daily. 60 5 10/21/2007 Active Comment on above: Take two (2) by mout h once daily. methylPREDNISolone (20 sources) Corticosteroid Start: 2023 methylPREDNISolone (MEDROL, PATRICE,) 4 mg tablet follow package directions 21 tablet 11/19/2023 Active Start: 07-16-2020 SOLU-MEDROL 41 - 125 mg Jul, 125 mg methylPREDNISolo ne 4 MG Oral for 6 Days Active OXcarbazepine 150 mg oral tablet (8 sources) Anti-epileptic Agent take 1 tablet by mouth every twelve hours OXcarbazepine 150 MG 1 tablet Orally Twice a day Active oxyCODONE hydrochloride 5 mg oral tablet (1 source) Opioid Agonist take 1 tablet by mouth every six hours oxyCODONE HCl 5 MG 1 tablet as needed Orally every 6 hrs Active pregabalin 150 mg oral capsule (17 sources) Start: 11-29-19 take 1 capsule by mouth every twelve hours Pregabalin 150 MG 1 capsule Orally BID for 90 days Nov, Active Start: 03-05-2021 take 1 capsule by [facility] every twelve hours Pregabalin 75 MG 1 capsule Orally BID for 90 days May, Active Comment on above: Take 75 mg by mouth twice daily. 0.25 mg, 0.5 mg dose 1.5 ml semaglutide 1.34 mg/ml pen injector (1 source) semaglutide ([facility]) 0.25 mg or 0.5 mg(2 mg/1.5 mL) pen injector Inject 0.5 mg under the skin every 7 days. Takes on Thursday Active Semaglutide Sodium 0.6 mg/ 0.5 mL 0.5 [...] total) by mouth every 12 (twelve) hours. 03/26/2021 Active Start: 11-28-2019 End: 02-04-2024 take 1 g by mouth twice daily Sucralfate Active 1 GM P O Twice daily 180 February 04, 2024 2:36pm Start: 11-28-2019 take 1 tablet by jose [...] May, Not-Taking citalopram 10 mg oral tablet (14 sources) Serotonin Reuptake Inhibitor Start: 08-09-2017 End: 12-30-2019 take 2 tablets by mouth once daily Citalopram (Celexa) 10 mg Tablet Discontinued 20 MG PO Daily August 09, 2017 12:00am December 30, 2019 11:31am famotidine 26.6 mg / ibuprofen 800 mg oral tablet (14 sources) Nonsteroidal Anti-inflammatory Drug, Histamine-2 Receptor Antagonist Start: 12-04-2017 End: 05-11-2019 take 1 tablet by mouth three times daily Ibuprofen-Famotidi ne (Duexis) 800-26.6 mg Tablet Discontinued 1 TAB PO Three times daily December 04, 2017 12:00am May 11, 2019 10:05pm gabapentin 300 mg oral capsule (14 sources) Anti-epileptic Agent Start: 12-30-2019 End: 07-20-2023 take 300 mg by mouth twice daily Gabapentin Discontinued 300 MG PO Twice daily December 30, 2019 12:00am July 20, 2023 4:38pm ibuprofen 800 mg oral tablet (14 sources) Nonsteroidal Anti-inflammatory Drug Start: 08-09-2017 End: 12-04-2017 Ibuprofen Discontinued 800 MG PO every 6 to 8 hours August 09, 2017 12:00am December 04, 2017 [...] PRN Orally Once a day Aug, Active naltrexone 380 mg injection (14 sources) Opioid Antagonist Start: 12-30-2019 End: 07-20-2023 inject 380 mg by intramuscular injection every month Naltrexone Microspheres (Vivitrol) 380 mg Suspension,Extended Rel Recon Discontinued 380 MG IM every month December 30, 2019 12:00am July 20, 2023 4:38pm naproxen 500 mg oral tablet (14 sources) Nonsteroidal Anti-inflammator y Drug Start: 09-28-2017 End: 12-04-2017 take 1 tablet by mouth twice daily at mealtime Naproxen (Naprosyn) 500 mg tablet Discontinued 500 MG PO Twice daily September 28, 2017 12:00am December 04, 2017 9:17am administer with food or milk 24 hr nicotine 0.875 mg/hr transdermal system (10 sources) Cholinergic Nicotinic Agonist Start: 07-20-2023 End: 07-21-2023 apply 1 dose transdermal route once daily Nicotine Discontinued 1 PATCH TRANSDERML Daily July 20, 2023 12:00am July 21, 2023 4:30pm Start: 04-13-2023 Nicotine Step 1 21 MG/24HR 1 patch to skin Transdermal Once a day Please dispense amount and brand allowed by insurance. Apr, Active nystatin [id number] unt oral tablet (14 sources) Polyene Antifungal Start: 12-04-2017 End: 05-11-2019 take [id number] [IU] by mouth three times daily Nystatin Discontinued [id number] UNIT PO Three times daily December 04, [...] pantoprazole 40 mg delayed release oral tablet (14 sources) Proton Pump Inhibitor Start: 10-30-2018 End: 12-30-2019 take 40 mg by mouth once daily Pantoprazole Discontinued 40 MG PO Daily October 30, 2018 12:00am December 30, 2019 11:34am penicillin v potassium 500 mg oral tablet (14 sources) Start: 09-28-2017 End: 05-11-2019 take 500 mg by mouth four times daily Penicillin V Potassium Discontinued 500 MG PO Four times daily 40 September 28, 2017 12:00am May 11, 2019 10:04pm predniSONE 20 mg oral tablet (14 sources) Start: 08-09-2017 End: 08-14-2017 take 60 mg by mouth once daily at mealtime Prednisone Discontinued 60 MG PO Daily 15 5 August 09, 2017 12:00am August 14, 2017 12:02am administer with food or milk Semaglutide (2 sources) Start: 2023 End: 02-04-2024 Semaglutide (Ozempic) 0.25 mg or 0.5 mg (2 mg/3 mL) pen injector Discontinued 0.5 MG SUBCUT every week 3 2023 12:00am February 04, 2024 2:36pm for 4 weeks 1 sample pen Lot # [id number] EXP 05/03/25 Start: 2023 Semaglutide (O zempic) 0.25 mg or 0.5 mg (2 mg/3 mL) pen injector Active 0.5 MG SUBCUT every week 3 2023 12:00am for 4 weeks 1 sample pen Lot # [id number] EXP 05/03/25 semaglutide (weight loss) (4 sources) Start: 07-20-2023 End: 02-04-2024 semaglutide (weight loss) Discontinued 0.6 MG SUBCUT Once a week July 20, 2023 12:00am February 04, 2024 1:42pm 0.5 mL Injection weekly Start: 07-20-2023 semaglutide (w eight loss) Active 0.6 MG SUBCUT Once a week July 20, 2023 12:00am 0.5 mL Injection weekly Semaglutide Sodium 0.3 mg/ 0 .25 mL 0.25 mL (6 sources) Semaglutide Sodi [...] [Thrombocytopenia, unspecified] Chronic Deficiency and other anemia (2 sources) Anemia, unspecified Episodic Deficiency and other anemia (19 sources) Anemia; Translations: [Anemia, unspecified] Episodic Diabetes mellitus without complication (13 sources) Hyperglycemia, unspecified; Translations: [Other abnormal glucose] [...] unspecified] Onset: 1 Resolved: 2 Chronic Osteoarthritis (4 sources) Osteoarthritis of joint of left shoulder region; [...] Chronic Other bone disease and musculoskeletal deformities (19 sources) Idiopathic aseptic necrosis of left femur; 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] Onset: 3 Chronic Other bone disease and musculoskeletal deformities (18 sources) Idiopathic aseptic necrosis of right femur; 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] Chronic Other bone disease and musculoskeletal deformities (15 sources) Avascular necrosis of bone; Translations: [Idiopathic aseptic necrosis of unspecified bone] 07-21-2023 Chronic Other bone disease and musculoskeletal deformities (5 sources) Idiopathic aseptic necrosis of unspecified bone; Translations: [Aseptic necrosis of bone, site unspecified] Onset: 4 Chronic Other bone disease and musculoskeletal deformities (1 source) Osteonecrosis, unspecified; Translations: [Osteonecrosis of hip (HCC)] Onset: 4 Chronic Other bone disease and musculoskeletal deformities (1 source) Bilateral hips aseptic necrosis; 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] 08-31-2023 Chronic Other connective tissue disease (14 sources) Rhabdomyolysis; Translations: [Rhabdomyolysis] 05-12-2019 Episodic Other [...] Other hereditary and degenerative nervous system conditions (16 sources) Restless legs; Translations: [Restless legs syndrome] [...] limb] 07-20-2023 Chronic Other nervous system disorders (8 sources) Other chronic pain; Translations: [Other chronic pain] Onset: 2 Resolved: 2 Chronic Other nervous system disorders (1 source) Meralgia paresthetica, right lower limb Onset: 2 Resolved: 2 Chronic Other nervous system disorders (4 sources) Carpal tunnel syndrome; Translations: [Carpal tunnel syndrome, bilateral upper limbs] 07-20-2023 Chronic Other nervous system disorders (20 sources) Paresthesia; Translations: [Paresthesia of skin] Episodic Other nervous system disorders (2 sources) Paresthesia of skin; Translations: [Paresthesia of both hands] 10-21-2023 Episodic Other non-traumatic joint disorders (10 sources) Disorder of hip joint; Translations: [Other specific joint derangements of left hip, not elsewhere classified] Chronic Other non-traumatic joint disorders (2 sources) Other specific joint derangements of left hip, not elsewhere classified Chronic Other non-traumatic joint disorders (20 sources) Multiple joint pain; Translations: [Pain in unspecified joint] Episodic Other non-traumatic joint disorders (3 sources) Pain in right hip; Translations: [Pain in right hip] Onset: 4 Episodic Other non-traumatic joint disorders (1 source) Pain in right hip joint; Translations: [Pain in right hip] 10-01-2023 Episodic Other nutritional; endocrine; and metabolic disorders [...] Chronic Other nutritional; endocrine; and metabolic disorders (4 sources) Body mass index (BMI) 40.0-44.9, adult; [...] subsequent encounter] 05-11-2019 Episodic Residual codes; unclassified (14 sources) Obstructive sleep apnea syndrome; Translations: [Obstructive sleep apnea (adult) (pediatric)] 05-11-2019 Chronic Residual codes; unclassified (1 source) Obstructive sleep apnea (adult) (pediatric); Translations: [Obstructive sleep apnea (adult)(pediatric)] 02-04-2024 Chronic Residual codes; unclassified (20 sources) Amnesia; [...] Spondylosis; intervertebral disc disorders; other back problems (5 sources) Lumbosacral spondylosis without myelopathy; Translations: [Spondylosis without myelopathy or radiculopathy, lumbosacral region] Onset: 4 07-09-2023 Chronic Sprains and strains (2 sources) Other sprain [...] Translations: [Pain in right hip] Onset: 3 Past or Other Problems Problem Classification Problem Date Documented Date Episodic/Chronic Lymphadenitis (7 sources) Lymphadenopathy; Translations: [Enlarged lymph nodes, unspecified] Onset: 04-21-2006 04-21-2006 Episodic Mood disorders (1 source) Emotional lability Onset: 10-29-2021 Resolved: 10-29-2021 Episodic Other aftercare (1 source) Other keno terminal operator (current) drug therapy; Translations: [OTH NETWORK MANAGEMENT SPECIALIST CURRENT DRUG THERAPY] Onset: 10-01-2021 Episodic Other connective tissue disease (2 sources) Other specified soft tissue disorders Onset: 10-29-2021 Resolved: 11-05-2021 Episodic Other non-traumatic joint disorders (2 sources) Pain in unspecified joint Onset: 03-14-2021 Resolved: 11-28-2021 Episodic Other non-traumatic joint disorders (2 sources) Pain in left shoulder; Translations: [Pain in left shoulder] Onset: 03-14-2021 Resolved: 03-14-2021 Episodic Other non-traumatic joint disorders (5 sources) Pain in left hip; Translations: [Pain in left hip] Onset: 03-30-2023 Episodic Other non-traumatic joint disorders (4 sources) Bilateral chronic pain of upper limbs; Translations: [Pain in right shoulder] Onset: 05-28-2023 05-28-2023 Episodic Other non-traumatic joint disorders (2 sources) Other specified joint disorders, unspecified hip; Translations: [Other specified joint disorders, unspecified hip] Onset: 05-28-2023 Episodic Other non-traumatic joint disorders (1 source) Pain in wrist Onset: 07-09-2023 Episodic Other non-traumatic joint disorders (1 source) Pain in right shoulder; Translations: [Pain in right shoulder] Onset: 06-26-2023 Episodic Other non-traumatic joint disorders (1 source) Shoulder pain Onset: 05-28-2023 Episodic Other non-traumatic joint disorders (1 source) Joint pain Onset: 05-28-2023 Episodic Other skin disorders (2 sources) Localized swelling, mass and lump, head Onset: 10-29-2021 Resolved: 11-05-2021 Episodic Other skin disorders (2 sources) Generalized hyperhidrosis Onset: 10-29-2021 Resolved: 11-05-2021 Episodic Spondylosis; intervertebral disc disorders; other back problems (11 sources) Sciatica; Translations: [Sciatica, unspecified side] Onset: 07-09-2023 08-09-2017 Episodic Unclassified (1 source) Low back pain, unspecified M54.50 Results Test Name Value Interpretation Reference Range Facility A1C with Estimated Average G sylvain 02-01-2024 Glucose [Mass/Vol] 108 mg/dL Normal [facility] Comment on above: Result Comment: PERF ORMED BY: [place] [address] PATHOLOGIST SURVEY COMPILER DALILA CAMPOS M.D. Performed By: #### T 4F, A1C WTH eA, LIPID, TSH3, CMP, CBC #### [facility] [address] [place] [address] [place] Alanine aminotransferase [En zymatic activity/volume] in Serum or PlasmaOrdered By: Nathan Ray on 02-01-2024 ALT [Catalytic activity/Vol] 27 U/L 7-52 [facility] Comment on above: Performed By: #### T 4F, A1C WT eA, LIPID, TSH3, CMP, CBC #### [facility] [address] [place] [address] [place] Albumin [Mass/volume] in Ser um or Plasma by Bromocresol green (BCG) dye binding methoOrdered By: Nathan Ray on 02-01-2024 Albumin BCG dye [Mass/Vol] 4.2 g/dL 3.5-5.7 [facility] Alkaline phosphatase [Enzyma tic activity/volume] in Serum or PlasmaOrdered By: Natahn Ray on 02-01-2024 ALP [Catalytic activity/Vol] 48 U/L 34-104 [facility] Comment on above: Performed By: #### T 4F, A1C WTH eA, LIPID, TSH3, CMP, CBC #### [facility] [address] Aspartate aminotransferase [ Enzymatic activity/volume] in Serum or PlasmaOrdered By: Nathan Ray on 02-01-2024 AST [Catalytic activity/Vol] 17 U/L 13-39 [facility] Comment on above: Performed By: #### T 4F, A1C WTH eA, LIPID, TSH3, CMP, CBC #### [address] Automated basophil %Ordered By: Nathan Ray on 02-01-2024 Basophils/100 WBC (Bld) 0.4 % . [facility] Comment on above: Performed By: #### T 4F, A1C WTH eA, LIPID, TSH3, CMP, CBC #### [address] Automated basophil countOrde red By: Nathan Ray on 02-01-2024 Basophils (Bld) [#/Vol] 0.0 10*3/uL 0.0-0.2 [facility] Comment on above: Result Comment: PERF ORMED BY: [place] [address] PATHOLOGIST SURVEY COMPILER DALILA CAMPOS M.D. Performed By: #### T 4F, A1C WTH eA, LIPID, TSH3, CMP, CBC #### [address] Automated blood monocyte cou ntOrdered By: Nathan Ray on 02-01-2024 Monocytes (Bld) [#/Vol] 0.3 10*3/uL 0.0-0.8 [facility] Comment on above: Performed By: #### T 4F, A1C WTH eA, LIPID, TSH3, CMP, CBC #### [facility] [address] Automated eosinophil %Ordere d By: Nathan Ray on 02-01-2024 Eosinophils/100 WBC (Bld) 1.9 % . [facility] Comment on above: Performed By: #### T 4F, A1C WTH eA, LIPID, TSH3, CMP, CBC #### [facility] [address] Automated eosinophil countOr dered By: Nathan Ray on 02-01-2024 Eosinophils (Bld) [#/Vol] 0.1 10*3/uL 0.0-0.45 [facility] Comment on above: Performed By: #### T 4F, A1C WTH eA, LIPID, TSH3, CMP, CBC #### [address] Automated monocyte %Ordered By: Nathan Ray on 02-01-2024 Monocytes/100 WBC (Bld) 7.2 % . [facility] Comment on above: Performed By: #### T 4F, A1C WTH eA, LIPID, TSH3, CMP, CBC #### [address] Automated neutrophil %Ordere d By: Nathan Ray on 02-01-2024 Neutrophils/100 WBC (Bld) 65.9 % . [facility] Comment on above: Performed By: #### T 4F, A1C WTH eA, LIPID, TSH3, CMP, CBC #### [address] Bilirubin.total [Mass/volume ] in Serum or PlasmaOrdered By: Nathan Ray on 02-01-2024 Bilirubin [Mass/Vol] 0.6 mg/dL 0.3-1.0 [facility] Comment on above: Performed By: #### T 4F, A1C WTH eA, LIPID, TSH3, CMP, CBC #### [address] Calcium [Mass/volume] in Ser um or PlasmaOrdered By: Nathan Ray on 02-01-2024 Calcium [Mass/Vol] 9.0 mg/dL 8.6-10.3 [facility] Comment on above: Performed By: #### T 4F, A1C WTH eA, LIPID, TSH3, CMP, CBC #### [facility] [address] [place] [address] [place] Carbon dioxide, total [Moles /volume] in Serum or PlasmaOrdered By: Nathan Ray on 02-01-2024 CO2 [Moles/Vol] 25.4 mmol/L 21.0-31.0 [facility] Comment on above: Performed By: #### T 4F, A1C WT eA, LIPID, TSH3, CMP, CBC #### [facility] [address] [place] [address] [place] Chloride [Moles/volume] in S miriam or PlasmaOrdered By: Nathan Ray on 02-01-2024 Chloride [Moles/Vol] 106 mmol/L 98-107 [facility] Comment on above: Performed By: #### T 4F, A1C WTH eA, LIPID, TSH3, CMP, CBC #### [facility] [address] [place] [address] [place] Cholesterol [Mass/volume] in Serum or PlasmaOrdered By: Nathan Ray on 02-01-2024 Cholesterol [Mass/Vol] 191 mg/dL 140-200 [facility] Comment on above: Chol less than 200 m g/dl low riskChol 201-239 mg/dl borderline riskChol 240 mg/dl and greater high risk Result Comment: Chol less than 200 mg/dl low risk Chol 201-239 mg/dl borderline risk Chol 240 mg/dl and greater high risk Performed By: #### T 4F, A1C WTH eA, LIPID, TSH3, CMP, CBC #### [facility] [address] [place] [id number] [place] Cholesterol in LDL Calc [Mas s/Vol]Ordered By: Nathan Ray on 02-01-2024 Cholesterol in LDL [Mass/Vol] 120 mg/dL High 0-100 [facility] Comment on above: LDL ATP III CLASSIFI CATIONLDL less than 100 mg/dL OptimalLDL 100-129 mg/dL Near or above optimalLDL 130-159 mg/dL Borderline highLDL 160-189 mg/dL HighLDL greater than 189 mg/dL Very high Cholesterol in VLDL Calc [Ma ss/Vol]Ordered By: Nathan Ray on 02-01-2024 Cholesterol in VLDL [Mass/Vol] 25 mg/dL [facility] Complete Blood Count Auto Di ffon 02-01-2024 Mean Corpuscular HGB Conc 33.6 g/dL Normal 32.5-35.6 [facility] Comment on above: Performed By: #### T 4F, A1C WTH eA, LIPID, TSH3, CMP, CBC #### [facility] [address] NRBC% 0.1 /100{WBC} Normal 0-0.5 [facility] Comment on above: Performed By: #### T 4F, A1C WTH eA, LIPID, TSH3, CMP, CBC #### [facility] [address] Comprehensive Metabolic Pane mandy 02-01-2024 Albumin [Mass/Vol] 4.2 g/dL Normal 3.5-5.7 [facility] Comment on above: Performed By: #### T 4F, A1C WTH eA, LIPID, TSH3, CMP, CBC #### [facility] [address] [place] [address] [place] GFR/1.73 sq M.predicted MDRD (S/P/Bld) [Vol rate/Area] mL/min/{1.73_m2} Normal [facility] Comment on above: Performed By: #### T 4F, A1C WTH eA, LIPID, TSH3, CMP, CBC #### [facility] [address] [place] [address] [place] Creatinine [Mass/volume] in Serum or PlasmaOrdered By: Nathan Ray on 02-01-2024 Creatinine [Mass/Vol] 1.01 mg/dL 0.70-1.30 [facility] Comment on above: Performed By: #### T 4F, A1C WTH eA, LIPID, TSH3, CMP, CBC #### [facility] [address] Erythrocyte distribution wid th [Ratio] by Automated countOrdered By: Nathan Ray on 02-01-2024 Erythrocyte distribution width (RBC) [Ratio] 14.4 % 12.0-14.8 [facility] Comment on above: Performed By: #### T 4F, A1C WTH eA, LIPID, TSH3, CMP, CBC #### [facility] [address] Erythrocytes [#/volume] in B lood by Automated countOrdered By: Nathan Ray on 02-01-2024 RBC (Bld) [#/Vol] 4.91 10*6/uL 3.90-5.60 [facility] Comment on above: Performed By: #### T 4F, A1C WTH eA, LIPID, TSH3, CMP, CBC #### [facility] [address] Glucose [Mass/volume] in Ser um or PlasmaOrdered By: Nathan Ray on 02-01-2024 Glucose [Mass/Vol] 112 mg/dL High 70-100 [facility] Comment on above: ADA recommended refe rence rangeRandom Glucose Reference Range is dependent on time and content of last meal. Glucose of more than 200 mg/dL in a nonstressed, ambulatory subject supports the diagnosis of Diabetes Mellitus. Result Comment: [place] om Glucose Reference Range is dependent on time and content of last meal. Glucose of more than 200 mg/dL in a nonstressed, ambulatory subject supports the diagnosis of Diabetes Mellitus. ADA recommended reference range Performed By: #### T 4F, A1C WTH eA, LIPID, TSH3, CMP, CBC #### [facility] [address] Glucose mean value [Mass/vol ume] in Blood Estimated from glycated hemoglobinOrdered By: Nathan Ray on 02-01-2024 Average glucose Estimated from glycated hemoglobin (Bld) [Mass/Vol] 108 mg/dL [facility] Hematocrit [Volume Fraction] of Blood by Automated countOrdered By: Nathan Ray on 02-01-2024 Hematocrit (Bld) [Volume fraction] 43.0 % 38.8-50.0 [facility] Comment on above: Performed By: #### T 4F, A1C WTH eA, LIPID, TSH3, CMP, CBC #### [facility] [address] [place] [address] Hemoglobin A1c percentageOrd ered By: Nathan Ray on 02-01-2024 HbA1c (Bld) [Mass fraction] 5.4 % 4.3-5.6 [facility] Comment on above: Increased risk for d iabetes: 5.7 - 6.4diabetes: >6.4glycemic control for adults with diabetes: <7.0 Result Comment: Incr eased risk for diabetes: 5.7 - 6.4 diabetes: >6.4 glycemic control for adults with diabetes: <7.0 Performed By: #### T 4F, A1C WTH eA, LIPID, TSH3, CMP, CBC #### [address] Hemoglobin [Mass/volume] in BloodOrdered By: Nathan Ray on 02-01-2024 Hemoglobin (Bld) [Mass/Vol] 14.4 g/dL 13.0-17.0 [facility] Comment on above: Performed By: #### T 4F, A1C WTH eA, LIPID, TSH3, CMP, CBC #### [facility] [address] [place] [address] Leukocytes [#/volume] correc abilio for nucleated erythrocytes in Blood by Automated counOrdered By: Nathan Ray on 02-01-2024 WBC corrected for nucl RBC Auto (Bld) [#/Vol] 4.4 10*3/uL 4.1-10.5 [facility] Leukocytes [#/volume] in Blo od by Automated countOrdered By: Nathan Ray on 02-01-2024 WBC (Bld) [#/Vol] 4.4 10*3/uL 4.1-10.5 [facility] Comment on above: Performed By: #### T 4F, A1C WTH eA, LIPID, TSH3, CMP, CBC #### [address] Lipid Panelon 02-01-2024 LDL Cholesterol,Calculated 120 mg/dL High 0-100 [facility] Comment on above: Result Comment: LDL ATP III CLASSIFICATION LDL less than 100 mg/dL Optimal LDL 100-129 mg/dL Near or above optimal LDL 130-159 mg/dL Borderline high LDL 160-189 mg/dL High LDL greater than 189 mg/dL Very high Performed By: #### T 4F, A1C WTH eA, LIPID, TSH3, CMP, CBC #### [facility] [address] [place] [id number] [facility] Triglyceride w/Reflex 127 mg/dL Normal 0-149 [facility] Comment on above: Result Comment: TRIG ATP III CLASSIFICATION TRIG less than 150 mg/dL Normal TRIG 150-199 mg/dL Borderline high TRIG 200-500 mg/dL High TRIG greater than 500 mg/dL Very high Standard traceable to the Center for Disease Conrtrol and Prevention (CDC) test method. Performed By: #### T 4F, A1C WTH eA, LIPID, TSH3, CMP, CBC #### [facility] [address] VLDL CHOLESTEROL 25 mg/dL Normal [facility] Comment on above: Performed By: #### T 4F, A1C WTH eA, LIPID, TSH3, CMP, CBC #### [facility] [address] [place] [id number] [place] Lymphocytes [#/volume] in Bl ood by Automated countOrdered By: Nathan Ray on 02-01-2024 Lymphocytes (Bld) [#/Vol] 1.1 10*3/uL 1.00-4.8 [facility] Comment on above: Performed By: #### T 4F, A1C WTH eA, LIPID, TSH3, CMP, CBC #### [facility] [address] [place] [address] [place] Lymphocytes/100 leukocytes i n Blood by Automated countOrdered By: Nathan Ray on 02-01-2024 Lymphocytes/100 WBC (Bld) 24.6 % . [facility] Comment on above: Performed By: #### T 4F, A1C WTH eA, LIPID, TSH3, CMP, CBC #### [facility] [address] [place] [id number] [place] MCH [Entitic mass] by Automa abilio countOrdered By: Nathan Ray on 02-01-2024 MCH (RBC) [Entitic mass] 29.4 pg 27.5-35.2 [facility] Comment on above: Performed By: #### T 4F, A1C WTH eA, LIPID, TSH3, CMP, CBC #### [facility] [address] MCHC Auto (RBC) [Mass/Vol]Or dered By: Nathan Ray on 02-01-2024 MCHC (RBC) [Mass/Vol] 33.6 g/dL 32.5-35.6 [facility] MCV [Entitic volume] by Auto mated countOrdered By: Nathan Ray on 02-01-2024 MCV (RBC) [Entitic vol] 87.6 fL 83.5-101 [facility] Comment on above: Performed By: #### T 4F, A1C WTH eA, LIPID, TSH3, CMP, CBC #### [facility] [address] [place] [address] Neutrophils [#/volume] in Bl ood by Automated countOrdered By: Nathan Ray on 02-01-2024 Neutrophils (Bld) [#/Vol] 2.9 10*3/uL 1.8-7.7 [facility] Comment on above: Performed By: #### T 4F, A1C WTH eA, LIPID, TSH3, CMP, CBC #### [facility] [address] [place] [address] No Panel InformationOrdered By: Nathan Ray on 02-01-2024 Estimated GFR (CKD-EPI) > 60.0 mL/Min [facility] Creatinine Clearance (Chem N/A [facility] Nucleated erythrocytes [Pres ence] in Blood by Automated countOrdered By: Nathan Ray on 02-01-2024 Nucleated RBC Auto Ql (Bld) 0.1 /100{WBC} 0-0.5 [facility] Platelet mean volume [Entiti c volume] in Blood by Automated countOrdered By: Nathan Ray on 02-01-2024 Platelet mean volume (Bld) [Entitic vol] 8.8 fL 6.6-10.1 [facility] Comment on above: Performed By: #### T 4F, A1C WTH eA, LIPID, TSH3, CMP, CBC #### [facility] [address] Platelets [#/volume] in Bloo d by Automated countOrdered By: Nathan Ray on 02-01-2024 Platelets (Bld) [#/Vol] 171 10*3/uL 150-450 [facility] Comment on above: Performed By: #### T 4F, A1C WTH eA, LIPID, TSH3, CMP, CBC #### [facility] [address] [place] [address] Potassium [Moles/volume] in Serum or PlasmaOrdered By: Nathan Ray on 02-01-2024 Potassium [Moles/Vol] 4.0 mmol/L 3.5-5.1 [facility] Comment on above: Performed By: #### T 4F, A1C WTH eA, LIPID, TSH3, CMP, CBC #### [facility] [address] [place] [address] Protein [Mass/volume] in Ser um or PlasmaOrdered By: Nathan Ray on 02-01-2024 Protein [Mass/Vol] 6.5 g/dL 6.4-8.9 [facility] Comment on above: Performed By: #### T 4F, A1C WTH eA, LIPID, TSH3, CMP, CBC #### [facility] [address] [place] [address] Serum globulin measurement b y calculation (mass/volume)Ordered By: Nathan Ray on 02-01-2024 Globulin (S) [Mass/Vol] 2.3 g/dL [facility] Comment on above: Performed By: #### T 4F, A1C WTH eA, LIPID, TSH3, CMP, CBC #### [facility] [address] [place] [address] Serum or plasma albumin/glob ulin mass ratioOrdered By: Nathan Ray on 02-01-2024 Albumin/Globulin [Mass ratio] 1.8 {ratio} [facility] Comment on above: Performed By: #### T 4F, A1C WTH eA, LIPID, TSH3, CMP, CBC #### [facility] [address] Serum or plasma anion gap de terminationOrdered By: Nathan Ray on 02-01-2024 Anion gap [Moles/Vol] 11.6 mmol/L 6.0-15.0 [facility] Comment on above: Performed By: #### T 4F, A1C WTH eA, LIPID, TSH3, CMP, CBC #### [facility] [address] Serum or plasma high density lipoprotein (HDL) cholesterol measurementOrdered By: Nathan Ray on 02-01-2024 Cholesterol in HDL [Mass/Vol] 46 mg/dL 23- [facility] Comment on above: HDL CHOL ATP-III CLA SSIFICATION Cardiovascular RiskHDL > or equal to 60 mg/dL LOWHDL < 40 mg/dL HIGH Result Comment: HDL CHOL ATP-III CLASSIFICATION Cardiovascular Risk HDL > or equal to 60 mg/dL LOW HDL < 40 mg/dL HIGH Performed By: #### T 4F, A1C WTH eA, LIPID, TSH3, CMP, CBC #### [facility] [address] Serum or plasma total choles terol/high density lipoprotein (HDL) cholesterol mass ratOrdered By: Nathan Ray on 02-01-2024 Cholesterol.total/Marge sterol in HDL [Mass ratio] 4.2 {ratio} <5.0 [facility] Comment on above: Performed By: #### T 4F, A1C WTH eA, LIPID, TSH3, CMP, CBC #### [facility] [address] Sodium [Moles/volume] in Ser um or PlasmaOrdered By: Nathan Ray on 02-01-2024 Sodium [Moles/Vol] 139 mmol/L 136-145 [facility] Comment on above: Performed By: #### T 4F, A1C WTH eA, LIPID, TSH3, CMP, CBC #### [facility] [address] Thyrotropin [Units/volume] i n Serum or PlasmaOrdered By: Nathan Ray on 02-01-2024 TSH Qn 2.91 m[IU]/L 0.45-5.33 [facility] Comment on above: Result Comment: PERF ORMED BY: [place] [address] PATHOLOGIST SURVEY COMPILER DALILA CAMPOS M.D. Performed By: #### T 4F, A1C WTH eA, LIPID, TSH3, CMP, CBC #### [address] Thyroxine (T4) free [Mass/vo lume] in Serum or PlasmaOrdered By: Nathan Ray on 02-01-2024 Free T4 [Mass/Vol] 0.84 ng/dL 0.61-1.12 [facility] Comment on above: Performed By: #### T 4F, A1C WTH eA, LIPID, TSH3, CMP, CBC #### [address] Triglyceride [Mass/volume] i n Serum or PlasmaOrdered By: Nathan Ray on 02-01-2024 Triglyceride [Mass/Vol] 127 mg/dL 0-149 [facility] Comment on above: TRIG ATP III CLASSIF ICATIONTRIG less than 150 mg/dL NormalTRIG 150-199 mg/dL Borderline highTRIG 200-500 mg/dL High TRIG greater than 500 mg/dL Very highStandard traceable to the Center for Disease Conrtrol and Prevention (CDC) test method. Urea nitrogen [Mass/volume] in Serum or PlasmaOrdered By: Nathan Ray on 02-01-2024 Urea nitrogen [Mass/Vol] 13 mg/dL 7-25 [facility] Comment on above: Performed By: #### T 4F, A1C WTH eA, LIPID, TSH3, CMP, CBC #### [address] CNOVon 10-01-2023 CNOV Office Visit (ORTHTW ) MARIA DOLORESMIGUEL Sweet ([id number]) 1985 M Date Time Provider Department 10/01/23 11:20 AM RICHARD HOLGUIN During your visit today, we recorded the following information about you: Weight Height 117.1 kg 1.758 m Richard Holguin DO 10/16/2023 10:14 AM Addendum SERVICE DATE: October 01, 2023 PCP: Jacob Ray DO Patient was referred by Jim Crouch Subjective Patient ID: patient is a 37-year-old male with longstanding bilateral hip pain. No initiating event causing the pain, however has progressively worsened. He did have imaging in 2017 which demonstrated avascular necrosis. He had an injection into his bilateral hips at that time which did not provide him any relief. Pain is described as sharp, worse with movement, located primarily in the groin and radiates laterally. Pain is worse on the right, however also has some left-sided pain as well He also has chronic low back pain with radiation down primarily right lower extremity as well, however he notes that this pain is different and presents with different movements. Cannot take ibuprofen secondary to stomach issues. The pain causes him to miss work, prevents him from participating in activities with his children. Patient does have a history significant for multiple prednisone tapers for arthritis, states that he would get prednisone tapers in 3 months. He is not a smoker but he does chew tobacco. Does chronically take allopurinol for gout. Chief Complaint: Patient presents with: Left Hip - Pain: AVN Right Hip - Pain: AVN PAIN EVALUATION 09/27/20231 Pain Level: 7 Pain Location: Hip-Left hip-right Description: Aching;Dull;Radiating ;Sharp;Shooting;Stiff ness Duration Units: Years Frequency: Continuous Intervention/Comfort measure: Medication;Reposition ;Relaxation;Positioni ng TREATMENTS PRIOR TO INITIAL CONSULT: Oral NSAIDS - Patient Unable to Tolerate Right Physical Therapy - Patient Unable to Tolerate Right Corticosteroid Injection(s) ACTIVE PROBLEM LIST Enlargement of Lymph Nodes PAST MEDICAL HISTORY Diagnosis Date PMH - PAST MEDICAL HISTORY OF At age 19 Shingles on left side of neck PMH - PAST MEDICAL HISTORY OF At age 19 Abdominal adenopathies-stable Prolonged PTT 04/2021 PAST SURGICAL HISTORY Procedure Laterality Date PAST SURGICAL HISTORY OF Left shoulder PAST SURGICAL HISTORY OF Left fifth toe repair REVISE MEDIAN N/CARPAL TUNNEL SURG Right 04/18/2021 TONSILLECTOMY AND ADENOIDECTOMY FAMILY HISTORY Problem Relation Age of Onset [...] were reviewed per this encounter. Objective Right Lower Extremity: -range of motion range of motion hip flexion: 110, internal rotation 20, external rotation 40. Moderate Pain with internal and external rotation. - mild pain with Stinchfield - Pain with FADER - Large burn over the posterior calf without surrounding erythema. Well healing granulation tissue. -Motor DF/PLF/EHL intact -Mild decrease sensation over the lateral aspect of the foot -Compartments soft, compressible -Palpable DP and PT pulses, BCR <2 seconds Left Lower Extremity: -range of motion range of motion hip flexion: 110, internal rotation 20, external rotation 40. Mild ain with internal and external rotation. - mild pain with Stinchfield -Motor DF/PLF/EHL intact -Mild decrease sensation over the lateral aspect of the foot -Compart (more content not included)... Normal [facility] Basophils Auto (Bld) [#/Vol] on 09-27-2023 Basophils (Bld) [#/Vol] 0.0 10 3/uL 0.0-0.1 [facility] Basophils/100 WBC Auto (Bld) on 09-27-2023 Basophils/100 WBC (Bld) 0.2 % 0.2-2.0 [facility] Eosinophils/100 WBC Auto (Bl d)on 09-27-2023 Eosinophils/100 WBC (Bld) 2.1 % 0.9-7.0 [facility] Erythrocyte distribution wid th Auto (RBC) [Ratio]on 09-27-2023 Erythrocyte distribution width (RBC) [Ratio] 12.5 % 11.0-15.0 [facility] Estimated glomerular filtrat ion rate (GFR) non- Americanon 09-27-2023 GFR/1.73 sq M.predicted among non-blacks MDRD (S/P/Bld) [Vol rate/Area] mL/min/{1.73_m2} >=60 [facility] Globulin Calc (S) [Mass/Vol] on 09-27-2023 Globulin (S) [Mass/Vol] 3.2 g/dL [facility] Hematocrit Auto (Bld) [Volum e fraction]on 09-27-2023 Hematocrit (Bld) [Volume fraction] 41.0 % 42.0-54.0 [facility] Hemoglobin [Mass/volume] in Bloodon 09-27-2023 Hemoglobin (Bld) [Mass/Vol] 13.5 g/dL 14.0-18.0 [facility] Laboratory - Chemistry and C hemistry - challengeon 09-27-2023 Albumin [Mass/Vol] 3.8 g/dL 3.4-5.0 [facility] ALP [Catalytic activity/Vol] 57 U/L 46-116 [facility] ALT [Catalytic activity/Vol] 34 U/L 16-63 [facility] AST [Catalytic activity/Vol] 17 U/L 15-37 [facility] Bilirubin [Mass/Vol] 0.5 mg/dL 0.2-1.0 [facility] Calcium [Mass/Vol] 8.9 mg/dL 8.5-10.1 [facility] Chloride [Moles/Vol] 107 mmol/L 98-107 [facility] CO2 [Moles/Vol] 26.1 mmol/L 21.0-32.0 [facility] Creatinine [Mass/Vol] 1.06 mg/dL 0.70-1.30 [facility] GFR/1.73 sq M.predicted MDRD (S/P/Bld) [Vol rate/Area] mL/min/{1.73_m2} >=60 [facility] Glucose [Mass/Vol] 94 mg/dL 74-106 [facility] Potassium [Moles/Vol] 3.9 mmol/L 3.5-5.1 [facility] Protein [Mass/Vol] 7.0 g/dL 6.4-8.2 [facility] Sodium [Moles/Vol] 143 mmol/L 136-145 [facility] Urea nitrogen [Mass/Vol] 15.0 mg/dL 7.0-18.0 [facility] Urea nitrogen/Creatinine [Mass ratio] 14.2 mg/mg [facility] Laboratory - Hematology and Cell countson 09-27-2023 Immature granulocytes/100 WBC (Bld) 0.2 % 0.0-0.5 [facility] Leukocytes [#/volume] correc abilio for nucleated erythrocytes in Blood by Automated counon 09-27-2023 WBC corrected for nucl RBC Auto (Bld) [#/Vol] 5.3 10 3/uL 4.0-11.0 [facility] Lymphocytes Auto (Bld) [#/Vo l]on 09-27-2023 Lymphocytes (Bld) [#/Vol] 1.2 10 3/uL 1.2-3.8 [facility] Lymphocytes/100 WBC Auto (Bl d)on 09-27-2023 Lymphocytes/100 WBC (Bld) 23.5 % 20.5-60.0 [facility] MCH Auto (RBC) [Entitic mass ]on 09-27-2023 MCH (RBC) [Entitic mass] 29.9 pg 25.9-34.0 [facility] MCHC Auto (RBC) [Mass/Vol]on 09-27-2023 MCHC (RBC) [Mass/Vol] 32.9 g/dL 29.9-35.2 [facility] MCV Auto (RBC) [Entitic vol] on 09-27-2023 MCV (RBC) [Entitic vol] 90.7 fL 80.0-94.0 [facility] Monocytes Auto (Bld) [#/Vol] on 09-27-2023 Monocytes (Bld) [#/Vol] 0.5 10 3/uL 0.3-0.8 [facility] Monocytes/100 WBC Auto (Bld) on 09-27-2023 Monocytes/100 WBC (Bld) 9.7 % 1.7-12.0 [facility] Neutrophils Auto (Bld) [#/Vo l]on 09-27-2023 Neutrophils (Bld) [#/Vol] 3.4 10 3/uL 1.4-6.5 [facility] Neutrophils/100 WBC Auto (Bl d)on 09-27-2023 Neutrophils/100 WBC (Bld) 64.3 % 43.0-75.0 [facility] No Panel Informationon 09-26 Eosinophils # (Auto) 0.1 10 3/uL 0.0-0.7 [facility] Immature Granulocyte # (Auto) 0.01 10 3/uL 0.00-0.03 [facility] Platelet mean volume Auto (B ld) [Entitic vol]on 09-27-2023 Platelet mean volume (Bld) [Entitic vol] 10.6 fL 9.5-13.5 [facility] Platelets Auto (Bld) [#/Vol] on 09-27-2023 Platelets (Bld) [#/Vol] 187 10 3/uL 150-450 [facility] RBC Auto (Bld) [#/Vol]on RBC (Bld) [#/Vol] 4.52 10 6/uL 4.70-6.10 [facility] Serum or plasma albumin/glob ulin mass ratioon 09-27-2023 Albumin/Globulin [Mass ratio] 1.2 {ratio} [facility] Serum or plasma anion gap de terminationon 09-27-2023 Anion gap [Moles/Vol] 13.8 mmol/L [facility] CNOVon 08-31-2023 CNOV Office Visit (ORAVON ) MIGUEL WHITTEN ([id number]) 1985 M Date Time Provider Department 08/31/23 10:00 AM JIM CROUCH During your visit today, we recorded the following information about you: Jim Crouch DO 08/31/2023 10:[address] Richard Holguin in [facility] Jim Crouch DO 08/31/2023 11:25 AM Signed Miguel Shashi Whitten is a patient of Jacob Ray [...] Order(s):CONSULT TO ORTHOPAEDIC SURGERY [[id number]] Order #: [id number]: 1 FUTURE Prescriptions as of 08/31/2023 - [...] 04/21/2006 Other instructions from your clinician: Dr. Richard Holguin in [facility] Encounter Status:Closed by JIM CROUCH on 08/31/23 Normal [facility] Automated epithelial cells c ount in urine sediment (number/area)on 08-26-2023 Epithelial cells Auto (Urine sed) [#/Area] NONE SEEN #/LPF NONE/RARE [facility] Automated urine hyaline cast s count (number/volume)on 08-26-2023 Hyaline casts Auto (U) [#/Vol] RARE [facility] Automated urine specific gra vity by refractometryon 08-26-2023 Specific gravity Refractometry automated (U) [Rel density] >=1.030 1.005-1.025 [facility] Bacteria [Presence] in Urine by Automatedon 08-26-2023 Bacteria Auto Ql (U) TRACE #/HPF NONE SEEN [facility] Basophils Auto (Bld) [#/Vol] on 08-26-2023 Basophils (Bld) [#/Vol] 0.0 10 3/uL 0.0-0.1 [facility] Basophils/100 WBC Auto (Bld) on 08-26-2023 Basophils/100 WBC (Bld) 0.1 % 0.2-2.0 [facility] Bilirubin Auto test strip (U ) [Mass/Vol]on 08-26-2023 Bilirubin (U) [Mass/Vol] Negative NEGATIVE [facility] Casts typing in urine sedime nt by light microscopyon 08-26-2023 Casts LM Nom (Urine sed) SEEN #/LPF NONE SEEN [facility] Color Auto (U)on 08-26-2023 Color (U) YELLOW YELLOW [facility] Eosinophils/100 WBC Auto (Bl d)on 08-26-2023 Eosinophils/100 WBC (Bld) 1.1 % 0.9-7.0 [facility] Erythrocyte distribution wid th Auto (RBC) [Ratio]on 08-26-2023 Erythrocyte distribution width (RBC) [Ratio] 13.2 % 11.0-15.0 [facility] Estimated glomerular filtrat ion rate (GFR) non- Americanon 08-26-2023 GFR/1.73 sq M.predicted among non-blacks MDRD (S/P/Bld) [Vol rate/Area] 58 mL/min/{1.73_m2} >=60 [facility] Globulin Calc (S) [Mass/Vol] on 08-26-2023 Globulin (S) [Mass/Vol] 3.2 g/dL [facility] Glucose [Mass/volume] in Uri ne by Test stripon 08-26-2023 Glucose Test strip (U) [Mass/Vol] Negative NEGATIVE [facility] Hematocrit Auto (Bld) [Volum e fraction]on 08-26-2023 Hematocrit (Bld) [Volume fraction] 47.6 % 42.0-54.0 [facility] Hemoglobin [Mass/volume] in Bloodon 08-26-2023 Hemoglobin (Bld) [Mass/Vol] 15.6 g/dL 14.0-18.0 [facility] Ketones Auto test strip (U) [Mass/Vol]on 08-26-2023 Ketones (U) [Mass/Vol] Negative NEGATIVE [facility] - Chemistry and C hemistry - challengeon 08-26-2023 Albumin [Mass/Vol] 4.2 g/dL 3.4-5.0 [facility] ALP [Catalytic activity/Vol] 69 U/L 46-116 [facility] ALT [Catalytic activity/Vol] 35 U/L 16-63 [facility] AST [Catalytic activity/Vol] 17 U/L 15-37 [facility] Bilirubin [Mass/Vol] 0.8 mg/dL 0.2-1.0 [facility] Calcium [Mass/Vol] 9.3 mg/dL 8.5-10.1 [facility] Chloride [Moles/Vol] 103 mmol/L 98-107 [facility] CO2 [Moles/Vol] 25.1 mmol/L 21.0-32.0 [facility] Creatinine [Mass/Vol] 1.39 mg/dL 0.70-1.30 [facility] GFR/1.73 sq M.predicted MDRD (S/P/Bld) [Vol rate/Area] mL/min/{1.73_m2} >=60 [facility] Glucose [Mass/Vol] 123 mg/dL 74-106 [facility] Lactate [Moles/Vol] 2.2 mmol/L 0.4-2.0 [facility] Comment on above: RESULTS CALLED TO REID HAM RN @BY Laura Jones [id number] Lipase [Catalytic activity/Vol] 33.0 U/L 16.0-77.0 [facility] Potassium [Moles/Vol] 3.4 mmol/L 3.5-5.1 [facility] Protein [Mass/Vol] 7.4 g/dL 6.4-8.2 [facility] Sodium [Moles/Vol] 138 mmol/L 136-145 [facility] Urea nitrogen [Mass/Vol] 16.0 mg/dL 7.0-18.0 [facility] Urea nitrogen/Creatinine [Mass ratio] 11.5 mg/mg [facility] Laboratory - Hematology and Cell countson 08-26-2023 Immature granulocytes/100 WBC (Bld) 0.2 % 0.0-0.5 [facility] Leukocytes [#/area] in Urine sediment by Automated counton 08-26-2023 WBC Auto (Urine sed) [#/Area] 0-2 #/HPF 0-2 [facility] Leukocytes [#/area] in Urine sediment by Microscopy high power fieldon 08-26-2023 WBC LM.HPF (Urine sed) [#/Area] 0-2 #/HPF NONE SEEN [facility] Leukocytes [#/volume] correc abilio for nucleated erythrocytes in Blood by Automated counon 08-26-2023 WBC corrected for nucl RBC Auto (Bld) [#/Vol] 9.7 10 3/uL 4.0-11.0 [facility] Lymphocytes Auto (Bld) [#/Vo l]on 08-26-2023 Lymphocytes (Bld) [#/Vol] 1.9 10 3/uL 1.2-3.8 [facility] Lymphocytes/100 WBC Auto (Bl d)on 08-26-2023 Lymphocytes/100 WBC (Bld) 19.0 % 20.5-60.0 [facility] MCH Auto (RBC) [Entitic mass ]on 08-26-2023 MCH (RBC) [Entitic mass] 30.1 pg 25.9-34.0 [facility] MCHC Auto (RBC) [Mass/Vol]on 08-26-2023 MCHC (RBC) [Mass/Vol] 32.8 g/dL 29.9-35.2 [facility] MCV Auto (RBC) [Entitic vol] on 08-26-2023 MCV (RBC) [Entitic vol] 91.9 fL 80.0-94.0 [facility] Monocytes Auto (Bld) [#/Vol] on 08-26-2023 Monocytes (Bld) [#/Vol] 0.5 10 3/uL 0.3-0.8 [facility] Monocytes/100 WBC Auto (Bld) on 08-26-2023 Monocytes/100 WBC (Bld) 5.5 % 1.7-12.0 [facility] Mucus LM Ql (Urine sed)on Mucus Ql (Urine sed) MODERATE NONE SEEN [facility] Neutrophils Auto (Bld) [#/Vo l]on 08-26-2023 Neutrophils (Bld) [#/Vol] 7.2 10 3/uL 1.4-6.5 [facility] Neutrophils/100 WBC Auto (Bl d)on 08-26-2023 Neutrophils/100 WBC (Bld) 74.1 % 43.0-75.0 [facility] No Panel Informationon 08-25 Eosinophils # (Auto) 0.1 10 3/uL 0.0-0.7 [facility] Immature Granulocyte # (Auto) 0.02 10 3/uL 0.00-0.03 [facility] Urine Culture Reflexed NO Fi [facility] Platelet mean volume Auto (B ld) [Entitic vol]on 08-26-2023 Platelet mean volume (Bld) [Entitic vol] 10.2 fL 9.5-13.5 [facility] Platelets Auto (Bld) [#/Vol] on 08-26-2023 Platelets (Bld) [#/Vol] 269 10 3/uL 150-450 [facility] Protein Auto test strip (U) [Mass/Vol]on 08-26-2023 Protein (U) [Mass/Vol] TRACE mg/dL NEG/TRACE [facility] RBC Auto (Bld) [#/Vol]on RBC (Bld) [#/Vol] 5.18 10 6/uL 4.70-6.10 [facility] Serum or plasma albumin/glob ulin mass ratioon 08-26-2023 Albumin/Globulin [Mass ratio] 1.3 {ratio} [facility] Serum or plasma anion gap de terminationon 08-26-2023 Anion gap [Moles/Vol] 13.3 mmol/L [facility] Specific gravity Auto test s trip (U) [Rel density]on 08-26-2023 Specific gravity (U) [Rel density] CLEAR CLEAR [facility] Urine hemoglobin detection b y automated test stripon 08-26-2023 Hemoglobin Auto test strip Ql (U) Negative NEGATIVE [facility] Urine nitrite detection by a utomated test stripon 08-26-2023 Nitrite Auto test strip Ql (U) Negative NEGATIVE [facility] Urine sediment crystal ident ification by light microscopyon 08-26-2023 Crystals LM Nom (Urine sed) Seen #/HPF None Seen [facility] Urobilinogen Auto test strip (U) [Mass/Vol]on 08-26-2023 Urobilinogen Qn (U) 1.0 {Carlos'U}/dL 0.2-1.0 [facility] pH Auto test strip (U)on pH (U) 5.5 [pH] 5.0-9.0 [facility] ALLIED HEALTHon 07-17-2023 [facility] HNO ID: [id number] Author: PAOLA CASTORENA RT(R) Service: Radiology Author [...] PATIENT PRESENTS WITH AN IMPLANTABLE OR ATTACHED CLINICAL DATA MANAGEMENT MANAGER: No RADIOLOGY DEPARTMENT: MR; Exam(s) Completed: Lower MSK: Hip, bilateral PERIPHERAL IV DATA: Not applicable SIGNED BY: RT Pinky(R) July 17, 2023 7:12 AM Normal [facility] MRI HIP WO IVCON LTon 2023 MRI HIP WO IVCON LT * * *Final Report* * * DATE OF EXAM: Jul 17 2023 7:19AM [facility] 0206 - MRI HIP WO IVCON LT [...] 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 Emergency Communications Operator: CIARA Transcribe Date/Time: Jul 17 2023 8:10A Dictated by : JENNIFER ZHANG MD This examination was interpreted and the report reviewed and electronically signed by: JENNIFER ZHANG MD on Jul 17 2023 8:26AM EST [id number] Normal [facility] No Panel Informationon 07-16 [facility] CNOVon 06-29-2023 CNOV Office Visit (ORAVON ) MIGEUL WHITTEN ([id number]) 1985 M Date Time Provider Department 06/29/23 10:45 AM JIM CROUCH During your visit today, [...] Right H (more content not included)... Normal [facility] XR HIP LUTHER 5V PEL+ AP/LAT EA [...] femoral head avascular necrosis. No subchondral collapse. Emergency Communications Operator[facility] Transcribe Date/Time: Jun 29 2023 1:48P Dictated by : LUCHO RAMOS MD This examination was interpreted and the report reviewed and electronically signed by: LUCHO RAMOS MD on Jun 29 2023 1:49PM EST [id number] Normal [facility] XR SHOULDER LT MIN 2 VWSon 0 [...] Nicholas MD on 05/28/2023 4:35 PM Normal [facility] XR SHOULDER RT MIN 2 VWSon 0 05-28-2023 XR SHOULDER RT MIN 2 VWS XR SHOULDER RT MIN 2 VWS XR SHOULDER RT MIN 2 VWS HISTORY: Chronic pain of both shoulders. COMPARISON: None. IMPRESSION: 1. No acute fracture or dislocation. Congruent acromioclavicular joint. Finalized by Marc Nicholas MD on 05/28/2023 4:33 PM Normal [facility] XR Shoulder - left 2 Viewson 05-28-2023 [...] Marc Nicholas MD on 05/28/2023 4:35 PM [facility] Radiology Study observation (narrative) [facility] XR Shoulder - right 2 Viewso n [...] Marc Nicholas MD on 05/28/2023 4:33 PM [facility] Radiology Study observation (narrative) [facility] XR Shoulder - right 2 ViewsO rdered By: Marc Nicholas on 05-28-2023 [facility] Work Phone: XR hip BI w [id number] 05-28-19 XR hip BI w PEL1V [facility] Main [employer] [address] [place] [address] XRay Report Signed Patient: Miguel Whitten MR#: [id number] : 1985 Acct:[id number] Age/Sex: 37 / M ADM Date: 05/28/23 Loc: [facility] Room: Type: [facility] Attending Dr: Fredo Parker DO Copies to: [...] Chang Vasquez M.D.05/28/2023 4:57 PM Dictation Location: [place] [address] Transcribed By: [facility] 05/28/231656 Dictated By: Chang Vasquez DO 05/28/231653 Signed By: 05/28/23 165 Normal [facility] XR hip BI w PEL1V [facility] [email or web address] Other XR hip BI w PEL1V [facility] [email or web address] Other XR hip BI w PEL1V [address] [facility] [employer] Other XR hip BI [place] [address] [facility] [employer] Other XR hip BI w PEL1V XRay Report Disconnect Other XR hip BI w PEL1V Signed [facility] [employer] Other XR hip BI w PEL1V Patient: Miguel Whitten MR#: [id number] Disconnect Other XR hip BI w PEL1V : 1985 Acct:[id number] Disconnect Other XR hip BI w PEL1V Age/Sex: 37 / M ADM Date: 05/28/23 Disconnect Other XR hip BI w PEL1V Loc: [facility] Room: Type : [facility] Disconnect Other XR hip BI w PEL1V Attending Dr: Fredo Parker DO Disconnect Other XR hip BI w PEL1V Copies to: Fredo Parker DO Disconnect Other XR hip BI w PEL1V Ordering Provider: Fredo Parker DO Disconnect Other XR hip BI w PEL1V Date of Service: 05/28/23 Disconnect Other XR hip BI w PEL1V XR/XR hip BI w PEL1V: AVN (avascular necrosis of bone) Disconnect Other XR hip BI w PEL1V 2 views both hips with single view pelvis plain film Disconnect Other XR hip BI w PEL1V COMPARISON: 03/30/2023 Disconnect Other XR hip BI w PEL1V HISTORY: Bilateral hip pain for months Disconnect Other XR hip BI w PEL1V ACUTE FINDINGS: Continued subarticular sclerotic changes of the right femoral head consistent with Disconnect Other XR hip BI w PEL1V avascular necrosis. Subtle sclerosis also identified in the left femoral head suggesting small bowel Disconnect Other XR hip BI w PEL1V portion of the avascular necrosis. No visible subchondral collapse. Stable bony alignment. Disconnect Other XR hip BI w PEL1V DEGENERATIVE CHANGE: Adequate joint spaces. 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 Disconnect Other XR hip BI w PEL1V Impression dictated by: Chang Vasquez M.D.05/28/2023 4:57 PM Disconnect Other XR hip BI w PEL1V Dictation Location: [place] [address] Disconnect Other XR hip BI w PEL1V Transcribed By: PWS 05/28/23 [facility] Disconnect Other XR hip BI w PEL1V Dictated By: Chang Vasquez DO 05/28/23 [facility] Disconnect Other XR hip BI w PEL1V Signed By: [facility] [employer] Other XR hip BI w PEL1V 05/28/[address] [place] [address] [email or web address] Other A1C HEMOGLOBINon 04-14-2023 HbA1c (Bld) [Mass fraction] 5.3 % Disconnect Other HbA1c (Bld) [Mass fraction]o n 04-14-2023 A1C HEMOGLOBIN [employer] Other XR hip BI w [id number] 03-30-20 XR hip BI w PEL1V [facility] Main [address] [address] XRay Report Signed Patient: Miguel Whitten MR#: [id number] : 1985 Acct:[id number] Age/Sex: 37 / M ADM Date: 03/30/23 Loc: [facility] Room: Type[facility] Attending Dr: Fredo Parker DO Copies to: [...] IDENTIFIED. Impression dictated by: Jonathan Liang Jr., D.O.03/30/2023 4:03 PM Dictation Location: [place] [address] Transcribed By: [facility] 03/30/23 1603 Dictated By: Jonathan Liang Jr, DO 03/30/23 1601 Signed By: 03/30/23 1603 Normal [facility] MR hip LT wo conon 3 MR hip LT wo con [address] [address] MRI Report Signed Patient: Miguel Whitten MR#: [id number] : 1985 Acct:[id number] Age/Sex: 37 / M ADM Date: 03/06/23 Loc: MR Room: Type: [facility] Attending Dr: Elmer Gonzalez II, MD Copies [...] Chang Vasquez M.D.03/06/2023 9:19 PM Dictation Location: [place] [address] Transcribed By: [facility] 03/06/232118 Dictated By: Chang Vasquez DO 03/06/232111 Signed By: 03/06/232118 Janneth [facility] MR hip RT wo conon MR hip RT wo con [facility] [place] [address] MRI Report Signed Patient: Miguel Whitten MR#: [id number] : 1985 Acct:[id number] Age/Sex: 37 / M ADM Date: 03/06/23 Loc: MR Room: Type: [facility] Attending Dr: Elmer Gonzalez II, MD Copies [...] Chang Vasquez M.D.03/06/2023 9:12 PM Dictation Location: [place] [address] Transcribed By: [facility] 03/06/232111 Dictated By: Chang Vasquez DO 03/06/232106 Signed By: 03/06/232111 Normal [facility] XR hip BI w [id number] 01-29-20 XR hip BI w PEL1V [facility] [employer] Other XR hip BI w PEL1V [facility] Main [employer] [address] [facility] [employer] Other XR hip BI w PEL1V [address] [place] [address] [employer] Other XR hip BI w PEL1V [address] [employer] Other XR hip BI w PEL1V XRay Report [facility] [employer] Other XR hip BI w PEL1V Signed [facility] [employer] Other XR hip BI w PEL1V Patient: Miguel Whitten MR#: [id number] [facility] [employer] Other XR hip BI w PEL1V : 1985 Acct:[id number] Disconnect Other XR hip BI w PEL1V Age/Sex: 37 / M ADM Date: 01/28/23 Disconnect Other XR hip BI w PEL1V Loc: [facility] Room: Type : [facility] Disconnect Other XR hip BI w PEL1V Attending Dr: Elmer Gonzalez II, MD Disconnect Other XR hip BI w PEL1V Copies to: Elmer Gonzalez MD Disconnect Other XR hip BI w PEL1V Ordering Provider: Elmer Gonzalez MD Disconnect Other XR hip BI w PEL1V Date of Service: 01/28/23 Disconnect Other XR hip BI w PEL1V XR/XR hip BI w PEL1V: Pain in right hip;Pain in left hip Disconnect Other XR hip BI w PEL1V XR hip BI w PEL1V 01/28/2023 11:53 AM Disconnect Other XR hip BI w PEL1V SIGNS AND SYMPTOMS: Bilateral hip and groin pain right greater than left Disconnect Other XR hip BI w PEL1V PROTOCOL: Frontal radiograph the pelvis with frontal and crosstable lateral views of the bilateral Disconnect Other XR hip BI w PEL1V hips [employer] Other XR hip BI w PEL1V COMPARISON: 05/26/2022 Disconnect Other XR hip BI w PEL1V FINDINGS: [employer] Other XR hip BI w PEL1V The joint spaces are preserved. There is no fracture or dislocation. Vascular calcifications are Disconnect Other XR hip BI w PEL1V present in the pelvis. The bony ring of the pelvis is intact. Disconnect Other XR hip BI w PEL1V XR/XR hip BI w PEL1V Disconnect Other XR hip BI w PEL1V IMPRESSION: Disconnect Other XR hip BI w PEL1V No fracture, dislocation, or significant degenerative change. Disconnect Other XR hip BI w PEL1V Impression dictated by: Les Carmona M.D.01/28/2023 1:46 PM Disconnect Other XR hip BI w PEL1V Dictation Location: [place] [address] Disconnect Other XR hip BI w PEL1V Transcribed By: PWS 01/28/23 134 Disconnect Other XR hip BI w PEL1V Dictated By: Les Carmona II, MD 01/28/23 [facility] Disconnect Other XR hip BI w PEL1V Signed By: [employer] Other XR hip BI w PEL1V 01/28/[address] [place] [address] [employer] Other Thyrotropin [Units/volume] i n Serum or PlasmaOrdered By: Nathan Ray on 12-17-2022 TSH Qn 3.11 m[IU]/L 0.45-5.33 [facility] Thyroxine (T4) free [Mass/vo lume] in Serum or PlasmaOrdered By: Nathan Ray on 12-17-2022 Free T4 [Mass/Vol] 0.89 ng/dL 0.61-1.12 [facility] Alanine aminotransferase [En zymatic activity/volume] in Serum or PlasmaOrdered By: Nathan Ray on 11-14-2022 ALT [Catalytic activity/Vol] 27 U/L 7-52 [facility] Albumin [Mass/volume] in Ser um or Plasma by Bromocresol green (BCG) dye binding methoOrdered By: Nathan Ray on 11-14-2022 Albumin BCG dye [Mass/Vol] 4.6 g/dL 3.5-5.7 [facility] Alkaline phosphatase [Enzyma tic activity/volume] in Serum or PlasmaOrdered By: Nathan Ray on 11-14-2022 ALP [Catalytic activity/Vol] 52 U/L 34-104 [facility] Aspartate aminotransferase [ Enzymatic activity/volume] in Serum or PlasmaOrdered By: Nathan Ray on 11-14-2022 AST [Catalytic activity/Vol] 20 U/L 13-39 [facility] Basophils Auto (Bld) [#/Vol] Ordered By: Nathan Ray on 11-14-2022 Basophils (Bld) [#/Vol] 0.0 10*3/uL 0.0-0.2 [facility] Basophils/100 WBC Auto (Bld) Ordered By: Nathan Ray on 11-14-2022 Basophils/100 WBC (Bld) 0.4 % . [facility] Bilirubin.total [Mass/volume ] in Serum or PlasmaOrdered By: Nathan Ray on 11-14-2022 Bilirubin [Mass/Vol] 0.7 mg/dL 0.3-1.0 [facility] Calcium [Mass/volume] in Ser um or PlasmaOrdered By: Nathan Ray on 11-14-2022 Calcium [Mass/Vol] 9.1 mg/dL 8.6-10.3 [facility] Carbon dioxide, total [Moles /volume] in Serum or PlasmaOrdered By: Nathan Ray on 11-14-2022 CO2 [Moles/Vol] 26.4 mmol/L 21.0-31.0 [facility] Chloride [Moles/volume] in S miriam or PlasmaOrdered By: Nathan Ray on 11-14-2022 Chloride [Moles/Vol] 103 mmol/L 98-107 [facility] Cholesterol [Mass/volume] in Serum or PlasmaOrdered By: Nathan Ray on 11-14-2022 Cholesterol [Mass/Vol] 200 mg/dL 140-200 [facility] Comment on above: Chol less than 200 m g/dl low riskChol 201-239 mg/dl borderline riskChol 240 mg/dl and greater high risk Cholesterol in LDL Calc [Mas s/Vol]Ordered By: Nathan Ray on 11-14-2022 Cholesterol in LDL [Mass/Vol] 138 mg/dL 0-100 [facility] Comment on above: LDL ATP III CLASSIFI CATIONLDL less than 100 mg/dL OptimalLDL 100-129 mg/dL Near or above optimalLDL 130-159 mg/dL Borderline highLDL 160-189 mg/dL HighLDL greater than 189 mg/dL Very high Cholesterol in VLDL Calc [Ma ss/Vol]Ordered By: Nathan Ray on 11-14-2022 Cholesterol in VLDL [Mass/Vol] 17 mg/dL [facility] Creatinine [Mass/volume] in Serum or PlasmaOrdered By: Nathan Ray on 11-14-2022 Creatinine [Mass/Vol] 1.21 mg/dL 0.70-1.30 [facility] Eosinophils Auto (Bld) [#/Vo l]Ordered By: Nathan Ray on 11-14-2022 Eosinophils (Bld) [#/Vol] 0.1 10*3/uL 0.0-0.45 [facility] Eosinophils/100 WBC Auto (Bl d)Ordered By: Nathan Ray on 11-14-2022 Eosinophils/100 WBC (Bld) 1.7 % . [facility] Erythrocyte distribution wid th Auto (RBC) [Ratio]Ordered By: Nathan Ray on 11-14-2022 Erythrocyte distribution width (RBC) [Ratio] 14.7 % 12.0-14.8 [facility] Ferritin [Mass/volume] in Se rum or PlasmaOrdered By: Nathan Ray on 11-14-2022 Ferritin [Mass/Vol] 129.4 ng/mL 23.9-336.2 [facility] Free testosterone measuremen t by LC-MS/MSOrdered By: Nathan Ray on 11-14-2022 Testosterone Free [Mass/Vol] 9.0 pg/mL 8.7-25.1 [facility] Comment on above: Performed at: [address] [id number] Director: Norbert De La Rosa PhD, Phone: [phone] at: [facility] [employer] [address] [id number] Director: Andrew Stapleton MD, Phone: [phone] Globulin Calc (S) [Mass/Vol] Ordered By: Nathan Ray on 11-14-2022 Globulin (S) [Mass/Vol] 2.5 g/dL [facility] Glucose [Mass/volume] in Ser um or PlasmaOrdered By: Nathan Ray on 11-14-2022 Glucose [Mass/Vol] 94 mg/dL 70-100 [facility] Comment on above: ADA recommended refe [...] from glycated hemoglobin (Bld) [Mass/Vol] 120 mg/dL [facility] Hematocrit Auto (Bld) [Volum e fraction]Ordered By: Nathan Ray on 11-14-2022 Hematocrit (Bld) [Volume fraction] 42.7 % 38.8-50.0 [facility] Hemoglobin A1c percentageOrd ered By: Nathan Ray on 11-14-2022 HbA1c (Bld) [Mass fraction] 5.8 % 4.3-5.6 [facility] Comment on above: Increased risk for d iabetes: 5.7 - 6.4diabetes: >6.4glycemic control for adults with diabetes: <7.0 Hemoglobin [Mass/volume] in BloodOrdered By: Nathan Ray on 11-14-2022 Hemoglobin (Bld) [Mass/Vol] 14.4 g/dL 13.0-17.0 [facility] Iron [Mass/volume] in Serum or PlasmaOrdered By: Nathan Ray on 11-14-2022 Iron [Mass/Vol] 87 ug/dL 50-212 [facility] Iron binding capacity [Mass/ volume] in Serum or PlasmaOrdered By: Nathan Ray on 11-14-2022 Iron binding capacity [Mass/Vol] 417 ug/dL 255-450 [facility] Iron saturation [Mass Fracti on] in Serum or PlasmaOrdered By: Nathan Ray on 11-14-2022 Iron saturation [Mass fraction] 20.9 % 20-50 [facility] Laboratory - Chemistry and C hemistry - challengeOrdered By: Nathan Ray on 11-14-2022 Testosterone [Mass/Vol] 308 ng/dL 264-916 [facility] Comment on above: Adult male reference interval is based on a population ofhealthy nonobese males (BMI <30) between 19 and 39 yearsold. rajeev Benjamin.al. JCEM 2017,102;4835-4072. PMID:[id number]. Leukocytes [#/volume] correc abilio for nucleated erythrocytes in Blood by Automated counOrdered By: Nathan Ray on 11-14-2022 WBC corrected for nucl RBC Auto (Bld) [#/Vol] 4.5 10*3/uL 4.1-10.5 [facility] Lymphocytes Auto (Bld) [#/Vo l]Ordered By: Nathan Ray on 11-14-2022 Lymphocytes (Bld) [#/Vol] 1.1 10*3/uL 1.00-4.8 [facility] Lymphocytes/100 WBC Auto (Bl d)Ordered By: Nathan Ray on 11-14-2022 Lymphocytes/100 WBC (Bld) 23.6 % . [facility] MCH Auto (RBC) [Entitic mass ]Ordered By: Nathan Ray on 11-14-2022 MCH (RBC) [Entitic mass] 29.8 pg 27.5-35.2 [facility] MCHC Auto (RBC) [Mass/Vol]Or dered By: Nathan Ray on 11-14-2022 MCHC (RBC) [Mass/Vol] 33.8 g/dL 32.5-35.6 [facility] MCV Auto (RBC) [Entitic vol] Ordered By: Nathan Ray on 11-14-2022 MCV (RBC) [Entitic vol] 88.2 fL 83.5-101 [facility] Monocytes Auto (Bld) [#/Vol] Ordered By: Nathan Ray on 11-14-2022 Monocytes (Bld) [#/Vol] 0.4 10*3/uL 0.0-0.8 [facility] Monocytes/100 WBC Auto (Bld) Ordered By: Nathan Ray on 11-14-2022 Monocytes/100 WBC (Bld) 8.0 % . [facility] Neutrophils Auto (Bld) [#/Vo l]Ordered By: Nathan Ray on 11-14-2022 Neutrophils (Bld) [#/Vol] 3.0 10*3/uL 1.8-7.7 [facility] Neutrophils/100 WBC Auto (Bl d)Ordered By: Nathan Ray on 11-14-2022 Neutrophils/100 WBC (Bld) 66.3 % . [facility] No Panel InformationOrdered By: Nathan Ray on 11-14-2022 Estimated GFR (CKD-EPI) > 60.0 mL/Min [facility] Creatinine Clearance (Chem N/A [facility] Nucleated erythrocytes [Pres ence] in Blood by Automated countOrdered By: Nathan Ray on 11-14-2022 Nucleated RBC Auto Ql (Bld) 0.0 /100{WBC} 0-0.5 [facility] Platelet mean volume Auto (B ld) [Entitic vol]Ordered By: Nathan Ray on 11-14-2022 Platelet mean volume (Bld) [Entitic vol] 8.8 fL 6.6-10.1 [facility] Platelets Auto (Bld) [#/Vol] Ordered By: Nathan Ray on 11-14-2022 Platelets (Bld) [#/Vol] 182 10*3/uL 150-450 [facility] Potassium [Moles/volume] in Serum or PlasmaOrdered By: Nathan Ray on 11-14-2022 Potassium [Moles/Vol] 4.3 mmol/L 3.5-5.1 [facility] Protein [Mass/volume] in Ser um or PlasmaOrdered By: Nathan Ray on 11-14-2022 Protein [Mass/Vol] 7.1 g/dL 6.4-8.9 [facility] RBC Auto (Bld) [#/Vol]Ordere d By: Nathan Ray on 11-14-2022 RBC (Bld) [#/Vol] 4.84 10*6/uL 3.90-5.60 [facility] Serum or plasma albumin/glob ulin mass ratioOrdered By: Nathan Ray on 11-14-2022 Albumin/Globulin [Mass ratio] 1.8 {ratio} [facility] Serum or plasma anion gap de terminationOrdered By: Nathan Ray on 11-14-2022 Anion gap [Moles/Vol] 9.9 mmol/L 6.0-15.0 [facility] Serum or plasma high density lipoprotein (HDL) cholesterol measurementOrdered By: Nathan Ray on 11-14-2022 Cholesterol in HDL [Mass/Vol] 44 mg/dL 23-92 [facility] Comment on above: HDL CHOL ATP-III CLA SSIFICATION Cardiovascular RiskHDL > or equal to 60 mg/dL LOWHDL < 40 mg/dL HIGH Serum or plasma total choles terol/high density lipoprotein (HDL) cholesterol mass ratOrdered By: Nathan Ray on 11-14-2022 Cholesterol.total/Marge sterol in HDL [Mass ratio] 4.5 {ratio} <5.0 [facility] Sodium [Moles/volume] in Ser um or PlasmaOrdered By: Nathan Ray on 11-14-2022 Sodium [Moles/Vol] 135 mmol/L 136-145 [facility] Thyrotropin [Units/volume] i n Serum or PlasmaOrdered By: aNthan Ray on 11-14-2022 TSH Qn 26.60 m[IU]/L 0.45-5.33 [facility] Transferrin [Mass/volume] in Serum or PlasmaOrdered By: Nathan Ray on 11-14-2022 Transferrin [Mass/Vol] 298 mg/dL 203-362 [facility] Triglyceride [Mass/volume] i n Serum or PlasmaOrdered By: Nathan Ray on 11-14-2022 Triglyceride [Mass/Vol] 88 mg/dL 0-149 [facility] Comment on above: TRIG ATP III CLASSIF ICATIONTRIG less than 150 mg/dL NormalTRIG 150-199 mg/dL Borderline highTRIG 200-500 mg/dL High TRIG greater than 500 mg/dL Very highStandard traceable to the Center for Disease Conrtrol and Prevention (CDC) test method. Urate [Mass/volume] in Serum or PlasmaOrdered By: Nathan Ray on 11-14-2022 Urate [Mass/Vol] 6.3 mg/dL 4.4-7.6 [facility] Urea nitrogen [Mass/volume] in Serum or PlasmaOrdered By: Nathan Ray on 11-14-2022 Urea nitrogen [Mass/Vol] 16 mg/dL 7-25 [facility] WBC Auto (Bld) [#/Vol]Ordere d By: Nathan Flor on 11-14-2022 WBC (Bld) [#/Vol] 4.5 10*3/uL 4.1-10.5 [facility] MRI Lumbar Spine w/oon 09-03 MRI [...] by Chandler Madrigal on 09/04/2022 1002 Normal [facility] Covid-19 PCR (CVDTB)on 04-03 SARS-CoV-2 (COVID-19) RNA DONAVON+probe Ql (Unsp spec) Not detected Normal NOT DETECTED [facility] Comment on above: Result Comment: This test is not yet approved or cleared by the [place] FDA. When there are no FDA-approved or cleared tests available, and other criteria are met, FDA can make tests available under an emergency access mechanism called an Emergency Use Authorization (EUA). The EUA for this test is supported by the Filling Layer Up of Health and Human Service's (HHS's) declaration [...] consistent with SARS-CoV-2. Performed By: #### C [facility] #### [facility] [address] [place] [address] Dr. Lee Cho Basophils Auto (Bld) [#/Vol] Ordered By: Nathan Ray on 04-04-2022 Basophils (Bld) [#/Vol] 0.0 10*3/uL 0.0-0.2 [facility] Basophils/100 WBC Auto (Bld) Ordered By: Nathan Ray on 04-04-2022 Basophils/100 WBC (Bld) 0.2 % . [facility] Eosinophils Auto (Bld) [#/Vo l]Ordered By: Nathan Ray on 04-04-2022 Eosinophils (Bld) [#/Vol] 0.0 10*3/uL 0.0-0.45 [facility] Eosinophils/100 WBC Auto (Bl d)Ordered By: Nathan Ray on 04-04-2022 Eosinophils/100 WBC (Bld) 0.1 % . [facility] Erythrocyte distribution wid th Auto (RBC) [Ratio]Ordered By: Nathan Ray on 04-04-2022 Erythrocyte distribution width (RBC) [Ratio] 14.9 % 12.0-14.8 [facility] Hematocrit Auto (Bld) [Volum e fraction]Ordered By: Nathan Ray on 04-04-2022 Hematocrit (Bld) [Volume fraction] 46.2 % 38.8-50.0 [facility] Hemoglobin [Mass/volume] in BloodOrdered By: Nathan Ray on 04-04-2022 Hemoglobin (Bld) [Mass/Vol] 15.0 g/dL 13.0-17.0 [facility] Leukocytes [#/volume] correc abilio for nucleated erythrocytes in Blood by Automated counOrdered By: Nathan Ray on 04-04-2022 WBC corrected for nucl RBC Auto (Bld) [#/Vol] 9.5 10*3/uL 4.1-10.5 [facility] Lymphocytes Auto (Bld) [#/Vo l]Ordered By: Nathan Ray on 04-04-2022 Lymphocytes (Bld) [#/Vol] 1.6 10*3/uL 1.00-4.8 [facility] Lymphocytes/100 WBC Auto (Bl d)Ordered By: Nathan Ray on 04-04-2022 Lymphocytes/100 WBC (Bld) 16.4 % . [facility] MCH Auto (RBC) [Entitic mass ]Ordered By: Nathan Ray on 04-04-2022 MCH (RBC) [Entitic mass] 28.3 pg 27.5-35.2 [facility] MCHC Auto (RBC) [Mass/Vol]Or dered By: Nathan Ray on 04-04-2022 MCHC (RBC) [Mass/Vol] 32.5 g/dL 32.5-35.6 [facility] MCV Auto (RBC) [Entitic vol] Ordered By: Nathan Ray on 04-04-2022 MCV (RBC) [Entitic vol] 86.9 fL 83.5-101 [facility] Monocytes Auto (Bld) [#/Vol] Ordered By: Nathan Ray on 04-04-2022 Monocytes (Bld) [#/Vol] 0.6 10*3/uL 0.0-0.8 [facility] Monocytes/100 WBC Auto (Bld) Ordered By: Nathan Ray on 04-04-2022 Monocytes/100 WBC (Bld) 6.3 % . [facility] Neutrophils Auto (Bld) [#/Vo l]Ordered By: Nathan Ray on 04-04-2022 Neutrophils (Bld) [#/Vol] 7.3 10*3/uL 1.8-7.7 [facility] Neutrophils/100 WBC Auto (Bl d)Ordered By: Nathan Ray on 04-04-2022 Neutrophils/100 WBC (Bld) 77.0 % . [facility] Nucleated erythrocytes [Pres ence] in Blood by Automated countOrdered By: Nathan Ray on 04-04-2022 Nucleated RBC Auto Ql (Bld) 0.1 /100{WBC} 0-0.5 [facility] Platelet mean volume Auto (B ld) [Entitic vol]Ordered By: Nathan Ray on 04-04-2022 Platelet mean volume (Bld) [Entitic vol] 8.7 fL 6.6-10.1 [facility] Platelets Auto (Bld) [#/Vol] Ordered By: Nathan Ray on 04-04-2022 Platelets (Bld) [#/Vol] 254 10*3/uL 150-450 [facility] RBC Auto (Bld) [#/Vol]Ordere d By: Nathan Ray on 04-04-2022 RBC (Bld) [#/Vol] 5.32 10*6/uL 3.90-5.60 [facility] WBC Auto (Bld) [#/Vol]Ordere d By: Nathan Ray on 04-04-2022 WBC (Bld) [#/Vol] 9.5 10*3/uL 4.1-10.5 [facility] AMYLASEon 03-21-2022 Amylase [Catalytic activity/Vol] 29 U/L Normal 25-115 [facility] Comment on above: Performed By: #### C MP, TAWANDA, HSTROPN, LIPA #### [facility] [address] [address] [address] Lee Cho CBC AUTO DIFFon 03-21-2022 BASO # 0.0 103/ul Normal 0.0-0.1 [facility] Comment on above: Performed By: #### D DIM #### [facility] [address] [address] [address] Lee Cho Basophils/100 WBC (Bld) 0.2 % Normal 0.2-2.0 [facility] Comment on above: Performed By: #### D DIM #### [facility] [address] [place] [address] Dr. Lee Cho EO # 0.1 103/ul Normal 0.0-0.7 [facility] Comment on above: Performed By: #### D DIM #### [facility] [address] [place] [address] Dr. Lee Cho Eosinophils/100 WBC (Bld) 1.5 % Normal 0.9-7.0 [facility] Comment on above: Performed By: #### D DIM #### [facility] [address] [place] [address] Dr. Lee Cho Erythrocyte distribution width (RBC) [Ratio] 13.6 % Normal 11.0-15.0 [facility] Comment on above: Performed By: #### D DIM #### [facility] [address] [place] [address] Dr. Lee Cho Hematocrit (Bld) [Volume fraction] 43.4 % Normal 42.0-54.0 [facility] Comment on above: Performed By: #### D DIM #### [facility] [address] [place] [address] Dr. Lee Cho Hemoglobin (Bld) [Mass/Vol] 14.2 g/dL Normal 14.0-18.0 [facility] Comment on above: Performed By: #### D DIM #### [facility] [address] [place] [address] Dr. Lee Cho IG # 0.02 10e3/ul Normal 0.00-0.03 [facility] Comment on above: Performed By: #### D DIM #### [facility] [address] [place] [address] Dr. Lee Cho IG % 0.3 % Normal 0.0-0.5 [facility] Comment on above: Performed By: #### D DIM #### [facility] [address] [place] [address] Dr. Lee Cho LYMPH # 1.5 103/ul Normal 1.2-3.8 [facility] Comment on above: Performed By: #### D DIM #### [facility] [address] [place] [address] Dr. Lee Cho Lymphocytes/100 WBC (Bld) 25.3 % Normal 20.5-60.0 [facility] Comment on above: Performed By: #### D DIM #### [facility] [address] [place] [address] Dr. Lee Cho MANUAL DIFF REQ NO Normal [facility] Comment on above: Performed By: #### D DIM #### [facility] [address] [place] [address] Dr. Lee Cho MCH (RBC) [Entitic mass] 28.9 pg Normal 25.9-34.0 [facility] Comment on above: Performed By: #### D DIM #### [facility] [address] [place] [address] Dr. Lee Cho MCHC (RBC) [Mass/Vol] 32.7 g/dL Normal 29.9-35.2 [facility] Comment on above: Performed By: #### D DIM #### [facility] [address] [place] [address] Dr. Lee Cho MCV (RBC) [Entitic vol] 88.2 fL Normal 80.0-94.0 [facility] Comment on above: Performed By: #### D DIM #### [facility] [address] [place] [address] Dr. Lee Cho MONO # 0.3 103/ul Normal 0.3-0.8 [facility] Comment on above: Performed By: #### D DIM #### [facility] [address] [place] [address] Dr. Lee Cho Monocytes/100 WBC (Bld) 5.9 % Normal 1.7-12.0 [facility] Comment on above: Performed By: #### D DIM #### [facility] [address] [place] [address] Dr. Lee Cho NEUT # 3.9 103/ul Normal 1.4-6.5 [facility] Comment on above: Performed By: #### D DIM #### [facility] [address] [place] [address] Dr. Lee Cho Neutrophils/100 WBC (Bld) 66.8 % Normal 43.0-75.0 [facility] Comment on above: Performed By: #### D DIM #### [facility] [address] [place] [address] Dr. Lee Cho Platelet mean volume (Bld) [Entitic vol] 10.3 fL Normal 9.5-13.5 [facility] Comment on above: Performed By: #### D DIM #### [facility] [address] [place] [address] Dr. Lee Cho PLT 191 103/ul Normal 150-450 [facility] Comment on above: Performed By: #### D DIM #### [facility] [address] [place] [address] Dr. Lee Cho RBC 4.92 106/ul Normal 4.70-6.10 [facility] Comment on above: Performed By: #### D DIM #### [facility] [address] [place] [address] Dr. Lee Cho WBC 5.8 103/ul Normal 4.0-11.0 [facility] Comment on above: Performed By: #### D DIM #### [facility] [address] [place] [address] Dr. Lee Cho D-DIMERon 03-21-2022 D-DIMER 0.27 mg/L FEU Normal <=0.59 The [facility] Comment on above: Performed By: #### D DIM #### [facility] [address] [place] [address] Dr. Lee Cho D-DIMER COMMENTS SEE BELOW Normal [facility] Comment on above: Result Comment: Incr eases [...] hospitalization. Performed By: #### D DIM #### [facility] [address] [place] [address] Dr. Lee Cho ER URINE PROFILEon 2 Bilirubin Ql (U) Negative Normal NEGATIVE [facility] Comment on above: Performed By: #### C BC #### [facility] [address] [place] [address] Dr. Lee Cho Clarity (U) CLEAR Normal CLEAR [facility] Comment on above: Performed By: #### C BC #### [facility] [address] [place] [address] Dr. Lee Cho Color (U) YELLOW Normal YELLOW [facility] Comment on above: Performed By: #### C BC #### [facility] [address] [place] [address] Dr. Lee MESA A micrscopic examination will be performed if indicated. Normal [facility] Comment on above: Performed By: #### C BC #### [facility] [address] [place] [address] Dr. Lee Cho Glucose Ql (U) Negative Normal NEGATIVE [facility] Comment on above: Performed By: #### C BC #### [facility] [address] [place] [address] Dr. Lee Cho Hemoglobin Ql (U) Negative Normal NEGATIVE [facility] Comment on above: Performed By: #### C BC #### [facility] [address] [place] [address] Dr. Lee Cho Ketones Ql (U) Negative Normal NEGATIVE [facility] Comment on above: Performed By: #### C BC #### [facility] [address] [place] [address] Dr. Lee Cho LEUKOCYTES Negative Normal NEGATIVE [facility] Comment on above: Performed By: #### C BC #### [facility] [address] [place] [address] Dr. Lee Cho Nitrite Ql (U) Negative Normal NEGATIVE [facility] Comment on above: Performed By: #### C BC #### [facility] [address] [place] [address] Dr. Lee Cho pH (U) 6.0 [pH] Normal 5-9 [facility] Comment on above: Performed By: #### C BC #### [facility] [address] [place] [address] Dr. Lee Cho SPEC GRAVITY >=1.030 Abnormal 1.005-<=1.0 25 [facility] Comment on above: Performed By: #### C BC #### [facility] [address] [place] [address] Dr. Lee Cho UA PROTEIN Negative Normal NEGATIVE/ TRACE [facility] Comment on above: Performed By: #### C BC #### [facility] [address] [place] [address] Dr. Lee Cho UR MICRO IND NOT INDICATED Normal [facility] Comment on above: Performed By: #### C BC #### [facility] [address] [place] [address] Dr. Lee Cho Urobilinogen Qn (U) 0.2 {Carlos'U}/dL Normal 0.2 - 1. 0 [facility] Comment on above: Performed By: #### C BC #### [facility] [address] [place] [address] Dr. Lee Cho LIPASEon 03-21-2022 Lipase [Catalytic activity/Vol] 58.0 U/L Critically low 73.0-393.0 [facility] Comment on above: Performed By: #### C MP, TAWANDA, HSTROPN, LIPA #### [facility] [address] [place] [address] Dr. Lee Cho PROF 14(COMP METB)on 022 Albumin [Mass/Vol] 4.2 g/dL Normal 3.4-5.0 [facility] Comment on above: Performed By: #### C MP, TAWANDA, HSTROPN, LIPA #### [facility] [address] [place] [address] Dr. Lee Cho Albumin/Globulin [Mass ratio] 1.2 {ratio} Normal [facility] Comment on above: Performed By: #### C MP, TAWANDA, HSTROPN, LIPA #### [facility] [address] [place] [address] Dr. Lee Cho ALP [Catalytic activity/Vol] 64 U/L Normal 46-116 [facility] Comment on above: Performed By: #### C MP, TAWANDA, HSTROPN, LIPA #### [facility] [address] [place] [address] Dr. Lee Cho ALT [Catalytic activity/Vol] 33 U/L Normal 16-63 [facility] Comment on above: Performed By: #### C MP, TAWANDA, HSTROPN, LIPA #### [facility] [address] [place] [address] Dr. Lee Cho Anion gap [Moles/Vol] 9.3 mmol/L Normal [facility] Comment on above: Performed By: #### C MP, TAWANDA, HSTROPN, LIPA #### [facility] [address] [place] [address] Dr. Lee Cho AST [Catalytic activity/Vol] 15 U/L Normal 15-37 [facility] Comment on above: Performed By: #### C MP, TAWANDA, HSTROPN, LIPA #### [facility] [address] [place] [address] Dr. Lee Cho Bilirubin [Mass/Vol] 0.5 mg/dL Normal 0.2-1.0 [facility] Comment on above: Performed By: #### C MP, TAWANDA, HSTROPN, LIPA #### [facility] [address] [place] [address] Dr. Lee Cho Calcium [Mass/Vol] 8.8 mg/dL Normal 8.5-10.1 [facility] Comment on above: Performed By: #### C MP, TAWANDA, HSTROPN, LIPA #### [facility] [address] [address] [address] Lee Cho Chloride [Moles/Vol] 104 mmol/L Normal 98-107 [facility] Comment on above: Performed By: #### C MP, TAWANDA, HSTROPN, LIPA #### [facility] [address] [address] [address] Lee Cho CO2 [Moles/Vol] 29.4 mmol/L Normal 21.0-32.0 [facility] Comment on above: Performed By: #### C MP, TAWANDA, HSTROPN, LIPA #### [facility] [address] [place] [address] Dr. Lee Cho Creatinine [Mass/Vol] 1.22 mg/dL Normal 0.70-1.30 [facility] Comment on above: Performed By: #### C MP, TAWANDA, HSTROPN, LIPA #### [facility] [address] [place] [address] Dr. Lee Cho EGFR-AF CHADIAN >60 Normal >=60 [facility] Comment on above: Performed By: #### C MP, TAWANDA, HSTROPN, LIPA #### [facility] [address] [place] [address] Dr. Lee Cho EGFR-NON AF CHADIAN >60 Normal >=60 [facility] Comment on above: Performed By: #### C MP, TAWANDA, HSTROPN, LIPA #### [facility] [address] [address] [address] Lee Cho Globulin (S) [Mass/Vol] 3.4 g/dL Normal T [facility] Comment on above: Performed By: #### C MP, TAWANDA, HSTROPN, LIPA #### [facility] [address] [place] [address] Dr. Lee Cho Glucose [Mass/Vol] 94 mg/dL Normal 74-106 [facility] Comment on above: Performed By: #### C MP, TAWANDA, HSTROPN, LIPA #### [facility] [address] [place] [address] Dr. Lee Cho Potassium [Moles/Vol] 3.7 mmol/L Normal 3.5-5.1 [facility] Comment on above: Performed By: #### C MP, TAWANDA, HSTROPN, LIPA #### [facility] [address] [address] [address] Lee Cho Protein [Mass/Vol] 7.6 g/dL Normal 6.4-8.2 [facility] Comment on above: Performed By: #### C MP, TAWANDA, HSTROPN, LIPA #### [facility] [address] [place] [address] Dr. Lee Cho Sodium [Moles/Vol] 139 mmol/L Normal 136-145 [facility] Comment on above: Performed By: #### C MP, TAWANDA, HSTROPN, LIPA #### [facility] [address] [place] [address] Dr. Lee Cho Urea nitrogen [Mass/Vol] 16.0 mg/dL Normal 7.0-18.0 [facility] Comment on above: Performed By: #### C MP, TAWANDA, HSTROPN, LIPA #### [facility] [address] [place] [address] Dr. Lee Cho Urea nitrogen/Creatinine [Mass ratio] 13.1 mg/mg Normal [facility] Comment on above: Performed By: #### C MP, TAWANDA, HSTROPN, LIPA #### [facility] [address] [place] [address] Dr. Lee Cho TROPONIN, HIGH SENSITIVITYon 03-21-2022 HSTROP 4.4 pg/mL Normal 4.0-76.1 [facility] Comment on above: Result Comment: CUT- OFF POINTS HAVE BEEN ESTABLISHED BASED ON THE FOURTH UNIVERSAL DEFINITIONS OF MYOCARDIAL INFARCTION. THE UPPER REFERENCE LIMIT (URL) OF TROPONIN, DEFINED THE 99TH PERCENTILE OF cTnI DISTRIBUTION IN A REFERENCE POPULATION, HAS BEEN CONFIRMED THE DECISION THRESHOLD FOR PA DIAGNOSIS. Performed By: #### C BC #### [facility] [address], [place] [address] Dr. Lee Cho HSTROP 4.7 pg/mL Normal 4.0-76.1 [facility] Comment on above: Result Comment: CUT- OFF POINTS HAVE BEEN ESTABLISHED BASED ON THE FOURTH UNIVERSAL DEFINITIONS OF MYOCARDIAL INFARCTION. THE UPPER REFERENCE LIMIT (URL) OF TROPONIN, DEFINED THE 99TH PERCENTILE OF cTnI DISTRIBUTION IN A REFERENCE POPULATION, HAS BEEN CONFIRMED THE DECISION THRESHOLD FOR PA DIAGNOSIS. Performed By: #### C MP, TAWANDA, HSTROPN, LIPA #### [facility] [address], [place] [address] Dr. Lee Cho US SINGLE QUAD RT [...] by: TERRY SANZ Date: 2022-03-21 16:53 Normal [facility] XR CHEST 1 Von 03-21-2022 XR CHEST [...] GILBERT MILLER Date: 2022-03-21 16:24 Normal [facility] HEPATITIS PANEL, ACUTEon HBsAg Screen Negative Normal Negative [facility] Comment on above: Performed By: #### C BC #### [facility] [address] [place] [address] Dr. Lee Cho HCV AB >11.0 Critically high 0.0-0.9 [facility] Comment on above: Result Comment: . Performed By: #### C BC #### [facility] [address] [place] [address] Dr. Lee Cho HCV log10 Normal [facility] Comment on above: Performed By: #### C BC #### [facility] [address] [place] [address] Dr. Lee Cho Hep A Ab, IgM Negative Normal Negative The [facility] Comment on above: Performed By: #### C BC #### [facility] [address] [place] [address] Dr. Lee Cho Hep B Core Ab, IgM Negative Normal Negative The [facility] Comment on above: Performed By: #### C BC #### [facility] [address] [place] [address] Dr. Lee Cho Hep C Quantitation Not detected Normal [facility] Comment on above: Performed By: #### C BC #### [facility] [address] [place] [address] Dr. Lee Cho Interpretation Comment Normal [facility] Comment on above: Result Comment: Posi tive HCV antibody screen without the presence of HCV RNA is consistent with a resolved past infection or a false positive HCV antibody. Consider repeat testing after one month. Performed By: #### C BC #### [facility] [address] [place] [address] Dr. Lee Cho Test Information: Comment Normal [facility] Comment on above: Result Comment: The quantitative range of this assay is 15 IU/mL to 100 million IU/mL. Performed By: #### C BC #### [facility] [address] [place] [address] Dr. Lee Cho TESTOSTERONE, FREE,DIRECT, T OTALon 01-22-2022 Free Testosterone(Direct) 7.4 pg/mL Critically low 8.7-25.1 [facility] Comment on above: Result Comment: Perf ormed at: BN Performed By: #### C BC #### [facility] [address] [place] [address] Dr. Lee Cho Testosterone [Mass/Vol] 333 ng/dL Normal 264-916 [facility] Comment on above: Result Comment: Adul t male reference interval is based on a population of healthy nonobese males (BMI <30) between 19 and 39 years old. Cassidy et.al. JCEM 2017,102;5528-9202. PMID: [id number]. Performed at: CB Performed By: #### C BC #### [facility] [address] [place] [address] Dr. Lee Cho CBC AUTO DIFFon 01-17-2022 BASO # 0.0 103/ul Normal 0.0-0.1 [facility] Comment on above: Performed By: #### C BC #### [facility] [address] [place] [address] Dr. Lee Cho Basophils/100 WBC (Bld) 0.2 % Normal 0.2-2.0 [facility] Comment on above: Performed By: #### C BC #### [facility] [address] [place] [address] Dr. Lee Cho EO # 0.1 103/ul Normal 0.0-0.7 [facility] Comment on above: Performed By: #### C BC #### [facility] [address] [place] [address] Dr. Lee Cho Eosinophils/100 WBC (Bld) 1.3 % Normal 0.9-7.0 [facility] Comment on above: Performed By: #### C BC #### [facility] [address] [place] [address] Dr. Lee Cho Erythrocyte distribution width (RBC) [Ratio] 13.2 % Normal 11.0-15.0 [facility] Comment on above: Performed By: #### C BC #### [facility] [address] [place] [address] Dr. Lee Cho Hematocrit (Bld) [Volume fraction] 41.7 % Critically low 42.0-54.0 [facility] Comment on above: Performed By: #### C BC #### [facility] [address] [place] [address] Dr. Lee Cho Hemoglobin (Bld) [Mass/Vol] 13.7 g/dL Critically low 14.0-18.0 [facility] Comment on above: Performed By: #### C BC #### [facility] [address] [place] [address] Dr. Lee Cho IG # 0.02 10e3/ul Normal 0.00-0.03 [facility] Comment on above: Performed By: #### C BC #### [facility] [address] [place] [address] Dr. Lee Cho IG % 0.4 % Normal 0.0-0.5 [facility] Comment on above: Performed By: #### C BC #### [facility] [address] [place] [address] Dr. Lee Cho LYMPH # 1.3 103/ul Normal 1.2-3.8 [facility] Comment on above: Performed By: #### C BC #### [facility] [address] [place] [address] Dr. Lee Cho Lymphocytes/100 WBC (Bld) 22.5 % Normal 20.5-60.0 [facility] Comment on above: Performed By: #### C BC #### [facility] [address] [place] [address] Dr. Lee Cho MANUAL DIFF REQ NO Normal [facility] Comment on above: Performed By: #### C BC #### [facility] [address] [place] [address] Dr. Lee Cho MCH (RBC) [Entitic mass] 28.9 pg Normal 25.9-34.0 [facility] Comment on above: Performed By: #### C BC #### [facility] [address] [place] [address] Dr. Lee Cho MCHC (RBC) [Mass/Vol] 32.9 g/dL Normal 29.9-35.2 [facility] Comment on above: Performed By: #### C BC #### [facility] [address] [place] [address] Dr. Lee Cho MCV (RBC) [Entitic vol] 88.0 fL Normal 80.0-94.0 [facility] Comment on above: Performed By: #### C BC #### [facility] [address] [place] [address] Dr. Lee Cho MONO # 0.4 103/ul Normal 0.3-0.8 [facility] Comment on above: Performed By: #### C BC #### [facility] [address] [place] [address] Dr. Lee Cho Monocytes/100 WBC (Bld) 6.5 % Normal 1.7-12.0 [facility] Comment on above: Performed By: #### C BC #### [facility] [address] [place] [address] Dr. Lee Cho NEUT # 3.8 103/ul Normal 1.4-6.5 [facility] Comment on above: Performed By: #### C BC #### [facility] [address] [place] [address] Dr. Lee Cho Neutrophils/100 WBC (Bld) 69.1 % Normal 43.0-75.0 [facility] Comment on above: Performed By: #### C BC #### [facility] [address] [place] [address] Dr. Lee Cho Platelet mean volume (Bld) [Entitic vol] 11.5 fL Normal 9.5-13.5 [facility] Comment on above: Performed By: #### C BC #### [facility] [address] [address] [address] Lee Cho PLT 115 103/ul Critically low 150-450 [facility] Comment on above: Performed By: #### C BC #### [facility] [address] [place] [address] Dr. Lee Cho RBC 4.74 106/ul Normal 4.70-6.10 [facility] Comment on above: Performed By: #### C BC #### [facility] [address] [place] [address] Dr. Lee Cho WBC 5.6 103/ul Normal 4.0-11.0 [facility] Comment on above: Performed By: #### C BC #### [facility] [address] [place] [address] Dr. Lee Cho FREE T4on 01-17-2022 Free T4 [Mass/Vol] 1.06 ng/dL Normal 0.76-1.46 [facility] Comment on above: Performed By: #### F T4 #### [facility] [address] [place] [address] Dr. Lee Cho GLYCOHEMOGLOBIN A1Con 2021 ADA RECOMMENDATION SEE BELOW Normal [facility] Comment on above: Result Comment: ADA RECOMMENDED LIMIT 4.0 - 6.0 ADA THERAPEUTIC TARGET < 7.0 ACTION SUGGESTED > 7.0 Performed By: #### C BC #### [facility] [address] [place] [address] Dr. Lee Cho Glucose [Mass/Vol] 114 mg/dL Normal [facility] Comment on above: Performed By: #### C BC #### [facility] [address] [place] [address] Dr. Lee Cho HbA1c (Bld) [Mass fraction] 5.6 % Normal 4.5-6.2 [facility] Comment on above: Performed By: #### C BC #### [facility] [address] [place] [address] Dr. Lee Cho LIPID PROFILEon 01-17-2022 CHOL-HDL RATIO NORM SEE BELOW Normal [facility] Comment on above: Result Comment: 3.3 - 4.4 LOW RISK 4.4 - 7.1 AVERAGE RISK 7.1 - 11.0 MODERATE RISK >11.0 HIGH RISK Performed By: #### D DIM #### [facility] [address], [place] [address] Dr. Lee Cho Cholesterol [Mass/Vol] 187 mg/dL Normal <=200 [facility] Comment on above: Performed By: #### D DIM #### [facility] [address], [place] [address] Dr. Lee Cho Cholesterol in HDL [Mass/Vol] 42 mg/dL Normal 40-60 [facility] Comment on above: Performed By: #### D DIM #### [facility] [address] [address] [address] Lee Cho Cholesterol in LDL [Mass/Vol] 133.4 mg/dL Normal [facility] Comment on above: Performed By: #### D DIM #### [facility] [address] [address] [address] Lee Cho Cholesterol.total/Marge sterol in HDL [Mass ratio] 4.5 {ratio} Normal [facility] Comment on above: Performed By: #### D DIM #### [facility] [address] [address] [address] Lee Cho HDL NORMAL > or = 60 mg/dl - LO W CARDIOVASCULAR RISK <40 mg/dl - HIGH CARDIOVASCULAR RISK Normal [facility] Comment on above: Performed By: #### D DIM #### [facility] [address] [address] [address] Lee Cho LDL CALC NORMAL SEE BELOW Normal [facility] Comment on above: Result Comment: <100 mg/dl OPTIMAL 100 - 129 mg/dl NEAR OR ABOVE OPTIMAL 130 - 159 mg/dl BORDERLINE HIGH 160 - 189 mg/dl HIGH >190 mg/dl VERY HIGH Performed By: #### D DIM #### [facility] [address] [address] [address] Lee Cho Triglyceride [Mass/Vol] 58 mg/dL Normal <=150 T [facility] Comment on above: Performed By: #### D DIM #### [facility] [address] [place] [address] Dr. Lee Cho VLDL CALC 11.6 mg/dL Normal [facility] Comment on above: Performed By: #### D DIM #### [facility] [address] [place] [address] Dr. Lee Cho PROF 14(COMP METB)on 022 Albumin [Mass/Vol] 4.2 g/dL Normal 3.4-5.0 [facility] Comment on above: Performed By: #### D DIM #### [facility] [address] [place] [address] Dr. Lee Cho Albumin/Globulin [Mass ratio] 1.3 {ratio} Normal [facility] Comment on above: Performed By: #### D DIM #### [facility] [address] [place] [address] Dr. Lee Cho ALP [Catalytic activity/Vol] 63 U/L Normal 46-116 [facility] Comment on above: Performed By: #### D DIM #### [facility] [address] [place] [address] Dr. Lee Cho ALT [Catalytic activity/Vol] 40 U/L Normal 16-63 [facility] Comment on above: Performed By: #### D DIM #### [facility] [address] [place] [address] Dr. Lee Cho Anion gap [Moles/Vol] 11.7 mmol/L Normal [facility] Comment on above: Performed By: #### D DIM #### [facility] [address] [place] [address] Dr. Lee Cho AST [Catalytic activity/Vol] 17 U/L Normal 15-37 [facility] Comment on above: Performed By: #### D DIM #### [facility] [address] [place] [address] Dr. Lee Cho Bilirubin [Mass/Vol] 0.7 mg/dL Normal 0.2-1.0 [facility] Comment on above: Performed By: #### D DIM #### [facility] [address] [address] [address] Lee Cho Calcium [Mass/Vol] 8.8 mg/dL Normal 8.5-10.1 [facility] Comment on above: Performed By: #### D DIM #### [facility] [address] [place] [address] Dr. Lee Cho Chloride [Moles/Vol] 103 mmol/L Normal 98-107 [facility] Comment on above: Performed By: #### D DIM #### [facility] [address] [place] [address] Dr. Lee Cho CO2 [Moles/Vol] 26.3 mmol/L Normal 21.0-32.0 [facility] Comment on above: Performed By: #### D DIM #### [facility] [address] [place] [address] Dr. Lee Cho Creatinine [Mass/Vol] 1.24 mg/dL Normal 0.70-1.30 [facility] Comment on above: Performed By: #### D DIM #### [facility] [address] [place] [address] Dr. Lee Cho EGFR-AF CHADIAN >60 Normal >=60 [facility] Comment on above: Performed By: #### D DIM #### [facility] [address] [place] [address] Dr. Lee Cho EGFR-NON AF CHADIAN >60 Normal >=60 [facility] Comment on above: Performed By: #### D DIM #### [facility] [address] [place] [address] Dr. Lee Cho Globulin (S) [Mass/Vol] 3.2 g/dL Normal [facility] Comment on above: Performed By: #### D DIM #### [facility] [address] [place] [address] Dr. Lee Cho Glucose [Mass/Vol] 84 mg/dL Normal 74-106 [facility] Comment on above: Performed By: #### D DIM #### [facility] [address] [place] [address] Dr. Lee Cho Potassium [Moles/Vol] 4.0 mmol/L Normal 3.5-5.1 [facility] Comment on above: Performed By: #### D DIM #### [facility] [address] [address] [address] Lee Cho Protein [Mass/Vol] 7.4 g/dL Normal 6.4-8.2 [facility] Comment on above: Performed By: #### D DIM #### [facility] [address] [address] [address] Lee Cho Sodium [Moles/Vol] 137 mmol/L Normal 136-145 [facility] Comment on above: Performed By: #### D DIM #### [facility] [address] [place] [address] Dr. Lee Cho Urea nitrogen [Mass/Vol] 15.0 mg/dL Normal 7.0-18.0 [facility] Comment on above: Performed By: #### D DIM #### [facility] [address] [place] [address] Dr. Lee Cho Urea nitrogen/Creatinine [Mass ratio] 12.1 mg/mg Normal [facility] Comment on above: Performed By: #### D DIM #### [facility] [address] [place] [address] Dr. Lee Cho TSHon 01-17-2022 TSH 2.565 uIU/mL Normal 0.358-3.740 [facility] Comment on above: Performed By: #### C BC #### [facility] [address] [place] [address] Dr. Lee Cho URIC ACID SERUMon 01-17-2022 Urate [Mass/Vol] 5.0 mg/dL Normal 3.5-7.2 [facility] Comment on above: Performed By: #### C BC #### [facility] [address] [place] [address] Dr. Lee Cho AMYLASEon 09-27-2021 Amylase [Catalytic activity/Vol] 26 U/L Normal 25-115 [facility] Comment on above: Performed By: #### A MY, ACACIA, CMP #### [facility] [address] [address] [address] Lee Cho CBC AUTO DIFFon 09-27-2021 BASO # 0.0 103/ul Normal 0.0-0.1 [facility] Comment on above: Performed By: #### D DIM #### [facility] [address] [address] [address] Lee Coh Basophils/100 WBC (Bld) 0.2 % Normal 0.2-2.0 [facility] Comment on above: Performed By: #### D DIM #### [facility] [address] [address] [address] Lee Cho EO # 0.1 103/ul Normal 0.0-0.7 [facility] Comment on above: Performed By: #### D DIM #### [facility] [address] [place] [address] Dr. Lee Cho Eosinophils/100 WBC (Bld) 1.9 % Normal 0.9-7.0 [facility] Comment on above: Performed By: #### D DIM #### [facility] [address] [address] [address] Lee Cho Erythrocyte distribution width (RBC) [Ratio] 13.7 % Normal 11.0-15.0 [facility] Comment on above: Performed By: #### D DIM #### [facility] [address] [place] [address] Dr. Lee Cho Hematocrit (Bld) [Volume fraction] 46.8 % Normal 42.0-54.0 [facility] Comment on above: Performed By: #### D DIM #### [facility] [address] [address] [address] Lee Cho Hemoglobin (Bld) [Mass/Vol] 15.0 g/dL Normal 14.0-18.0 [facility] Comment on above: Performed By: #### D DIM #### [facility] [address] [address] [address] Lee Cho IG # 0.01 10e3/ul Normal 0.00-0.03 [facility] Comment on above: Performed By: #### D DIM #### [facility] [address] [address] [address] Lee Cho IG % 0.2 % Normal 0.0-0.5 [facility] Comment on above: Performed By: #### D DIM #### [facility] [address] [place] [address] Dr. Lee Cho LYMPH # 0.6 103/ul Critically low 1.2-3.8 [facility] Comment on above: Performed By: #### D DIM #### [facility] [address] [place] [address] Dr. Lee Cho Lymphocytes/100 WBC (Bld) 9.4 % Critically low 20.5-60.0 [facility] Comment on above: Performed By: #### D DIM #### [facility] [address] [place] [address] Dr. Lee Cho MANUAL DIFF REQ NO Normal [facility] Comment on above: Performed By: #### D DIM #### [facility] [address] [place] [address] Dr. Lee Cho MCH (RBC) [Entitic mass] 28.6 pg Normal 25.9-34.0 [facility] Comment on above: Performed By: #### D DIM #### [facility] [address] [place] [address] Dr. Lee Cho MCHC (RBC) [Mass/Vol] 32.1 g/dL Normal 29.9-35.2 [facility] Comment on above: Performed By: #### D DIM #### [facility] [address] [place] [address] Dr. Lee Cho MCV (RBC) [Entitic vol] 89.1 fL Normal 80.0-94.0 [facility] Comment on above: Performed By: #### D DIM #### [facility] [address] [place] [address] Dr. Lee Cho MONO # 0.4 103/ul Normal 0.3-0.8 [facility] Comment on above: Performed By: #### D DIM #### [facility] [address] [place] [address] Dr. Lee Cho Monocytes/100 WBC (Bld) 6.7 % Normal 1.7-12.0 [facility] Comment on above: Performed By: #### D DIM #### [facility] [address] [place] [address] Dr. Lee Cho NEUT # 5.2 103/ul Normal 1.4-6.5 [facility] Comment on above: Performed By: #### D DIM #### [facility] [address] [place] [address] Dr. Lee Cho Neutrophils/100 WBC (Bld) 81.6 % Critically high 43.0-75.0 [facility] Comment on above: Performed By: #### D DIM #### [facility] [address] [place] [address] Dr. Lee Cho Platelet mean volume (Bld) [Entitic vol] 11.0 fL Normal 9.5-13.5 [facility] Comment on above: Performed By: #### D DIM #### [facility] [address] [place] [address] Dr. Lee Cho PLT 169 103/ul Normal 150-450 [facility] Comment on above: Performed By: #### D DIM #### [facility] [address] [place] [address] Dr. Lee Cho RBC 5.25 106/ul Normal 4.70-6.10 [facility] Comment on above: Performed By: #### D DIM #### [facility] [address] [place] [address] Dr. Lee Cho WBC 6.3 103/ul Normal 4.0-11.0 [facility] Comment on above: Performed By: #### D DIM #### [facility] [address] [place] [address] ABD/PELV W CONon [...] by: ANA MARTINEZ Date: 2021-09-27 01:01 Normal [facility] LIPASEon 09-27-2021 Lipase [Catalytic activity/Vol] 36.0 U/L Critically low 73.0-393.0 [facility] Comment on above: Performed By: #### D DIM #### [facility] [address] [place] [address] Dr. Lee Cho PROF 14(COMP METB)on 022 Albumin [Mass/Vol] 4.2 g/dL Normal 3.4-5.0 [facility] Comment on above: Performed By: #### D DIM #### [facility] [address] [place] [address] Dr. Lee Cho Albumin/Globulin [Mass ratio] 1.2 {ratio} Normal [facility] Comment on above: Performed By: #### D DIM #### [facility] [address] [place] [address] Dr. Lee Cho ALP [Catalytic activity/Vol] 61 U/L Normal 46-116 [facility] Comment on above: Performed By: #### D DIM #### [facility] [address] [place] [address] Dr. Lee Cho ALT [Catalytic activity/Vol] 43 U/L Normal 16-63 [facility] Comment on above: Performed By: #### D DIM #### [facility] [address] [address] [address] Lee Cho Anion gap [Moles/Vol] 14.9 mmol/L Normal [facility] Comment on above: Performed By: #### D DIM #### [facility] [address] [address] [address] Lee Cho AST [Catalytic activity/Vol] 18 U/L Normal 15-37 [facility] Comment on above: Performed By: #### D DIM #### [facility] [address] [address] [address] Lee Cho Bilirubin [Mass/Vol] 0.6 mg/dL Normal 0.2-1.0 [facility] Comment on above: Performed By: #### D DIM #### [facility] [address] [address] [address] Lee Cho Calcium [Mass/Vol] 8.8 mg/dL Normal 8.5-10.1 [facility] Comment on above: Performed By: #### D DIM #### [facility] [address] [address] [address] Lee Cho Chloride [Moles/Vol] 102 mmol/L Normal 98-107 [facility] Comment on above: Performed By: #### D DIM #### [facility] [address] [address] [address] Lee Cho CO2 [Moles/Vol] 26.8 mmol/L Normal 21.0-32.0 [facility] Comment on above: Performed By: #### D DIM #### [facility] [address] [place] [address] Dr. Lee Cho Creatinine [Mass/Vol] 1.10 mg/dL Normal 0.70-1.30 [facility] Comment on above: Performed By: #### D DIM #### [facility] [address] [place] [address] Dr. Lee Cho EGFR-AF CHADIAN >60 Normal >=60 [facility] Comment on above: Performed By: #### D DIM #### [facility] [address] [address] [address] Lee Cho EGFR-NON AF CHADIAN >60 Normal >=60 [facility] Comment on above: Performed By: #### D DIM #### [facility] [address] [address] [address] Lee Cho Globulin (S) [Mass/Vol] 3.5 g/dL Normal T [facility] Comment on above: Performed By: #### D DIM #### [facility] [address] [address] [address] Lee Cho Glucose [Mass/Vol] 91 mg/dL Normal 74-106 [facility] Comment on above: Performed By: #### D DIM #### [facility] [address] [place] [address] Dr. Lee Cho Potassium [Moles/Vol] 3.7 mmol/L Normal 3.5-5.1 [facility] Comment on above: Performed By: #### D DIM #### [facility] [address] [place] [address] Dr. Lee Cho Protein [Mass/Vol] 7.7 g/dL Normal 6.4-8.2 [facility] Comment on above: Performed By: #### D DIM #### [facility] [address] [place] [address] Dr. Lee Cho Sodium [Moles/Vol] 140 mmol/L Normal 136-145 [facility] Comment on above: Performed By: #### D DIM #### [facility] [address] [address] [address] Lee Cho Urea nitrogen [Mass/Vol] 24.0 mg/dL Critically high 7.0-18.0 [facility] Comment on above: Performed By: #### D DIM #### [facility] [address] [place] [address] Dr. Lee Cho Urea nitrogen/Creatinine [Mass ratio] 21.8 mg/mg Normal [facility] Comment on above: Performed By: #### D DIM #### [facility] [address] [place] [address] Dr. Lee Cho FREE T4on 08-05-2021 Free T4 [Mass/Vol] 1.00 ng/dL Normal 0.78-2.19 [facility] Comment on above: Performed By: #### F T4 #### [facility] [address] [address] [address] Lee Cho GLYCOHEMOGLOBIN A1Con 2021 ADA RECOMMENDATION ADA THERAPEUTIC TARGET 6.0 - 7.0 ACTION SUGGESTED > 7.0 Normal [facility] Comment on above: Performed By: #### D DIM #### [facility] [address] [place] [address] Dr. Lee Cho Glucose [Mass/Vol] 111 mg/dL Normal [facility] Comment on above: Performed By: #### D DIM #### [facility] [address] [place] [address] Dr. Lee Cho HbA1c (Bld) [Mass fraction] 5.5 % Normal <=6.0 [facility] Comment on above: Performed By: #### D DIM #### [facility] [address] [place] [address] Dr. Lee Cho LIPID PROFILEon 08-05-2021 CHOL-HDL RATIO NORM SEE BELOW Normal [facility] Comment on above: Result Comment: 3.3 - 4.4 LOW RISK 4.4 - 7.1 AVERAGE RISK 7.1 - 11.0 MODERATE RISK >11.0 HIGH RISK Performed By: #### D DIM #### [facility] [address] [place] [address] Dr. Lee Cho Cholesterol [Mass/Vol] 182 mg/dL Normal <=200 [facility] Comment on above: Performed By: #### D DIM #### [facility] [address] [place] [address] Dr. Lee Cho Cholesterol in HDL [Mass/Vol] 40 mg/dL Normal 40-60 [facility] Comment on above: Performed By: #### D DIM #### [facility] [address] [place] [address] Dr. Lee Cho Cholesterol in LDL [Mass/Vol] 120.4 mg/dL Normal [facility] Comment on above: Performed By: #### D DIM #### [facility] [address] [address] [address] Lee Cho Cholesterol.total/Marge sterol in HDL [Mass ratio] 4.6 {ratio} Normal [facility] Comment on above: Performed By: #### D DIM #### [facility] [address] [address] [address] Lee Cho HDL NORMAL > or = 60 mg/dl - LO W CARDIOVASCULAR RISK <40 mg/dl - HIGH CARDIOVASCULAR RISK Normal [facility] Comment on above: Performed By: #### D DIM #### [facility] [address] [address] [address] Lee Cho LDL CALC NORMAL SEE BELOW Normal [facility] Comment on above: Result Comment: <100 mg/dl OPTIMAL 100 - 129 mg/dl NEAR OR ABOVE OPTIMAL 130 - 159 mg/dl BORDERLINE HIGH 160 - 189 mg/dl HIGH >190 mg/dl VERY HIGH Performed By: #### D DIM #### [facility] [address] [place] [address] Dr. Lee Cho Triglyceride [Mass/Vol] 108 mg/dL Normal <=150 T [facility] Comment on above: Performed By: #### D DIM #### [facility] [address] [place] [address] Dr. Lee Cho VLDL CALC 21.6 mg/dL Normal [facility] Comment on above: Performed By: #### D DIM #### [facility] [address] [place] [address] Dr. Lee Cho PROF 14(COMP METB)on 022 Albumin [Mass/Vol] 4.2 g/dL Normal 3.4-5.0 [facility] Comment on above: Performed By: #### D DIM #### [facility] [address] [place] [address] Dr. Lee Cho Albumin/Globulin [Mass ratio] 1.2 {ratio} Normal [facility] Comment on above: Performed By: #### D DIM #### [facility] [address] [place] [address] Dr. Lee Cho ALP [Catalytic activity/Vol] 84 U/L Normal 46-116 [facility] Comment on above: Performed By: #### D DIM #### [facility] [address] [place] [address] Dr. Lee Cho ALT [Catalytic activity/Vol] 42 U/L Normal 16-63 [facility] Comment on above: Performed By: #### D DIM #### [facility] [address] [address] [address] Lee Cho Anion gap [Moles/Vol] 11.5 mmol/L Normal [facility] Comment on above: Performed By: #### D DIM #### [facility] [address] [place] [address] Dr. Lee Cho AST [Catalytic activity/Vol] 18 U/L Normal 15-37 [facility] Comment on above: Performed By: #### D DIM #### [facility] [address] [place] [address] Dr. Lee Cho Bilirubin [Mass/Vol] 0.4 mg/dL Normal 0.2-1.3 [facility] Comment on above: Performed By: #### D DIM #### [facility] [address] [place] [address] Dr. Lee Cho Calcium [Mass/Vol] 8.4 mg/dL Critically low 8.5-10.1 [facility] Comment on above: Performed By: #### D DIM #### [facility] [address] [place] [address] Dr. Lee Cho Chloride [Moles/Vol] 104 mmol/L Normal 98-107 [facility] Comment on above: Performed By: #### D DIM #### [facility] [address] [address] [address] Lee Cho CO2 [Moles/Vol] 24.4 mmol/L Normal 22.0-30.0 [facility] Comment on above: Performed By: #### D DIM #### [facility] [address] [place] [address] Dr. Lee Cho Creatinine [Mass/Vol] 1.03 mg/dL Normal 0.66-1.25 [facility] Comment on above: Performed By: #### D DIM #### [facility] [address] [address] [address] Lee Cho EGFR-AF CHADIAN >60 Normal >=60 [facility] Comment on above: Performed By: #### D DIM #### [facility] [address] [address] [address] Lee Cho EGFR-NON AF CHADIAN >60 Normal >=60 [facility] Comment on above: Performed By: #### D DIM #### [facility] [address] [address] [address] Lee Cho Globulin (S) [Mass/Vol] 3.4 g/dL Normal T [facility] Comment on above: Performed By: #### D DIM #### [facility] [address] [address] [address] Lee Cho Glucose [Mass/Vol] 91 mg/dL Normal 74-106 [facility] Comment on above: Performed By: #### D DIM #### [facility] [address] [address] [address] Lee Cho Potassium [Moles/Vol] 3.9 mmol/L Normal 3.4-5.0 [facility] Comment on above: Performed By: #### D DIM #### [facility] [address] [address] [address] Lee Cho Protein [Mass/Vol] 7.6 g/dL Normal 6.1-8.2 [facility] Comment on above: Performed By: #### D DIM #### [facility] [address] [address] [address] Lee Coh Sodium [Moles/Vol] 136 mmol/L Critically low 137-145 [facility] Comment on above: Performed By: #### D DIM #### [facility] [address] [address] [address] Lee Cho Urea nitrogen [Mass/Vol] 18.0 mg/dL Normal 7.0-18.0 [facility] Comment on above: Performed By: #### D DIM #### [facility] [address] [place], [place] [address] Dr[address] Lee Cho Urea nitrogen/Creatinine [Mass ratio] 17.5 mg/mg Normal [facility] Comment on above: Performed By: #### D DIM #### [facility] [id number] Lee Cho TSHon 08-05-2021 TSH 3.963 uIU/mL Normal 0.470-4.680 [facility] Comment on above: Performed By: #### D DIM #### [facility] [address] [address] [address] Lee Cho TSH RANGE SEE BELOW Normal [facility] Comment on above: Result Comment: <0.3 4 UIU/ml HYPERTHYROID 0.34-5.60 UIU/ml EUTHYROID >5.60 UIU/ml HYPOTHYROID Performed By: #### D DIM #### [facility] [address] [address] [address] Lee Cho Ambulatory Visit Summaryon 0 [...] Gout Hypothyroid Nicotine use Vasectomy status Normal [facility] Urology Office/Clinic Noteon 05-23-2021 Urology Office/Clinic Note [...] Family History Family history is unknown Normal [facility] Comment on above: Result Comment: Elec tronically Signed By: ERICA GUERRIER PA-C\.br\Date and Time Signed: 05/23/21 13:42 EST Coding Summary.on 05-15-2021 Coding Summary. CD:[id number] G h0bWw+PGhlYWQ+HW0EYRE tY82slTHbzQ4ZE0rRPE4O GXZVRBGHBT5TWB0zbAU8W TrwC4EmruVt XdsliDWgQP27FDz8WWL9l KeiFBdtzF7nrWCoM2q9Xz RfNX04hS45IWhvGJFeUiG 3LjZpbjsgbWFy U6bgFnYziNSoBmc+PHRhY mxlIHdpZHRoPScxMDAlJy CwcUdcXE0uDo6gTHQjQNN vbGxhcHNlOiBj n2ltZHClSEthFF7jqJotN 1StrUT0RWPpy2o3Fz68sT I+IQZoPEY2bEzlBSujn75 9LrWne8ehWEO2 nDQtZAdxCBM5I09kw0C4P OZvWEMjXDI3cDD1tG2yfP pxyhrpF7VipLIxUzG5FHY 2hAUclD3toNbb pbtxkJ0jYqz+G50QEA5GY YSMYM1FXxp2L4UzNghnbZ I+UJ61RIObHV27eGAeeJC uw2cwhOm4MiKh WCPvXQN3mHsjAHikl8FeI BHiY71skDYaq7P6LGOdsR txrDElDgPpjCR8oX2wVOa dngjjp5kkdxqx Njpna0vzng92tD47I36oP HilZKTcCGS5CJWsFEOdwT nqqj7kiE5fNg2+YQrpv8s vl7betHh9ItMa XNCegcSdmIpmKBO8x4KpZ e23Z2CbhNfwr2ZkHwp5sg 61ePFtk9L8gRU6KEiqSQW kaG4jCWwlWsW5 KXMqZuSlsE64sKRiVXlgZ x2vnHmulVplJI9kHARqfm dsADGwoJ1zMCIlrJYklSh tRK8zQMVsjcdo f811TeYbBEL0OEKwgJQrL 5RgvS1xXqDrOGAjAEPuG2 ZhzBWyDVzhB335NCeuXpE 7NTManbUbM0Ac JOIhaMdaZlY2k8B3Tf3Yg 2GsdaovCQY1RVdsUAMcCe InHsAcPpV8G4GmJxm5LPZ xgRvgST2pD0Um TUZoewrmjwgroMQ0XOOdU IFroC89jSVvMPscAy2eq9 G1m739BBRoJJXpbZ33Kh4 udDogMTBwdCBU vL0mlrmoz5sdicsqLkZoQ VLgHIb4JKg0JDAnkCisAu OaDNL3CtU7OPD8nVPlkR4 ukFdmospkaX8t Oyc+Q08qrG7bSYI0LSR8b sdwLMUdrgTjHZ07AQ62N0 RyPjwvdGFibGU+PGRpdiB tcZgnGZ9aCnWo z9mki8LlFHwjW8SmCRQuL MonHlt9DBGbKDK3cBX5qU 3eTWLwHYpye5R9yJN4V1T zonAfbu8uy4iz MPYkPQliH30avSTdg1J9G XQhjUW1ZYCskFydAtGkoJ 93Oyc+CLXtsMpdn1NgVdy gi4tsg2vqpCq0 UvQsQGXuitKddYegSZP6h 9IrCg55K21bDWmwAAKmKB JoVKXiQGNxgZtpkw5uwN3 wIi8+PGNvbCB3 yOY8vO2eUGRqHpL0RXavF 105ZbVnrHNjPdypk3oyl5 iziWq1IgEqGXSplqOcrXn xGLI5v8HfEz60 Y98xARguGPPvERYvMVJuX CSsnVorrj1oaV1yUi7+PC 0xr8qsln63fV81jUJ+PHR rDJK9pVosBEbv TPAfqQ0yTIodVrD6MWDcS nHggL63uTUqPWncVf9fqF vpeColUD0tOAPjfsotz60 8PpMpv1gpOSKd tONoWJbsBTS9G47lz9R4M ZXpAJBdMIG0zEO6nK7hvW lnbjogbGVmdDsgdmVydGl eDVriCRorV724 IHRvcDsnPlBhdGllbnQgT uUqGKh3T2NuAme4XPJggS oxBX5apMIeXEfgDr9ujOe mpKdqCT3iSRJb agnns566PpMqi9uuXMTjf XQdRIzhNXT1R60ti3K1VR PeIFKeSHN9uRF9eF3fzQe nbjogbGVmdDsg gnZtmQmwHSnyLYvwD416O HRvcDsnPkJpcnRoIERhdG N7HG42VP32nYHsi3M9jVG 4R6WkHAMwzehn zmlcjQH2QNQlJRFqeY02V y2qrMjdWs1eAVGqTXC3OG SvqZNxP6CxkH0cRdUoXRW vPQCgM1CcqRPi DYkgH347QNkfFvJ1QMTlh cDuM2BcEVQzqJxaGxT3p8 T0Hm8ZS0J7XA77VW03gAL mh7J7iKK4W6Ko RQOsdrauzsnlkGP7DUFyY GIjlY88Qb3atZpeGp4sVM FgPFC9PSGeqNJiT0OfjT9 yOiAjMDAwMDAw S0NozMNjKJroH097CKlnC yW6WXZmhtHsA3QsIZZwwT vhBpK1e6I4Qf3TZQj4TH9 0LW22cSOir1Y8 zZI4Y3OwLEPblayfosazc YT7AJUyFLVelF41Mg1fpL rzMf8gUDKmNRY6YFOwrEV pR7EyuC7nZiTu IGZmYGAzD9VgbKVhBWfjK 251JBgaFuU7GODompMuN0 DlMBMzlDovRyV4t4J4Xv6 GMEScCG18CAA0 bZU5UA35GU09D5RnPswjf GFibGU+PHRhYmxlIHdpZH RoPScxMDAlJyBzdHlsZT0 iOi9gVOKwOXYu sZfrsQDbCvJna8diBCKaK AvqNP1qtKicL1MakBO7JN Nyy2r3Hh54C47gE6EloOE +MTAibWQ6zKZ9 iA8tXpGpEnV3WEdfD986U mZykMUbNgbxu4yad2uuyV x9YyC5YNVmnsYafVnbBBZ 3z7SwLj41S17k IHdpZHRoPSIxNSUiIHZhb Wyepk0ohY3eQp4+PGNvbC X6iYL7cO0fIpEdDoQ2KNk zH764VmLydTKt Muqle7hka6fthDc1KgSgI CBgvsOmpCesADS2j7BmAp 87O8JblVojk7HkDgw6em0 6eFQvz2R1bBZ3 X5GfYIUyiuhazJJoxSwuO D5oQJQtucklCMQghV7jAQ AcC6u6AnEdSgY6LIirG4H adbY6XOXayFBz HWujBXZ8F04gr7W9BZYoI ZBpYSV1pYL1sC6apGsmck ogbGVmdDsgdmVydGljYWw sBUxaQ247AVIz aDgfBUXowB2lYQXwpAFzw TctWS9fTDNhazggFq8FH8 HYLIXQKPuXWIk2L8NbPqn 8JMThxPxbEQ2b oZMrRPkhGd3kmHtgtYmcD I7gIXSlwzkfNKRuqS4mAS MqpPLjuGdvWE6iPTErddf iz990GuWpTLX9 XQKpwYBvF5NrxG1pPeImN XFtQPXmA0PtfOBfEYuzC1 97PRbwCmY3UOLcqvKjS1H sLWFsaWduOiB0 c8Y6Rh8xDw4tXG2yEFs6W S09OD44qTHac6J0jHA4J9 SaHQNawozwtfbduHH2XGF oMKZghK09eKVe TQxvKv3fc1D9r563LGJiJ DQztZ92Gy2zrLnwAAYjrK SZdX6oruwus5sptqhqYdE rFCBkYQg2VOy5 ZINfpWzmTqYbQAA0IoH6S CV9uZMvfO2urZdckoeepW 9wOyc+YrElQPFpzhN9G9Q fPxi0HMKrjHeq BQ4zqPFrHLcxXv3rvLdua AvqAW4yCEEgshvnOLLxbU 3fYCAumPYwuFqqEF1hSZV pdhcsv095IkWm EJK8XCStqCVaG4ZusK4lF qKvQXXiXJQbZ4JuxZViBE gpX038PCtsHzN7GTWznwX jM0NbYTUfhEkz KkV7a4T7Kc6RZOjtQS22M A63oSYqi2D8bBE5F8MvVD XuhtdrxnxxlXK4TMOzJEX osB16ePQqISmw Fj6fo1S7s544IGIzQUPui R87Iv1ckBtoFLAgeZIHhH 0qjnbxj0chwzrjIwMdDLK sVRg3RYg1AWPg tZetYzJzJBH8BaS1AKI2h BLnhE0vjIdtnpvokK4zDl c+IITaGNIga7Twc5NrUL2 3RA49M0RaIqiz dGFibGU+PHRhYmxlIHdpZ HRoPScxMDAlJyBzdHlsZT 7kXf6oXBFzMELjsPyhjVK nWgByu8kfKSRl BOdvOT3znFnjS1KxrAE2N NLoy2i8Kf54C48dD1StsQ A+UCObkPT3fTW5bB8sCtF lMhA6AAwmR836 XpVxrHQsJnjpu0pyi2bwz Bt6TpHeHCCchkFriCtpEQ Q1p0VkZe65L61gTGirLOS oPSIyMCUiIHZh nDhmzp1rhK9kBl4+PGNvb JT7eBL1tX3rOaGqBgU6AH exD892IsFwkZFvRanxW70 hQ9EtaWH+PHRy Bek9QSXjoRngCL2aoDLyM ObaMf4bQCS2JaGzUzKmGS vbI1WxGQToidxovmytxGI 1AFOnYAEdqU16 Yp5riAjwLh2jLSFaYQR2C DZxqVNlN2HhgR2kKuXnKN IjTNCtG3NwkTUrQSebR33 1QWyiPoQ3HNKe dnJhX7KoXQXepWtjNnM4t 0S9Fm0XoDlbkAPuQC1mDk QaXCb0T9YaYpy4YEDujSv iOK7yiIWlQNcw Tp7xmMlqwAovRX6hXDQtr ehzx668IfYix7snUOAxwK RbHAnjNBA4E91el4K9GLB fEDMvDMR4lQH2 dS5wbUuxyudgkCGhaZgnl xZokAlmEIszGIpiO609YO HonWzoPbFSVmd7S1SdHet 0JCBpxLajKV7m wRWuCPzoYx4ilSkygFyfC B6fJESqfbeaa458LsGyb1 ojGHPvaZHgYSrySMS0R25 cm3H8AZHrKVJc XHM6cYZ2bW8tkIirgynjs GVmdDsgdmVydGljYWwtYW rvC788OZUmrJjqTg7WWue 9Z6InTgy8AOZh eGqqQL8ycGLaWBfeTd6sf FxseEwvQC2tWYZjnfdin3 76VmEvg6tgZAJxdALiKIs dJNN7H35lw6Z0 LFZjKBAgGOW0iKF9jT6lh GlnbjogbGVmdDsgdmVydG qiEQuuZRqmE148XVWxcKc nPlBheWVyOjwv dGQ+VS39el28F9HtTdkvM sj0DFLbYVQ3hAD8fW6pJU PkTUhcy8R7lSO6I5XrgaL lxf2ku4qrOKWg ZTog (more content not included)... Normal [facility] Workers' Comp Officeon 05-10 Workers' Comp Office [id number]#1 .00CD:127 Normal [facility] Workers' Comp Office [id number]..[id number]#1 .00CD:127 Normal [facility] Consenton 05-09-2021 Consent [id number]#1 .00CD:127 Normal [facility] Workers' Comp Officeon 05-09 Workers' Comp Office [...] procedure., # 6 tab(s), Refills(s) 0, Pharmacy: [facility] [place] [address], 180, cm, 03/26/21 10:24:00 EST, Height/Length Dosing Percocet 5 mg-325 mg oral tablet: 1 tab(s), Oral, q6hr, 20 tab(s), Refill(s) 0, [facility] [facility], 180, cm, 04/29/21 10:35:00 EST, Height/Length [...] been selected or recorded. Procedure history: Vasectomy ([id number]) on 04/29/2021 at 35 Years. Colonoscopy, flexible; with biopsy, single or multiple (86166). CTR - carpal tunnel release ([id number]). Physical Examination No qualifying data available General: Alert and oriented, No acute distress. Respiratory: Respirations are non-labored. Musculoskeletal Left calf is supple no tenderness, FROM of ankle without discomfort. Full weight bearing. . Integumentary: Warm, Dry, [place]. Neurologic: Alert, Oriented, Normal sensory, Normal motor function. Psychiatric: Cooperative, Appropriate mood & affect, Normal judgment. Impression and Plan Diagnosis Achilles tendon injury (NCG64-AY S86.009A, Working, Medical). Professional Services Achilles tendon injury resolved May return to work full duty Follow up prn Normal [facility] Consent for Procedure/Surger yon 04-29-2021 Consent for Procedure/Surgery [id number]#1 .00CD:127 Normal [facility] Patient Educationon 04-29-20 21 Patient Education Urology [...] these instructions at home: Medicines ? Take josz-cje-jmxlgtl and prescription medicines only as told by [...] 11/07/2005 Document Revised: 04/02/2018 Document Reviewed: 07/17/2017 [employer] Patient Education ? 2019 [employer]. [facility] Urology Office/Clinic Noteon 04-29-2021 Urology Office/Clinic Note [...] Elective bilateral vasectomy Surgeon(s) Gui Flannery M.D. Curtain Fitter Anesthesia 2% Xylocaine subcutaneous Estimated Blood Loss [...] Information Prudencio Harrison MD, Gui Goldstein, URO [address] [facility], [place] [address] [phone] Additional Instructions: 2wks. f/u Patient Education Vasectomy, Care After I, Sharla Frank , personally scribed for Dr. Flannery on [...] Use:., 04/29 (more content not included)... Normal [facility] Comment on above: Result Comment: Elec [...] list: All Problems Gout / SNOMED CT 068732879 / Confirmed Nicotine use / SNOMED CT 0611662147 / Confirmed Depression / SNOMED CT 46588767 / Confirmed Hypothyroid / SNOMED CT 14009452 / Confirmed Arthritis / SNOMED CT 3363428 / Confirmed Histories Procedure history: Colonoscopy, flexible; with biopsy, single or multiple (31468). Social History Social & Psychosocial Habits Tobacco [...] reapplied and boot. . Integumentary: Warm, Dry, [place]. Neurologic: Alert, Oriented, Normal sensory, Normal motor function. Psychiatric: Cooperative, Appropriate mood & affect. Impression and Plan Diagnosis: Achilles tendon injury (AZR99-PM S86.009A, Working, Medical). Orders follow up here after you see othro in May 07. keep boot on and genesis wrap. Pt is released to sit down job, but currently off due to carpal tunnel surgery.. Normal [facility] Comment on above: Result Comment: Elec tronically Signed By: Rebeka PERRIN CNP\.barry\Date and Time Signed: 04/22/21 09:18 EST Workers' Comp Officeon 04-22 Workers' Comp Office [id number]# 1.00CD:127 Normal [facility] Workers' Comp Officeon 04-19 Workers' Comp Office [id number]# 1.00CD:127 Normal [facility] Workers' Comp Officeon 04-11 Workers' Comp Office [id number]# 1.00CD:127 Normal [facility] Workers' Comp Office [id number]# 1.00CD:127 Normal [facility] Coding Summary.on 04-09-2021 Coding Summary. CD:[id number] G h0bWw+PGhlYWQ+DG0GWND aW82ybAJekI2KS0kWJM7B FLBFHGOYPS1WXR2qqZQ3Y MtiN6YhzfPn RcxmaPQwNW27GYm7HEI0i VdwWDyggJ8tnLPqL9l2Nc DiJP86dQ95JFciVTMhWkG 3LjZpbjsgbWFy T3opCzMmdEDkYwf+PHRhY mxlIHdpZHRoPScxMDAlJy VyyZgdDF5xUw6pOGYoWIT vbGxhcHNlOiBj k0cjDLMfIOhyCA8riOamQ 0TpuWX9LQYcc0u6Qi81sA I+GMBwWUV4kGmfSCefi31 6AkUdk2okIYE0 nVGiGRdnGQK4S88dg0X1J BNtUFSpGIU9eFN6zX3ufV crrnevP2WiwYBvThO9QJI 0uJAljO8xhPfs syiuyB8nJng+C25OUX8TT DYCYT0DCrv2X2YzPgeguO I+AV55QKBvHH10iEKivWU tv2tegFw9VjUb FTRvRET5hFzuFKwaf3MsG SLpX47tqHHpm2Y0VNSwfC oerYGmEbFmrFX9xG1pSOk submjs1qqtuvl Khdfs7pzgx95nY96J81fD BnvDPBbDIW8ZLIrQYTrcM vtcf0blM0pAe0+PSdys3e ry0emuCc1GpWk FNDujzOouLkoRLJ5l9GmJ g63G3OymEips9HbPhl5tg 03bWLff2H6aVF1XXemBDI jhM4jZOnrYbU8 DXKcInVrrE80kDAlOOajN f6jvZglbTpzVX7mITJgtv ogJAEntK3lBZNmxTKhmSt vTC0fABUvewuv p427BrDePJE8MSEtwORuM 7FyyG9kFcOxEHNeUXLxJ1 WbkWTiXYuiV314SZftYqK 4NUWiwiHpZ8Pf PNHptVmgTxR9v4H8Vp0Rq 0LwunedEWZ4BPanTOWfXj A8KgBuLbW8R5YlSse1KSQ vgBtiFM3yF4Av VGAkpqllozqaoZN9FFMfW YQoqW98yTIsNWxeTg0sl0 X9r460PZLxORVahJ92Xb2 udDogMTBwdCBU fW3seubeg9tbuzfcMsUeQ YBrSNh0QSl3CJQbvHrxWo UzPZM7PbO0EDP5iGUxoV7 axEyjcyqnvX4e Oyc+Y59btI3eWPO4NWS4g qldJEUpxmSkTO02EQ51E0 RyPjwvdGFibGU+PGRpdiB icXhvCE8vSiTm a4gwc4UkKOvbY6TbWICtZ NawSho8PFOtIXE2fZK1lV 0uOOPiPQtgj7J7kJE2C0X kjjMwfl9qn0ma OTMbWQwkP24qqRLsj6E5X EZenHB9HMMtoAohYuBfdR 93Oyc+UGBihIrji0JiBwg bx8zch7fewSk9 NhDcGJIpmcRwcEgwJKO0f 1MlGn79W22uUSitTHXeDV ZyPJSbLQTtlGfkmx5bvN8 wIi8+PGNvbCB3 nAH0gP9sKCWiTiF9ZOqbR 282DdSqrCSeDmscw0vtv2 cqdPc0VcZyHRKbxsTdeBe sUJV7q3HxGy29 U85dOPsgSUAzBNCqWBXqR CKptLvaac1ruX8rYa5+PC 2sb1ipxr54bU46jVR+PHR wPKP4gSoqGXyh WKStfF1jAAwtUuH9NMCfY rAlmP59fQDbQXajJp8aoP linQidQL2ePQHnxgmfd11 7DzOmi5swLNSm zNQuKXreOSB0L62kz2I9A RSpAWIcIPH7kHG4wR8oxH lnbjogbGVmdDsgdmVydGl dQNexEYizA793 IHRvcDsnPlBhdGllbnQgT vKaWYr7C1MdEwv5TVIsxC seTO3dpOPiZDedQx9mpEt evPmsKB1dYHVg dlqto814ZwLpd9qxFSRyq UWlKXykTGI4X37fp1H0WO CaMDHxTVP1sWO5hG2mtQo nbjogbGVmdDsg bxFliQfjIZreIOxgX135Z HRvcDsnPkJpcnRoIERhdG A4KT90IZ02xVEkv3B9qNF 3Z6TvMYNvdmut zyvfxMX1THUrLPCjtD05W r0fmXpsLg9dDYXcVAR6AC NuqQYlM0OumK0xNfGkHOY gDFLhC8TyiYLq MEbsB777YXksJyQ4PUOnr sSoP4SePRJslIqrYuK0k3 P4Mr4BI5L0GT92KQ90tBJ hs4V4vHN0Q5Ce NITndsmcujureRI0DBSpH ABdkH67Om4odDtpZs9bNQ HqYMO7FKWouGXkM0KvsY0 yOiAjMDAwMDAw R0CouECoEMuaR276MGbaV bM5YCZekyCwY6IoWRGydF oyGkI8q1Z7Kk7YLSl6CW3 4GH07qKQqw8D9 gDB1J2YySPVdhpcqucjmr PR8QGIaISKmcP13Zs8wgM lwTx3nKVAjELI2HYHbsPY hN4WvaZ0kIdDg OYQoGIBhS9DgeRHvNKogC 878HPjcBfI1YHWfpmHtW5 WtGPVprYlzHcM1y2C1Ke4 ZVNNjOF21PVK1 tLF4EJ43GF38D0BjWjhqj GFibGU+PHRhYmxlIHdpZH RoPScxMDAlJyBzdHlsZT0 kIf5fKCJhGJYz nOjriYGsRaDec8pcGCTqY SccOE8aaGxiF1OwhLW4PY Spy3y2Nb05L64hX6IptQL +WSEfdMH5lCE6 dU0mNiGaLsI2TZblK991L uWqkJFaExwjd5vwg5zqzT q1MtO2XBYujgMskEqpFXM 0r7SfTb11T15j IHdpZHRoPSIxNSUiIHZhb Xzcpy4tgR7eWh1+PGNvbC T2tKG0oR9eWkFnFsU3QVt vL643LaIwhFHu Obxxk9rtc7qjaAk5MsUyO GRoibFwvGejTZP2k0PaHr 69X4CaoQqtm8XrCep3ha5 2zTCoq9V2xNZ2 X0AtRZUtkhcxgWIvnPbzI H8cGFVvtoqrZKQxeY2yJC TdO1m8WdOsIxW6MOxiW6K juvB2FWUdzMJh OHnxLXS2D07mz2E7AZUwC LFbWRM6pYN1qQ0clKibdx ogbGVmdDsgdmVydGljYWw jIOvtT162PCLl hBpzWGThkB2mVQRthSUuc RbeWM6pGUUgnvzwYd6VL2 OXNABGXOzQJOs3E4KaEkr 9TBPvoDvsPO0p mEPfZGatGj7tmYqbnYusI T5yVFLodsvdJPUojR0tQM HowQSvaAdgWZ5wXORnuxj aa329JqLhFEW9 GINnwEZhR2KkyC9tTlSoF WZeXUZyH0HauGHgFHrxH8 83YUeyAxE3DJBkgeGyR0J sLWFsaWduOiB0 g9I8Df6mNu8vZD1cHEx5K Q95JE72sSBba2H9jTE8A5 HhNAQjzapsqujruXP7WNU yODZfxC51xMBy AHhqPi8xg5I3x201VOIxD WUyzB00Mz7xaJrbTUGiqJ VNrY2lpfrif6ocebfeElF mTIQoERg3AYd9 RLRzsJoyYxEmWFS9WpW9X NO5dQSxuD4eyIszrmyslS 9wOyc+KiBhVNMycnB3G7Q dKse8LTGfxVfu XY7fsXRhPNjtWw6ltQdev JppMX8gYHQvgsvnTQLdpQ 9aDWVuhAYnqGdcPZ8wOIJ dsvyez753RnDx OHM7TGYzrHNkP0EiiX2fV eUoFXRxNPRpD3XbiLKlBR gcU054YIxjWcT9REVfowZ fT6QtLCWcrLnv QwI2f7M7Pt2WEDokDR65U V13kJGyo4I5iBA6D0QgSZ YmscarkuuxyIB2DFMrLKU ncS28sUEiQBix Kx6nr0T3o344RJWkZSFjp C09Ky0gkMwdNQJeeGAPqL 4gzzdtl1gbxapvMlFsHWI sMGu5ZFy3UNTv qWqhDtTsXKD8MnP2MZA7n EEacH1giCzpbymvoM4jCc c+JH1klqioybG5QB85MJ2 8S0SlCqlnhELc bGU+PHRhYmxlIHdpZHRoP McfRBUoAfWucWeaKB7oYw 9yZGVyLWNvbGxhcHNlOiB ao6hyLQZeVDjh DG3vyXtlW3UdsWV2VTJjh 0v1Om42U22mG1NkbFF+PG OtpGB4fPT9mP8rUtSoSrT 9ZQtiS524EqMj iCJnAgjnw7shf0evoLo9Y jWiZPGeybWqgBepVAV9k8 PpNe61G41xDUycWZYzDXR yMCUiIHZhbGln ii5ktY5yHp6+WCNbjZE4h XF2cC3zGiPeImE1GPduK8 71WeJczCKhEayiT48yF7L vdXA+PHRyPjx0 AVCttAnuQL4djBVfFHnmW g2iNFU4TaUaJoCtVOcgG9 XuGWBvmqbldknveIS3JRH dMVTieX21Mo5i hPasKf4nORPjIPK9ASPjb YHiW3JyaR7kEhEdWQKoDL BkF4HfuODsENgoN577XEw uIxH5VUJhgrBz P6BiSZYdlMjbDgY9a5B5F d5CzDefaYLlPF4oViVfTG s3X7WnRvu7NZZerJbbZH5 gmFCyTJffYc7z vMoggGigTR6gELCevowja 460OvKif7elKUPxhJWmFV oyVZS0X15dv6M6BCDqLXL aKJS9dYA4yX9n bGlnbjogbGVmdDsgdmVyd BklLOjsOFufS665SZKjzP ubFoAOUet8V0TdFvw4MZY qkNhcKA3dvHAl GUuiGd7ffUembZuuXO0eB WBtmxrcx078UhWsz9ubVT OhaEVhRSfgOQZ5D65ge0H 3XLYyIGBiPQE2 rQN1lN8jqEdyijtmjCPri DsgdmVydGljYWwtYWxpZ2 95UBHyfYvsVq1JCxu2E5Q fAnm4ZAHazSwd CN7udDGvBPduYl8cbZxlt TzqQA4xYZIequrbt840Cu Ctm3ppOWRnoDHbATkhBEM 8Q21ya8A8TAJj ORNsKTO7xCW5bV1ptCqxl jogbGVmdDsgdmVydGljYW agUFseV726SGBqqQkeRvY heWVyOjwvdGQ+ BZ68xu91X0EqRdurDfr4L ZAzRDP7kSV5dC4pLCEfUY sio7P9tBO5Z2VdasBaiz0 ud2rgNQRfLRzz Y29s (more content not included)... Normal [facility] 04-09-2021 Consent [phone] [id number]# [email or web address] Normal [facility] Progress Note-Physicianon Progress Note-Physician Patient: MIGUEL WHITTEN [...] list: All Problems Gout / SNOMED CT 579717626 / Confirmed Nicotine use / SNOMED CT 8005292957 / Confirmed Depression / SNOMED CT 41131270 / Confirmed Hypothyroid / SNOMED CT 54271346 / Confirmed Arthritis / SNOMED CT 2410808 / Confirmed Histories Procedure history: Colonoscopy, flexible; with biopsy, single or multiple (79701). Social History Social & Psychosocial Habits Tobacco [...] with discomfort though. . Integumentary: Warm, Dry, [place]. Neurologic: Alert, Oriented, Normal sensory. Psychiatric: Cooperative, Appropriate mood & affect, Normal judgment. Impression and Plan Diagnosis: Achilles tendon injury ([id number] S86.009A, Working, Medical). Course: Unchanged, keep boot on , light duty with limited walking. . Orders see ortho on Thursday as scheduled. Fu here when done with ortho appt. . [facility] Comment on above: Result Comment: Elec tronically Signed By: Rebeka PERRIN CNP\.br\Date and Time Signed: 04/09/21 11:23 EST Workers' Comp Officeon 04-09 Workers' Comp Office [id number] .00CD:127 [facility] Workers' Comp Office [id number] .00CD:127 [facility] Workers' Comp Office [id number] .00CD:127 [facility] Workers' Comp Office [id number] .00CD:127 [facility] Consent for Treatmenton Consent for Treatment [id number] .00CD:127 [facility] Discharge Instructionson Discharge Instructions [id number]# 1.00CD:127 [facility] ED Clinical Summaryon 2020 ED Clinical Summary [address] [address] ED Clinical Summary Person Information Name: MIGUEL WHITTEN Constance/[facility] Age: 35 Years : 1985 Sex: Male Language: Luxembourgish PCP: NATHAN RAY DO Marital Status: Single [...] 04/03/2021 15:52:07 04/03/2021 15:52:07 04/03/2021 15:52:07 ADDRESS: [facility] [address] [phone] PHYS DOC NOTES: MEDICAL INFORMATION: Prescriptions Given: [...] Tendon Tear Follow up: With: Address: When: [employer] [facility]: [facility] [place] [phone] In 3 days 04/06/2021 With: Address: When: Jelani Layne [address] [place] [address] [facility] (9) In 3 days 04/06/2021 Comments: Return to ED if symptoms worsen. Wear walking boot until cleared by orthopedic surgery. DIAGNOSIS: Achilles tendon injury Normal [facility] ED Note-Physicianon 04-03-20 ED Note-Physician Basic Information [...] bony tenderness. No indication for x-ray imaging. Tmedi-fi-dltp ultrasound was performed and is concerning for [...] prescription medications Follow-up With When Contact Information [facility]: [facility] [place] [phone] In 3 days 04/06/2021 EST Additional Instructions: Jelani Layne In 3 days 04/06/2021 EST [address] [phone] (1) Additional Instructions: Return to ED if [...] Diagnostic Results No qualifying data available. Normal [facility] Comment on above: Result Comment: Elec tronically Signed By: Fredo Liu DO.barry\Date and Time Signed: 04/03/21 16:41 EST ED [...] these instructions at home: Medicines ? Take gkqq-uew-pajkwpk and prescription medicines only as told by your health care provider. ? Ask your health care provider if the medicine prescribed to you: ? Requires you to avoid driving or using heavy machinery. ? Can cause constipation. You may need to take these actions to prevent or treat constipation: ? Drink enough fluid to keep your urine pale yellow. ? Take geix-wyn-uowaevi or prescription medicines. ? Eat foods that [...] all follow-up (more content not included)... Normal [facility] ED Patient Summaryon 021 ED Patient Summary [address] [address] Patient Discharge Instructions Person Information Name: MIGUEL WHITTEN Age: 35 Years Arrival Date: 04/03/2021 14:57:11 Discharge Diagnosis: Achilles tendon injury Primary Care Physician: NATHAN RAY DO Provider Information Primary Provider: Fredo Liu DO Advanced Elevator Pilot:None The exam and treatment you received in the Emergency Department were for an urgent problem and are not intended as complete care. It is important that you follow up with a doctor, nurse practitioner, or physician?s registered sales assistant for ongoing care. If your symptoms become worse or you do not improve as expected and you are unable to reach your usual health care provider, you should return to the Emergency Department. We are available 24 hours a day. MIGUEL WHITTEN has been given the following list of patient education materials, prescriptions and follow-up instructions: Follow-up Instructions: With: Address: When: [facility]: [facility] [place] [phone] In 3 days 04/06/2021 With: Address: When: Jelani Layne [address] [place] [address] [facility] () In [...] opioids can be used to help relieve avhmvabk-bv-hncawv pain and are often prescribed following a [...] you may b (more content not included)... [facility] Workers Comp Formson 021 Workers Comp Forms [id number]# 1.00CD:127 [facility] Ambulatory Clinical Summaryo n 03-26-2021 Ambulatory Clinical Summary {[id number]}CD:[id number] [facility] Patient Educationon 03-26-20 21 Patient Education Urology Vasectomy, Care After [...] these instructions at home: Medicines ? Take cmuo-zml-qgfkvtp and prescription medicines only as told by [...] 11/07/2005 Document Revised: 04/02/2018 Document Reviewed: 07/17/2017 [employer] Patient Education ? 2019 [employer]. Janneth [facility] Urology Office/Clinic Noteon 03-26-2021 Urology Office/Clinic Note Chief Complaint VAS This patient 35-year-old male requesting permanent sterilization. He also complains of right testicular discomfort been a problem for him for last 6 months. He states he had a scrotal ultrasound was done at [facility] or [facility] Staff New patient in [...] day(s), # 20 tab(s), Refills(s) 0, Pharmacy: [id number] [facility], 180, cm, 03/26/21 10:24:00 EST, Height/Length Dosing Urnls Dip Stick Auto (more content not included)... Normal [facility] Comment on above: Result Comment: Elec tronically Signed By: Prudencio Harrison MD, Gui Golsdtein\.br\Date and Time Signed: 03/26/21 10:56 EST\.br\Electronically Co-Signed By: Esperanza Lucia\.br\Date and Time Co-Signed: 03/26/21 10:51 EST Vital Signs Date Time Vital Sign Value Performing Clinician Facility 02-04-2024 13:41-0400 Body height 172.72 cm DO Nathan Ray Work Phone: [facility] 02-04-2024 13:41-0400 Body mass index (BMI) [Ratio] 40.6 kg/m2 DO Nathan Ray Work Phone: [facility] 02-04-2024 13:41-0400 Body weight 121.1 kg DO Nathan Ray Work Phone: [facility] 02-04-2024 13:41-0400 Diastolic blood pressure 86 mm[Hg] DO Nathan Ray Work Phone: [facility] 02-04-2024 13:41-0400 Heart rate 79 /min DO Nathan Ray Work Phone: [facility] 02-04-2024 13:41-0400 Respiratory rate 16 /min DO Nathan Ray Work Phone: [facility] 02-04-2024 13:41-0400 SaO2% (BldA) [Mass fraction] 94 % DO Nathan Ray Work Phone: [facility] 02-04-2024 13:41-0400 Systolic blood pressure 118 mm[Hg] DO Nathan Ray Work Phone: [facility] 10-21-2023 11:15-0400 Body height 172.72 cm [facility] 10-21-2023 11:15-0400 Body mass index (BMI) [Ratio] 41.2 kg/m2 [facility] 10-21-2023 11:15-0400 Body weight 122.92 kg [facility] 10-21-2023 11:15-0400 Diastolic blood pressure 84 mm[Hg] [facility] 10-21-2023 11:15-0400 Heart rate 67 /min [facility] 10-21-2023 11:15-0400 Respiratory rate 18 /min [facility] 10-21-2023 11:15-0400 SaO2% (BldA) [Mass fraction] 94 % [facility] 10-21-2023 11:15-0400 Systolic blood pressure 116 mm[Hg] [facility] 10-01-2023 11:10-0400 Body height 175.8 cm Richard Holguin DO Work Phone: [facility] 10-01-2023 11:10-0400 Body mass index (BMI) [Ratio] 37.9 kg/m2 Richard Holguin DO Work Phone: [facility] 10-01-2023 11:10-0400 Body weight 117.1 kg Richard Holguin Work Phone: [facility] 07-21-2023 16:19-0400 Body height 172.72 cm DO Nathan Ray Work Phone: [facility] 07-21-2023 16:19-0400 Body mass index (BMI) [Ratio] 40.3 kg/m2 DO Nathan Ray Work Phone: [facility] 07-21-2023 16:19-0400 Body weight 120.2 kg DO Nathan Ray Work Phone: [facility] 07-21-2023 16:19-0400 Diastolic blood pressure 92 mm[Hg] DO Nathan Ray Work Phone: [facility] 07-21-2023 16:19-0400 Heart rate 105 /min DO Nathan Ray Work Phone: [facility] 07-21-2023 16:19-0400 Respiratory rate 16 /min DO Nathan Ray Work Phone: [facility] 07-21-2023 16:19-0400 SaO2% (BldA) [Mass fraction] 93 % DO Nathan Ray Work Phone: [facility] 07-21-2023 16:19-0400 Systolic blood pressure 122 mm[Hg] DO Nathan Ray Work Phone: [facility] 07-09-2023 12:20-0500 Body height 175.3 cm Sriram BELLE Work Phone: [facility] 07-09-2023 12:20-0500 Body mass index (BMI) [Ratio] 38.84 kg/m2 Sriram Faustin PA Work Phone: [facility] 07-09-2023 12:20-0500 Body weight 119.3 kg rSiram Faustin PA [facility] 07-09-2023 12:20-0500 Diastolic blood pressure 85 mm[Hg] Sriram Faustin PA Work Phone: [facility] 07-09-2023 12:20-0500 Heart rate 99 /min Sriram BELLE Work Phone: [facility] 07-09-2023 12:20-0500 Respiratory rate 18 /min Sriram Nienberg PA Work Phone: [employer] 07-09-2023 12:20-0500 SaO2% (BldA) [Mass fraction] 98 % Sriram Nienberg PA Work Phone: [facility] 07-09-2023 12:20-0500 Systolic blood pressure 131 mm[Hg] Sriram Nienberg PA Work Phone: [facility] 05-28-2023 10:28-0500 Body mass index (BMI) [Ratio] 40.91 kg/m2 Sriram Nienberg PA Work Phone: [facility] 05-28-2023 10:28-0500 Body weight 125.65 kg Sriram Nienberg PA Work Phone: [facility] 05-28-2023 10:28-0500 Diastolic blood pressure 89 mm[Hg] Sriram Nienberg PA Work Phone: [employer] 05-28-2023 10:28-0500 Heart rate 79 /min Sriram Nienberg PA Work Phone: [employer] 05-28-2023 10:28-0500 Respiratory rate 16 /min Sriram Nienberg PA Work Phone: [facility] 05-28-2023 10:28-0500 SaO2% (BldA) [Mass fraction] 99 % Sriram Nienberg PA Work Phone: [facility] 05-28-2023 10:28-0500 Systolic blood pressure 135 mm[Hg] Sriram Nienberg PA Work Phone: [employer] 05-28-2023 09:42-0500 Body height 175.3 cm Sriram Nienberg PA Work Phone: [facility] Comment on above: stated 04-14-2023 15:15-0500 Body height 172.72 cm Nathan Ray Other [facility] 04-14-2023 15:15-0500 Body mass index (BMI) [Ratio] 41.2 kg/m2 Nathan Ray Other [employer] Other 04-14-2023 15:15-0500 Body weight 122.93 kg Nathan Ray Other [employer] Other 04-14-2023 15:15-0500 Body weight 122.92 kg DO Nathan Ray Work Phone: [facility] 04-14-2023 15:15-0500 Diastolic blood pressure 84 mm[Hg] Nathan Flor Other [facility] 04-14-2023 15:15-0500 Respiratory rate 18 /min Nathan Ray Other [employer] Other 04-14-2023 15:15-0500 SaO2% (BldA) [Mass fraction] 96 % Nathan Ray Other [facility] [employer] Other 04-14-2023 15:15-0500 Systolic blood pressure 126 mm[Hg] Nathan Ray Other [facility] 04-13-2023 14:45-0500 Body height 172.72 cm Kasey Thayerler Other [facility] 04-13-2023 14:45-0500 Body mass index (BMI) [Ratio] 41.23 kg/m2 Kasey Missler Other [employer] Other 04-13-2023 14:45-0500 Body weight 123.02 kg Kasey Missler Other [employer] Other 04-13-2023 14:45-0500 Body weight 123.01 kg DO Nathan Ray Work Phone: [facility] 04-13-2023 14:45-0500 Diastolic blood pressure 83 mm[Hg] Kasey Missler Other [facility] 04-13-2023 14:45-0500 Respiratory rate 18 /min Kasey Missler Other [employer] Other 04-13-2023 14:45-0500 SaO2% (BldA) [Mass fraction] 98 % Kasey Missler Other [employer] [facility] [employer] Other 04-13-2023 14:45-0500 Systolic blood pressure 117 mm[Hg] Kasey Missler Other [facility] 04-01-2023 15:00-0500 Body height 172.72 cm Erica Hale Other [facility] 04-01-2023 15:00-0500 Body mass index (BMI) [Ratio] 41.66 kg/m2 Erica Hale Other [employer] [facility] [employer] Other 04-01-2023 15:00-0500 Body weight 124.29 kg Erica Hale Other [employer] Other 04-01-2023 15:00-0500 Body weight 124.28 kg DO Nathan Ray Work Phone: [facility] 03-18-2023 09:30-0500 Body height 172.72 cm Elmer Matsonle II Other [employer] Other 03-18-2023 09:30-0500 Body mass index (BMI) [Ratio] 41.66 kg/m2 Elmer Merced II Other [employer] Other 03-18-2023 09:30-0500 Body weight 124.29 kg Elmer Merced II Other [employer] Other 01-28-2023 09:30-0400 Body height 172.72 cm Elmer Merced II Other [employer] Other 01-28-2023 09:30-0400 Body mass index (BMI) [Ratio] 42.87 kg/m2 Elmer Merced II Other [employer] Other 01-28-2023 09:30-0400 Body weight 127.92 kg Elmer Merced II Other [employer] Other 11-14-2022 10:30-0400 Body height 172.72 cm Jack Scodin Other [employer] Other 11-14-2022 10:30-0400 Body mass index (BMI) [Ratio] 43.79 kg/m2 Jack Scovanner Other [employer] Other 11-14-2022 10:30-0400 Body weight 130.64 kg Jack Scovanner Other [employer] Other 11-14-2022 10:30-0400 Diastolic blood pressure 75 mm[Hg] Jack Scovanner Other [employer] Other 11-14-2022 10:30-0400 Systolic blood pressure 124 mm[Hg] Jack Scovanner Other [employer] Other 07-29-2022 14:43-0400 Diastolic blood pressure 75 mm[Hg] DO Nathan Ray Work Phone: [facility] 07-29-2022 14:43-0400 Heart rate 97 /min DO Nathan Ray Work Phone: [facility] 07-29-2022 14:43-0400 Respiratory rate 16 /min DO Nathan Ray Work Phone: [facility] 07-29-2022 14:43-0400 SaO2% (BldA) [Mass fraction] 97 % DO Nathan Ray Work Phone: [facility] 07-29-2022 14:43-0400 Systolic blood pressure 106 mm[Hg] DO Nathan Ray Work Phone: [facility] 07-29-2022 13:16-0400 Body height 175.26 cm DO Nathan Ray Work Phone: [facility] 07-29-2022 13:16-0400 Body temperature 98 [degF] DO Nathan Ray Work Phone: [facility] 07-29-2022 13:16-0400 Body weight 124.73 kg DO Nathan Ray Work Phone: [facility] 07-02-2022 13:00-0500 Body height 172.72 cm Kamlesh Church Other [employer] Other 07-02-2022 13:00-0500 Body mass index (BMI) [Ratio] 42.27 kg/m2 Kamlesh Church Other [employer] Other 07-02-2022 13:00-0500 Body weight 126.1 kg Kamlesh Church Other [employer] Other 07-02-2022 13:00-0500 Diastolic blood pressure 91 mm[Hg] Kamlesh Church Other [employer] Other 07-02-2022 13:00-0500 Systolic blood pressure 136 mm[Hg] Kamlesh Church Other [employer] Other 05-06-2022 16:45-0500 Body height 172.72 cm Nathan Ray Other [employer] Other 05-06-2022 16:45-0500 Body mass index (BMI) [Ratio] 42.11 kg/m2 Nathan Ray Other [employer] Other 05-06-2022 16:45-0500 Body weight 125.65 kg Nathan Ray Other [employer] Other 05-06-2022 16:45-0500 Diastolic blood pressure 66 mm[Hg] Nathan Ray Other [employer] Other 05-06-2022 16:45-0500 Respiratory rate 16 /min Nathan Ray Other [employer] Other 05-06-2022 16:45-0500 SaO2% (BldA) [Mass fraction] 91 % Nathan Ray Other [employer] Other 05-06-2022 16:45-0500 Systolic blood pressure 124 mm[Hg] Nathan Ray Other [employer] Other 03-04-2022 16:45-0400 Body height 172.72 cm Nathan Ray Other [employer] Other 03-04-2022 16:45-0400 Body mass index (BMI) [Ratio] 42.87 kg/m2 Nathan Ray Other [employer] Other 03-04-2022 16:45-0400 Body weight 127.92 kg Nathan Ray Other [employer] Other 03-04-2022 16:45-0400 Diastolic blood pressure 84 mm[Hg] Nathan Ray Other [employer] Other 03-04-2022 16:45-0400 Respiratory rate 16 /min Nathan Ray Other [employer] Other 03-04-2022 16:45-0400 SaO2% (BldA) [Mass fraction] 96 % Nathan Ray Other [employer] Other 03-04-2022 16:45-0400 Systolic blood pressure 134 mm[Hg] Nathan Ray Other [employer] Other 11-28-2021 16:15-0400 Body height 172.72 cm Nathanxiomara Boatengapolonia Other [employer] Other 11-28-2021 16:15-0400 Body mass index (BMI) [Ratio] 41.5 kg/m2 Nathan Flor Other [employer] Other 11-28-2021 16:15-0400 Body weight 123.83 kg Nathan Ray Other [employer] Other 11-28-2021 16:15-0400 Diastolic blood pressure 66 mm[Hg] Nathan Ray Other [employer] Other 11-28-2021 16:15-0400 Respiratory rate 20 /min Nathan Ray Other [employer] Other 11-28-2021 16:15-0400 SaO2% (BldA) [Mass fraction] 96 % Nathan Ray Other [employer] Other 11-28-2021 16:15-0400 Systolic blood pressure 108 mm[Hg] Nathan Flor Other [employer] Other 10-29-2021 16:00-0400 Body height 172.72 cm Nathan Ray Other [employer] Other 10-29-2021 16:00-0400 Body mass index (BMI) [Ratio] 41.2 kg/m2 Nathan Ray Other [employer] Other 10-29-2021 16:00-0400 Body weight 122.93 kg Nathan Ray Other [employer] Other 10-29-2021 16:00-0400 Diastolic blood pressure 78 mm[Hg] Nathan Ray Other [employer] Other 10-29-2021 16:00-0400 Respiratory rate 18 /min Nathan Flor Other [employer] Other 10-29-2021 16:00-0400 SaO2% (BldA) [Mass fraction] 98 % Nathan Ray Other [employer] Other 10-29-2021 16:00-0400 Systolic blood pressure 120 mm[Hg] Nathan Ray Other [employer] Other 03-14-2021 17:00-0500 Body height 172.72 cm Nathan Ray Other [employer] Other 03-14-2021 17:00-0500 Body mass index (BMI) [Ratio] 44.33 kg/m2 Nathan Ray Other [employer] Other 03-14-2021 17:00-0500 Body weight 132.27 kg Nathan Ray Other [employer] Other 03-14-2021 17:00-0500 Diastolic blood pressure 80 mm[Hg] Nathan Flor Other [employer] Other 03-14-2021 17:00-0500 Respiratory rate 18 /min Nathan Flor Other [employer] Other 03-14-2021 17:00-0500 SaO2% (BldA) [Mass fraction] 95 % Nathan Boatengapolonia Other [employer] Other 03-14-2021 17:00-0500 Systolic blood pressure 122 mm[Hg] Nathan Ray Other [employer] Other Encounters Encounter Date Encounter Type Care Provider Facility Start: 02-04-2024 End: 02-04-2024 ambulatory DO Nathan Ray Work Phone: [facility] Work Phone: Start: 02-04-2024 End: 02-04-2024 Patient encounter procedure DO Nathan Ray Work Phone: [facility] Work Phone: Start: 02-03-2024 End: 02-03-2024 Telephone encounter Gayatri Nelson CNA [facility] Start: 02-01-2024 End: 02-01-2024 Patient encounter procedure DO Nathan Ray Work Phone: [facility] [employer] Work Phone: Start: 02-01-2024 End: 02-01-2024 ambulatory DO Nathan Ray Work Phone: [facility] Work Phone: Start: 01-26-2024 End: 01-26-2024 ambulatory [facility] Start: 01-01-2024 End: 01-01-2024 ambulatory [facility] Start: 2023 Non-patient / Non-visit DO Yobany Ray Work Phone: [facility] Work Phone: Start: 10-22-2023 End: 10-22-2023 ambulatory [facility] Start: 10-21-2023 End: 10-21-2023 ambulatory [facility] Work Phone: Start: 10-21-2023 End: 10-21-2023 Patient encounter procedure [facility] [place] Work Phone: Start: 10-09-2023 End: 10-09-2023 ambulatory ARSLAN [facility] Start: 10-01-2023 End: 10-01-2023 ambulatory JACOB RAY Facility:[facility] Start: 10-01-2023 End: 10-01-2023 Patient encounter procedure Richard Holguin DO Work Phone: Orthopaedics Comment on above: Pain in right hip [M 25.551] (Primary Dx) Start: 09-27-2023 Non-patient / Non-visit [facility] Work Phone: Start: 09-01-2023 End: 09-01-2023 ambulatory [facility] Start: 08-31-2023 End: 08-31-2023 [facility] Start: 08-31-2023 End: 08-31-2023 Patient encounter procedure Jim D Crouch DO Work Phone: Orthopaedics Comment on above: Avascular necrosis o f bones of both hips (HCC) (Primary Dx) Start: 08-26-2023 Non-patient / Non-visit [facility] Work Phone: Start: 08-07-2023 End: 08-07-2023 ambulatory [facility] Start: 08-01-2023 ambulatory Jim D Crouch DO Work Phone: [facility] Start: 08-01-2023 Follow-up encounter Jim Belle tel DO Work Phone: Orthopaedics Comment on above: Follow up Start: 07-31-2023 End: 07-31-2023 ambulatory [facility] Start: 07-21-2023 End: 07-21-2023 ambulatory DO Nathan Ray Work Phone: [facility] Work Phone: Start: 07-21-2023 End: 07-21-2023 Patient encounter procedure DO Nathan Ray Work Phone: [facility] Work Phone: Start: 07-17-2023 ambulatory JIM D CROUCH Facility: [facility] Start: 07-17-2023 End: 07-17-2023 Subsequent hospital visit by physician Mri [facility] ([facility]/3t) Work Phone: [facility] Radiology MRI Comment on above: Osteonecrosis of hip (HCC) [M87.9] Start: 07-09-2023 End: 07-09-2023 ambulatory SRIRAM FAUSTIN [facility] Start: 07-09-2023 End: 07-09-2023 Office outpatient visit 25 minutes Sriram BELLE Work Phone: [facility] Comment on above: Lumbosacral spondylo sis without myelopathy (Primary Dx) Start: 06-29-2023 End: 06-29-2023 ambulatory JACOB RAY Facility:[facility] Start: 06-26-2023 End: 06-26-2023 ambulatory ARSLAN [facility] Start: 06-05-2023 End: 06-05-2023 ambulatory Nathan Ray Other [facility] Other Start: 06-05-2023 Telephone encounter Nathan Ray [facility] Start: 05-28-2023 End: 05-28-2023 Patient encounter procedure DO Nathan Ray Work Phone: [facility] Start: 05-28-2023 End: 05-28-2023 ambulatory DO Nathan Ray Work Phone: [facility] Work Phone: Start: 05-28-2023 Office outpatient vi sit 25 minutes Fredo Parker [facility] Start: 05-28-2023 End: 05-28-2023 ambulatory [facility] Start: 05-28-2023 End: 05-28-2023 Office outpatient new 45 minutes Arielle Davidson PA-C Work Phone: [facility] Comment on above: Chronic pain of both shoulders (Primary Dx) Start: 05-28-2023 End: 05-28-2023 ambulatory [facility] Start: 05-27-2023 End: 05-27-2023 ambulatory KELLEN WATSON Not Available Start: 05-19-2023 End: 05-19-2023 ambulatory MARILYN CURRY Not Available Start: 05-12-2023 End: 05-13-2023 ambulatory KELLEN WATSON Not Available Start: 05-11-2023 End: 05-11-2023 Patient encounter procedure DO Nathan Ray Work Phone: [facility] Work Phone: Start: 05-06-2023 End: 05-06-2023 ambulatory KELLEN WATSON Not Available Start: 05-01-2023 End: 05-01-2023 ambulatory Nathan Rya Other [facility] Other Start: 05-01-2023 Telephone encounter Nathan Flor [facility] Start: 04-22-2023 End: 04-22-2023 ambulatory KELLENMATTHIAS WATSON Not Available Start: 04-20-2023 End: 04-20-2023 ambulatory Nathan Ray Other [facility] Other Start: 04-20-2023 Telephone encounter Nathanxiomara Boatengapolonia [facility] Start: 04-14-2023 End: 04-14-2023 ambulatory Nathan Kiloapolonia Other Disconnect Other Start: 04-14-2023 Office outpatient vi sit 15 minutes Nathan Ray [facility] Start: 04-14-2023 End: 04-14-2023 Patient encounter procedure DO Nathan Ray Work Phone: [facility] Work Phone: Start: 04-13-2023 End: 04-13-2023 Discharged Recurring DO Nathan Ray Work Phone: [facility] Work Phone: Start: 04-13-2023 Registered Recurring DO Nathan Ray Work Phone: [facility] Work Phone: Start: 04-13-2023 (Smoke Cess) [facility]ess[facility] Start: 04-13-2023 End: 04-13-2023 ambulatory DO Nathan Ray Work Phone: Disconnect Other Start: 04-13-2023 End: 04-13-2023 Patient encounter procedure DO Nathan Ray Work Phone: [facility] Work Phone: Start: 04-01-2023 End: 04-01-2023 Patient encounter procedure DO Nathan Ray Work Phone: [facility] Start: 04-01-2023 End: 04-01-2023 ambulatory DO Nathan Ray Work Phone: [facility] Work Phone: Start: 04-01-2023 Office outpatient vi sit 15 minutes Erica Hale [facility] Start: 04-01-2023 End: 04-01-2023 Patient encounter procedure DO Nathan Ray Work Phone: [facility] Work Phone: Start: 03-30-2023 End: 03-30-2023 Patient encounter procedure DO Nathan Ray Work Phone: [facility] Start: 03-30-2023 End: 03-30-2023 ambulatory Fredo Parker Facility:[facility] Start: 03-23-2023 End: 03-23-2023 ambulatory Shanna Fitt Other [employer] [facility] Other Start: 03-23-2023 Telephone encounter Shanna Fitt [facility] Start: 03-18-2023 End: 03-18-2023 ambulatory Shanna Fitt Other [employer] [facility] Other Start: 03-18-2023 Office outpatient vi sit 25 minutes Elmer Gonzalez II [facility] Start: 03-18-2023 Telephone encounter Shanna Fitt [facility] Start: 03-18-2023 End: 03-18-2023 Patient encounter procedure DO Nathan Ray Work Phone: [facility] Work Phone: Start: 03-06-2023 End: 03-06-2023 Patient encounter procedure DO Nathan Ray Work Phone: [facility] [employer] Work Phone: Start: 03-06-2023 End: 03-06-2023 ambulatory DO Nathan Ray Work Phone: [facility] Work Phone: Start: 01-28-2023 Office outpatient ne w 45 minutes Elmer Gonzalez II [facility] Start: 01-28-2023 End: 01-28-2023 ambulatory DO Nathan Ray Work Phone: [facility] Work Phone: Start: 01-28-2023 End: 01-28-2023 Patient encounter procedure DO Nathan Ray Work Phone: [facility] Start: 01-20-2023 End: 01-20-2023 ambulatory Nathan Ray Other Disconnect Other Start: 01-20-2023 Telephone encounter Nathan Ray [facility] Start: 12-19-2022 End: 12-19-2022 ambulatory Nathan Ray Other Disconnect Other Start: 12-19-2022 Telephone encounter Nathan Ray [facility] Start: 12-17-2022 End: 12-17-2022 ambulatory DO Nathan Ray Work Phone: [facility] Work Phone: Start: 12-17-2022 End: 12-17-2022 Patient encounter procedure DO Nathan Ray Work Phone: [facility] [employer] Work Phone: Start: 11-17-2022 End: 11-17-2022 ambulatory Nathanxiomara Ray Other Disconnect Other Start: 11-17-2022 Telephone encounter Nathan [facility] Start: 11-14-2022 Office outpatient vi sit 15 minutes Jack Mason [facility] Start: 11-14-2022 End: 11-14-2022 ambulatory DO Nathan Ray Work Phone: Disconnect Other Start: 11-14-2022 End: 11-14-2022 Patient encounter procedure DO Nathan Ray Work Phone: [facility] [employer] Work Phone: Start: 07-29-2022 Telephone encounter Jack [facility] Start: 07-29-2022 End: 07-29-2022 Admission to same day surgery center DO Nathan Ray Work Phone: [facility] Work Phone: Start: 07-29-2022 End: 07-29-2022 ambulatory DO Nathan Ray Work Phone: [facility] Work Phone: Start: 07-03-2022 End: 07-03-2022 ambulatory Kamlesh Church Other Disconnect Other Start: 07-03-2022 Telephone encounter Kamlesh Church [facility] [employer] Start: 07-02-2022 End: 07-02-2022 ambulatory Kamlesh Church Other Disconnect Other Start: 07-02-2022 Patient encounter procedure Kamlesh Church [facility] Start: 05-26-2022 End: 05-26-2022 ambulatory DO Nathanxiomara Ray Work Phone: [facility] Work Phone: Start: 05-26-2022 End: 05-26-2022 Patient encounter procedure DO Nathan Ray Work Phone: [facility] [address] Work Phone: Start: 05-06-2022 End: 05-06-2022 ambulatory Nathan Ray Other Disconnect Other Start: 05-06-2022 Office outpatient vi sit 25 minutes Nathan Ray [facility] Start: 04-19-2022 Encounter for preprocedural laboratory examination DR SRIRAM FRANK [facility] Start: 04-15-2022 End: 04-15-[address] SRIRAM FRANK Facility:[facility] Start: 04-15-2022 End: 04-15-2022 Encounter for preprocedural laboratory examination DR SRIRAM FRANK Facility:[facility] Start: 04-04-2022 End: 04-04-2022 ambulatory DO Nathan Ray Work Phone: [facility] Work Phone: Start: 04-04-2022 End: 04-04-2022 Patient encounter procedure DO Nathan Ray Work Phone: [facility] [employer] Start: 03-21-2022 End: 03-21-2022 ambulatory ULISSES MOROCHO Facility:[facility] Start: 03-14-2022 End: 03-14-2022 ambulatory Nathan Ray Other Disconnect Other Start: 03-14-2022 Telephone encounter Nathan Ray [facility] Start: 03-04-2022 End: 03-04-2022 ambulatory Nathan Ray Other Disconnect Other Start: 03-04-2022 Office outpatient vi sit 25 minutes Nathan Ray [facility] Start: 01-30-2022 End: 01-30-2022 ambulatory Nathan Ray Other Disconnect Other Start: 01-30-2022 Telephone encounter Nathan Ray [facility] Start: 01-17-2022 End: 01-18-[address] NATHAN RAY Facility:[facility] Start: 01-15-2022 End: 01-15-2022 ambulatory Nathan Ray Other Disconnect Other Start: 01-15-2022 Telephone encounter Nathan Ray [facility] Start: 11-28-2021 End: 11-28-2021 ambulatory Nathan Ray Other Disconnect Other Start: 11-28-2021 Office outpatient vi sit 25 minutes Nathan Ray [facility] Start: 11-05-2021 End: 11-05-2021 ambulatory Nathan Ray Other Disconnect Other Start: 11-05-2021 Telephone encounter Nathan Ray [facility] Start: 10-29-2021 End: 10-29-2021 ambulatory Nathan Ray Other Disconnect Other Start: 10-29-2021 Office outpatient vi sit 25 minutes Nathan Ray [facility] Start: 09-26-2021 End: 09-27-[address] NATHAN RAY Facility:[facility] Start: 08-22-2021 End: 08-22-2021 ambulatory Nathan Ray Other Disconnect Other Start: 08-22-2021 Telephone encounter Nathan Ray [facility] Start: 08-05-2021 End: 08-06-[address] NATHAN RAY Facility:[facility] Start: 04-18-2021 Chart abstracting Presley collado MD Work Phone: Hematology/Oncology Start: 04-09-2021 End: 04-09-2021 ambulatory Nathan Ray Other Disconnect Other Start: 04-09-2021 Telephone encounter Nathan Ray [facility] Start: 03-14-2021 End: 03-14-2021 ambulatory Nathan Ray Other Disconnect Other Start: 03-14-2021 Office outpatient vi sit 25 minutes Nathan Ray [facility] Start: 03-14-2021 Telephone encounter Nathanxiomara Ray [facility] Procedures Date Procedure Procedure Detail Performing Clinician [...] Treatment Date Care Activity Detail Author Start: 01-25-2025 Adult BMI Screening Adult BMI Screen ing [facility] Start: 01-25-2025 Tobacco Screening Tobacco Screening [facility] Start: 07-08-2024 Adult BMI Screening Adult BMI Screen ing [facility] Start: 07-08-2024 Tobacco Screening Tobacco Screening [facility] Start: 05-28-2024 Adult BMI Screening Adult BMI Screen ing [facility] Start: 05-28-2024 Tobacco Screening Tobacco Screening [facility] Start: 01-03-2024 [facility] Start: 09-18-2023 End: 09-18-2023 Patient encounter procedure 09/18/2023 10:40 AM EDT Office Visit Orthopedics [address] [place] [address] Richard Holguin, [address] [place] [address] Avascular necrosis of bones of both hips Orthopedics Comment on above: Avascular necrosis o f bones of both hips Start: 08-11-2023 End: 08-11-2023 Patient encounter procedure 08/11/2023 12:00 PM EDT Office Visit [facility] [address] [place] [phone] Sriram Faustin PA [address] [place], [place] [id number] [facility] Start: 07-31-2023 End: 07-31-2023 Admission to same day surgery center 07/31/2023 9:20 AM EDT - 07/31/2023 9:27 AM EDT Surgery [facility] [address] [place] [phone] Arslan Bryant MD [address] [place], [place] [id number] INJECTION BLOCK NERVE MEDIAL BRANCH: bilat L 4/5, 5 [20419 (CPT )] [facility] Comment on above: INJECTION BLOCK NERV E MEDIAL BRANCH: bilat L 4/5, 5/ [43124 (CPT )] Start: 07-31-2023 End: 07-31-2023 Njx dx/ther agt pvrt facet jt lmbr/sac 1 level INJECTION BLOCK NERVE MEDIAL BRANCH Lumbosacral spondylosis without myelopathy 07/31/2023 9:20 AM EDT [facility] Start: 07-31-2023 Subsequent hospital visit by physician 07/31/2023 9:20 AM EDT Hospital Encounter [facility] [address] [place] [address] Arslan Bryant MD [address] [place], [place] [id number] [facility] Start: 07-09-2023 End: 07-09-2023 Patient encounter procedure 07/09/2023 12:00 PM EST Office Visit [facility] [address] [place] [phone] Sriram Faustin PA [address] [place], [place] [id number] [facility] Start: 06-26-2023 End: 06-26-2023 Admission to same day surgery center 06/26/2023 10:00 AM EST - 06/26/2023 10:05 AM EST Surgery [facility] [address] [place] [address] Arslan Bryant MD [address] [place], [place] [id number] INJECTION BURSA LARGE JOINT: bilat shoulder [ (CPT )] [facility] Comment on above: INJECTION BURSA LARG E JOINT: bilat shoulder [ (CPT )] Start: 06-26-2023 End: 06-26-2023 Arthrocentesis aspir&/inj major jt/bursa w/o us INJECTION BURSA LARGE JOINT Chronic pain of both shoulders 06/26/2023 10:00 AM EST [facility] Start: 06-26-2023 Subsequent hospital visit by physician 06/26/2023 10:00 AM EST Hospital Encounter [facility] [address] [place] [phone] Arslan Bryant MD [address] [facility] [place] [address] [facility] Start: 05-04-2023 Behavioral Health Screening Behavioral Health Screening [facility] Start: 05-04-2023 Depression Assessment Depression Ass essment [facility] Start: 01-02-2023 Covid-19 Vaccine ( season) Covid-19 Vaccine () [facility] Start: 01-02-2023 Influenza vaccination P [facility] Start: 11-15-2022 Lipid panel Lipid Screening [facility] Start: 07-29-2022 [facility] Start: 01-02-2021 Influenza vaccination INFLUENZA (#1) [facility] Start: 11-15-2006 DTaP,Tdap and Td Vac cines (1 - Tdap) DTaP,Tdap and Td Vaccines (1 - Tdap) [facility] Start: 11-15-2006 Hepatitis B Vaccine (1 of 3 - 19+ 3-dose series) Hepatitis B Vaccine (1 of 3 - 19+ 3-dose series) [facility] Start: 11-15-2006 Urine microalbumin profile [facility] Start: 11-15-2005 Adult BMI Follow Up Plan Adult BMI Follow Up Plan [facility] Start: 11-15-2005 HEPATITIS C SCREENING HEPATITIS C [facility] Start: 11-15-2005 Hepatitis C screening Hepatitis C [facility] Start: 11-15-2005 HIV SCREENING HIV SCREENING [facility] Start: 11-15-2005 HIV screening HIV Screening [facility] Start: 1999 Adult depression screening assessment DEPRESSION SCREENING [facility] Start: 11-15-1992 COVID-19 VACCINE (1) COVID-19 VACCIN E (1) [facility] Start: 1987 Tobacco Counseling Tobacco Counselpamela sweet [facility] Comprehensive metabo lic 1999 panel - Serum or Plasma [facility] Comprehensive metabo lic 1999 panel - Serum or Plasma [facility] Immunizations Immunization Date Immunization Notes Care Provider Fa cility NEGATED: Highlighted row has not occurred!10-11-2019 influenza, seasonal, injectable Patient Objection Nathan Flor Other [employer] [facility] [employer] Other NEGATED: Highlighted row has not occurred!08-19-2018 influenza, seasonal, injectable Patient Objection Nathan Flor Other [employer] [facility] Other Payers Date Payer Category Payer Self-pay [id number] 2015 Unknown [employer] PPO OOS [id number] 2015-Present [phone] [address] [place] [address] PPO [id number]. [id number] 2015 Unknown [id number]. 1.13.424. 2.7.3.214423.315 1987 Unknown [id number] 2.16.840.1.317225.3.579. 2.593 1987 Unknown [id number] 2.16.840.1.230650.3.579. 2.593 1987 Unknown [id number] 2.16.840.1.797229.3.579. 2.593 1987 Unknown [id number] 2.16.840.1.135694.3.579. 2.593 1987 Unknown [id number] 2.16.840.1.060761.3.579. 2.593 1987 Unknown [id number] 2.16.840.1.214197.3.579. 2.9 1987 Unknown [id number] 2.16.840.1.134785.3.579. 2.1258 1987 Unknown [id number] 2.16.840.1.118568.3.579. 2.1258 1987 Unknown [id number] 2.16.840.1.796486.3.579. 2.1258 1987 Unknown [id number] 2.16.840.1.031553.3.579. 2.1258 1987 Unknown [id number] 2.16.840.1.479379.3.579. 2.1285 1987 Unknown [id number] 2.16840.1.898262.3.579. 2.1285 1987 Unknown [id number] 2.16.840.1.223469.3.579. 2.1285 1987 Unknown [id number] 2.16840.1.756407.3.579. 2.1285 1987 Unknown [id number] 2.16.840.1.236183.3.579. 2.1285 1987 Unknown [id number] 2.16840.1.320898.3.579. 2.1285 1987 Unknown [id number] 2.16.840.1.460251.3.579. 2.1285 1987 Unknown [id number] 2.16.840.1.263023.3.579. 2.1285 1987 Unknown [id number] 2.16.840.1.702381.3.579. 2.1285 1987 Unknown [id number] 2.16.840.1.345861.3.579. 2.1285 1987 Unknown [id number] 2.16.840.1.424778.3.579. 2.1286 1987 Unknown [id number] 2.16.840.1.161329.3.579. 2.1285 1987 Unknown [id number] 2.16.840.1.847492.3.579. 2.1285 1987 Unknown [id number] 2.16.840.1.142360.3.579. 2.1285 1987 Unknown [id number] 2.16.840.1.849090.3.579. 2.1285 1987 Unknown [id number] 2.16840.1.635815.3.579. 2.1286 1959 [facility] [id number] 2.16.840.1.505397.19 Private Health Insurance [facility] [id number] Unknown [id number] 2.16840.1.211487.3.579. 2.531 Unknown [id number] 2.16840.1.368884.3.579. 2.531 Unknown [id number] 2.16840.1.822851.3.579. 2.531 Unknown [id number] 2.16840.1.906705.3.579. 2.531 Unknown [id number] 2.840.1.784675.3.579. 2.531 Unknown [id number] 2840.1.583202.3.579. 2.531 Social History Date Type Detail Facility Start: 10-03-2019 End: 04-18-2021 Tobacco smoking status NHIS Never smoked tobacco [facility] Start: 04-18-2021 End: 01-26-2024 Tobacco use and exposure User of smokeless tobacco [facility] End: 05-03-2023 History of tobacco use Chews Tobacco [facility] Start: 04-18-2021 End: 01-26-2024 Alcohol intake Current drinker of alcohol (finding) [facility] Start: 1985 Sex Assigned At Male C [facility] Start: 06-14-2020 End: 05-28-2023 Sex Assigned At [facility] Start: 05-28-2023 Tobacco use and exposure Former smokeless tobacco user [facility] Start: 06-14-2020 End: 05-28-2023 History of Social function [facility] Childcare Unknown [facility] Start: 05-28-2023 Tobacco Comment Chewed since age 13 [facility] Start: 05-28-2023 Alcohol Comment 3 drinks per week Pr [facility] Start: 1987 Sex Assigned At Not on file P [facility] Start: 04-11-2021 Gender identity Identifies as male gender (finding) [facility] Start: 04-11-2021 Sexual orientation Heterosexual (fin ding) [facility] Start: 10-01-2023 Tobacco Comment Chews tobacco [facility] Goals Date Patient Goal Desired Activity /State Clinical Notes 02-01-2015 to 02-03-2024 Telephone Encounter - Gayatri Nelson CNA - 02/03/2024 10:21 AM EDTTelephone Encounter - Gayatri Nelson CNA - 02/03/2024 10:21 AM Richard Warren DO - 10/01/2023 12:11 PM EDT Note Date & Type Note Facility 02-03-2024 Miscellaneous Notes A fax was received from [facility] to notify that they were unable to make contact with Miguel regarding his pain management referral. Miguel was called to inform him. He just received their message and has called to schedule. documented in this encounter [facility] 02-03-2024 Telephone encounter Note A fax was received from [facility] to notify that they were unable to make contact with Miguel regarding his pain management referral. Miguel was called to inform him. He just received their message and has called to schedule. T [employer] 10-01-2023 Note HNO ID: [id number] Author: RICHARD HOLGUIN DO Service: ? Author Type: Physician Type: Progress Notes Filed: 10/16/2023 10:14 Note Text: SERVICE DATE: October 01, 2023 PCP: Jacob Ray DO Patient was referred by Jim Crouch Subjective Patient ID: patient is a 37-year-old male with longstanding bilateral hip pain. No initiating event causing the pain, however has progressively worsened. He did have imaging in 2017 which demonstrated avascular necrosis. He had an injection into his bilateral hips at that time which did not provide him any relief. Pain is described as sharp, worse with movement, located primarily in the groin and radiates laterally. Pain is worse on the right, however also has some left-sided pain as well He also has chronic low back pain with radiation down primarily right lower extremity as well, however he notes that this pain is different and presents with different movements. Cannot take ibuprofen secondary to stomach issues. The pain causes him to miss work, prevents him from participating in activities with his children. Patient does have a history significant for multiple prednisone tapers for arthritis, states that he would get prednisone tapers in 3 months. He is not a smoker but he does chew tobacco. Does chronically take allopurinol for gout. Chief Complaint: Patient presents with: Left Hip - Pain: AVN Right Hip - Pain: AVN PAIN EVALUATION 09/27/2023 2151 Pain Level: 7 Pain Location: Hip-Left hip-right Description: Aching;Dull;Radiating;Sharp;Shoo ting;Stiffness Duration Units: Years Frequency: Continuous Intervention/Comfort measure: Medication;Reposition;Relaxation ;Positioning TREATMENTS PRIOR TO INITIAL CONSULT: Oral NSAIDS - Patient Unable to Tolerate Right Physical Therapy - Patient Unable to Tolerate Right Corticosteroid Injection(s) ACTIVE PROBLEM LIST Enlargement of Lymph Nodes PAST MEDICAL HISTORY Diagnosis Date PMH - PAST MEDICAL HISTORY OF At age 19 Shingles on left side of neck PMH - PAST MEDICAL HISTORY OF At age 19 Abdominal adenopathies-stable Prolonged PTT 04/2021 PAST SURGICAL HISTORY Procedure Laterality Date PAST SURGICAL HISTORY OF Left shoulder PAST SURGICAL HISTORY OF Left fifth toe repair [facility] N/CARPAL TUNNEL SURG Right 04/18/2021 TONSILLECTOMY AND ADENOIDECTOMY FAMILY HISTORY Problem Relation Age of Onset [...] were reviewed per this encounter. Objective Right Lower Extremity: -range of motion range of motion hip flexion: 110, internal rotation 20, external rotation 40. Moderate Pain with internal and external rotation. - mild pain with Stinchfield - Pain with FADER - Large burn over the posterior calf without surrounding erythema. Well healing granulation tissue. -Motor DF/PLF/EHL intact -Mild decrease sensation over the lateral aspect of the foot -Compartments soft, compressible -Palpable DP and PT pulses, BCR <2 seconds Left Lower Extremity: -range of motion range of motion hip flexion: 110, internal rotation 20, external rotation 40. Mild ain with internal and external rotation. - mild pain with Stinchfield -Motor DF/PLF/EHL intact -Mild decrease sensation over the lateral aspect of the foot -Compartments soft, compressible -Palpable DP and PT pulses, BCR <2 seconds Imaging: Patient has imaging findings consistent with stable osteonecrosis. There is edema within bilateral femoral heads, worse on the right with a larger ar (more content not included)... [facility] 10-01-2023 History of Presen t illness Narrative Images from the original note were not included. SERVICE DATE: October 01, 2023 PCP: Jacob Ray DO Patient was referred by Jim Crouch Subjective Patient ID: patient is a 37-year-old male with longstanding bilateral hip pain. No initiating event causing the pain, however has progressively worsened. He did have imaging in 2017 which demonstrated avascular necrosis. He had an injection into his bilateral hips at that time which did not provide him any relief. Pain is described as sharp, worse with movement, located primarily in the groin and radiates laterally. Pain is worse on the right, however also has some left-sided pain as well He also has chronic low back pain with radiation down primarily right lower extremity as well, however he notes that this pain is different and presents with different movements. Cannot take ibuprofen secondary to stomach issues. The pain causes him to miss work, prevents him from participating in activities with his children. Patient does have a history significant for multiple prednisone tapers for arthritis, states that he would get prednisone tapers in 3 months. He is not a smoker but he does chew tobacco. Does chronically take allopurinol for gout. Chief Complaint: Patient presents with: Left Hip - Pain: AVN Right Hip - Pain: AVN PAIN EVALUATION 09/27/20231 Pain Level: 7 Pain Location: Hip-Left hip-right Description: Aching;Dull;Radiating;Sharp;Shoo ting;Stiffness Duration Units: Years Frequency: Continuous Intervention/Comfort measure: Medication;Reposition;Relaxation ;Positioning TREATMENTS PRIOR TO INITIAL CONSULT: Oral NSAIDS - Patient Unable to Tolerate Right Physical Therapy - Patient Unable to Tolerate Right Corticosteroid Injection(s) ACTIVE PROBLEM LIST Enlargement of Lymph Nodes PAST MEDICAL HISTORY Diagnosis Date PMH - PAST MEDICAL HISTORY OF At age 19 Shingles on left side of neck PMH - PAST MEDICAL HISTORY OF At age 19 Abdominal adenopathies-stable Prolonged PTT 04/2021 PAST SURGICAL HISTORY Procedure Laterality Date PAST SURGICAL HISTORY OF Left shoulder PAST SURGICAL HISTORY OF Left fifth toe repair [facility] N/CARPAL TUNNEL SURG Right 04/18/2021 TONSILLECTOMY & ADENOIDECTOMY <AGE 14 FAMILY HISTORY Problem Relation Age of Onset [...] were reviewed per this encounter. Objective Right Lower Extremity: -range of motion range of motion hip flexion: 110, internal rotation 20, external rotation 40. Moderate Pain with internal and external rotation. - mild pain with Stinchfield - Pain with FADER - Large burn over the posterior calf without surrounding erythema. Well healing granulation tissue. -Motor DF/PLF/EHL intact -Mild decrease sensation over the lateral aspect of the foot -Compartments soft, compressible -Palpable DP and PT pulses, BCR <2 seconds Left Lower Extremity: -range of motion range of motion hip flexion: 110, internal rotation 20, external rotation 40. Mild ain with internal and external rotation. - mild pain with Stinchfield -Motor DF/PLF/EHL intact -Mild decrease sensation over the lateral aspect of the foot -Compartments soft, compressible -Palpable DP and PT pulses, BCR <2 seconds Imaging: Patient has imaging findings consistent with stable osteonecrosis. There is edema within bilateral femoral heads, worse on the right with a larger area in the anterosuperior portion.. Bilateral MRIs demonstrate hip degenerative type labral tears. Slight area of chondral changes in the right femoral head. ASSESSMENT Diagnosis No diagnosis found. No orders found for this visit on 10/01/23. PLAN Given the patient's limitations with function and his imaging findings suggestive of stable osteonecrosis, we will attempt right hip core decompression in order to prevent further destruction within his right femoral head. Did discuss that this would not relieve his back pain or radicular type symptoms. Patient wished to discuss with family and will reach out to our office with surgical timing. We will plan for core decompression with Steinmann pin along with GeneX bone matrix SIGNATURE: Richard Holguin DO PATIENT NAME: Miguel Whitten DATE: October 01, 2023 TIME: 12:11 PM documented in this encounter [facility] 10-01-2023 Instructions Jasper Cohen RN - 10/01/2023 12:11 PM EDT Follow-up in want to pursue the hip core decompression procedure DATE OF PROCEDURE TBD AT [place] [id number] [place] [address] PRE-ADMISSION TESTING TO CONTACT YOU FOR MEDICAL AND ANESTHESIA CLEARANCE WITHIN 30 DAYS OF YOUR SURGERY documented in this encounter [facility] 08-31-2023 Note HNO ID: [id number] Author: JIM CROUCH DO Service: ? Author [...] hip for now Procedures Jim Crouch DO [facility] 08-31-2023 History of Presen t illness Narrative [...] Jim Crouch DO documented in this encounter [facility] 08-31-2023 Instructions Jim Crouch DO - 08/31/2023 10:[address] Richard Holguin in [facility] documented in this encounter [facility] 08-03-2023 Miscellaneous Notes Responded Via My Chart. documented in this encounter [facility] 07-17-2023 Miscellaneous Notes Radiology Service Progress Note [...] PATIENT PRESENTS WITH AN IMPLANTABLE OR ATTACHED CLINICAL DATA MANAGEMENT MANAGER: No RADIOLOGY DEPARTMENT: MR; Exam(s) Completed: Lower MSK: Hip, bilateral PERIPHERAL IV DATA: Not applicable SIGNED BY: RT Pinky(R) July 17, 2023 7:12 AM documented in this encounter [facility] 07-09-2023 History of Presen t illness Narrative [facility] [address] [place] [address]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 CONTRAST Jim Murillo, DO [address] [place] [address] [place] [address] Referral ID Status Reason Start Date Expiration Date V isits Requested Visits Authorized [id number] Closed Auto-Generate d Referral 07/06/2023 05/03/2024 1 1 Specialty Diagnoses / Procedures Referred By Pinky yap Referred To Contact MR IMAGING Diagnoses Osteonecrosis of hip (HCC) Procedures MRI HIP WO IVCON LEFT MRI ANY JT LOWER EXTREM W/O CONTRAST Jim Murillo, DO [address] [place] [address] [place] [address] Referral ID Status Reason Start Date Expiration Date V isits Requested Visits Authorized [id number] Closed Auto-Generate d Referral 07/06/2023 05/03/2024 1 1 Reason Comments Established Patient Hip Pain Reason Comments Pain AVN Goals (unrecognized section and content) Goals may [...] BE BASED ON THE PRIMARY CLINICAL RECORDS. [employer] provides no warranty or guarantee of the accuracy or completeness of information in this document.
[2024-02-12] MEDS: KETOROLAC TROMETHAMINE 30 MG/ML VIAL IM (15:25)
[2024-02-12 16:35] LABS: Bilirubin Urine NEGATIVE (NEGATIVE); Blood Urine NEGATIVE (NEGATIVE); Clarity Urine CLEAR (CLEAR); Color Urine YELLOW (YELLOW); Glucose Urine UA NEGATIVE (NEGATIVE); Ketones Urine TRACE mg/dL (NEGATIVE); Leukocyte Esterase Urine NEGATIVE (NEGATIVE); Nitrite Urine NEGATIVE (NEGATIVE); Protein Urine NEGATIVE (NEG/TRACE); Specific Gravity Urine 1.025 (1.005-1.025)
[2024-02-12 16:38] LABS: Urine Microscopic Indicated NO
[2024-02-12] MEDS: OXYCODONE HCL/ACETAMINOPHEN 5MG/325MG 1 TAB PO (16:54)
--- NOTE | 2024-02-12 17:32 | ED_ITS ---
HPI HPI - General Adult General Chief complaint: Urogenital-Male Stated complaint: Testicular Pain Time Seen by Provider: 02/12/24 15:13 Source: patient Mode of arrival: walk-in Limitations: no limitations History of Present Illness HPI narrative: 38-year-old male to the emergency department tingling of right sided testicle pain. Patient reports this is the fourth time this has happened. He reports that he will have some vague dullness and increasing pain over a few days that will again resolved. He denies any dysuria, urgency, frequency, hematuria. He denies any fever, sweats, chills. No rectal pain. He is sexually active. Denies any abdominal pain or flank pain. No injury or trauma. He has a history of a vasectomy 3 years ago. Related Data Home Medications ?Medication ?Instructions ?Recorded ?Confirmed allopurinol 300 mg tablet 300 mg PO DAILY 01/20/23 02/12/24 bupropion HCl 300 mg 24 hr tablet, 300 mg PO DAILY 01/20/23 02/12/24 extended release esomeprazole magnesium 40 mg 40 mg PO DAILY 01/20/23 02/12/24 capsule,delayed release levothyroxine 175 mcg tablet 175 mcg PO DAILY 01/20/23 02/12/24 (Synthroid) sucralfate 1 gram tablet 1 g PO Q6H 08/26/23 02/12/24 Previous Rx's ?Medication ?Instructions ?Recorded methylprednisolone 4 mg tablets in 4 mg PO DAILY #21 ea 02/12/24 a dose pack (Medrol (Yamil)) oxycodone-acetaminophen 5 mg-325 1 tab PO Q6H PRN pain 3 days #12 02/12/24 mg tablet (Percocet) tabs Allergies Allergy/AdvReac Type Severity Reaction Status Date / Time ibuprofen Allergy Mild Nausea Verified 02/12/24 15:12 Opioid HPI Opioid Management Most Recent Opioid Data: Last Pain Scale 8 02/12/24 16:54 02/12/24 Last ED Pain Assessment 02/12/24 16:32 Last MAR Pain Assessment 02/12/24 16:54 Review of Systems ROS Status of ROS 10 or more systems reviewed and unremark able except as noted in history and below PFSH PFSH Social History Little interest or pleasure in doing things: not at all Feeling down, depressed, or hopeless: not at all Exam Narrative Exam Narrative: VITALS: I have reviewed the triage vital signs. GENERAL: Well developed, well appearing adult in no acute distress. NEURO: Alert and oriented. Moves all extremities. Face is symmetric and expressive. EYES: PERRL. No scleral icterus or conjunctival injection. No discharge. HENT: Normocephalic, atraumatic. Hearing is grossly intact. Nares grossly patent and without discharge. Mucous membranes moist. NECK: No JVD. Patient moves neck without restriction. GI/: Abdomen is soft and non-tender. Normoactive bowel sounds. Normal- appearing external circumcised male genitalia. Right testicle is normal in size. Normal lie. No mass. There is no erythema, warmth, swelling or crepitus in the groin or perineum. EXTREMITIES: Symmetric muscle bulk. No joint swelling. No clubbing, cyanosis, or deformity. SKIN: Warm and dry. Normal turgor. No rash or lesions appreciated. PSYCH: Mood, affect, and interaction is appropriate to the setting. Constitutional Vital Signs, click to edit/add: Last Vital Signs Temp 97.7 F 02/12/24 15:13 Pulse 83 02/12/24 15:13 Resp 20 02/12/24 15:13 BP 141/94 H 02/12/24 15:13 Pulse Ox 99 02/12/24 15:13 O2 Del Method Room Air 02/12/24 15:13 Course Vital Signs Vital signs: Vital Signs Temperature 97.7 F 02/12/24 15:13 Pulse Rate 83 02/12/24 15:13 Respiratory Rate 20 02/12/24 15:13 Blood Pressure 141/94 H 02/12/24 15:13 Pulse Oximetry 99 02/12/24 15:13 Oxygen Delivery Method Room Air 02/12/24 15:13 Temperature 97.7 F 02/12/24 15:13 Pulse Rate 83 02/12/24 15:13 Respiratory Rate 20 02/12/24 15:13 Blood Pressure 141/94 H 02/12/24 15:13 Pulse Oximetry 99 02/12/24 15:13 Oxygen Delivery Method Room Air 02/12/24 15:13 Medical Decision Making MDM Narrative Medical decision making narrative: Ultrasound negative. Urinalysis unremarkable. He has recurrent right testicle pain after vasectomy. Will refer him back to urology. Pain medication prescribed. Return precautions discussed. All questions were answered. The patient was discharged home. Lab Data Lab results reviewed: Yes I reviewed the patient's lab results Labs: Lab Results 02/12/24 Range/Units 16:28 Urine Color Yellow (YELLOW) Urine Clarity Clear (CLEAR) Urine pH 6.0 (5.0-9.0) Ur Specific [place] 1.025 (1.005-1.025) Urine Protein Negative (NEG/TRACE) mg/dL Urine Glucose (UA) Negative (NEGATIVE) mg/dL Urine Ketones Trace A (NEGATIVE) mg/dL Urine Occult Blood Negative (NEGATIVE) Urine Nitrite Negative (NEGATIVE) Urine Bilirubin Negative (NEGATIVE) Urine Urobilinogen 1.0 (0.2-1.0) EU/dL Ur Leukocyte Esterase Negative (NEGATIVE) Imaging Data Scrotal ultrasound: Radiologist's impression: ITS Impressions Scrotum Ultrasound 02/12/24 15:21 IMPRESSION: 1. Normal testicles bilaterally, without testicular torsion, orchitis/epididymitis, or testicular mass. 2. Trace right hydrocele. No hydrocele on left. 4. Negative for varicocele. Electronically authenticated by: ZARINA LR Date: 02/12/2024 16:49 Discharge Plan Discharge Chief Complaint: Urogenital-Male Clinical Impression: Pain in right testicle Patient Disposition: Home, Self-Care Condition: Good Mode of Transportation: Private Vehicle Prescriptions / Home Meds: New methylprednisolone [Medrol (Yamil)] 4 mg tablets,dose pack 4 mg PO DAILY Qty: 21 0RF Rx Instructions: TAKE PER DOSEPAK INSTRUCTIONS oxycodone-acetaminophen [Percocet] 5-325 mg tablet 1 tab PO Q6H PRN (Reason: pain) 3 Days Qty: 12 0RF No Action allopurinol 300 mg tablet 300 mg PO DAILY bupropion HCl 300 mg tablet extended release 24 hr 300 mg PO DAILY esomeprazole magnesium 40 mg capsule,delayed release(DR/EC) 40 mg PO DAILY levothyroxine [Synthroid] 175 mcg tablet 175 mcg PO DAILY sucralfate 1 gram tablet 1 g PO Q6H Print Language: Mauritanian Instructions: Testicle Pain (ED) Additional Instructions: Call the office of your primary care doctor to arrange for follow-up within the above-stated timeframe. Your ED visit was focused on your acute issue and does not replace primary care. You should review your labs, imaging, and diagnoses from this ED visit with your primary care physician. There may be non-emergent/ incidental findings that need further evaluation. You should review your vital signs including blood pressure with your PCP. If you were prescribed medications you should discuss possible side-effects and drug interactions with your pharmacist. Call 911 or go to the nearest Emergency Department if you develop any new or worsening symptoms. Referrals: Nathan De Guzman DO [Primary Care Provider] - 1 week Tomás Jacobs MD [Physician] - 1 week Discharge Date/Time: 02/12/24 17:22
== END 2024-02-12 17:22 | disposition home or self-care (01) ==
PROVIDERS: Emergency Provider Student in an Organized Health Care Education/Training Program; PCP Family Medicine
DX: N50.811 Right testicular pain (principal)
CPT/HCPCS: 76870; 81003; 93976; 96372; 99285; J1885